=== PATIENT | male | born 1970 | race Caucasian/White ===

== ENCOUNTER 2017-04-11 12:04 | Observation (INO) | payer OTHER ==
[2017-04-11] MEDS ORDERED: IBUPROFEN 600 MG TAB PO STA (12:38)
[2017-04-11] MEDS ORDERED: ACETAMINOPHEN TAB 500 MG TAB PO STA (12:38)
--- NOTE | 2017-04-11 12:41 | ED ---
General Adult HPI - General Chief complaint: Neck Pain/Injury Stated complaint: Abscess on neck Time Seen by Provider: 04/11/17 12:33 Source: patient, RN notes reviewed Mode of arrival: ambulatory Limitations: no limitations - History of Present Illness Initial comments: 46-year-old male presents to the emergency department with a chief complaint of swollen lymph nodes dissected the neck. Patient stateshis last 2 days they become very tender to touch. Patient states it's felt warm to the outside the neck is well. Patient states it's localized swelling is not diffuse. Patient states that they are painful to touch. Patient denies any fever home but he does have a low-grade fever here. Patient states that he has have diabetes his sugar was 212 yesterday. Patient states that he has had no pain opening closing mouth. Patient denies any ear pain. Patient denies any pain with movement of the neck. Patient does state that he has had weird areas infection in the past. Patient states that he was concerned due to the lumps without that he should be evaluated. Patient denies any recent fever, chills, shortness of breath, chest pain, back pain, abdominal pain, nausea vomiting, numbness or tingling, dysuria or hematuria, constipation or diarrhea, headaches or visual changes, or any other current symptoms. - Related Data Home Medications Medication Instructions Recorded Confirmed Gabapentin [Neurontin] 800 mg PO BID 05/06/14 04/11/17 Lisinopril [Lisinopril] 20 mg PO DAILY 06/22/15 04/11/17 Simvastatin [Zocor] 20 mg PO HS 06/22/15 04/11/17 DULoxetine HCL [Cymbalta] 60 mg PO BID 07/10/16 04/11/17 Gemfibrozil [Lopid] 600 mg PO AC-BID 07/10/16 04/11/17 Glimepiride [Amaryl] 4 mg PO AC-BRKFST 07/10/16 04/11/17 Insulin Glargine,Hum.rec.anlog 58 unit SQ 07/10/16 04/11/17 [Lantus Solostar] Omeprazole 20 mg PO BID 07/10/16 04/11/17 traMADol HCL [Ultram] 50 mg PO Q6HR PRN 07/10/16 04/11/17 Pregabalin [Lyrica] 100 mg PO TID 04/11/17 04/11/17 metFORMIN HCL 2,000 mg PO BID 04/11/17 04/11/17 Previous Rx's Medication Instructions Recorded EPINEPHrine [Epipen 2-Jace] 0.3 mg IM ONCE PRN #1 ml 04/04/15 Allergies Allergy/AdvReac Type Severity Reaction Status Date / Time acetaminophen [From [place]] Allergy Rash/Hives Verified 04/11/17 12:32 hydrocodone [From [place]] Allergy Rash/Hives Verified 04/11/17 12:32 tomato Allergy Swelling Verified 04/11/17 12:32 venom-honey bee Allergy Anaphylaxis Verified 04/11/17 12:32 [bee venom (honey bee)] Review of Systems ROS Statement: Those systems with pertinent positive or pertinent negative responses have been documented in the HPI. ROS Other: All systems not noted in ROS Statement are negative. Past Medical History Past Medical History: Diabetes Mellitus, Fibromyalgia, GERD/Reflux, Hyperlipidemia, Hypertension, Skin Disorder Additional Past Medical History / Comment(s): Hx of Traumatic Amp of RT Distal 4TH Finger, at AGE 11, w/ log splitter. PSORIASIS. UMB HERNIA CURRENT. History of Any Multi-Drug Resistant Organisms: None Reported Past Surgical History: Orthopedic Surgery Additional Past Surgical History / Comment(s): RT Ring Finger Tip Amp. 2 COLONOSCOPIES. I&D ABSCESS LT GROIN 04/2014. Past Anesthesia/Blood Transfusion Reactions: Postoperative Nausea & Vomiting ( PONV) Additional Past Anesthesia/Blood Transfusion Reaction / Comment(s): PONV CHILD. Past Psychological History: Depression Smoking Status: Current every day smoker Past Alcohol Use History: None Reported Past Drug Use History: None Reported - Past Family History Father Family Medical History: Coronary Artery Disease (CAD) General Exam - General Exam Comments Initial Comments: General: The patient is awake and alert, in no distress, and does not appear acutely ill. Eye: Pupils are equal, round and reactive to light, extra-ocular movements are intact; there is normal conjunctiva bilaterally. No signs of icterus. Ears, nose, mouth and throat: There are moist mucous membranes. Neck: The neck is supple, there is tenderness to [place] on the neck. There does appear to be a tender lateral lymph node as well as the posterior area of tenderness on the right.. Patient had left-sided lymph node as well however this is not tender. Cardiovascular: There is a regular rate and rhythm. No murmur, rub or gallop is appreciated. Respiratory: Lungs are clear to auscultation, respirations are non-labored, breath sounds are equal. No wheezes, stridor, rales, or rhonchi. Back: There is no tenderness to palpation in the midline. There is no obvious deformity. No rashes noted. Musculoskeletal: Normal ROM, no tenderness, There is no pedal edema. There is no calf tenderness or swelling. Sensation intact. Pulses equal bilaterally 2+. Neurological: CN II-XII intact, There are no obvious motor or sensory deficits. Coordination appears grossly intact. Speech is normal. Skin: Skin is warm and dry and no rashes or lesions are noted. Psychiatric: Cooperative, appropriate mood & affect, normal judgment. Limitations: no limitations Course Vital Signs 04/11/17 04/11/17 12:29 13:04 Temperature 100.4 F H 100.2 F H Pulse Rate 104 H 100 Respiratory 18 21 Rate Blood Pressure 134/89 132/74 O2 Sat by Pulse 96 91 L Oximetry - Reevaluation(s) Reevaluation #1: 04/11/17 12:50 Patient did start to experience some lightheadedness in the emergency department at this time. I rechecked his temperature did increase to 101.6 which is temperature that I took. This is most likely causing patient's lightheadedness however we will do an EKG and add on cardiac labs for the patient at this time. Reevaluation #2: 04/11/17 14:11 At this time patient does meet sepsis criteria. Unasyn is ordered. EKG Findings - EKG Comments: EKG Findings:: normal sinus rhythm 97 bpm, normal axis, no atopy, no S-T depressions or elevations, Medical Decision Making - Medical Decision Making 46-year-old male presents for small swollen areas to the right side of the neck. This patient does appear to have a cellulitis versus lymphadenitis type infection. Patient does meet sepsis criteria. This time we'll admit the patient for IV antibiotics. At this time the patient does appear this plan all questions have been answered. Dr. Buck discussed the case with on-call physician from [facility]. - Lab Data Result diagrams: 04/11/17 13:16 04/11/17 13:16 Lab Results 04/11/17 04/11/17 04/11/17 Range/Units 12:41 13:16 13:16 WBC (3.8-10.6) k/uL RBC (4.30-5.90) m/uL Hgb (13.0-17.5) gm/dL Hct (39.0-53.0) % MCV (80.0-100.0) fL MCH (25.0-35.0) pg MCHC (31.0-37.0) g/dL RDW (11.5-15.5) % Plt Count (150-450) k/uL Neutrophils % % Lymphocytes % % Monocytes % % Eosinophils % % Basophils % % Neutrophils # (1.3-7.7) k/uL Lymphocytes # (1.0-4.8) k/uL Monocytes # (0-1.0) k/uL Eosinophils # (0-0.7) k/uL Basophils # (0-0.2) k/uL Sodium 136 L (137-145) mmol/L Potassium 4.1 (3.5-5.1) mmol/L Chloride 101 (98-107) mmol/L Carbon Dioxide 25 (22-30) mmol/L Anion Gap 10 mmol/L BUN 10 (9-20) mg/dL Creatinine 0.80 (0.66-1.25) mg/dL Est GFR (MDRD) Af Amer >60 (>60 ml/min/1.73 sqM) Est GFR (MDRD) Non-Af >60 (>60 ml/min/1.73 sqM) Glucose 426 H (74-99) mg/dL POC Glucose (mg/dL) 423 H (75-99) mg/dL POC Glu Laundry Worker ID Marzena Lauren Plasma Lactic Acid Travis (0.7-2.0) mmol/L Calcium 9.2 (8.4-10.2) mg/dL Phosphorus 2.7 (2.5-4.5) mg/dL Magnesium 1.7 (1.6-2.3) mg/dL Total Bilirubin 0.6 (0.2-1.3) mg/dL AST 47 (17-59) U/L ALT 55 (21-72) U/L Alkaline Phosphatase 110 (38-126) U/L Total Creatine Kinase 56 (55-170) U/L CK-MB (CK-2) <0.2 (0.0-2.4) ng/mL CK-MB (CK-2) Rel Index Troponin I <0.012 (0.000-0.034) ng/mL Total Protein 6.5 (6.3-8.2) g/dL Albumin 3.9 (3.5-5.0) g/dL Acetone, Qual Negative (Negative) 04/11/17 04/11/17 04/11/17 Range/Units 13:16 13:16 14:42 WBC 16.9 H (3.8-10.6) k/uL RBC 4.72 (4.30-5.90) m/uL Hgb 14.3 (13.0-17.5) gm/dL Hct 42.1 (39.0-53.0) % MCV 89.1 (80.0-100.0) fL MCH 30.3 (25.0-35.0) pg MCHC 34.0 (31.0-37.0) g/dL RDW 13.5 (11.5-15.5) % Plt Count 304 (150-450) k/uL Neutrophils % 84 % Lymphocytes % 9 % Monocytes % 5 % Eosinophils % 1 % Basophils % 0 % Neutrophils # 14.1 H (1.3-7.7) k/uL Lymphocytes # 1.5 (1.0-4.8) k/uL Monocytes # 0.9 (0-1.0) k/uL Eosinophils # 0.2 (0-0.7) k/uL Basophils # 0.0 (0-0.2) k/uL Sodium (137-145) mmol/L Potassium (3.5-5.1) mmol/L Chloride (98-107) mmol/L Carbon Dioxide (22-30) mmol/L Anion Gap mmol/L BUN (9-20) mg/dL Creatinine (0.66-1.25) mg/dL Est GFR (MDRD) Af Amer (>60 ml/min/1.73 sqM) Est GFR (MDRD) Non-Af (>60 ml/min/1.73 sqM) Glucose (74-99) mg/dL POC Glucose (mg/dL) 306 H (75-99) mg/dL POC Glu Laundry Worker ID Sergio Pearson Plasma Lactic Acid Travis 2.3 H* (0.7-2.0) mmol/L Calcium (8.4-10.2) mg/dL Phosphorus (2.5-4.5) mg/dL Magnesium (1.6-2.3) mg/dL Total Bilirubin (0.2-1.3) mg/dL AST (17-59) U/L ALT (21-72) U/L Alkaline Phosphatase (38-126) U/L Total Creatine Kinase (55-170) U/L CK-MB (CK-2) (0.0-2.4) ng/mL CK-MB (CK-2) Rel Index Troponin I (0.000-0.034) ng/mL Total Protein (6.3-8.2) g/dL Albumin (3.5-5.0) g/dL Acetone, Qual (Negative) - Radiology Data Radiology results: report reviewed, image reviewed Disposition Clinical Impression: Sepsis, Cellulitis, Diabetes, Lymphadenitis Disposition: ADMITTED IP TO THIS [facility] Condition: Stable Referrals: Lyubov Chang MD [Primary Care Provider] - 1-2 days Time of Disposition: 14:52 Decision Date: 04/11/17 Decision Time: 14:52
[2017-04-11] MEDS ORDERED: SODIUM CHLORIDE 0.9% 1,000 ML IV STA ×2 (12:42→14:07)
[2017-04-11] MEDS ORDERED: INSULIN LISPRO (humaLOG) 300 UNIT/3 ML VIAL SQ ONE (12:42)
[2017-04-11 12:44] LABS: Glucose,Whole Blood 423 mg/dL (75-99)
[2017-04-11 13:26] LABS: Basophils % (A) 0 %; CH 30.9; CHCM 34.8; Eosinophils # (A) 0.2 k/uL (0-0.7); Eosinophils % (A) 1 %; HCT 42.1 % (39.0-53.0); HDW 2.45; HGB 14.3 gm/dL (13.0-17.5); Luc # (Auto) 0.14; Luc % (Auto) 1; Lymphocytes # (A) 1.5 k/uL (1.0-4.8); Lymphocytes % (A) 9 %; MCH 30.3 pg (25.0-35.0); MCV 89.1 fL (80.0-100.0); Mean Platelet Volume 7.7; Monocytes # (A) 0.9 k/uL (0-1.0); Monocytes % (A) 5 %; Neutrophils # (A) 14.1 k/uL (1.3-7.7); Neutrophils % (A) 84 %; RBC 4.72 m/uL (4.30-5.90); RDW 13.5 % (11.5-15.5); WBC 16.9 k/uL (3.8-10.6)
--- NOTE | 2017-04-11 13:56 | XR ---
EXAMINATION TYPE: XR chest 2V DATE OF EXAM: 04/11/2017 COMPARISON: None HISTORY: 46-year-old male with cough TECHNIQUE: PA and lateral views FINDINGS: The cardiomediastinal silhouette, aorta, and pulmonary vasculature are within normal limits. Strandy areas of atelectasis in the mid to lower lungs. Mild interstitial prominence and mild peribronchial c uffing noted. No consolidation or pleural effusion. IMPRESSION: Some interstitial changes that could represent bronchitis or chronic asthma. Strandy areas of atelect asis are also present. No sherrie infiltrate.
[2017-04-11] MEDS ORDERED: AMPICILLIN-SULBACTAM 3 GM in SODIUM CHLORIDE 0.9% 100 ML IVPB STA (13:59)
[2017-04-11 14:03] LABS: Creatine Kinase 56 U/L (55-170)
[2017-04-11 14:06] LABS: ALT 55 U/L (21-72); AST 47 U/L (17-59); Alkaline Phosphatase 110 U/L (38-126); Anion Gap 10 mmol/L; Blood Urea Nitrogen 10 mg/dL (9-20); Calcium 9.2 mg/dL (8.4-10.2); Carbon Dioxide 25 mmol/L (22-30); Chloride 101 mmol/L (98-107); Glucose 426 mg/dL (74-99); Magnesium 1.7 mg/dL (1.6-2.3); Non-African American GFR(MDRD) >60 (>60 ml/min/1.73 sqM); Phosphorous 2.7 mg/dL (2.5-4.5); Potassium 4.1 mmol/L (3.5-5.1); Sodium 136 mmol/L (137-145); Total Bilirubin 0.6 mg/dL (0.2-1.3); Total Protein 6.5 g/dL (6.3-8.2)
[2017-04-11 14:15] LABS: Creatine Kinase MB <0.2 ng/mL (0.0-2.4); Troponin I <0.012 ng/mL (0.000-0.034)
--- NOTE | 2017-04-11 14:32 | US ---
EXAMINATION TYPE: US st tissue neck DATE OF EXAM: 04/11/2017 COMPARISON: NONE CLINICAL HISTORY: 46-year-old male Pain. Right neck lump. TECHNIQUE: Multiple sonographic images targeted to the patient's right posterior and lateral neck wit h particular attention to the site of palpable abnormality. FINDINGS: A mildly enlarged but thickened lymph node is present at the right posterior neck at the site of palp able abnormality. This measures 1.4 x 1.1 cm. No other solid or cystic lesion is seen. IMPRESSION: Mildly enlarged lymph node along the right posterior neck at the site of palpable abnormality demonst rates a diffusely thickened cortex. Findings could represent lymphadenitis or other postinflammatory process. Clinical follow-up to ensure resolution. If any enlargement is noted, the area can be reimag ed and tissue sampling can be considered.
[2017-04-11 14:44] LABS: Glucose,Whole Blood 306 mg/dL (75-99)
[2017-04-11 14:58] LABS: Appearance,Urine Clear (Clear); Bilirubin,Urine Negative (Negative); Glucose,Urine (UA) 4+ (Negative); Ketones,Urine 1+ (Negative); Leukocyte Esterase,Urine Negative (Negative); Nitrite,Urine Negative (Negative); PH, Urine 5.5 (5.0-8.0); Protein,Urine Negative (Negative); Specific Gravity,Urine 1.033 (1.001-1.035); UA Billing (MACRO vs. MICRO) CHEM; Urobilinogen,Urine <2.0 mg/dL (<2.0)
[2017-04-11] MEDS ORDERED: traMADol 50 MG TAB PO PRN (15:03)
[2017-04-11] MEDS ORDERED: IBUPROFEN 400 MG TAB PO PRN (15:04)
[2017-04-11] MEDS ORDERED: NICOTINE 21MG/24HR PATCH TRANSDERM STA (15:07)
[2017-04-11 16:50] LABS: Glucose,Whole Blood 277 mg/dL (75-99)
[2017-04-11] MEDS: PREGABALIN 100 MG CAP PO SCH ×2 (17:38→20:31)
[2017-04-11] MEDS: GEMFIBROZIL 600 MG TAB PO SCH (17:38)
[2017-04-11] MEDS: PANTOPRAZOLE 40 MG TABLET PO SCH (17:38)
[2017-04-11] MEDS: SODIUM CHLORIDE 0.45% 1,000 ML IV SCH (17:38)
[2017-04-11] MEDS: ACETAMINOPHEN TAB 500 MG TAB PO PRN (20:31)
[2017-04-11] MEDS: DULoxetine HCL 60 MG CAPSULE.DR PO SCH (20:31)
[2017-04-11] MEDS: metFORMIN 500 MG TAB PO SCH (20:32)
[2017-04-11] MEDS: GABAPENTIN 400 MG CAP PO SCH (20:32)
[2017-04-11] MEDS ORDERED: INSULIN DETEMIR 100 UNIT/ML 10 ML VIAL SQ SCH (21:00)
[2017-04-11] MEDS ORDERED: INSULIN GLARGINE 100 UNIT/ML 10 ML VIAL SQ SCH (21:00)
[2017-04-11] MEDS ORDERED: INSULIN GLARGINE HUM REC ANLOG 58 UNIT SQ SCH (21:00)
[2017-04-11] MEDS ORDERED: ATORVASTATIN 10 MG TAB PO SCH (21:00)
[2017-04-11] MEDS ORDERED: METFORMIN HCL 2000 MG PO SCH (21:00)
[2017-04-11 21:05] LABS: Glucose,Whole Blood 352 mg/dL (75-99)
[2017-04-11] MEDS: AMPICILLIN-SULBACTAM 3 GM in SODIUM CHLORIDE 0.9% 100 ML IVPB SCH (23:11)
[2017-04-12] MEDS: SODIUM CHLORIDE 0.45% 1,000 ML IV SCH ×2 (01:17→05:53)
[2017-04-12] MEDS: ACETAMINOPHEN TAB 500 MG TAB PO PRN (05:20)
[2017-04-12 05:57] LABS: Glucose,Whole Blood 229 mg/dL (75-99)
[2017-04-12] MEDS: GEMFIBROZIL 600 MG TAB PO SCH (06:33)
[2017-04-12 06:34] LABS: Basophils # (A) 0.1 k/uL (0-0.2); Basophils % (A) 0 %; CH 30.8; CHCM 34.3; Eosinophils # (A) 0.3 k/uL (0-0.7); Eosinophils % (A) 3 %; HCT 38.7 % (39.0-53.0); HDW 2.46; HGB 13.2 gm/dL (13.0-17.5); Luc # (Auto) 0.18; Luc % (Auto) 1; Lymphocytes # (A) 2.2 k/uL (1.0-4.8); Lymphocytes % (A) 17 %; MCH 30.9 pg (25.0-35.0); MCHC 34.2 g/dL (31.0-37.0); MCV 90.1 fL (80.0-100.0); Mean Platelet Volume 7.4; Monocytes # (A) 0.8 k/uL (0-1.0); Monocytes % (A) 7 %; Neutrophils # (A) 8.9 k/uL (1.3-7.7); Neutrophils % (A) 72 %; RBC 4.29 m/uL (4.30-5.90); RDW 13.3 % (11.5-15.5); WBC 12.5 k/uL (3.8-10.6); WBC (Perox) 13.05
[2017-04-12] MEDS: PANTOPRAZOLE 40 MG TABLET PO SCH (06:34)
[2017-04-12 06:44] LABS: ALT 66 U/L (21-72); AST 52 U/L (17-59); Alkaline Phosphatase 101 U/L (38-126); Anion Gap 8 mmol/L; Blood Urea Nitrogen 11 mg/dL (9-20); Calcium 9.1 mg/dL (8.4-10.2); Carbon Dioxide 24 mmol/L (22-30); Chloride 105 mmol/L (98-107); Glucose 229 mg/dL (74-99); Non-African American GFR(MDRD) >60 (>60 ml/min/1.73 sqM); Potassium 4.1 mmol/L (3.5-5.1); Sodium 137 mmol/L (137-145); Total Bilirubin 0.4 mg/dL (0.2-1.3); Total Protein 5.9 g/dL (6.3-8.2)
[2017-04-12] MEDS ORDERED: GLIMEPIRIDE 4 MG TAB PO SCH (07:30)
[2017-04-12] MEDS ORDERED: LISINOPRIL 20 MG TAB PO SCH (09:00)
[2017-04-12] MEDS: AMPICILLIN-SULBACTAM 3 GM in SODIUM CHLORIDE 0.9% 100 ML IVPB SCH (09:20)
[2017-04-12] MEDS: DULoxetine HCL 60 MG CAPSULE.DR PO SCH (09:28)
[2017-04-12] MEDS: GABAPENTIN 400 MG CAP PO SCH (09:28)
[2017-04-12] MEDS: metFORMIN 500 MG TAB PO SCH (09:28)
[2017-04-12] MEDS: PREGABALIN 100 MG CAP PO SCH (09:33)
[2017-04-12 10:23] LABS: Hemoglobin A1C 12.7 % (4.2-6.1)
[2017-04-12 11:39] LABS: Glucose,Whole Blood 266 mg/dL (75-99)
[2017-04-12 11:56] VITALS: BP 123/69; PULSE 71; RESP 20; TEMP 98.3
[2017-04-12] MEDS ORDERED: INSULIN LISPRO (humaLOG) 300 UNIT/3 ML VIAL SQ SCH (12:30)
--- NOTE | 2017-04-12 12:44 | P.HPIM ---
History of Present Illness H&P Date: 04/11/17 This is a 46-year-old gentleman that comes in to the hospital with complains of the tenderness in his neck 3 days. Patient states that he has noted increased erythema over the same area. It's usually on the right side. Denies having any problems with swallowing recent travel history. Patient states that he has also noted some chills and one episode of fever In the emergency room patient was noted to have mild lactic acidosis with the elevated white count. Patient was admitted to the hospital for treatment of cellulitis. A ultrasound of the neck was done which showed a lymphadenitis with some mild associated cellulitis Patient denies having any recent exposure to bugs Denies having any headaches blurry vision nausea vomiting diarrhea chest pain Review of Systems All systems: negative Past Medical History Past Medical History: Diabetes Mellitus, Fibromyalgia, GERD/Reflux, Hyperlipidemia, Hypertension, Skin Disorder Additional Past Medical History / Comment(s): Hx of Traumatic Amp of RT Distal 4TH Finger, at AGE 11, w/ log splitter. PSORIASIS. UMB HERNIA -HAD SX History of Any Multi-Drug Resistant Organisms: None Reported Past Surgical History: Orthopedic Surgery Additional Past Surgical History / Comment(s): RT Ring Finger Tip Amp. 2 COLONOSCOPIES. I&D ABSCESS LT GROIN 04/2014. Past Anesthesia/Blood Transfusion Reactions: Postoperative Nausea & Vomiting ( PONV) Additional Past Anesthesia/Blood Transfusion Reaction / Comment(s): PONV CHILD. Smoking Status: Current every day smoker - Past Family History Father Family Medical History: Coronary Artery Disease (CAD) Additional Family Medical History / Comment(s): from "hardening of the arteries" Mother Family Medical History: No Reported History Additional Family Medical History / Comment(s): "healthy" Medications and Allergies Home Medications Medication Instructions Recorded Confirmed Type Gabapentin [Neurontin] 800 mg PO BID 05/06/14 04/11/17 History Lisinopril 20 mg PO DAILY 06/22/15 04/11/17 History Simvastatin [Zocor] 20 mg PO HS 06/22/15 04/11/17 History DULoxetine HCL [Cymbalta] 60 mg PO BID 07/10/16 04/11/17 History Gemfibrozil [Lopid] 600 mg PO AC-BID 07/10/16 04/11/17 History Omeprazole 20 mg PO BID 07/10/16 04/11/17 History traMADol HCL [Ultram] 50 mg PO Q6HR PRN 07/10/16 04/11/17 History Pregabalin [Lyrica] 100 mg PO TID 04/11/17 04/11/17 History Allergies Allergy/AdvReac Type Severity Reaction Status Date / Time acetaminophen [From [place]] Allergy Rash/Hives Verified 04/11/17 12:32 hydrocodone [From [place]] Allergy Rash/Hives Verified 04/11/17 12:32 tomato Allergy Swelling Verified 04/11/17 12:32 venom-honey bee Allergy Anaphylaxis Verified 04/11/17 12:32 [bee venom (honey bee)] Physical Exam Vitals: Vital Signs Temp Pulse Resp BP Pulse Ox 04/11/17 16:22 84 16 139/79 94 L 04/11/17 13:04 100.2 F H 100 21 132/74 91 L 04/11/17 12:29 100.4 F H 104 H 18 134/89 96 Intake and Output 04/11/17 04/11/17 04/11/17 06:59 14:59 22:59 Other: Weight 133.81 kg Patient Weight 04/12/17 06:59 Weight 133.81 kg Physical exam Gen. appearance oriented 3 in no distress Neck is supple no JVD Lungs good air entry clear to auscultation no rhonchi or wheezing Heart S1-S2 heard regular rate and rhythm no murmurs appreciated Abdomen is soft nontender no organomegaly bowel sounds are intact Neurologically cranial nerves II-12 grossly intact no focal motor or sensory deficits noted Skin isolated lymphadenopathy tender to palpate associated erythema around the neck no tract reich noted Tender to palpation warm Results CBC & Chem 7: 04/12/17 05:57 04/12/17 05:57 Labs: Abnormal Lab Results - Last 24 Hours (Table) 04/11/17 04/11/17 04/11/17 Range/Units 12:41 13:16 13:16 WBC 16.9 H (3.8-10.6) k/uL Neutrophils # 14.1 H (1.3-7.7) k/uL Sodium 136 L (137-145) mmol/L Glucose 426 H (74-99) mg/dL POC Glucose (mg/dL) 423 H (75-99) mg/dL Plasma Lactic Acid Travis (0.7-2.0) mmol/L Urine Glucose (UA) (Negative) Urine Ketones (Negative) 04/11/17 04/11/17 04/11/17 Range/Units 13:16 14:42 14:47 WBC (3.8-10.6) k/uL Neutrophils # (1.3-7.7) k/uL Sodium (137-145) mmol/L Glucose (74-99) mg/dL POC Glucose (mg/dL) 306 H (75-99) mg/dL Plasma Lactic Acid Travis 2.3 H* (0.7-2.0) mmol/L Urine Glucose (UA) 4+ H (Negative) Urine Ketones 1+ H (Negative) 04/11/17 Range/Units 16:48 WBC (3.8-10.6) k/uL Neutrophils # (1.3-7.7) k/uL Sodium (137-145) mmol/L Glucose (74-99) mg/dL POC Glucose (mg/dL) 277 H (75-99) mg/dL Plasma Lactic Acid Travis (0.7-2.0) mmol/L Urine Glucose (UA) (Negative) Urine Ketones (Negative) Assessment and Plan Plan: sepsis sec to neck cellulitis DM2 Uncontrolled hyperglycemia obesity Dyslipidemia ongoing tobacco use plan ivf iv unasyn increase glargine 70units metformin dose is reduced hold sulfonyl urea ct neck dvt prophylaxis
--- NOTE | 2017-04-12 12:45 | P.DS ---
Providers Date of admission: 04/11/17 15:55 Attending physician: Jeovanny Boyle MD Primary care physician: [facility] Course: This is a 46-year-old gentleman that comes in to the hospital with complains of the tenderness in his neck 3 days. Patient states that he has noted increased erythema over the same area. It's usually on the right side. Denies having any problems with swallowing recent travel history. Patient states that he has also noted some chills and one episode of fever In the emergency room patient was noted to have mild lactic acidosis with the elevated white count. Patient was admitted to the hospital for treatment of cellulitis. A ultrasound of the neck was done which showed a lymphadenitis with some mild associated cellulitis Patient denies having any recent exposure to bugs Denies having any headaches blurry vision nausea vomiting diarrhea chest pain 04/12/2017 Patient states to be doing significantly better No fevers chills nausea vomiting or diarrhea Physical exam Gen. appearance oriented 3 in no distress Neck is supple no JVD Lungs good air entry clear to auscultation no rhonchi or wheezing Heart S1-S2 heard regular rate and rhythm no murmurs appreciated Abdomen is soft nontender no organomegaly bowel sounds are intact Neurologically cranial nerves II-12 grossly intact no focal motor or sensory deficits noted Skin isolated lymphadenopathy improved from admission Assessment and Plan Plan: sepsis sec to neck cellulitis DM2 Uncontrolled hyperglycemia obesity Dyslipidemia ongoing tobacco use, smoking cessation is recommended Patient improved with IV Unasyn Patient will be discharged home on Augmentin 10 days Patient had an ultrasound of the neck done Patient Condition at Discharge: Stable Plan - Discharge Summary New Discharge Prescriptions: New Amoxic-Pot Clav 875-125Mg [Augmentin 875-125] 1 tab PO Q12HR #20 tablet Insulin Glargine [Lantus] 70 unit SQ HS vial metFORMIN HCL [Glucophage] 1,000 mg PO BID tab Continue Gabapentin [Neurontin] 800 mg PO BID EPINEPHrine [Epipen 2-Jace] 0.3 mg IM ONCE PRN #1 ml PRN Reason: For ALLERGIC reaction Lisinopril 20 mg PO DAILY Simvastatin [Zocor] 20 mg PO HS traMADol HCL [Ultram] 50 mg PO Q6HR PRN PRN Reason: Pain DULoxetine HCL [Cymbalta] 60 mg PO BID Gemfibrozil [Lopid] 600 mg PO AC-BID Omeprazole 20 mg PO BID Pregabalin [Lyrica] 100 mg PO TID Discontinued Insulin Glargine,Hum.rec.anlog [Lantus Solostar] 58 unit SQ HS Glimepiride [Amaryl] 4 mg PO AC-BRKFST metFORMIN HCL 2,000 mg PO BID Discharge Medication List Gabapentin [Neurontin] 800 mg PO BID 05/06/14 [History] EPINEPHrine [Epipen 2-Jace] 0.3 mg IM ONCE PRN #1 ml 04/04/15 [Rx] Lisinopril 20 mg PO DAILY 06/22/15 [History] Simvastatin [Zocor] 20 mg PO HS 06/22/15 [History] DULoxetine HCL [Cymbalta] 60 mg PO BID 07/10/16 [History] Gemfibrozil [Lopid] 600 mg PO AC-BID 07/10/16 [History] Omeprazole 20 mg PO BID 07/10/16 [History] traMADol HCL [Ultram] 50 mg PO Q6HR PRN 07/10/16 [History] Pregabalin [Lyrica] 100 mg PO TID 04/11/17 [History] Amoxic-Pot Clav 875-125Mg [Augmentin 875-125] 1 tab PO Q12HR #20 tablet [Rx] Insulin Glargine [Lantus] 70 unit SQ HS vial 04/12/17 [Rx] metFORMIN HCL [Glucophage] 1,000 mg PO BID tab 04/12/17 [Rx] Follow up Appointment(s)/Referral(s): Alli Brooks DO [STAFF PHYSICIAN] - 1 Week Discharge Disposition: HOME SELF-CARE
[2017-04-12 14:10] VITALS: BMI 35.5
== END 2017-04-12 14:48 | disposition home or self-care (01) ==
LOC: EC 12:04 → INTOOBSV 15:55 → 6SEL 15:55
PROVIDERS: ADMIT Internal Medicine; ATTEND Internal Medicine
DX: A41.9 Sepsis, unspecified organism (principal); L03.221 Cellulitis of neck; E11.65 Type 2 diabetes mellitus with hyperglycemia; I88.9 Nonspecific lymphadenitis, unspecified; E87.2 Acidosis; I10 Essential (primary) hypertension; E66.9 Obesity, unspecified; E78.5 Hyperlipidemia, unspecified; L40.9 Psoriasis, unspecified; F32.9 Major depressive disorder, single episode, unspecified; M79.7 Fibromyalgia; K21.9 Gastro-esophageal reflux disease without esophagitis; Z79.899 Other long term (current) drug therapy; Z79.4 Long term (current) use of insulin; Z79.84 Long term (current) use of oral hypoglycemic drugs; F17.200 Nicotine dependence, unspecified, uncomplicated; Z88.6 Allergy status to analgesic agent; Z91.030 Bee allergy status; Z88.5 Allergy status to narcotic agent; Z91.018 Allergy to other foods
CPT/HCPCS: 96365; 96366 ×2; 99284; 36415; 93005; 80053 ×2; 83036; 82550; 82553; 82009; 83605; 83735; 84100; 84484; 85025 ×2; 81003; 87040; 87086; 71020; 76536; G0378 ×2; S4990; J0295 ×2

== ENCOUNTER 2018-10-15 23:42 | Inpatient (IN) | payer OTHER ==
--- NOTE | 2018-10-16 00:17 | ED ---
General Adult HPI - General Chief complaint: Skin/Abscess/Foreign Body Stated complaint: Lumps on Neck, Neck Pain Time Seen by Provider: 10/16/18 00:03 Source: patient Mode of arrival: ambulatory Limitations: no limitations - Related Data Home Medications Medication Instructions Recorded Confirmed Gabapentin [Neurontin] 800 mg PO BID 05/06/14 04/11/17 Lisinopril 20 mg PO DAILY 06/22/15 04/11/17 Simvastatin [Zocor] 20 mg PO HS 06/22/15 04/11/17 DULoxetine HCL [Cymbalta] 60 mg PO BID 07/10/16 04/11/17 Gemfibrozil [Lopid] 600 mg PO AC-BID 07/10/16 04/11/17 Omeprazole 20 mg PO BID 07/10/16 04/11/17 traMADol HCL [Ultram] 50 mg PO Q6HR PRN 07/10/16 04/11/17 Pregabalin [Lyrica] 100 mg PO TID 04/11/17 04/11/17 Previous Rx's Medication Instructions Recorded EPINEPHrine [Epipen 2-Jace] 0.3 mg IM ONCE PRN #1 ml 04/04/15 Amoxic-Pot Clav 875-125Mg 1 tab PO Q12HR #20 tablet 04/12/17 [Augmentin 875-125] Insulin Glargine [Lantus] 70 unit SQ HS vial 04/12/17 metFORMIN HCL [Glucophage] 1,000 mg PO BID tab 04/12/17 Allergies Allergy/AdvReac Type Severity Reaction Status Date / Time acetaminophen [From [place]] Allergy Rash/Hives Verified 10/16/18 00:00 hydrocodone [From [place]] Allergy Rash/Hives Verified 10/16/18 00:00 tomato Allergy Swelling Verified 10/16/18 00:00 venom-honey bee Allergy Anaphylaxis Verified 10/16/18 00:00 [bee venom (honey bee)] Review of Systems ROS Statement: Those systems with pertinent positive or pertinent negative responses have been documented in the HPI. ROS Other: All systems not noted in ROS Statement are negative. Past Medical History Past Medical History: Diabetes Mellitus, Fibromyalgia, GERD/Reflux, Hyperlipidemia, Hypertension, Skin Disorder Additional Past Medical History / Comment(s): Hx of Traumatic Amp of RT Distal 4TH Finger, at AGE 11, w/ log splitter. PSORIASIS. UMB HERNIA -HAD SX History of Any Multi-Drug Resistant Organisms: None Reported Past Surgical History: Orthopedic Surgery Additional Past Surgical History / Comment(s): RT Ring Finger Tip Amp. 2 COLONOSCOPIES. I&D ABSCESS LT GROIN 04/2014. Past Anesthesia/Blood Transfusion Reactions: Postoperative Nausea & Vomiting ( PONV) Additional Past Anesthesia/Blood Transfusion Reaction / Comment(s): PONV CHILD. Past Psychological History: Depression Smoking Status: Current every day smoker - Past Family History Father Family Medical History: Coronary Artery Disease (CAD) Additional Family Medical History / Comment(s): from "hardening of the arteries" Mother Family Medical History: No Reported History Additional Family Medical History / Comment(s): "healthy" General Exam Limitations: no limitations Course Vital Signs 10/15/18 10/16/18 23:58 00:20 Temperature 100.1 F H Pulse Rate 122 H 122 H Respiratory 20 18 Rate Blood Pressure 134/83 131/88 O2 Sat by Pulse 93 L 95 Oximetry Medical Decision Making - Medical Decision Making Dictation was produced using [employer] dictation software. please excuse any grammatical, word or spelling errors. Chief Complaint: 48-year-old male presents with neck pain. History of Present Illness: Patient reports neck pain that spent ongoing for approximately 2 days. Patient states that he is having painful lymph nodes to his posterior neck. Patient denies any constitutional symptoms. He states that he has a history of psoriasis. He cuts his own hair. Patient noted these lumps approximately yesterday. She also complains of tenderness to the entire scalp with sloughing of the skin. Patient reports history of psoriasis and fibromyalgia. Patient states he cuts his own hair. He reports that he uses clean equipment whenever he does so. The ROS documented in this emergency department record has been reviewed and confirmed by me. Those systems with pertinent positive or negative responses have been documented in the HPI. All other systems are other negative and/or noncontributory. PHYSICAL EXAM: General Impression: Alert and oriented x3, not in acute distress HEENT: Normocephalic atraumatic, extra-ocular movements intact, pupils equal and reactive to light bilaterally, mucous membranes moist, posterior cervical lymphadenopathy Cardiovascular: Heart regular rate and rhythm, S1&S2 audible, no murmurs, rubs or gallops Chest: Lungs clear to auscultation bilaterally, no rhonchi, no wheeze, no rales Abdomen: Bowel sounds present, abdomen soft, non-tender, non-distended, no organomegaly Musculoskeletal: Pulses present and equal in all extremities, no peripheral edema Motor: Power 5/5 bilaterally, no focal deficits noted Neurological: CN II-XII grossly intact, no focal motor or sensory deficits noted Skin: Redness and scaling over the entire scalp. Psych: Normal affect and mood ED course: 48-year-old male presents with chief complaint of neck pain and scalp rash. As upon arrival shows heart rate of 122, temperature 100.1, is O2 sat of 93.Laboratory evaluation obtained. Leukocytosis of 17. Rest of CBC unremarkable. Patient has mild gap acidosis. Glucose 388. Patient given intravenous fluids, Tylenol. Patient denying any other symptoms at this time. It's unlikely that his tinea capitis is causing systemic symptoms. There is clinical concern for serious bacterial infection versus influenza. Influenza test obtained. Pending results. Blood cultures and urine cultures are obtained. Patient given fluconazole, vancomycin and Unasyn. Patient be admitted for sepsis unclear source, suspicion of tinea capitis possible systemic fungal infection. - Lab Data Result diagrams: 10/16/18 00:10 10/16/18 00:10 Lab Results 10/16/18 10/16/18 Range/Units 00:10 00:10 WBC 16.9 H (3.8-10.6) k/uL RBC 5.49 (4.30-5.90) m/uL Hgb 16.8 (13.0-17.5) gm/dL Hct 48.4 (39.0-53.0) % MCV 88.1 (80.0-100.0) fL MCH 30.6 (25.0-35.0) pg MCHC 34.7 (31.0-37.0) g/dL RDW 12.4 (11.5-15.5) % Plt Count 202 (150-450) k/uL Neutrophils % 88 % Lymphocytes % 5 % Monocytes % 6 % Eosinophils % 1 % Basophils % 0 % Neutrophils # 14.8 H (1.3-7.7) k/uL Lymphocytes # 0.8 L (1.0-4.8) k/uL Monocytes # 1.0 (0-1.0) k/uL Eosinophils # 0.1 (0-0.7) k/uL Basophils # 0.0 (0-0.2) k/uL Sodium 135 L (137-145) mmol/L Potassium 4.1 (3.5-5.1) mmol/L Chloride 97 L (98-107) mmol/L Carbon Dioxide 25 (22-30) mmol/L Anion Gap 13 mmol/L BUN 11 (9-20) mg/dL Creatinine 0.63 L (0.66-1.25) mg/dL Est GFR (CKD-EPI)AfAm >90 (>60 ml/min/1.73 sqM) Est GFR (CKD-EPI)NonAf >90 (>60 ml/min/1.73 sqM) Glucose 388 H (74-99) mg/dL Calcium 9.8 (8.4-10.2) mg/dL Disposition Clinical Impression: Sepsis, Tinea capitis Disposition: ADMITTED IP TO THIS HOSP Condition: Fair Referrals: None,Stated [Primary Care Provider] - 1-2 days Decision Time: 01:01
[2018-10-16 00:40] LABS: Basophils % (A) 0 %; Eosinophils # (A) 0.1 k/uL (0-0.7); Eosinophils % (A) 1 %; HCT 48.4 % (39.0-53.0); HGB 16.8 gm/dL (13.0-17.5); Lymphocytes # (A) 0.8 k/uL (1.0-4.8); Lymphocytes % (A) 5 %; MCH 30.6 pg (25.0-35.0); MCHC 34.7 g/dL (31.0-37.0); MCV 88.1 fL (80.0-100.0); Mean Platelet Volume 7.2; Monocytes % (A) 6 %; Neutrophils # (A) 14.8 k/uL (1.3-7.7); Neutrophils % (A) 88 %; Platelet Count 202 k/uL (150-450); RBC 5.49 m/uL (4.30-5.90); RDW 12.4 % (11.5-15.5); WBC 16.9 k/uL (3.8-10.6)
[2018-10-16] MEDS ORDERED: SODIUM CHLORIDE 0.9% 1,000 ML IV STA (00:48)
[2018-10-16] MEDS ORDERED: KETOROLAC 30 MG/ML 1 ML VIAL IVP STA (00:49)
[2018-10-16 00:51] LABS: Anion Gap 13 mmol/L; Blood Urea Nitrogen 11 mg/dL (9-20); Calcium 9.8 mg/dL (8.4-10.2); Carbon Dioxide 25 mmol/L (22-30); Chloride 97 mmol/L (98-107); Glucose 388 mg/dL (74-99); Potassium 4.1 mmol/L (3.5-5.1); Sodium 135 mmol/L (137-145)
[2018-10-16] MEDS ORDERED: FLUCONAZOLE 150 MG TAB PO STA (00:52)
[2018-10-16] MEDS ORDERED: AMPICILLIN-SULBACTAM 3 GM in SODIUM CHLORIDE 0.9% 100 ML IVPB STA (00:56)
[2018-10-16] MEDS ORDERED: VANCOMYCIN 1,000 MG in SODIUM CHLORIDE 0.9% 250 ML IVPB STA (00:56)
[2018-10-16] MEDS ORDERED: NALOXONE 0.4 MG/ML 1 ML VIAL IV PRN (01:01)
[2018-10-16] MEDS ORDERED: ONDANSETRON 4 MG/2 ML VIAL IVP PRN (01:01)
[2018-10-16] MEDS ORDERED: VANCOMYCIN 2,000 MG in SODIUM CHLORIDE 0.9% 500 ML 500 ML IVPB STA (01:07)
[2018-10-16] MEDS ORDERED: VANCOMYCIN IV PER PHARMACY 1 EACH MISC MISCELLANE PRN (01:07)
--- NOTE | 2018-10-16 01:31 | XR ---
EXAMINATION TYPE: XR chest 2V DATE OF EXAM: 10/16/2018 COMPARISON: 04/11/2017 HISTORY: Swollen lymph nodes. Chest pain TECHNIQUE: Frontal and lateral views of the chest are obtained. FINDINGS: Heart and mediastinum are normal. Lungs are clear. Diaphragm is normal. Bony thorax appear s normal. IMPRESSION: Normal chest. No change.
[2018-10-16 01:56] LABS: Appearance,Urine Clear (Clear); Bilirubin,Urine Negative (Negative); Blood,Urine Negative (Negative); Color,Urine Yellow; Glucose,Urine (UA) 4+ (Negative); Leukocyte Esterase,Urine Negative (Negative); Nitrite,Urine Negative (Negative); PH, Urine 5.5 (5.0-8.0); Protein,Urine Trace (Negative); Specific Gravity,Urine 1.038 (1.001-1.035); Urobilinogen,Urine <2.0 mg/dL (<2.0)
[2018-10-16] MEDS ORDERED: VANCOMYCIN 2,000 MG in SODIUM CHLORIDE 0.9% 500 ML 500 ML IVPB ONE (02:00)
[2018-10-16 02:28] LABS: Ketones,Urine 2+ (Negative)
[2018-10-16] MEDS: SODIUM CHLORIDE 0.9% 1,000 ML IV SCH ×3 (02:48→21:06)
[2018-10-16] MEDS ORDERED: INSULIN ASPART 100 UNIT/ML 1 ML 10 ML VIAL SQ ONE (03:15)
--- NOTE | 2018-10-16 03:31 | P.HPIM ---
History of Present Illness H&P Date: 10/16/18 Chief Complaint: Palpable and painful small masses over the neck 48-year-old male with history of psoriasis hypertension and diabetes mellitus not currently on medications due to insurance problems. Patient presented to the ED due to painful palpable swollen glands over his neck which has been going on for 2 days patient grew concerned and suspicious and decided hospital. Patient has history of cellulitis in the past and was worried that this is an infection patient does admit to cutting his own hair but claims that he uses clean tools. Patient denies any fevers or chills at home denies any sore throat but does admit to generalized body aches mainly over the thighs this has never happened to him before where he found palpable lymph nodes over his neck. In the ED he was found to be having low-grade fevers and leukocytosis and was admitted for further management he was given antibiotic in the ER. Currently patient is seen on the medical floor he seems to be comfortable at bedtime had some food as he was hungry denies any sore throat or trouble swallowing or trouble breathing denies any chest pain or abdominal pain. Review of Systems Pertinent positives as noted in HPI. All other systems were reviewed and are negative Past Medical History Past Medical History: Diabetes Mellitus, Fibromyalgia, GERD/Reflux, Hyperlipidemia, Hypertension, Skin Disorder Additional Past Medical History / Comment(s): Hx of Traumatic Amp of RT Distal 4TH Finger, at AGE 11, w/ log splitter. PSORIASIS. UMB HERNIA -HAD SX History of Any Multi-Drug Resistant Organisms: None Reported Past Surgical History: Orthopedic Surgery Additional Past Surgical History / Comment(s): RT Ring Finger Tip Amp. 2 COLONOSCOPIES. I&D ABSCESS LT GROIN 04/2014. Past Anesthesia/Blood Transfusion Reactions: Postoperative Nausea & Vomiting ( PONV) Additional Past Anesthesia/Blood Transfusion Reaction / Comment(s): PONV CHILD. Past Psychological History: Depression Smoking Status: Current every day smoker - Past Family History Father Family Medical History: Coronary Artery Disease (CAD) Additional Family Medical History / Comment(s): from "hardening of the arteries" Mother Family Medical History: No Reported History Additional Family Medical History / Comment(s): "healthy" Medications and Allergies Home Medications Medication Instructions Recorded Confirmed Type Gabapentin [Neurontin] 800 mg PO BID 05/06/14 04/11/17 History EPINEPHrine [Epipen 2-Jace] 0.3 mg IM ONCE PRN #1 ml 04/04/15 04/11/17 Rx Lisinopril 20 mg PO DAILY 06/22/15 04/11/17 History Simvastatin [Zocor] 20 mg PO HS 06/22/15 04/11/17 History DULoxetine HCL [Cymbalta] 60 mg PO BID 07/10/16 04/11/17 History Gemfibrozil [Lopid] 600 mg PO AC-BID 07/10/16 04/11/17 History Omeprazole 20 mg PO BID 07/10/16 04/11/17 History traMADol HCL [Ultram] 50 mg PO Q6HR PRN 07/10/16 04/11/17 History Pregabalin [Lyrica] 100 mg PO TID 04/11/17 04/11/17 History Amoxic-Pot Clav 875-125Mg 1 tab PO Q12HR #20 tablet 04/12/17 Rx [Augmentin 875-125] Insulin Glargine [Lantus] 70 unit SQ HS vial 04/12/17 Rx metFORMIN HCL [Glucophage] 1,000 mg PO BID tab 04/12/17 Rx Allergies Allergy/AdvReac Type Severity Reaction Status Date / Time acetaminophen [From [place]] Allergy Rash/Hives Verified 10/16/18 00:00 hydrocodone [From [place]] Allergy Rash/Hives Verified 10/16/18 00:00 tomato Allergy Swelling Verified 10/16/18 00:00 venom-honey bee Allergy Anaphylaxis Verified 10/16/18 00:00 [bee venom (honey bee)] Physical Exam Vitals: Vital Signs Temp Pulse Resp BP Pulse Ox 10/16/18 01:46 98.9 F 105 H 18 128/84 96 10/16/18 00:20 122 H 18 131/88 95 10/15/18 23:58 100.1 F H 122 H 20 134/83 93 L Intake and Output 10/15/18 10/15/18 10/16/18 14:59 22:59 06:59 Other: Weight 106.594 kg Constitutional: No acute distress, conversant, pleasant, erythematous macule over his forehead, erythematous discoloration of the neck blanchable Eyes: Anicteric sclerae, moist conjunctiva, no lid-lag Pupils equal round reactive to light ENMT: NC/AT Oropharynx clear, no erythema, exudates Neck: Supple, FROM, no masses, or JVD No carotid bruits No thyromegaly Lungs: Clear to auscultation Clear to percussion Normal respiratory effort, no accessory muscle use Cardiovascular: Heart regular in rate and rhythm, No murmurs, gallops, or rubs No peripheral edema Abdominal: Soft Nontender, no guarding, rebound or rigidity Abdomen moving with respiration Normoactive bowel sounds No hepatomegaly, No splenomegaly No palpable mass No abdominal wall hernia noted Skin: Normal temperature, tone, texture, turgor No induration No subcutaneous nodules Multiple macular rashes over his forehead due to history of psoriasis No ulcers Extremities: No digital cyanosis No clubbing Pedal pulses intact and symmetrical Radial pulses intact and symmetrical No calf tenderness Psychiatric: Alert and oriented to person, place and time Appropriate affect fair judgement Neuro Muscles Strength 5/5 in all 4 extremities Sensation to light touch grossly present throughout Cranial nerves II-XII grossly intact No focal sensory deficits Lymphatics: palpable cervical lymph nodes Results CBC & Chem 7: 10/16/18 00:10 10/16/18 00:10 Labs: Abnormal Lab Results - Last 24 Hours (Table) 10/16/18 10/16/18 10/16/18 Range/Units 00:10 00:10 01:45 WBC 16.9 H (3.8-10.6) k/uL Neutrophils # 14.8 H (1.3-7.7) k/uL Lymphocytes # 0.8 L (1.0-4.8) k/uL Sodium 135 L (137-145) mmol/L Chloride 97 L (98-107) mmol/L Creatinine 0.63 L (0.66-1.25) mg/dL Glucose 388 H (74-99) mg/dL Ur Specific [place] 1.038 H (1.001-1.035) Urine Protein Trace H (Negative) Urine Glucose (UA) 4+ H (Negative) Assessment and Plan Assessment: 48-year-old male with history of diabetes mellitus and hypertension currently not on any medications secondary to noncompliance and loss of insurance. Patient admitted under observation with anticipated length of stay less than 48 hours due to cervical lymphadenopathy of unknown origin, patient was also found to have hyperglycemia secondary to noncompliance. Plan: Cervical lymphadenopathy unknown origin rule out underlying viral syndrome especially with patient complaining of generalized body aches Hyperglycemia with underlying diabetes mellitus secondary to noncompliance of medications Chronic conditions History of psoriasis History of hypertension History of diabetes mellitus Plan Aggressive IV fluid hydration Insulin boluses Patient bicarb is within normal limits Leukocytosis possibly reactive to hyperglycemia Enlarged Lymph nodes could be due to underlying viral syndrome especially with patient complains of generalized myalgia mainly in the lower extremities. Flu test negative Supportive care DVT prophylaxis with subcu 3 times a day Considerations could be made for CAT scan imaging of the soft tissue of the neck especially if patient starts spiking fevers Preformed a thorough record review from recent hospitalization patient was admitted for cellulitis of the neck treated with Unasyn Surrogate decision-maker: Patient's CODE STATUS: Full code Discussed with: Patient, ER, RN Anticipated discharge: <[address]: Home A total of 60 minutes was spent on the care of this complex patient more than 50 % of the time was spent in counseling and care coordination.
[2018-10-16] MEDS: IBUPROFEN 400 MG TAB PO PRN ×2 (03:49→09:18)
[2018-10-16] MEDS: INSULIN DETEMIR 100 UNIT/ML 10 ML VIAL SQ SCH ×2 (03:49→22:25)
[2018-10-16] MEDS: KETOROLAC 30 MG/ML 1 ML VIAL IVP SCH ×3 (05:59→17:41)
[2018-10-16 07:07] LABS: Glucose,Whole Blood 159 mg/dL (75-99)
[2018-10-16] MEDS: HEPARIN SODIUM,PORCINE 5,000 UNIT/ML 1 ML VIAL SQ SCH ×2 (08:56→15:39)
[2018-10-16] MEDS: INSULIN ASPART 100 UNIT/ML 1 ML 10 ML VIAL SQ SCH ×4 (08:56→22:25)
[2018-10-16] MEDS ORDERED: PANTOPRAZOLE 40 MG/10 ML VIAL IV SCH (09:00)
[2018-10-16 11:47] LABS: Glucose,Whole Blood 206 mg/dL (75-99)
--- NOTE | 2018-10-16 13:38 | P.PN ---
Progress Note - Text Progress Note Date: 10/16/18 48-year-old male with PMH of psoriasis, hypertension and diabetes mellitus presents the ED for next swelling and rash. Patient reports not being able to see a doctor, has been out of medications over the past months. He is recently obtained a job and his insurance has been reinstated. Patient reports neck swelling over the past 3 days. Also noticed red bumps that appeared on his head, different from his psoriasis, tenderness with palpation. He also complains of myalgias in his bilateral lower extremities. Otherwise, he denies any fever or chills. No nausea or vomiting. No abdominal pain. No diarrhea or constipation. No upper respiratory symptoms. He denies cough, shortness of breath, chest pain or palpitations. He is alert and oriented 3 Heart is regular rate and rhythm with normal S1-S2 and no murmurs rubs or gallops Lungs are clear to auscultation bilaterally He has 2+ dorsalis pedis pulses bilaterally He has no lower extremity edema He has profound cervical lymphadenopathy He is tender raised red lesions over his scalp and forehead Assessment and Plan 1. Cervical LAD with concerns for sepsis 2. Raised lesions over the scalp 3. Diabetes mellitus 4. Hypertension 1. Initial concerns for SIRS (HR > 100, WBC 16.9, Tmax 100.1). Started on ampicillin and sulbactam 3 g IV 3 times a day in the ED. Chest x-ray is negative. Will discontinue and continue vancomycin IV per levels. Continue normal saline at 150 mL/h. Ibuprofen as needed for pain or fever. Will follow blood cultures. Follow-up infectious disease consult. 2. Possibly related to infectious process or psoriatic rash. Pain management as above. Trial of triamcinolone cream. 3. POC glucose 206. Start Levemir 10 units at night, insulin sliding scale. Hypoglycemic precautions. Regular Accu-Cheks. Diabetic diet. 4. BP 137/71. Monitor vitals, adjust medications as necessary. Patient is admitted for cervical lymphadenopathy with concerns of sepsis. He has decent glycemic control at this time. Pending infectious disease consult.
[2018-10-16] MEDS: VANCOMYCIN 1,500 MG in SODIUM CHLORIDE 0.9% 250 ML IVPB SCH ×2 (15:39→22:26)
[2018-10-16] MEDS: TRIAMCINOLONE ACET 0.1% OINTMENT 15 GM TUBE TOPICAL SCH ×2 (16:21→22:25)
[2018-10-16 17:06] LABS: Glucose,Whole Blood 216 mg/dL (75-99)
[2018-10-16 21:00] LABS: Glucose,Whole Blood 358 mg/dL (75-99)
[2018-10-17] MEDS: KETOROLAC 30 MG/ML 1 ML VIAL IVP SCH ×5 (00:31→23:59)
[2018-10-17] MEDS: ceFAZolin IN SWFI 2 GM/20 ML SYRINGE IVP SCH ×4 (00:31→23:59)
[2018-10-17] MEDS: HEPARIN SODIUM,PORCINE 5,000 UNIT/ML 1 ML VIAL SQ SCH ×4 (00:32→23:59)
[2018-10-17] MEDS: IBUPROFEN 400 MG TAB PO PRN ×2 (00:59→16:55)
[2018-10-17] MEDS: SODIUM CHLORIDE 0.9% 1,000 ML IV SCH ×4 (04:14→23:11)
[2018-10-17 07:03] LABS: Anion Gap 3 mmol/L; Blood Urea Nitrogen 10 mg/dL (9-20); Calcium 8.8 mg/dL (8.4-10.2); Carbon Dioxide 29 mmol/L (22-30); Chloride 106 mmol/L (98-107); Glucose 182 mg/dL (74-99); Potassium 3.5 mmol/L (3.5-5.1); Sodium 138 mmol/L (137-145)
--- NOTE | 2018-10-17 07:10 | CONS ---
CONSULTATION DATE OF SERVICE: 10/16/2018 REASON FOR CONSULTATION: Sepsis. HISTORY OF PRESENT ILLNESS: The patient is a 48-year-old male with a past medical history significant for psoriasis and diabetes mellitus; however the patient is currently not on any medication for treatment of psoriasis. The patient presenting to the ER with chief complaints of painful lymph nodes in his right posterior neck area that has been going on for the past 2 days. The patient also developed a raised bump on his forehead that has been different from his psoriatic patches. The patient does have dull aching to the rash area in intensity about 4 to 5 out of 10 and no radiation with no skin breakdown or any drainage. The patient did have some , but denies having increasing fever. With these symptoms the patient presented to the [facility] ER. On arrival to the ER, the patient did have fever of 100.1 degrees Fahrenheit. The patient did have a white count of 16.9. The patient UA was negative. Influenza serology was negative. Chest x-ray was negative. The patient did receive multiple antibiotics with a dose of Unasyn in the ER. Subsequently had been started on vancomycin. Infectious Disease was consulted for further recommendation regarding antibiotic therapy. REVIEW OF SYSTEMS: Positive points have been mentioned in HPI. Rest of the 14 systems has been negative. PAST MEDICAL HISTORY: Diabetes mellitus, fibromyalgia, gastroesophageal reflux disease, hypertension, hyperlipidemia, psoriasis. PAST SURGICAL HISTORY: Traumatic amputation of the right distal 4th finger, umbilical hernia repair, colonoscopy, I and D of the left groin abscess. SOCIAL HISTORY: Current everyday smoker. No drinking or drug use. FAMILY HISTORY: Father history of coronary artery disease. Mother currently no illnesses. ALLERGIES: Allergies to ACETAMINOPHEN HYDROCODONE, TOMATO. MEDICATIONS: Medications include the patient is currently on vancomycin pharmacy to dose. He is on heparin, Motrin, NovoLog, Levemir, Toradol, Narcan, Zofran, Protonix, Kenalog cream. Did receive a dose of Unasyn and fluconazole in the ER. PHYSICAL EXAMINATION: On examination, blood pressure is 123/79 with a pulse of 91, temperature 90.6, T-max 100.1. He is 94% on room air. General description is a middle-aged male lying in bed in no distress. No tachypnea or accessory muscle of respiration use. HEENT examination shows no pallor or scleral icterus. The patient did have cellulitis of the forehead and scalp area currently with no evidence of any open area or fluctuation. NECK: Trachea central with posterior lymphadenopathy mostly on the right side. No evidence of axillary lymphadenopathy. LUNGS: Unlabored breathing clear to auscultation anteriorly. No wheeze or crackle. HEART: S1, S2. Regular rate and rhythm. ABDOMEN: Soft, no tenderness. No guarding or rigidity. EXTREMITIES: No edema of feet. SKIN EXAMINATION: No rashes except psoriatic patches in the region on the forehead. NEUROLOGICAL: Patient is awake, alert, oriented x3. Mood and affect normal. LABS: Hemoglobin 16.8, white of 16.9. BUN of 11, creatinine 0.63. UA negative. Influenza serology was negative. Chest x-ray negative. DIAGNOSTIC IMPRESSION AND PLAN: 1. Patient admitted to the hospital with sepsis in a patient who did have a fever, tachycardia, elevated white count. Source is likely forehead/scalp cellulitis with evidence of lymphadenopathy on the right posterior cervical lymph node area with diffuse swelling, redness more likely streptococcal cellulitis. Clinically the patient is for methicillin-resistant Staphylococcus aureus or gram-negative infection. 2. The patient with underlying diabetes mellitus and nephrotoxicity. PLAN: 1. We will discontinue the vancomycin. 2. Start the patient on cefazolin 2 grams q.8 hours. 3. We will monitor his clinical course closely and adjust antibiotic further if needed. Thank you for this consultation. Will follow this patient along with you. MMODL / IJN: [id number] /
[2018-10-17 07:26] LABS: Glucose,Whole Blood 180 mg/dL (75-99)
[2018-10-17] MEDS: PANTOPRAZOLE 40 MG TABLET PO SCH (08:15)
[2018-10-17] MEDS: INSULIN ASPART 100 UNIT/ML 1 ML 10 ML VIAL SQ SCH ×4 (08:15→21:23)
[2018-10-17] MEDS: TRIAMCINOLONE ACET 0.1% OINTMENT 15 GM TUBE TOPICAL SCH ×3 (08:15→21:24)
[2018-10-17] MEDS ORDERED: IBUPROFEN 400 MG TAB PO STA (08:28)
[2018-10-17] MEDS: NICOTINE 14MG/24HR PATCH TRANSDERM SCH (09:26)
--- NOTE | 2018-10-17 11:27 | P.PN ---
Subjective Progress Note Date: 10/17/18 Principal diagnosis: Cellulitis Patient seen and examined. No acute events overnight. Patient reports continuation of symptoms. Patient reports feeling warm. He complains of a continued rash over the scalp and forehead along with slightly improved swelling in the neck. He denies any cough, shortness of breath or chest pain. Patient is requesting a nicotine patch. Objective - Vital Signs Vital signs: Vital Signs Temp 98.6 F 10/17/18 07:00 Pulse 78 10/17/18 07:00 Resp 16 10/17/18 07:00 BP 117/69 10/17/18 07:00 Pulse Ox 92 L 10/17/18 07:00 Intake & Output 10/16/18 10/17/18 10/17/18 18:59 06:59 18:59 Intake Total 2588 2400 240 Balance 2588 2400 240 Intake: Intake, IV Titration 1200 2400 Amount Sodium Chloride 0.9% 1, 1200 2400 000 ml @ 150 mls/hr IV . Q6H40M [facility] Rx#:[id number] Oral 1188 240 Other 200 Other: # Voids 3 3 - Exam General: [non toxic], [no distress], [appears at stated age] Derm: [warm], [dry] Head: [atraumatic], [normocephalic], [symmetric], [cervical lymphadenopathy with tenderness], [raised red lesions over the scalp and forehead, unchanged from yesterday] Eyes: [EOMI], [no lid lag], [anicteric sclera] Mouth: [no lip lesion], [mucus membranes moist] Cardiovascular: [S1S2 reg], [no murmur] Lungs: [CTA bilateral], [no rhonchi, no rales] , [no accessory muscle use] Abdominal: [soft], [ nontender to palpation], [no guarding], [no appreciable organomegaly] Ext: [no gross muscle atrophy], [no edema], [no contractures] Neuro: [no focal neuro deficits] Psych: [Alert], [oriented], [appropriate affect] - Labs CBC & Chem 7: 10/16/18 00:10 10/17/18 06:02 Labs: Abnormal Lab Results - Last 24 Hours (Table) 10/16/18 10/16/18 10/16/18 Range/Units 11:36 16:55 20:49 Creatinine (0.66-1.25) mg/dL Glucose (74-99) mg/dL POC Glucose (mg/dL) 206 H 216 H 358 H (75-99) mg/dL 10/17/18 10/17/18 Range/Units 06:02 07:10 Creatinine 0.62 L (0.66-1.25) mg/dL Glucose 182 H (74-99) mg/dL POC Glucose (mg/dL) 180 H (75-99) mg/dL Microbiology - Last 24 Hours (Table) 10/16/18 01:02 Blood Culture - Preliminary Blood No Growth after 24 hours Assessment and Plan Assessment: Assessment and Plan 1. Cellulitis causing cervical LAD with concerns for sepsis 2. Raised lesions over the scalp 3. Diabetes mellitus 4. Hypertension 1. Initial concerns for SIRS (HR > 100, WBC 16.9, Tmax 100.1). Chest x-ray is negative. Initially started on Unasyn and vancomycin in the ED. Infectious disease consulted, all antibiotics discontinued for cefazolin 2 g IV 3 times a day. Continue normal saline at 150 mL/h. Ibuprofen as needed for pain or fever. Blood cultures preliminary negative at 24 hours. Will follow blood cultures. Follow infectious disease recommendations. 2. Likely cellulitis as per infectious disease. Pain management as above. Trial of triamcinolone cream. Continue IV antibiotics. 3. POC glucose 180. Start Levemir 10 units at night, insulin sliding scale. Hypoglycemic precautions. Regular Accu-Cheks. Diabetic diet. 4. BP 117/69. Monitor vitals, adjust medications as necessary. Patient is being treated for cellulitis with IV cefazolin. T-max 100.4 this morning. Infectious diseases on board. We will continue IV antibiotics while waiting for blood cultures to return. Patient will need to be afebrile for 24 hours prior to discharge.
[2018-10-17 12:17] LABS: Glucose,Whole Blood 226 mg/dL (75-99)
[2018-10-17] MEDS ORDERED: VANCOMYCIN TROUGH DUE 1 EACH MISC MISCELLANE ONE (13:00)
[2018-10-17 17:26] LABS: Glucose,Whole Blood 300 mg/dL (75-99)
[2018-10-17] MEDS ORDERED: POTASSIUM CHLORIDE ER 20 MEQ TAB.ER PO STA (19:49)
[2018-10-17 21:20] LABS: Glucose,Whole Blood 303 mg/dL (75-99)
[2018-10-17] MEDS: INSULIN DETEMIR 100 UNIT/ML 10 ML VIAL SQ SCH (21:23)
--- NOTE | 2018-10-17 23:34 | PN ---
PROGRESS NOTE DATE OF SERVICE: 10/17/2018. REASON FOR FOLLOWUP: Scalp cellulitis and cervical lymphadenitis. INTERVAL HISTORY: The patient did have a low-grade fever this morning of 100.4. The patient afebrile since then. The patient overall is feeling better. Overall, irritation to the scalp pain has decreased. The patient denies having any chest pain, shortness of breath or cough. No abdominal pain, no diarrhea. PHYSICAL EXAMINATION: Blood pressure 124/65 with a pulse of 83, temperature 98.9, temperature was 100.4. GENERAL DESCRIPTION: A middle-aged male lying in bed in no distress. HEENT: Scalp area erythematous rash slightly decreased in intensity. Lymphadenopathy on the bilateral cervical area, possibly decreased in intensity. LUNGS: Unlabored breathing clear to auscultation anteriorly. HEART: S1, S2. Regular rate and rhythm. ABDOMEN: Soft, no tenderness. LABS: Creatinine 0.6. No CBC was done today. DIAGNOSTIC IMPRESSION AND PLAN: Patient with fever with scalp cellulitis and cervical lymphadenitis. Patient at this time to continue on cefazolin. Repeat the CBC tomorrow. If the patient continues to improve, hopefully finish therapy with oral antibiotics. Continue supportive care. MMODL / IJN: [id number] /
[2018-10-18] MEDS: SODIUM CHLORIDE 0.9% 1,000 ML IV SCH ×3 (04:42→22:18)
[2018-10-18] MEDS: KETOROLAC 30 MG/ML 1 ML VIAL IVP SCH ×4 (05:31→23:42)
[2018-10-18 07:00] LABS: Glucose,Whole Blood 232 mg/dL (75-99)
[2018-10-18] MEDS: NICOTINE 14MG/24HR PATCH TRANSDERM SCH (08:09)
[2018-10-18] MEDS: ceFAZolin IN SWFI 2 GM/20 ML SYRINGE IVP SCH ×3 (08:09→23:43)
[2018-10-18] MEDS: PANTOPRAZOLE 40 MG TABLET PO SCH (08:09)
[2018-10-18] MEDS: HEPARIN SODIUM,PORCINE 5,000 UNIT/ML 1 ML VIAL SQ SCH ×3 (08:09→23:42)
[2018-10-18] MEDS: INSULIN ASPART 100 UNIT/ML 1 ML 10 ML VIAL SQ SCH ×4 (08:09→21:00)
[2018-10-18] MEDS: TRIAMCINOLONE ACET 0.1% OINTMENT 15 GM TUBE TOPICAL SCH ×3 (08:10→21:00)
[2018-10-18 08:40] LABS: Basophils # (A) 0.1 k/uL (0-0.2); Basophils % (A) 0 %; Eosinophils # (A) 0.2 k/uL (0-0.7); Eosinophils % (A) 2 %; HCT 40.6 % (39.0-53.0); Lymphocytes # (A) 2.2 k/uL (1.0-4.8); Lymphocytes % (A) 18 %; MCH 29.5 pg (25.0-35.0); MCHC 31.7 g/dL (31.0-37.0); MCV 92.9 fL (80.0-100.0); Mean Platelet Volume 6.7; Monocytes # (A) 0.9 k/uL (0-1.0); Monocytes % (A) 7 %; Neutrophils # (A) 8.7 k/uL (1.3-7.7); Neutrophils % (A) 71 %; Platelet Count 235 k/uL (150-450); RBC 4.37 m/uL (4.30-5.90); RDW 12.5 % (11.5-15.5); WBC 12.3 k/uL (3.8-10.6)
[2018-10-18 08:46] LABS: Anion Gap 3 mmol/L; Blood Urea Nitrogen 14 mg/dL (9-20); Calcium 8.7 mg/dL (8.4-10.2); Carbon Dioxide 27 mmol/L (22-30); Chloride 110 mmol/L (98-107); Glucose 248 mg/dL (74-99); HGB 12.9 gm/dL (13.0-17.5); Sodium 140 mmol/L (137-145)
[2018-10-18 08:53] LABS: Potassium 4.2 mmol/L (3.5-5.1)
--- NOTE | 2018-10-18 11:16 | P.DS ---
Providers Date of admission: 10/16/18 01:01 Expected date of discharge: 10/18/18 Attending physician: Prince Estes MD Consults: 10/16/18 01:02 Consult Physician Routine Consulting Provider: Jaison Almeida Consult Reason/Comments: sepsis Do you want consulting provider notified?: Yes Primary care physician: Stated None Hospital Course: 48-year-old male with PMH of psoriasis, hypertension and diabetes mellitus presents the ED for next swelling and rash. Patient reports not being able to see a doctor, has been out of medications over the past months. He is recently obtained a job and his insurance has been reinstated. Patient reports neck swelling over the past 3 days. Also noticed red bumps that appeared on his head, different from his psoriasis, tenderness with palpation. He also complains of myalgias in his bilateral lower extremities. Otherwise, he denies any fever or chills. No nausea or vomiting. No abdominal pain. No diarrhea or constipation. No upper respiratory symptoms. He denies cough, shortness of breath, chest pain or palpitations. 2 cervical lymphadenopathy there's initial concerns for sepsis. He did meet SIRS criteria with a heart rate greater than 100, WBC count of 16.9 and T-max of 101 Fahrenheit. His started on ampicillin and sulbactam IV in the ED which was discontinued for vancomycin IV. He was started on normal saline at 150 mL/ h and was given ibuprofen as needed for pain or fever. Blood cultures were performed and were negative at the time of discharge. Infectious disease was consulted and recommended discontinuing vancomycin for cefazolin IV in the treatment of cellulitis. Patient seen and examined prior to discharge. No acute events overnight. Patient reports improvement in his neck swelling, less tender. He also reports improvement in his scalp lesions. He does complain of slight swelling over the right eye lid. He denies any blurry vision or photophobia. No eye discharge. No fever or chills. General: [non toxic], [no distress], [appears at stated age] Derm: [warm], [dry] Head: [atraumatic], [normocephalic], [symmetric], [cervical lymphadenopathy with tenderness, improved], [raised red lesions over the scalp and forehead, improved from yesterday] Eyes: [EOMI], [no lid lag], [anicteric sclera] Mouth: [no lip lesion], [mucus membranes moist] Cardiovascular: [S1S2 reg], [no murmur] Lungs: [CTA bilateral], [no rhonchi, no rales] , [no accessory muscle use] Abdominal: [soft], [ nontender to palpation], [no guarding], [no appreciable organomegaly] Ext: [no gross muscle atrophy], [no edema], [no contractures] Neuro: [no focal neuro deficits] Psych: [Alert], [oriented], [appropriate affect] Assessment and Plan 1. Cellulitis causing cervical LAD with concerns for sepsis 2. Raised lesions over the scalp 3. Diabetes mellitus 4. Hypertension 1. Initial concerns for SIRS (HR > 100, WBC 16.9, Tmax 100.1). Chest x-ray is negative. Initially started on Unasyn and vancomycin in the ED. Infectious disease consulted, all antibiotics discontinued for cefazolin 2 g IV 3 times a day. Continue normal saline at 150 mL/h. Ibuprofen as needed for pain or fever. Blood cultures negative. Follow infectious disease recommendations. 2. Likely cellulitis as per infectious disease. Pain management as above. Trial of triamcinolone cream. Continue IV antibiotics. 3. POC glucose 248. Discharged on Levemir 15 units at night, insulin sliding scale. Hypoglycemic precautions. Regular Accu-Cheks. Diabetic diet. 4. BP 122/80. Monitor vitals, adjust medications as necessary. Patient is being treated for cellulitis with IV cefazolin. He was discharged on oral antibiotics to complete a ten-day course. We'll start Levemir 15 units at bedtime for glycemic control. He will need adequate primary care follow-up on discharge. Pertinent Studies: Chest x-ray Patient Condition at Discharge: Fair Plan - Discharge Summary Discharge Rx Participant: Yes New Discharge Prescriptions: New Insulin Detemir [Levemir] 15 unit SQ HS #5 vial Sulfamethox-Tmp 800-160Mg [Bactrim DS 800-160 mg] 1 tab PO Q12HR #14 tab Continue Ibuprofen [Motrin Ib] 600 - 800 mg PO Q6H Discontinued Acetaminophen [Tylenol Extra Strength] 500 - 1,000 mg PO Q8H PRN PRN Reason: Pain Discharge Medication List Ibuprofen [Motrin Ib] 600 - 800 mg PO Q6H 10/16/18 [History] Insulin Detemir [Levemir] 15 unit SQ HS #5 vial 10/18/18 [Rx] Sulfamethox-Tmp 800-160Mg [Bactrim DS 800-160 mg] 1 tab PO Q12HR #14 tab [Rx] Follow up Appointment(s)/Referral(s): None,Stated [Primary Care Provider] - 1-2 days DemondAncelmo jamison [NON-STAFF] - As Needed (Glucometer) Activity/Diet/Wound Care/Special Instructions: Glucometer prescription currently at [facility] who said, with your insurance you will have an out of pocket cost for glucometer and supplies of $ 130.07. If you are in agreement with paying this cost, please go to any [facility] location to purchase your glucometer and supplies. [facility] #. Another option is to go to [facility] for a free glucometer with lower costing supplies. [facility] #[phone]. Please hold your primary care provider within 1-2 days of discharge. Please take all medications as advised. Discharge Disposition: HOME SELF-CARE
[2018-10-18] MEDS ORDERED: VANCOMYCIN IV PER PHARMACY 1 EACH MISC MISCELLANE PRN (11:26)
[2018-10-18 11:50] LABS: Glucose,Whole Blood 213 mg/dL (75-99)
[2018-10-18] MEDS ORDERED: VANCOMYCIN 2,000 MG in SODIUM CHLORIDE 0.9% 500 ML 500 ML IVPB ONE (12:00)
[2018-10-18 16:44] LABS: Glucose,Whole Blood 306 mg/dL (75-99)
[2018-10-18] MEDS: INSULIN DETEMIR 100 UNIT/ML 10 ML VIAL SQ SCH (21:01)
[2018-10-18 21:07] LABS: Glucose,Whole Blood 322 mg/dL (75-99)
[2018-10-18] MEDS: VANCOMYCIN 1,750 MG in SODIUM CHLORIDE 0.9% 500 ML 500 ML IVPB SCH (22:17)
--- NOTE | 2018-10-18 23:11 | PN ---
PROGRESS NOTE DATE OF SERVICE: 10/18/2018. REASON FOR FOLLOWUP: 1. Scalp cellulitis. 2. Bacteremia. INTERVAL HISTORY: The patient's clinical course is complicated by development of positive blood culture with gram-positive cocci in chains. Unfortunately blood culture was repeated and vancomycin has been added. The patient's scalp swelling and redness has improved. He is also complaining of some right-sided facial swelling. The patient denies having any chest pain, shortness of breath or cough. No abdominal pain. No diarrhea. PHYSICAL EXAMINATION: Blood pressure 119/75, pulse of 78, temperature 97.8. He is 94% on room air. General description is a middle-aged male lying in bed in no distress. Scalp area swelling has decreased. LUNGS: Unlabored breathing. Clear to auscultation anteriorly. HEART: S1, S2. Regular rate and rhythm. ABDOMEN: Soft. No tenderness. LABS: Hemoglobin is 12.9, white count 12.3 today with a BUN of 14, creatinine 0.59. DIAGNOSTIC IMPRESSION AND PLAN: Patient admitted to hospital with cellulitis of the scalp area with Patient now with evidence of bacteremia. Blood culture has been repeated bacteremia. Vancomycin will be added and continue with cefazolin. Repeat CBC tomorrow. Depending upon the finding on his blood culture and clinical response, we will determine his discharge antibiotics. Continue with supportive care. MMBRANDONL / ALEXANDRN: [id number] /
[2018-10-19] MEDS: SODIUM CHLORIDE 0.9% 1,000 ML IV SCH ×2 (04:10→05:19)
[2018-10-19] MEDS: KETOROLAC 30 MG/ML 1 ML VIAL IVP SCH ×2 (05:18→12:27)
[2018-10-19] MEDS: VANCOMYCIN 1,750 MG in SODIUM CHLORIDE 0.9% 500 ML 500 ML IVPB SCH (05:19)
[2018-10-19 07:06] LABS: Glucose,Whole Blood 216 mg/dL (75-99)
[2018-10-19] MEDS: INSULIN ASPART 100 UNIT/ML 1 ML 10 ML VIAL SQ SCH ×2 (07:57→12:27)
[2018-10-19] MEDS: PANTOPRAZOLE 40 MG TABLET PO SCH (07:57)
[2018-10-19] MEDS: NICOTINE 14MG/24HR PATCH TRANSDERM SCH (07:57)
[2018-10-19] MEDS: HEPARIN SODIUM,PORCINE 5,000 UNIT/ML 1 ML VIAL SQ SCH (07:57)
[2018-10-19] MEDS: ceFAZolin IN SWFI 2 GM/20 ML SYRINGE IVP SCH (07:58)
[2018-10-19] MEDS: TRIAMCINOLONE ACET 0.1% OINTMENT 15 GM TUBE TOPICAL SCH (07:58)
[2018-10-19 09:12] LABS: Basophils # (A) 0.1 k/uL (0-0.2); Basophils % (A) 1 %; Eosinophils # (A) 0.3 k/uL (0-0.7); Eosinophils % (A) 3 %; HCT 39.6 % (39.0-53.0); HGB 12.7 gm/dL (13.0-17.5); Lymphocytes # (A) 2.5 k/uL (1.0-4.8); Lymphocytes % (A) 26 %; MCH 29.7 pg (25.0-35.0); MCHC 32.1 g/dL (31.0-37.0); MCV 92.4 fL (80.0-100.0); Mean Platelet Volume 7.2; Monocytes # (A) 0.8 k/uL (0-1.0); Monocytes % (A) 8 %; Neutrophils # (A) 5.9 k/uL (1.3-7.7); Neutrophils % (A) 61 %; Platelet Count 231 k/uL (150-450); RBC 4.28 m/uL (4.30-5.90); RDW 12.9 % (11.5-15.5); WBC 9.7 k/uL (3.8-10.6)
[2018-10-19 09:24] LABS: Anion Gap 4 mmol/L; Blood Urea Nitrogen 14 mg/dL (9-20); Calcium 8.6 mg/dL (8.4-10.2); Carbon Dioxide 25 mmol/L (22-30); Chloride 111 mmol/L (98-107); Glucose 241 mg/dL (74-99); Potassium 4.1 mmol/L (3.5-5.1); Sodium 140 mmol/L (137-145)
[2018-10-19 12:00] LABS: Glucose,Whole Blood 242 mg/dL (75-99)
[2018-10-19] MEDS ORDERED: diphenhydrAMINE 25 MG CAP PO STA (13:53)
--- NOTE | 2018-10-19 13:53 | P.PN ---
Subjective Progress Note Date: 10/19/18 Principal diagnosis: Bacteremia Patient seen and examined. No acute events overnight. Patient reports great improvement in his scalp rash, neck swelling. He denies any fever or chills. No nausea or vomiting. Patient reports swelling of his right eyelid. No eye discharge. No eye pain. Yesterday's discharge is held due to positive blood cultures. Patient placed back on vancomycin. Pending repeat blood culture results. Objective - Vital Signs Vital signs: Vital Signs Temp 98.0 F 10/19/18 07:13 Pulse 60 10/19/18 07:13 Resp 16 10/19/18 07:13 BP 113/70 10/19/18 07:13 Pulse Ox 93 L 10/19/18 07:13 Intake & Output 10/18/18 10/19/18 10/19/18 18:59 06:59 18:59 Intake Total 296 1450 Balance 296 1450 Intake: Intake, IV Titration 1450 Amount Sodium Chloride 0.9% 1, 450 000 ml @ 150 mls/hr IV . Q6H40M JONNA Rx#:[id number] Vancomycin 1,750 mg In 1000 Sodium Chloride 0.9% 500 ml 500 ml @ 166.667 mls/ hr IVPB Q8H JONAN Rx#: [id number] Oral 296 Other: # Voids 1 2 - Exam General: [non toxic], [no distress], [appears at stated age] Derm: [warm], [dry] Head: [atraumatic], [normocephalic], [symmetric], [cervical lymphadenopathy with tenderness, greatly improved], [raised red lesions over the scalp and forehead, greatly improved from yesterday] Eyes: [EOMI], [no lid lag], [anicteric sclera], [right eyelid superficial swollen] Mouth: [no lip lesion], [mucus membranes moist] Cardiovascular: [S1S2 reg], [no murmur] Lungs: [CTA bilateral], [no rhonchi, no rales] , [no accessory muscle use] Abdominal: [soft], [ nontender to palpation], [no guarding], [no appreciable organomegaly] Ext: [no gross muscle atrophy], [no edema], [no contractures] Neuro: [no focal neuro deficits] Psych: [Alert], [oriented], [appropriate affect] - Labs CBC & Chem 7: 10/19/18 08:21 10/19/18 08:21 Labs: Abnormal Lab Results - Last 24 Hours (Table) 10/18/18 10/18/18 10/19/18 Range/Units 16:43 20:54 06:53 RBC (4.30-5.90) m/uL Hgb (13.0-17.5) gm/dL Chloride (98-107) mmol/L Creatinine (0.66-1.25) mg/dL Glucose (74-99) mg/dL POC Glucose (mg/dL) 306 H 322 H 216 H (75-99) mg/dL 10/19/18 10/19/18 10/19/18 Range/Units 08:21 08:21 11:49 RBC 4.28 L (4.30-5.90) m/uL Hgb 12.7 L (13.0-17.5) gm/dL Chloride 111 H (98-107) mmol/L Creatinine 0.57 L (0.66-1.25) mg/dL Glucose 241 H (74-99) mg/dL POC Glucose (mg/dL) 242 H (75-99) mg/dL Microbiology - Last 24 Hours (Table) 10/16/18 01:02 Blood Culture Gram Stain - Preliminary Blood Blood Culture - Preliminary Coagulase Negative Staph Assessment and Plan Assessment: Assessment and Plan 1. Cellulitis causing cervical LAD with concerns for sepsis 2. Raised lesions over the scalp 3. Diabetes mellitus 4. Hypertension 1. Initial concerns for SIRS (HR > 100, WBC 16.9, Tmax 100.1). Chest x-ray is negative. Initially started on Unasyn and vancomycin in the ED. Blood cultures positive for coagulase-negative staph. Cefazolin discontinued and patient restarted on vancomycin IV. Continue normal saline at 150 mL/h. Ibuprofen as needed for pain or fever. Follow infectious disease recommendations. Follow repeat blood cultures 2. Likely cellulitis as per infectious disease. Pain management as above. Trial of triamcinolone cream. Continue IV antibiotics. 3. POC glucose 241. Discharged on Levemir 15 units at night, insulin sliding scale. Hypoglycemic precautions. Regular Accu-Cheks. Diabetic diet. 4. BP 113/70. Monitor vitals, adjust medications as necessary. Trial of Benadryl for right eyelid swelling. Blood culture positive, pending sensitivities. Repeat blood culture pending. We'll follow ID recommendations.
[2018-10-19 15:25] VITALS: BP 127/76; PULSE 70; RESP 17; TEMP 97.9
--- NOTE | 2018-10-19 16:21 | PN ---
PROGRESS NOTE DATE OF SERVICE: 10/19/2018 REASON FOR FOLLOWUP: 1. Scalp cellulitis. 2. Positive blood culture. INTERVAL HISTORY: The patient is currently afebrile. He is breathing comfortably. The patient's scalp area swelling and redness have improved. The lymphadenopathy in the neck area has resolved. The patient denies having any chest pain, shortness of breath or cough. No abdominal pain or diarrhea. PHYSICAL EXAMINATION: Blood pressure 127/76 with pulse of 70, temperature 97.9. He is 93% on room air. General description is a middle-aged male lying in bed in no distress. HEENT EXAMINATION: Scalp redness has almost resolved. NECK AREA: No lymphadenopathy. LUNGS: Unlabored breathing. Clear to auscultation. HEART: S1, S2. Regular rate and rhythm. ABDOMEN: Soft. No tenderness. LABS: Hemoglobin is 12.7, white count normalized to 9.7, creatinine 0.57. Blood culture coagulase-negative Staph. Repeat blood culture negative so far. DIAGNOSTIC IMPRESSION AND PLAN: 1. Patient with a fever and leukocytosis, likely secondary to scalp cellulitis. Patient has overall improvement on the cefazolin. That will be transitioned to oral Keflex to finish course of therapy. 2. Patient with a positive blood culture with coagulase-negative staph, likely skin contamination treatment for the same. Prescription was sent to the Pharmacy. He is cleared to be discharge from ID standpoint. MMBRANDONL / ALEXANDRN: [id number] /
[2018-10-20] MEDS ORDERED: VANCOMYCIN TROUGH DUE 1 EACH MISC MISCELLANE ONE (05:00)
== END 2018-10-19 16:53 | disposition home or self-care (01) | DRG 872 ==
LOC: EC 23:42 → 4SSUR 10-16 01:01
PROVIDERS: ADMIT Internal Medicine; ATTEND Internal Medicine
DX: A41.9 Sepsis, unspecified organism (principal); L03.811 Cellulitis of head [any part, except face]; B35.0 Tinea barbae and tinea capitis; E11.65 Type 2 diabetes mellitus with hyperglycemia; E78.5 Hyperlipidemia, unspecified; T50.906A Underdosing of unspecified drugs, medicaments and biological substances, initial encounter; F17.200 Nicotine dependence, unspecified, uncomplicated; F32.9 Major depressive disorder, single episode, unspecified; I10 Essential (primary) hypertension; I88.9 Nonspecific lymphadenitis, unspecified; K21.9 Gastro-esophageal reflux disease without esophagitis; L40.9 Psoriasis, unspecified; M79.7 Fibromyalgia; Z79.4 Long term (current) use of insulin; Z79.899 Other long term (current) drug therapy; Z91.030 Bee allergy status; Z88.5 Allergy status to narcotic agent; Z91.018 Allergy to other foods; Z91.120 Patient's intentional underdosing of medication regimen due to financial hardship; Z82.49 Family history of ischemic heart disease and other diseases of the circulatory system
CPT/HCPCS: 36415; 71046; 80048; 81003; 83605; 85025; 86308; 87040; 87077; 87186; 87502; 96365; 96375; 99284

== ENCOUNTER 2023-01-15 16:07 | Emergency (ER) | payer BC, OTHER ==
[2023-01-15 16:14] VITALS: BP 158/85; PULSE 111; RESP 18; TEMP 98.2
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
[2023-01-15] MEDS ORDERED: LIDOCAINE 1% INJ 10MG/ML (30 ML VIAL-PF) SQ ONE (16:31)
[2023-01-15] MEDS ORDERED: DOXYCYCLINE 100 MG CAP PO STA (17:03)
== END 2023-01-15 17:32 | disposition home or self-care (01) ==
LOC: EC 16:07
DX: L02.31 Cutaneous abscess of buttock (principal); E11.9 Type 2 diabetes mellitus without complications; I10 Essential (primary) hypertension; F17.200 Nicotine dependence, unspecified, uncomplicated; Z88.5 Allergy status to narcotic agent; Z88.6 Allergy status to analgesic agent; Z91.030 Bee allergy status; Z91.018 Allergy to other foods
CPT/HCPCS: 10061; 99283 ×2; 10060; J2001

== ENCOUNTER 2023-01-17 09:20 | Inpatient (IN) | payer BC ==
[2023-01-17] MEDS ORDERED: HYDROmorphone 0.5 MG/0.5 ML SYRINGE IVP STA (10:09)
[2023-01-17] MEDS ORDERED: PIPERACILLIN-TAZOBACTAM 3.375 GM in SODIUM CHLORIDE 0.9% 100 ML IVPB STA (10:09)
[2023-01-17] MEDS ORDERED: ONDANSETRON 4 MG/2 ML VIAL IVP STA (10:09)
[2023-01-17] MEDS ORDERED: VANCOMYCIN IV PER PHARMACY 1 EACH MISC MISCELLANE PRN (10:09)
[2023-01-17] MEDS ORDERED: VANCOMYCIN 1,750 MG in SODIUM CHLORIDE 0.9% 500 ML 500 ML IVPB STA (10:17)
[2023-01-17 10:35] LABS: Basophils % (A) 0 %; Eosinophils # (A) 0.2 k/uL (0-0.7); Eosinophils % (A) 1 %; HCT 42.2 % (39.0-53.0); Lymphocytes # (A) 1.5 k/uL (1.0-4.8); Lymphocytes % (A) 6 %; MCH 29.3 pg (25.0-35.0); MCHC 33.1 g/dL (31.0-37.0); MCV 88.6 fL (80.0-100.0); Mean Platelet Volume 6.9; Monocytes # (A) 1.3 k/uL (0-1.0); Monocytes % (A) 6 %; Neutrophils # (A) 20.5 k/uL (1.3-7.7); Neutrophils % (A) 86 %; Platelet Count 363 k/uL (150-450); RBC 4.76 m/uL (4.30-5.90); RDW 11.9 % (11.5-15.5); WBC 23.7 k/uL (3.8-10.6)
[2023-01-17 10:43] LABS: Partial Thromboplastin Time 22.2 sec (22.0-30.0); Prothrombin Time 10.9 sec (9.0-12.0)
[2023-01-17 10:47] LABS: ALT 44 U/L (4-49); AST 31 U/L (17-59); African American GFR (CKD) >90 (>60 ml/min/1.73 sqM); Albumin 3.7 g/dL (3.5-5.0); Alkaline Phosphatase 278 U/L (38-126); Anion Gap 12 mmol/L; Blood Urea Nitrogen 9 mg/dL (9-20); Carbon Dioxide 26 mmol/L (22-30); Chloride 97 mmol/L (98-107); Glucose 328 mg/dL (74-99); Non-African American GFR(CKD) >90 (>60 ml/min/1.73 sqM); Potassium 3.9 mmol/L (3.5-5.1); Sodium 135 mmol/L (137-145); Total Bilirubin 1.1 mg/dL (0.2-1.3); Total Protein 7.3 g/dL (6.3-8.2)
[2023-01-17] MEDS ORDERED: CLINDAMYCIN 900 MG in DEXTROSE 5% IN WATER 50 ML IVPB STA ×2 (10:50)
--- NOTE | 2023-01-17 11:10 | ED ---
Skin/Abscess/FB HPI - General Chief complaint: Skin/Abscess/Foreign Body Stated complaint: Recheck Time Seen by Provider: 01/17/23 09:43 Source: patient, RN notes reviewed Mode of arrival: ambulatory Limitations: no limitations - History of Present Illness Initial comments: 52-year-old male presents emergency Department with chief complaint of abscess. Patient states it's been there for 1 week. He is here a few days ago and had it opened up on his buttocks. She states the swelling, pain has spread down the buttocks and his perineum. Patient reports fever 101 at home. Patient states pain is unbearable he does not that he is a known diabetic blood sugar has been mildly elevated. Patient states he's had multiple abscesses in his buttocks in the past. - Related Data Home Medications Medication Instructions Recorded Confirmed Ibuprofen [Motrin Ib] 600 - 800 mg PO Q6H 10/16/18 10/16/18 Previous Rx's Medication Instructions Recorded Insulin Detemir (Levemir) [Levemir] 15 unit SQ HS #5 vial 10/18/18 cephALEXin [Keflex] 500 mg PO Q6HR #40 cap 10/19/18 Doxycycline [Vibramycin] 100 mg PO BID 10 Days #20 capsule 01/15/23 Allergies Allergy/AdvReac Type Severity Reaction Status Date / Time acetaminophen [From [place]] Allergy Rash/Hives Verified 01/17/23 09:36 hydrocodone [From [place]] Allergy Rash/Hives Verified 01/17/23 09:36 tomato Allergy Swelling Verified 01/17/23 09:36 venom-honey bee Allergy Anaphylaxis Verified 01/17/23 09:36 [bee venom (honey bee)] Review of Systems ROS Statement: Those systems with pertinent positive or pertinent negative responses have been documented in the HPI. ROS Other: All systems not noted in ROS Statement are negative. Past Medical History Past Medical History: Diabetes Mellitus, Fibromyalgia, GERD/Reflux, Hyperlipidemia, Hypertension, Skin Disorder Additional Past Medical History / Comment(s): Hx of Traumatic Amp of RT Distal 4TH Finger, at AGE 11, w/ log splitter. PSORIASIS. UMB HERNIA -HAD SX History of Any Multi-Drug Resistant Organisms: None Reported Past Surgical History: Orthopedic Surgery Additional Past Surgical History / Comment(s): RT Ring Finger Tip Amp. 2 COLONOSCOPIES. I&D ABSCESS LT GROIN 04/2014. Past Anesthesia/Blood Transfusion Reactions: Postoperative Nausea & Vomiting (PONV) Additional Past Anesthesia/Blood Transfusion Reaction / Comment(s): PONV CHILD. Past Psychological History: Depression Smoking Status: Current every day smoker, Heavy tobacco smoker Past Alcohol Use History: Occasional Past Drug Use History: None Reported - Past Family History Father Family Medical History: Coronary Artery Disease (CAD) Additional Family Medical History / Comment(s): from "hardening of the arteries" Mother Family Medical History: No Reported History Additional Family Medical History / Comment(s): "healthy" General Exam Limitations: no limitations General appearance: alert, in no apparent distress Head exam: Present: atraumatic, normocephalic, normal inspection Neck exam: Present: normal inspection, full ROM. Absent: tenderness, meningismus, lymphadenopathy Respiratory exam: Present: normal lung sounds bilaterally. Absent: respiratory distress, wheezes, rales, rhonchi, stridor Cardiovascular Exam: Present: normal rhythm, tachycardia, normal heart sounds. Absent: systolic murmur, diastolic murmur, rubs, gallop, clicks GI/Abdominal exam: Present: soft, normal bowel sounds. Absent: distended, tenderness, guarding, rebound, rigid Skin exam: Present: other (Left cheek there is erythema, times palpation and induration swelling down into his perineum with tenderness) Course Vital Signs 01/17/23 09:34 Temperature 98.5 F Pulse Rate 110 H Respiratory 20 Rate Blood Pressure 145/81 O2 Sat by Pulse 99 Oximetry Medical Decision Making - Medical Decision Making Was pt. sent in by a medical professional or institution (, PA, SQL PROGRAMMER ANALYST, urgent care, hospital, or [facility]...) When possible be specific @ -No Did you speak to anyone other than the patient for history (EMS, parent, family, police, friend...)? What history was obtained from this source @ -No Did you review nursing and triage notes (agree or disagree)? Why? @ -I reviewed and agree with nursing and triage notes Were old charts reviewed (outside hosp., previous admission, EMS record, old EKG, old radiological studies, urgent care reports/EKG's, [facility] records)? Report findings @ -Reviewed recent I&D procedure, medications Differential Diagnosis (chest pain, altered mental status, abdominal pain women, abdominal pain men, vaginal bleeding, weakness, fever, dyspnea, syncope, headache, dizziness, GI bleed, back pain, seizure, CVA, palpatations, mental health, musculoskeletal)? @ -Buttocks abscess, phlegmon, cellulitis, Sneha's gangrene, necrotizing fasciitis EKG interpreted by me (3pts min.). @ -None X-rays interpreted by me (1pt min.). @ -None done CT interpreted by me (1pt min.). @ -CT shows extensive cellulitic and phlegmon formation buttocks to anterior surface to the perineum U/S interpreted by me (1pt. min.). @ -None done What testing was considered but not performed or refused? (CT, X-rays, U/S, labs)? Why? @ -None What meds were considered but not given or refused? Why? @ -None Did you discuss the management of the patient with other professionals (professionals i.e. , PA, SQL PROGRAMMER ANALYST, lab, RT, psych nurse, social work assistant, crm developer, teacher, desk officer, rn field case manager)? Give summary @ -Discussed the case with on-call surgeon Dr. Chris who came to evaluate the patient Reglan IV antibiotics, medicine admission I did discuss case with Dr. hansen on-call for ENT patient lab consult to infectious disease. Patient was started on broad-spectrum antibiotics may require IV antibiotics upon discharge Was smoking cessation discussed for >3mins.? @ -No Was critical care preformed (if so, how long)? @ -35 Were there social determinants of health that impacted care today? How? (Homelessness, low income, unemployed, alcoholism, drug addiction, transportation, low edu. Level, literacy, decrease access to med. care, group home, rehab)? @ -No Was there de-escalation of care discussed even if they declined (Discuss DNR or withdrawal of care, Hospice)? DNR status @ -No What co-morbidities impacted this encounter? (DM, HTN, Smoking, COPD, CAD, Cancer, CVA, ARF, Chemo, Hep., AIDS, mental health diagnosis, sleep apnea, morbid obesity)? @ -Diabetes Was patient admitted / discharged? Hospital course, mention meds given and route, prescriptions, significant lab abnormalities, going to OR and other pertinent info. @ -Admitted patient has extensive cellulitis, phlegmon formation on CT patient failed outpatient treatment on oral antibiotics patient does not have drainable abscess currently there is extensive changes and which she'll be admitted for for IV antibiotics possible discharge on PICC line IV antibiotics. Patient case discussed with surgery, hospitalist and consult to infectious disease. Undiagnosed new problem with uncertain prognosis? @ -Yes Drug Therapy requiring intensive monitoring for toxicity (Heparin, Nitro, Insulin, Cardizem)? @ -No Were any procedures done? @ -No Diagnosis/symptom? @ -Phlegmon formation, cellulitis Acute, or Chronic, or Acute on Chronic? @ -Acute Uncomplicated (without systemic symptoms) or Complicated (systemic symptoms)? @ -complicated Side effects of treatment? @ -None Exacerbation, Progression, or Severe Exacerbation? @ -No Poses a threat to life or bodily function? How? (Chest pain, [place], [place], pneumonia, PE, COPD, DKA, ARF, appy, cholecystitis, CVA, Diverticulitis, Homicidal, Suicidal, threat to staff... and all critical care pts) @ -Yes patient has extensive infection. - Lab Data Result diagrams: 01/17/23 10:20 01/17/23 10:20 Lab Results 01/17/23 01/17/23 01/17/23 Range/Units 10:20 10:20 10:20 WBC 23.7 H (3.8-10.6) k/uL RBC 4.76 (4.30-5.90) m/uL Hgb 14.0 (13.0-17.5) gm/dL Hct 42.2 (39.0-53.0) % MCV 88.6 (80.0-100.0) fL MCH 29.3 (25.0-35.0) pg MCHC 33.1 (31.0-37.0) g/dL RDW 11.9 (11.5-15.5) % Plt Count 363 (150-450) k/uL MPV 6.9 Neutrophils % 86 % Lymphocytes % 6 % Monocytes % 6 % Eosinophils % 1 % Basophils % 0 % Neutrophils # 20.5 H (1.3-7.7) k/uL Lymphocytes # 1.5 (1.0-4.8) k/uL Monocytes # 1.3 H (0-1.0) k/uL Eosinophils # 0.2 (0-0.7) k/uL Basophils # 0.0 (0-0.2) k/uL PT 10.9 (9.0-12.0) sec INR 1.0 (<1.2) APTT 22.2 (22.0-30.0) sec Sodium 135 L (137-145) mmol/L Potassium 3.9 (3.5-5.1) mmol/L Chloride 97 L (98-107) mmol/L Carbon Dioxide 26 (22-30) mmol/L Anion Gap 12 mmol/L BUN 9 (9-20) mg/dL Creatinine 0.53 L (0.66-1.25) mg/dL Est GFR (CKD-EPI)AfAm >90 (>60 ml/min/1.73 sqM) Est GFR (CKD-EPI)NonAf >90 (>60 ml/min/1.73 sqM) Glucose 328 H (74-99) mg/dL Calcium 9.0 (8.4-10.2) mg/dL Total Bilirubin 1.1 (0.2-1.3) mg/dL AST 31 (17-59) U/L ALT 44 (4-49) U/L Alkaline Phosphatase 278 H (38-126) U/L Total Protein 7.3 (6.3-8.2) g/dL Albumin 3.7 (3.5-5.0) g/dL Critical Care Time Critical Care Time: Yes Total Critical Care Time: 35 Disposition Clinical Impression: Cellulitis, Phlegmonous cellulitis Disposition: ADMITTED IP TO THIS [facility] Condition: Serious Referrals: Lyubov Chang MD [Primary Care Provider] - 1-2 days Time of Disposition: 12:26
--- NOTE | 2023-01-17 12:10 | CT ---
EXAMINATION TYPE: CT pelvis w con DATE OF EXAM: 01/17/2023 COMPARISON: NONE HISTORY: 52-year-old male Abscess left buttocks TECHNIQUE: Contiguous axial scanning of the pelvis following administration of 100 ml Isovue 300 IV c ontrast. Delayed images through the bladder and coronal/sagittal reconstructions performed. CT DLP: 1437.5 mGycm Automated exposure control for dose reduction was used. FINDINGS: Some prominent fluid-filled small bowel loops in the right mid to lower abdomen probably transient. A ppendix is normal. Moderate stool burden. There is a 2.5 similar gallstone. No abnormal gallbladder d istention. 2.0 cm upper pole left renal cortical cyst. Small area of 1.1 cm cortical hypodensity lower pole right kidney. Preliminary ectatic right common iliac artery up to 1.6 cm. Bladder urine distended. Prostate gland is enlarged measuring 6.3 cm wide. There is some asymmetric r eactive left inguinal lymphadenopathy measuring up to 1.6 cm. There is extensive cellulitis with confluent edema along the left gluteal subcutaneous adipose layer, left perirectal region, and extending along the anterior left peroneal subcutaneous adipose spending up to nearly 20 cm front to back. Inflammatory changes extend anterior to the pubic bone. While confluent edema and phlegmonous changes suggested, no focal well-defined abscess is identified at this time. Small to moderate left and small right-sided hydroceles. No soft tissue air is identified. Mild degenerative disc disease L5-S1. Mild degenerative change of the hips. IMPRESSION: 1. EXTENSIVE CELLULITIS AND AREAS OF PHLEGMONOUS CHANGE ALONG THE LEFT GLUTEAL REGION EXTENDING ANTER IORLY IN THE SUBCUTANEOUS FAT OF THE LEFT PERINEUM SPANNING UP TO NEARLY 20 CM AP. THESE INFLAMMATORY CHANGES EXTEND ANTERIOR TO THE PUBIC BONE. NO NICK ABSCESS FORMATION AT THIS TIME. 2. A VAGUE AREA OF HYPODENSITY LOWER POLE RIGHT KIDNEY MEASURING 1.1 CM. POSSIBLE TINY CYST. CORRELAT E WITH URINALYSIS TO EXCLUDE THE POSSIBILITY OF A SMALL FOCUS OF PYELONEPHRITIS. 3. PROSTATOMEGALY AT 6.3 CM WIDE. 4. 2.5 MM GALLSTONE.
[2023-01-17] MEDS ORDERED: NALOXONE 0.4 MG/ML 1 ML VIAL IV PRN (12:26)
[2023-01-17] MEDS ORDERED: DEXTROSE 50% SYRINGE 50 ML IVP PRN ×2 (12:28)
[2023-01-17 12:55] LABS: Glucose,Whole Blood 258 mg/dL (70-110)
[2023-01-17] MEDS: INSULIN ASPART (NovoLOG) 100 UNIT/ML VIAL SQ SCH ×3 (13:30→20:42)
[2023-01-17] MEDS: HYDROmorphone 0.5 MG/0.5 ML SYRINGE IVP PRN ×3 (13:45→20:44)
--- NOTE | 2023-01-17 14:28 | P.GSCN ---
History of Present Illness Consult date: 01/17/23 History of present illness: CHIEF COMPLAINT: Left Buttock abscess HISTORY OF PRESENT ILLNESS: This is a 52-year-old male who presented with complaints of left buttock abscess. He was in the ER 2 days ago and sent home with antibiotics. Patient reports that the acidosis is been there for about a week. And it has started to worsen. Patient reports it's located on the left buttocks and radiating down into the perineum. Computed tomography scan of the pelvis shows extensive cellulitis and areas of phlegmonous change along the left gluteal region extending anteriorly in the subcutaneous fat of the left perineum spanning up to nearly 20 cm. These inflammatory changes extending anterior to the pubic bone. No sherrie abscess formation at this time. Surgical service was consulted for left buttock abscess/phlegmon. Patient has been placed on IV antibiotics infectious disease also on consult. Patient has been afebrile. White count elevated at 23.7. He has been mildly tachycardic. He is a diabetic. Patient seen and examined in the ER with Dr. zapata PAST MEDICAL HISTORY: See below PAST SURGICAL HISTORY: See below MEDICATIONS: See below ALLERGIES: See below SOCIAL HISTORY: No illicit drug use. REVIEW OF SYSTEMS: CONSTITUTIONAL: Denies fever or chills. HEENT: Denies blurred vision, vision changes, or eye pain. Denies hemoptysis CARDIOVASCULAR: Denies chest pain or pressure. RESPIRATORY: No shortness of breath. GASTROINTESTINAL: See HPI for pertinent findings HEMATOLOGIC: Denies bleeding disorders. GENITOURINARY: Denies any blood in urine or increased urinary frequency. SKIN: Denies pruitis. Denies rash. PHYSICAL EXAM: VITAL SIGNS: Reviewed GENERAL: Well-developed in no acute distress. ABDOMEN: Soft. Nondistended. Nontender NEUROLOGIC: Alert and oriented. Cranial nerves II through XII grossly intact. Skin: Left buttock cellulitis with swelling in the buttocks area down into the peritoneum. No evidence of drainage LABORATORY DATA: WBC is 23.7 Hgb 14 platelets 363 sodium is 135 potassium 3.9 creatinine 0.53 Lactic acid 2.0 IMAGING: computed tomography scan of pelvis extensive cellulitis and areas of ph legmonous change along the left gluteal region extending anteriorly in the subcutaneous fat of the left perineum spanning up to nearly 20 cm. These inflammatory changes extending anterior to the bone. No sherrie abscess formation at this time. A vague area of hypodensity lower pole right kidney measuring 1.1 cm. Possible tiny cysts. Correlate with urinalysis to exclude the possibility of a small focus of pyelonephritis. Prostamegaly 6.3 cm. 2.5 mm gallstone ASSESSMENT: 1. Cellulitis with inflammation and phlegmonous change along the left gluteal region into the subcutaneous fat of the left perineum 2. Diabetes mellitus PLAN: -Continue IV antibiotics -Continue supportive care -Continue to observe -Patient may require surgical intervention depending on how he progresses with a ntibiotics Thank you for this consultation Physician Cream Gatherer note has been reviewed by physician. Signing provider agrees with the documented findings, assessment, and plan of care. Past Medical History Past Medical History: Diabetes Mellitus, Fibromyalgia, GERD/Reflux, Hyperlipidemia, Hypertension, Skin Disorder Additional Past Medical History / Comment(s): Hx of Traumatic Amp of RT Distal 4TH Finger, at AGE 11, w/ log splitter. PSORIASIS. UMB HERNIA -HAD SX History of Any Multi-Drug Resistant Organisms: None Reported Past Surgical History: Orthopedic Surgery Additional Past Surgical History / Comment(s): RT Ring Finger Tip Amp. 2 COLONOSCOPIES. I&D ABSCESS LT GROIN 04/2014. Past Anesthesia/Blood Transfusion Reactions: Postoperative Nausea & Vomiting (PONV) Additional Past Anesthesia/Blood Transfusion Reaction / Comm: PONV CHILD. Past Psychological History: Depression Smoking Status: Current every day smoker, Heavy tobacco smoker Past Alcohol Use History: Occasional Past Drug Use History: None Reported - Past Family History Father Family Medical History: Coronary Artery Disease (CAD) Additional Family Medical History / Comment(s): from "hardening of the arteries" Mother Family Medical History: No Reported History Additional Family Medical History / Comment(s): "healthy" Medications and Allergies Home Medications Medication Instructions Recorded Confirmed Type Doxycycline [Vibramycin] 100 mg PO BID 10 Days #20 capsule 01/15/23 01/17/23 Rx Allergies Allergy/AdvReac Type Severity Reaction Status Date / Time acetaminophen [From [place]] Allergy Rash/Hives Verified 01/17/23 13:22 hydrocodone [From [place]] Allergy Rash/Hives Verified 01/17/23 13:22 tomato Allergy Swelling Verified 01/17/23 13:22 venom-honey bee Allergy Anaphylaxis Verified 01/17/23 13:22 [bee venom (honey bee)] Surgical - Exam Vital Signs Temp Pulse Resp BP Pulse Ox 98.5 F 110 H 20 145/81 99 01/17/23 09:34 01/17/23 09:34 01/17/23 09:34 01/17/23 09:34 01/17/23 09:34 Results - Labs 01/17/23 10:20 01/17/23 10:20 Abnormal Lab Results - Last 24 Hours (Table) 01/17/23 01/17/23 01/17/23 Range/Units 10:20 10:20 12:53 WBC 23.7 H (3.8-10.6) k/uL Neutrophils # 20.5 H (1.3-7.7) k/uL Monocytes # 1.3 H (0-1.0) k/uL Sodium 135 L (137-145) mmol/L Chloride 97 L (98-107) mmol/L Creatinine 0.53 L (0.66-1.25) mg/dL Glucose 328 H (74-99) mg/dL POC Glucose (mg/dL) 258 H (70-110) mg/dL Alkaline Phosphatase 278 H (38-126) U/L Diabetes panel 01/17/23 Range/Units 10:20 Sodium 135 L (137-145) mmol/L Potassium 3.9 (3.5-5.1) mmol/L Chloride 97 L (98-107) mmol/L Carbon Dioxide 26 (22-30) mmol/L BUN 9 (9-20) mg/dL Creatinine 0.53 L (0.66-1.25) mg/dL Glucose 328 H (74-99) mg/dL Calcium 9.0 (8.4-10.2) mg/dL AST 31 (17-59) U/L ALT 44 (4-49) U/L Alkaline Phosphatase 278 H (38-126) U/L Total Protein 7.3 (6.3-8.2) g/dL Albumin 3.7 (3.5-5.0) g/dL Calcium panel 01/17/23 Range/Units 10:20 Calcium 9.0 (8.4-10.2) mg/dL Albumin 3.7 (3.5-5.0) g/dL Pituitary panel 01/17/23 Range/Units 10:20 Sodium 135 L (137-145) mmol/L Potassium 3.9 (3.5-5.1) mmol/L Chloride 97 L (98-107) mmol/L Carbon Dioxide 26 (22-30) mmol/L BUN 9 (9-20) mg/dL Creatinine 0.53 L (0.66-1.25) mg/dL Glucose 328 H (74-99) mg/dL Calcium 9.0 (8.4-10.2) mg/dL Adrenal panel 01/17/23 Range/Units 10:20 Sodium 135 L (137-145) mmol/L Potassium 3.9 (3.5-5.1) mmol/L Chloride 97 L (98-107) mmol/L Carbon Dioxide 26 (22-30) mmol/L BUN 9 (9-20) mg/dL Creatinine 0.53 L (0.66-1.25) mg/dL Glucose 328 H (74-99) mg/dL Calcium 9.0 (8.4-10.2) mg/dL Total Bilirubin 1.1 (0.2-1.3) mg/dL AST 31 (17-59) U/L ALT 44 (4-49) U/L Alkaline Phosphatase 278 H (38-126) U/L Total Protein 7.3 (6.3-8.2) g/dL Albumin 3.7 (3.5-5.0) g/dL
[2023-01-17] MEDS: SODIUM CHLORIDE 0.9% 1,000 ML IV SCH (16:17)
[2023-01-17 17:05] LABS: Glucose,Whole Blood 199 mg/dL (70-110)
--- NOTE | 2023-01-17 18:34 | P.HPIM ---
History of Present Illness This is a pleasant 52 years old male with multiple medical problems including Diabetes Mellitus, Fibromyalgia, GERD/Reflux, Hyperlipidemia, Hypertension, ,Depression, nicotine dependence Presents because of skin infection in the gluteal folds, the middle with small papule in the larger polyp part. that Is been going on for about a week. The area to person us why he is lying in the right lateral side Patient denies chest pain dyspnea. No headache weakness a or numbness However patient complaining of from difficulty urination and constipation. Last time he P twice to 3:00 clear the morning. He denies dysuria urgency. He smokes about 1.5 pack per day and he was counseled to quit and he agrees and he agrees to the nicotine patch patient is tachycardic around 105 Patient tachycardic around 105 and he is a febrile Labs showed leukocytosis 23.7. BNP and liver enzymes are unremarkable. Glucose is elevated 328 CT of the pelvis with contrast showing extensive cellulitis and areas of phlegmonous changes along the left gluteal region extending anteriorly in the subcutaneous fat of the left perineum spanning up to nearly 20 cm. This inflammatory changes extend anterior to the pubic bone. No sherrie abscess. Small area 1.1 cm in the right kidney could be tiny cyst versus pyelonephritis, gallstone 2.5 mm, prostatomegaly Review of Systems Review of systems CONSTITUTIONAL: No fever, no malaise, no fatigue. HEENT: No recent visual problems or hearing problems. Denied any sore throat. CARDIOVASCULAR: No orthopnea, PND, no palpitations, no syncope. PULMONARY: No shortness of breath, no cough, no hemoptysis. GASTROINTESTINAL: No diarrhea, no nausea, no vomiting, no abdominal pain. Normoactive bowel sounds. NEUROLOGICAL: No headaches, no weakness, no numbness. HEMATOLOGICAL: Denies any bleeding or petechiae. GENITOURINARY: Denies any burning micturition, frequency, or urgency. MUSCULOSKELETAL/RHEUMATOLOGICAL: Denies any joint pain, swelling, or any muscle pain. ENDOCRINE: Denies any polyuria or polydipsia. Past Medical History Past Medical History: Diabetes Mellitus, Fibromyalgia, GERD/Reflux, Hyperlip idemia, Hypertension, Skin Disorder Additional Past Medical History / Comment(s): Hx of Traumatic Amp of RT Distal 4TH Finger, at AGE 11, w/ log splitter. PSORIASIS. UMB HERNIA -HAD SX History of Any Multi-Drug Resistant Organisms: None Reported Past Surgical History: Orthopedic Surgery Additional Past Surgical History / Comment(s): RT Ring Finger Tip Amp. 2 COLONOSCOPIES. I&D ABSCESS LT GROIN 04/2014. Past Anesthesia/Blood Transfusion Reactions: Postoperative Nausea & Vomiting (PONV) Additional Past Anesthesia/Blood Transfusion Reaction / Comment(s): PONV CHILD. Past Psychological History: Depression Smoking Status: Current every day smoker, Heavy tobacco smoker Past Alcohol Use History: Occasional Past Drug Use History: None Reported - Past Family History Father Family Medical History: Coronary Artery Disease (CAD) Additional Family Medical History / Comment(s): from "hardening of the arteries" Mother Family Medical History: No Reported History Additional Family Medical History / Comment(s): "healthy" Medications and Allergies Home Medications Medication Instructions Recorded Confirmed Type Doxycycline [Vibramycin] 100 mg PO BID 10 Days #20 capsule 01/15/23 01/17/23 Rx Allergies Allergy/AdvReac Type Severity Reaction Status Date / Time hydrocodone [From [place]] Allergy Rash/Hives Verified 01/17/23 13:22 tomato Allergy Swelling Verified 01/17/23 13:22 venom-honey bee Allergy Anaphylaxis Verified 01/17/23 13:22 [bee venom (honey bee)] Physical Exam Vitals: Vital Signs Temp Pulse Resp BP Pulse Ox 01/17/23 09:34 98.5 F 110 H 20 145/81 99 Intake and Output 01/16/23 01/17/23 01/17/23 22:59 06:59 14:59 Other: Weight 106.594 kg GENERAL: The patient is alert and oriented x3, not in any acute distress. Well developed, well nourished. HEENT: Pupils are round and equally reacting to light. EOMI. No scleral icterus. No conjunctival pallor. Normocephalic, atraumatic. No pharyngeal erythema. No thyromegaly. CARDIOVASCULAR: S1 and S2 present. No murmurs, rubs, or gallops. PULMONARY: Chest is clear to auscultation, no wheezing or crackles. -ABDOMEN: Soft, nontender, nondistended, normoactive bowel sounds. No palpable organomegaly. Patient with tender and inflammatory area, light pink in color involving the gluteal cleft old area down to the perineum with tenderness and swelling MUSCULOSKELETAL: No joint swelling or deformity. EXTREMITIES: No cyanosis, clubbing, or pedal edema. NEUROLOGICAL: Gross neurological examination did not reveal any focal deficits. SKIN: No rashes. no petechiae. Results CBC & Chem 7: 01/17/23 10:20 01/17/23 10:20 Labs: Abnormal Lab Results - Last 24 Hours (Table) 01/17/23 01/17/23 01/17/23 Range/Units 10:20 10:20 12:53 WBC 23.7 H (3.8-10.6) k/uL Neutrophils # 20.5 H (1.3-7.7) k/uL Monocytes # 1.3 H (0-1.0) k/uL Sodium 135 L (137-145) mmol/L Chloride 97 L (98-107) mmol/L Creatinine 0.53 L (0.66-1.25) mg/dL Glucose 328 H (74-99) mg/dL POC Glucose (mg/dL) 258 H (70-110) mg/dL Alkaline Phosphatase 278 H (38-126) U/L Assessment and Plan Assessment: Extensive cellulitis involving the buttock area, gluteal cleft and perineal. Sepsis with leukocytosis and tachycardia Large prostate Asymptomatic gallstone 2.5 mm Constipation Urine difficulty Plan: Continue with antibiotic per ID team, currently on IV vancomycin Surgery team consult Check renal ultrasound. Check urine analysis. Check a bladder scan Continue with IV fluid add At [facility] Labs and medication were reviewed.. Continue same treatment. Continue with symptomatic treatment. Resume home medication. Monitor labs and vitals. DVT and GI prophylaxis. Further recommendations as per clinical course of the patient DVT prophylaxis: Subcutaneous heparin GI Prophylaxis: Pepcid PT/OT: Pending Prognosis is guarded
--- NOTE | 2023-01-17 19:44 | US ---
EXAMINATION TYPE: US renals and bladder DATE OF EXAM: 01/17/2023 COMPARISON: CT: Today CLINICAL INDICATION: Male, 52 years old with history of Right kidney cyst; Hypodensity seen on rt kid francisco on CT EXAM MEASUREMENTS: Right Kidney: 15.7 x 6.3 x 6.1 cm Left Kidney: 15.1 x 5.8 x 6.5 cm Right Kidney: Subcentimeter Hypodensity in inf pole not visualized on ultrasound supine or LLD. There was bowel gas near inferior pole. Left Kidney: Cyst seen in sup pole measuring 2.5 x 2.3 x 2.1cm Bladder: wnl Bilateral Jets seen: Yes There is no evidence for hydronephrosis at this point in time. No nephrolithiasis is seen. A 2.3 cm simple appearing thin-walled cyst upper pole level left kidney is redemonstrated. Subcentimeter low- density lesion lower pole right kidney on recent CT is less well seen on ultrasound. The urinary blad dominick is adequately distended. Bilateral ureteral jets are seen. IMPRESSION: No suspicious solid or cystic renal masses noted.
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
[2023-01-17 20:02] LABS: Glucose,Whole Blood 278 mg/dL (70-110)
[2023-01-17 20:18] LABS: Amorphous Sediment,Urine Occasional /hpf; Appearance,Urine Clear (Clear); Bilirubin,Urine Negative (Negative); Blood,Urine Small (Negative); Color,Urine Yellow; Glucose,Urine (UA) 4+ (Negative); Leukocyte Esterase,Urine Negative (Negative); Mucus,Urine Few /hpf; Nitrite,Urine Negative (Negative); Protein,Urine 1+ (Negative); RBC,Urine 7 /hpf (0-5); WBC,Urine 2 /hpf (0-5)
[2023-01-17 20:21] LABS: Specific Gravity,Urine >1.050 (1.001-1.035)
[2023-01-17 20:23] LABS: Ketones,Urine 2+ (Negative)
[2023-01-17] MEDS: FAMOTIDINE 20 MG/2 ML VIAL IV SCH (20:38)
[2023-01-17] MEDS: DOCUSATE 100 MG CAP PO SCH (20:38)
[2023-01-17] MEDS: HEPARIN SODIUM,PORCINE/PF 5,000 UNIT/0.5 ML SYRINGE SQ SCH (20:41)
[2023-01-17] MEDS: NICOTINE 21MG/24HR PATCH TRANSDERM SCH (20:41)
[2023-01-17] MEDS: VANCOMYCIN 1,750 MG in SODIUM CHLORIDE 0.9% 500 ML 500 ML IVPB SCH (20:41)
[2023-01-17] MEDS: INSULIN DETEMIR (LEVEMIR) 100 UNIT/ML SYR SQ SCH (21:27)
[2023-01-17] MEDS: ACETAMINOPHEN TAB 325 MG TAB PO PRN (22:51)
[2023-01-18] MEDS: HYDROmorphone 0.5 MG/0.5 ML SYRINGE IVP PRN ×3 (00:34→09:03)
[2023-01-18] MEDS: SODIUM CHLORIDE 0.9% 1,000 ML IV SCH ×2 (03:54→16:16)
[2023-01-18] MEDS: VANCOMYCIN 1,750 MG in SODIUM CHLORIDE 0.9% 500 ML 500 ML IVPB SCH ×3 (03:54→20:31)
[2023-01-18 07:14] LABS: Glucose,Whole Blood 150 mg/dL (70-110)
[2023-01-18 07:43] LABS: African American GFR (CKD) >90 (>60 ml/min/1.73 sqM); Anion Gap 7 mmol/L; Blood Urea Nitrogen 9 mg/dL (9-20); Calcium 8.2 mg/dL (8.4-10.2); Carbon Dioxide 27 mmol/L (22-30); Chloride 100 mmol/L (98-107); Glucose 133 mg/dL (74-99); Non-African American GFR(CKD) >90 (>60 ml/min/1.73 sqM); Potassium 3.4 mmol/L (3.5-5.1); Sodium 134 mmol/L (137-145)
[2023-01-18] MEDS: INSULIN ASPART (NovoLOG) 100 UNIT/ML VIAL SQ SCH ×4 (08:25→20:50)
[2023-01-18] MEDS: FAMOTIDINE 20 MG/2 ML VIAL IV SCH (08:40)
[2023-01-18] MEDS: HEPARIN SODIUM,PORCINE/PF 5,000 UNIT/0.5 ML SYRINGE SQ SCH ×2 (08:41→20:30)
[2023-01-18] MEDS: NICOTINE 21MG/24HR PATCH TRANSDERM SCH (08:41)
[2023-01-18] MEDS: DOCUSATE 100 MG CAP PO SCH ×2 (08:43→20:30)
[2023-01-18 10:57] LABS: HCT 35.7 % (39.6-50.0); HGB 11.8 g/dL (13.0-17.0); MCH 29.6 pg (27.0-32.0); MCHC 33.1 g/dL (32.0-37.0); MCV 89.7 fL (80.0-97.0); Mean Platelet Volume 9.5 fL (9.5-12.2); NRBC Per 100 WBC 0 /100 WBCS (0.0-0.0); Platelet Count 333 X 10*3/uL (140-440); RBC 3.98 X 10*6/uL (4.40-5.60); RDW 11.9 % (11.5-14.5); WBC 25.13 X 10*3/uL (4.50-10.00)
[2023-01-18 11:45] LABS: Glucose,Whole Blood 199 mg/dL (70-110)
[2023-01-18] MEDS: HYDROmorphone 1 MG/ML 1 ML SYRINGE IVP PRN ×2 (13:15→20:31)
[2023-01-18] MEDS: TAMSULOSIN 0.4 MG CAP.ER.24H PO SCH (13:16)
[2023-01-18 13:37] LABS: Basophils # (A) 0.06 X 10*3/uL (0.00-0.10); Basophils % (A) 0.2 %; Eosinophils # (A) 0.21 X 10*3/uL (0.04-0.35); Eosinophils % (A) 0.8 %; Lymphocytes # (A) 1.73 X 10*3/uL (0.90-5.00); Lymphocytes % (A) 6.9 %; Monocytes # (A) 3.13 X 10*3/uL (0.20-1.00); Monocytes % (A) 12.5 %; Neutrophils # (A) 19.74 X 10*3/uL (1.80-7.70); Neutrophils % (A) 78.6 %; RBC Morphology NORMAL
--- NOTE | 2023-01-18 13:50 | P.PN ---
Subjective Progress Note Date: 01/18/23 Principal diagnosis: Left gluteal abscess and cellulitis Patient is a 52-year-old male presenting to the hospital with left gluteal pain and swelling he did have an attempted drainage in the ER 2 days before this admission unfortunately no cultures was done and the patient did have worsening on oral doxycycline, patient did have a pelvic CT with his extensive cellulitis phlegmon changes and no sherrie abscess. On today's evaluation her that is 01/18/2023, the patient did have a low-grade fever 100.4 after midnight the patient is complaining of more pain in the left gluteal area and swelling to the scrotum no drainage denies any chest pain shortness of breath or cough no abdominal pain or diarrhea Objective - Vital Signs Vital signs: Vital Signs Temp 99.2 F 01/18/23 11:40 Pulse 96 01/18/23 11:40 Resp 18 01/18/23 11:40 BP 129/61 01/18/23 11:40 Pulse Ox 93 L 01/18/23 11:40 FiO2 Intake & Output 01/17/23 01/18/23 01/18/23 18:59 06:59 18:59 Intake Total 2000 Output Total 400 Balance 1600 Weight 106.594 kg Intake: Intake, IV Titration 1400 Amount Sodium Chloride 0.9% 1, 900 000 ml @ 75 mls/hr IV . [id number] JONNA Rx#:[id number] Vancomycin 1,750 mg In 500 Sodium Chloride 0.9% 500 ml 500 ml @ 167 mls/hr IVPB Q8H JONNA Rx#: [id number] Oral 600 Output: Urine 400 Other: Voiding Method Toilet Toilet Toilet Urinal Urinal Urinal # Voids 1 - Exam GENERAL DESCRIPTION: Middle-age male lying in bed in no distress RESPIRATORY SYSTEM: Unlabored breathing , decreased breath sounds at bases HEART: S1 S2 regular rate and rhythm , ABDOMEN: Soft , left gluteal area did have area of induration and tenderness some scrotal swelling and redness no drainage EXTREMITIES: No edema feet - Labs CBC & Chem 7: 01/18/23 05:53 01/18/23 05:53 Labs: Abnormal Lab Results - Last 24 Hours (Table) 01/17/23 01/17/23 01/17/23 Range/Units 17:04 19:40 20:01 WBC (4.50-10.00) X 10*3/uL RBC (4.40-5.60) X 10*6/uL Hgb (13.0-17.0) g/dL Hct (39.6-50.0) % Sodium (137-145) mmol/L Potassium (3.5-5.1) mmol/L Creatinine (0.66-1.25) mg/dL Glucose (74-99) mg/dL POC Glucose (mg/dL) 199 H 278 H (70-110) mg/dL Hemoglobin A1c (0.0-6.0) % Calcium (8.4-10.2) mg/dL Ur Specific [place] >1.050 H (1.001-1.035) Urine Protein 1+ H (Negative) Urine Glucose (UA) 4+ H (Negative) Urine Ketones 2+ H (Negative) Urine Blood Small H (Negative) Urine RBC 7 H (0-5) /hpf Amorphous Sediment Occasional H (None) /hpf Urine Mucus Few H (None) /hpf 01/18/23 01/18/23 01/18/23 Range/Units 05:53 05:53 05:53 WBC 25.13 H (4.50-10.00) X 10*3/uL RBC 3.98 L (4.40-5.60) X 10*6/uL Hgb 11.8 L (13.0-17.0) g/dL Hct 35.7 L (39.6-50.0) % Sodium 134 L (137-145) mmol/L Potassium 3.4 L (3.5-5.1) mmol/L Creatinine 0.58 L (0.66-1.25) mg/dL Glucose 133 H (74-99) mg/dL POC Glucose (mg/dL) (70-110) mg/dL Hemoglobin A1c 11.5 H (0.0-6.0) % Calcium 8.2 L (8.4-10.2) mg/dL Ur Specific [place] (1.001-1.035) Urine Protein (Negative) Urine Glucose (UA) (Negative) Urine Ketones (Negative) Urine Blood (Negative) Urine RBC (0-5) /hpf Amorphous Sediment (None) /hpf Urine Mucus (None) /hpf 01/18/23 01/18/23 Range/Units 07:12 11:41 WBC (4.50-10.00) X 10*3/uL RBC (4.40-5.60) X 10*6/uL Hgb (13.0-17.0) g/dL Hct (39.6-50.0) % Sodium (137-145) mmol/L Potassium (3.5-5.1) mmol/L Creatinine (0.66-1.25) mg/dL Glucose (74-99) mg/dL POC Glucose (mg/dL) 150 H 199 H (70-110) mg/dL Hemoglobin A1c (0.0-6.0) % Calcium (8.4-10.2) mg/dL Ur Specific [place] (1.001-1.035) Urine Protein (Negative) Urine Glucose (UA) (Negative) Urine Ketones (Negative) Urine Blood (Negative) Urine RBC (0-5) /hpf Amorphous Sediment (None) /hpf Urine Mucus (None) /hpf Assessment and Plan (1) Abscess of buttock, left Current Visit: No Status: Acute Code(s): L02.31 - CUTANEOUS ABSCESS OF BUTTOCK SNOMED Code(s): 72361287 Plan: 1patient present to hospital with sepsis in this patient with fever tachycardia elevated white count source is left gluteal abscess failing outpatient oral doxycycline therapy unfortunately no cultures were done and the patient did have I&D in the ER few days ago 2-patient benefit from surgical drainage and deep culture 3-patient to continue with vancomycin pharmacy to dose with a target trough of 15, with slight worsening of the white count will add Unasyn and see clinical response Time with Patient: Less than 30
--- NOTE | 2023-01-18 14:32 | P.PN ---
Subjective Progress Note Date: 01/18/23 CHIEF COMPLAINT: Cellulitis of the left glute HISTORY OF PRESENT ILLNESS: Patient complaining of scrotal swelling. The left buttocks pain and perineal pain has decreased. No significant cellulitis. Mely ent did have a temp of 100.4 last night. WBC remains elevated and slightly increased from 23-25 hgb is 11.8 platelets 333 sodium 134 potassium 3.4 creatinine 0.58 hemoglobin A1c 11.5 Patient seen and examined with Dr. Chris PHYSICAL EXAM: VITAL SIGNS: Reviewed. GENERAL: Well-developed in no acute distress. HEENT: No sclera icterus. Extraocular movements grossly intact. Moist buccal mucosa. Head is atraumatic, normocephalic. ABDOMEN: Soft. Nondistended. Nontender. NEUROLOGIC: Alert and oriented. Cranial nerves II through XII grossly intact. SKIN: Left buttock and perineal area with no evidence of cellulitis. Area is soft. Decreased tenderness. No drainage. No evidence of abscess on exam : Significant scrotal swelling ASSESSMENT: 1. Left buttock cellulitis and phlegmonous changes. No evidence of abscess on exam. PLAN: -Recommend urology consult regarding scrotal swelling -No surgical intervention planned -Continue IV antibiotics Physician Model [employer] D[employer] Person note has been reviewed by physician. Signing provider agrees with the documented findings, assessment, and plan of care. Objective - Vital Signs Vital signs: Vital Signs Temp 99.6 F 01/18/23 07:11 Pulse 90 01/18/23 07:11 Resp 18 01/18/23 07:11 BP 129/72 01/18/23 07:11 Pulse Ox 93 L 01/18/23 07:11 FiO2 Intake & Output 01/17/23 01/18/23 01/18/23 18:59 06:59 18:59 Intake Total 2000 Output Total 400 Balance 1600 Weight 106.594 kg Intake: Intake, IV Titration 1400 Amount Sodium Chloride 0.9% 1, 900 000 ml @ 75 mls/hr IV . [id number] JONNA Rx#:[id number] Vancomycin 1,750 mg In 500 Sodium Chloride 0.9% 500 ml 500 ml @ 167 mls/hr IVPB Q8H JONNA Rx#: [id number] Oral 600 Output: Urine 400 Other: Voiding Method Toilet Toilet Urinal Urinal # Voids 1 - Labs CBC & Chem 7: 01/18/23 05:53 01/18/23 05:53 Labs: Abnormal Lab Results - Last 24 Hours (Table) 01/17/23 01/17/23 01/17/23 Range/Units 10:20 10:20 12:53 WBC 23.7 H (3.8-10.6) k/uL Neutrophils # 20.5 H (1.3-7.7) k/uL Monocytes # 1.3 H (0-1.0) k/uL Sodium 135 L (137-145) mmol/L Potassium (3.5-5.1) mmol/L Chloride 97 L (98-107) mmol/L Creatinine 0.53 L (0.66-1.25) mg/dL Glucose 328 H (74-99) mg/dL POC Glucose (mg/dL) 258 H (70-110) mg/dL Calcium (8.4-10.2) mg/dL Alkaline Phosphatase 278 H (38-126) U/L Ur Specific [place] (1.001-1.035) Urine Protein (Negative) Urine Glucose (UA) (Negative) Urine Ketones (Negative) Urine Blood (Negative) Urine RBC (0-5) /hpf Amorphous Sediment (None) /hpf Urine Mucus (None) /hpf 01/17/23 01/17/23 01/17/23 Range/Units 17:04 19:40 20:01 WBC (3.8-10.6) k/uL Neutrophils # (1.3-7.7) k/uL Monocytes # (0-1.0) k/uL Sodium (137-145) mmol/L Potassium (3.5-5.1) mmol/L Chloride (98-107) mmol/L Creatinine (0.66-1.25) mg/dL Glucose (74-99) mg/dL POC Glucose (mg/dL) 199 H 278 H (70-110) mg/dL Calcium (8.4-10.2) mg/dL Alkaline Phosphatase (38-126) U/L Ur Specific [place] >1.050 H (1.001-1.035) Urine Protein 1+ H (Negative) Urine Glucose (UA) 4+ H (Negative) Urine Ketones 2+ H (Negative) Urine Blood Small H (Negative) Urine RBC 7 H (0-5) /hpf Amorphous Sediment Occasional H (None) /hpf Urine Mucus Few H (None) /hpf 01/18/23 01/18/23 Range/Units 05:53 07:12 WBC (3.8-10.6) k/uL Neutrophils # (1.3-7.7) k/uL Monocytes # (0-1.0) k/uL Sodium 134 L (137-145) mmol/L Potassium 3.4 L (3.5-5.1) mmol/L Chloride (98-107) mmol/L Creatinine 0.58 L (0.66-1.25) mg/dL Glucose 133 H (74-99) mg/dL POC Glucose (mg/dL) 150 H (70-110) mg/dL Calcium 8.2 L (8.4-10.2) mg/dL Alkaline Phosphatase (38-126) U/L Ur Specific [place] (1.001-1.035) Urine Protein (Negative) Urine Glucose (UA) (Negative) Urine Ketones (Negative) Urine Blood (Negative) Urine RBC (0-5) /hpf Amorphous Sediment (None) /hpf Urine Mucus (None) /hpf
[2023-01-18 14:45] VITALS: BMI 28.5
--- NOTE | 2023-01-18 14:51 | CT ---
EXAMINATION TYPE: CT pelvis w con DATE OF EXAM: 01/18/2023 COMPARISON: CT pelvis one day earlier HISTORY: scrotal cellulitis CT DLP: 1585.9 mGycm Automated exposure control for dose reduction was used. CONTRAST: Performed with IV Contrast, patient injected with 100 mL of Isovue 300. FINDINGS: There is perinephric fluid and fat stranding which is nonspecific finding increased in prominence fro m prior study. No areas of nonenhancement. There is rim calcified 1.9 cm gallstone axial image 1 redemonstrated. No new inflammatory change surr ounding gallbladder is noted. No suspicious small or large bowel dilatation. Extensive fluid and fat stranding in the left scrotum with additional involvement in the left perirec diann and perianal tissues. There are symmetric small to moderate size bilateral scrotal fluid collecti on or hydroceles redemonstrated. No new suspicious foci of air. No well-formed focal fluid collection or abscess identified. Gutierrez catheter decompressing the bladder with nondependent air. Mild to moderate wall thickening is n ow present. Mildly enlarged prostate redemonstrated. Mild disc space narrowing L5-S1 level again seen. IMPRESSION: 1. Persistent marked fluid and fat stranding consistent with soft tissue infection or cellulitis from the left groin and scrotal region anteriorly to the left perirectal/perianal tissue similar in appea rosemarie to study one day earlier. No focal thick walled fluid collection or abscess seen. 2. Increasing perinephric fluid and fat stranding along with new wall thickening in the urinary bladd er. Consider acute cystitis and/or bilateral pyelonephritis as possible etiologies. Correlate clinica lly.
[2023-01-18] MEDS ORDERED: Magnesium Replacement Protocol 1 EACH MISC MISCELLANE PRN (14:52)
[2023-01-18] MEDS ORDERED: Potassium Replacement Protocol 1 EACH MISC MISCELLANE PRN ×2 (14:52→15:42)
--- NOTE | 2023-01-18 14:59 | P.PN ---
Subjective This is a pleasant 52 years old male with multiple medical problems including Diabetes Mellitus, Fibromyalgia, GERD/Reflux, Hyperlipidemia, Hypertension, ,Depression, nicotine dependence Presents because of skin infection in the gluteal folds, the middle with small papule in the larger polyp part. that Is been going on for about a week. The area to person us why he is lying in the right lateral side Patient denies chest pain dyspnea. No headache weakness a or numbness However patient complaining of from difficulty urination and constipation. Last time he P twice to 3:00 clear the morning. He denies dysuria urgency. He smokes about 1.5 pack per day and he was counseled to quit and he agrees and he agrees to the nicotine patch patient is tachycardic around 105 Patient tachycardic around 105 and he is a febrile Labs showed leukocytosis 23.7. BNP and liver enzymes are unremarkable. Glucose is elevated 328 CT of the pelvis with contrast showing extensive cellulitis and areas of phlegmonous changes along the left gluteal region extending anteriorly in the subcutaneous fat of the left perineum spanning up to nearly 20 cm. This i nflammatory changes extend anterior to the pubic bone. No sherrie abscess. Small area 1.1 cm in the right kidney could be tiny cyst versus pyelonephritis, gallstone 2.5 mm, prostatomegaly 01/18/2023 Patient looks more comfortable today, he still have pain in the area but 3/10, his pain control with pain pills. His scrotum is swollen and tender today. Yesterday he had found to have urinary retention more than 300 mL and Gutierrez catheter currently in place and draining clear urine. Is still complains from some constipation Urologist consulted who requested repeat Pelvic CT showing 1.persistent marked fluid and fat stranding consistent with soft tissue infection or cellulitis from the left groin and scrotal region anteriorly to the left perirectal/perianal tissue similar in appearance to study one day earlier. No focal abscess.2Increasing perinephric fluid and fat stranding along with a new wall thickening in the urinary bladder. Consider acute cystitis and/or bilateral pyelonephritis as possible etiologies patient also antibiotics were updated into IV vancomycin and Unasyn, infectious disease team on the case with help of antibiotic management Hemoglobin A1c is 11.5. Currently sugar is controlled Objective - Vital Signs Vital signs: Vital Signs Temp 99.2 F 01/18/23 11:40 Pulse 96 01/18/23 11:40 Resp 18 01/18/23 11:40 BP 129/61 01/18/23 11:40 Pulse Ox 93 L 01/18/23 11:40 FiO2 Intake & Output 01/17/23 01/18/23 01/18/23 18:59 06:59 18:59 Intake Total 2000 Output Total 400 Balance 1600 Weight 106.594 kg 106.594 kg Intake: Intake, IV Titration 1400 Amount Sodium Chloride 0.9% 1, 900 000 ml @ 75 mls/hr IV . [id number] JONNA Rx#:[id number] Vancomycin 1,750 mg In 500 Sodium Chloride 0.9% 500 ml 500 ml @ 167 mls/hr IVPB Q8H JONNA Rx#: [id number] Oral 600 Output: Urine 400 Other: Voiding Method Toilet Toilet Toilet Urinal Urinal Urinal # Voids 1 - Exam GENERAL: The patient is alert and oriented x3, not in any acute distress. Well developed, well nourished. HEENT: Pupils are round and equally reacting to light. EOMI. No scleral icterus. No conjunctival pallor. Normocephalic, atraumatic. No pharyngeal erythema. No thyromegaly. CARDIOVASCULAR: S1 and S2 present. No murmurs, rubs, or gallops. PULMONARY: Chest is clear to auscultation, no wheezing or crackles. -ABDOMEN: Soft, nontender, nondistended, normoactive bowel sounds. No palpable organomegaly. Patient with tender and inflammatory area, light pink in color involving the gluteal cleft old area down to the perineum with tenderness and s welling. Gutierrez catheter in place MUSCULOSKELETAL: No joint swelling or deformity. EXTREMITIES: No cyanosis, clubbing, or pedal edema. NEUROLOGICAL: Gross neurological examination did not reveal any focal deficits. SKIN: No rashes. no petechiae. - Labs CBC & Chem 7: 01/18/23 05:53 01/18/23 05:53 Labs: Abnormal Lab Results - Last 24 Hours (Table) 01/17/23 01/17/23 01/17/23 Range/Units 17:04 19:40 20:01 WBC (4.50-10.00) X 10*3/uL RBC (4.40-5.60) X 10*6/uL Hgb (13.0-17.0) g/dL Hct (39.6-50.0) % Immature Gran # (0.00-0.04) X 10*3/uL Neutrophils # (1.80-7.70) X 10*3/uL Monocytes # (0.20-1.00) X 10*3/uL Sodium (137-145) mmol/L Potassium (3.5-5.1) mmol/L Creatinine (0.66-1.25) mg/dL Glucose (74-99) mg/dL POC Glucose (mg/dL) 199 H 278 H (70-110) mg/dL Hemoglobin A1c (0.0-6.0) % Calcium (8.4-10.2) mg/dL Ur Specific [place] >1.050 H (1.001-1.035) Urine Protein 1+ H (Negative) Urine Glucose (UA) 4+ H (Negative) Urine Ketones 2+ H (Negative) Urine Blood Small H (Negative) Urine RBC 7 H (0-5) /hpf Amorphous Sediment Occasional H (None) /hpf Urine Mucus Few H (None) /hpf 01/18/23 01/18/23 01/18/23 Range/Units 05:53 05:53 05:53 WBC 25.13 H (4.50-10.00) X 10*3/uL RBC 3.98 L (4.40-5.60) X 10*6/uL Hgb 11.8 L (13.0-17.0) g/dL Hct 35.7 L (39.6-50.0) % Immature Gran # 0.26 H (0.00-0.04) X 10*3/uL Neutrophils # 19.74 H (1.80-7.70) X 10*3/uL Monocytes # 3.13 H (0.20-1.00) X 10*3/uL Sodium 134 L (137-145) mmol/L Potassium 3.4 L (3.5-5.1) mmol/L Creatinine 0.58 L (0.66-1.25) mg/dL Glucose 133 H (74-99) mg/dL POC Glucose (mg/dL) (70-110) mg/dL Hemoglobin A1c 11.5 H (0.0-6.0) % Calcium 8.2 L (8.4-10.2) mg/dL Ur Specific [place] (1.001-1.035) Urine Protein (Negative) Urine Glucose (UA) (Negative) Urine Ketones (Negative) Urine Blood (Negative) Urine RBC (0-5) /hpf Amorphous Sediment (None) /hpf Urine Mucus (None) /hpf 01/18/23 01/18/23 Range/Units 07:12 11:41 WBC (4.50-10.00) X 10*3/uL RBC (4.40-5.60) X 10*6/uL Hgb (13.0-17.0) g/dL Hct (39.6-50.0) % Immature Gran # (0.00-0.04) X 10*3/uL Neutrophils # (1.80-7.70) X 10*3/uL Monocytes # (0.20-1.00) X 10*3/uL Sodium (137-145) mmol/L Potassium (3.5-5.1) mmol/L Creatinine (0.66-1.25) mg/dL Glucose (74-99) mg/dL POC Glucose (mg/dL) 150 H 199 H (70-110) mg/dL Hemoglobin A1c (0.0-6.0) % Calcium (8.4-10.2) mg/dL Ur Specific [place] (1.001-1.035) Urine Protein (Negative) Urine Glucose (UA) (Negative) Urine Ketones (Negative) Urine Blood (Negative) Urine RBC (0-5) /hpf Amorphous Sediment (None) /hpf Urine Mucus (None) /hpf Assessment and Plan Assessment: Extensive cellulitis involving the buttock area, gluteal cleft and perineal. Sepsis with leukocytosis and tachycardia Urinary retention. Status post Gutierrez catheter Large prostate Asymptomatic gallstone 2.5 mm Constipation Urine difficulty Plan: Continue with antibiotic per ID team, currently on IV vancomycin and Unasyn Surgery team consult urology team consult Continue with Gutierrez catheter Continue with IV fluid Continue with Colace Labs and medication were reviewed.. Continue same treatment. Continue with symptomatic treatment. Resume home medication. Monitor labs and vitals. DVT and GI prophylaxis. Further recommendations as per clinical course of the patient DVT prophylaxis: Subcutaneous heparin GI Prophylaxis: Pepcid PT/OT: Pending Prognosis is guarded Plan discussed with patient and he is agreeable
[2023-01-18] MEDS: ACETAMINOPHEN TAB 325 MG TAB PO PRN (16:28)
[2023-01-18] MEDS: POTASSIUM CHLORIDE ER 20 MEQ TAB.ER PO SCH ×2 (16:29→17:31)
[2023-01-18 17:11] LABS: Glucose,Whole Blood 223 mg/dL (70-110)
[2023-01-18] MEDS: AMPICILLIN-SULBACTAM 3 GM in SODIUM CHLORIDE 0.9% 100 ML IVPB SCH (17:43)
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
[2023-01-18] MEDS: FAMOTIDINE 20 MG TAB PO SCH (20:30)
[2023-01-18 20:42] LABS: Glucose,Whole Blood 253 mg/dL (70-110)
[2023-01-18] MEDS: INSULIN DETEMIR (LEVEMIR) 100 UNIT/ML SYR SQ SCH (20:50)
[2023-01-19] MEDS: AMPICILLIN-SULBACTAM 3 GM in SODIUM CHLORIDE 0.9% 100 ML IVPB SCH ×4 (00:33→17:58)
[2023-01-19] MEDS: HYDROmorphone 1 MG/ML 1 ML SYRINGE IVP PRN ×5 (00:34→22:08)
[2023-01-19] MEDS: VANCOMYCIN 1,750 MG in SODIUM CHLORIDE 0.9% 500 ML 500 ML IVPB SCH ×3 (04:09→22:05)
[2023-01-19] MEDS: SODIUM CHLORIDE 0.9% 1,000 ML IV SCH ×2 (04:29→17:58)
[2023-01-19 06:59] LABS: Glucose,Whole Blood 142 mg/dL (70-110)
[2023-01-19] MEDS: INSULIN ASPART (NovoLOG) 100 UNIT/ML VIAL SQ SCH ×4 (08:41→22:08)
[2023-01-19] MEDS: FAMOTIDINE 20 MG TAB PO SCH ×2 (08:48→22:06)
[2023-01-19] MEDS: NICOTINE 21MG/24HR PATCH TRANSDERM SCH (08:48)
[2023-01-19] MEDS: TAMSULOSIN 0.4 MG CAP.ER.24H PO SCH (08:48)
[2023-01-19] MEDS: HEPARIN SODIUM,PORCINE/PF 5,000 UNIT/0.5 ML SYRINGE SQ SCH ×2 (08:48→22:05)
[2023-01-19] MEDS: DOCUSATE 100 MG CAP PO SCH ×2 (08:48→22:06)
--- NOTE | 2023-01-19 10:20 | P.PN ---
Subjective This is a pleasant 52 years old male with multiple medical problems including Diabetes Mellitus, Fibromyalgia, GERD/Reflux, Hyperlipidemia, Hypertension, ,Depression, nicotine dependence Presents because of skin infection in the gluteal folds, the middle with small papule in the larger polyp part. that Is been going on for about a week. The area to person us why he is lying in the right lateral side Patient denies chest pain dyspnea. No headache weakness a or numbness However patient complaining of from difficulty urination and constipation. Last time he P twice to 3:00 clear the morning. He denies dysuria urgency. He smokes about 1.5 pack per day and he was counseled to quit and he agrees and he agrees to the nicotine patch patient is tachycardic around 105 Patient tachycardic around 105 and he is a febrile Labs showed leukocytosis 23.7. BNP and liver enzymes are unremarkable. Glucose is elevated 328 CT of the pelvis with contrast showing extensive cellulitis and areas of phlegmonous changes along the left gluteal region extending anteriorly in the subcutaneous fat of the left perineum spanning up to nearly 20 cm. This i nflammatory changes extend anterior to the pubic bone. No sherrie abscess. Small area 1.1 cm in the right kidney could be tiny cyst versus pyelonephritis, gallstone 2.5 mm, prostatomegaly 01/18/2023 Patient looks more comfortable today, he still have pain in the area but 3/10, his pain control with pain pills. His scrotum is swollen and tender today. Yesterday he had found to have urinary retention more than 300 mL and Gutierrez catheter currently in place and draining clear urine. Is still complains from some constipation Urologist consulted who requested repeat Pelvic CT showing 1.persistent marked fluid and fat stranding consistent with soft tissue infection or cellulitis from the left groin and scrotal region anteriorly to the left perirectal/perianal tissue similar in appearance to study one day earlier. No focal abscess.2Increasing perinephric fluid and fat stranding along with a new wall thickening in the urinary bladder. Consider acute cystitis and/or bilateral pyelonephritis as possible etiologies patient also antibiotics were updated into IV vancomycin and Unasyn, infectious disease team on the case with help of antibiotic management Hemoglobin A1c is 11.5. Currently sugar is controlled 01/19/2023 Patient is improving slowly and gradually he has this swelling erythema and tenderness in his perineal area and scrotum area compared to yesterday however he still in some distress due to pain and still concerning and required close monitoring. No evidence of crepitus or air on exam. Gutierrez catheter in place. Patient other than that is awake and alert and he denies any other new symptoms. He is hemodynamically stable. Has low-grade temperature today 99.9. Hemoglobin A1c is 11.5%, renal ultrasound is negative for hydronephrosis or other abnormality. Labs from today are pending. Extremities Unasyn and IV vancomycin. Objective - Vital Signs Vital signs: Vital Signs Temp 98.4 F 01/19/23 06:55 Pulse 86 01/19/23 06:55 Resp 18 01/19/23 06:55 BP 125/66 01/19/23 06:55 Pulse Ox 93 L 01/19/23 06:55 FiO2 Intake & Output 01/18/23 01/19/23 01/19/23 18:59 06:59 18:59 Intake Total 480 Output Total 700 1200 Balance -220 -1200 Weight 106.594 kg Intake: Oral 480 Output: Urine 700 1200 Other: Voiding Method Toilet Toilet Urinal Urinal - Exam GENERAL: The patient is alert and oriented x3, not in any acute distress. Well developed, well nourished. HEENT: Pupils are round and equally reacting to light. EOMI. No scleral icterus. No conjunctival pallor. Normocephalic, atraumatic. No pharyngeal erythema. No thyromegaly. CARDIOVASCULAR: S1 and S2 present. No murmurs, rubs, or gallops. PULMONARY: Chest is clear to auscultation, no wheezing or crackles. -ABDOMEN: Soft, nontender, nondistended, normoactive bowel sounds. No palpable organomegaly. Patient with tender and inflammatory area, light pink in color involving the gluteal cleft old area down to the perineum with tenderness and swelling. Gutierrez catheter in place MUSCULOSKELETAL: No joint swelling or deformity. EXTREMITIES: No cyanosis, clubbing, or pedal edema. NEUROLOGICAL: Gross neurological examination did not reveal any focal deficits. SKIN: No rashes. no petechiae. - Labs CBC & Chem 7: 01/18/23 05:53 01/18/23 05:53 Labs: Abnormal Lab Results - Last 24 Hours (Table) 01/18/23 01/18/23 01/18/23 Range/Units 05:53 05:53 11:41 WBC 25.13 H (4.50-10.00) X 10*3/uL RBC 3.98 L (4.40-5.60) X 10*6/uL Hgb 11.8 L (13.0-17.0) g/dL Hct 35.7 L (39.6-50.0) % Immature Gran # 0.26 H (0.00-0.04) X 10*3/uL Neutrophils # 19.74 H (1.80-7.70) X 10*3/uL Monocytes # 3.13 H (0.20-1.00) X 10*3/uL POC Glucose (mg/dL) 199 H (70-110) mg/dL Hemoglobin A1c 11.5 H (0.0-6.0) % 01/18/23 01/18/23 01/19/23 Range/Units 17:04 20:40 06:58 WBC (4.50-10.00) X 10*3/uL RBC (4.40-5.60) X 10*6/uL Hgb (13.0-17.0) g/dL Hct (39.6-50.0) % Immature Gran # (0.00-0.04) X 10*3/uL Neutrophils # (1.80-7.70) X 10*3/uL Monocytes # (0.20-1.00) X 10*3/uL POC Glucose (mg/dL) 223 H 253 H 142 H (70-110) mg/dL Hemoglobin A1c (0.0-6.0) % Microbiology - Last 24 Hours (Table) 01/17/23 10:05 Blood Culture - Preliminary Blood 01/17/23 10:20 Blood Culture - Preliminary Blood Assessment and Plan Assessment: Extensive cellulitis involving the buttock area, gluteal cleft and perineal. Sepsis with leukocytosis and tachycardia Urinary retention. Status post Gutierrez catheter Large prostate Asymptomatic gallstone 2.5 mm Constipation Urine difficulty Plan: Continue with antibiotic per ID team, currently on IV vancomycin and Unasyn Surgery team consult urology team consult Continue with Gutierrez catheter Continue with IV fluid Continue with Colace Pain management Labs and medication were reviewed.. Continue same treatment. Continue with symptomatic treatment. Resume home medication. Monitor labs and vitals. DVT and GI prophylaxis. Further recommendations as per clinical course of the patient DVT prophylaxis: Subcutaneous heparin GI Prophylaxis: Pepcid PT/OT: Pending Prognosis is guarded Plan discussed with patient and he is agreeable
[2023-01-19 10:56] LABS: Basophils # (A) 0.08 X 10*3/uL (0.00-0.10); Basophils % (A) 0.3 %; Eosinophils # (A) 0.25 X 10*3/uL (0.04-0.35); HCT 35.7 % (39.6-50.0); HGB 11.6 g/dL (13.0-17.0); Immature Grans, Automated 0.8 %; Lymphocytes # (A) 1.91 X 10*3/uL (0.90-5.00); Lymphocytes % (A) 7.7 %; MCH 29.4 pg (27.0-32.0); MCHC 32.5 g/dL (32.0-37.0); MCV 90.4 fL (80.0-97.0); Mean Platelet Volume 9.5 fL (9.5-12.2); Monocytes # (A) 2.46 X 10*3/uL (0.20-1.00); Monocytes % (A) 9.9 %; NRBC Per 100 WBC 0 /100 WBCS (0.0-0.0); Neutrophils # (A) 19.97 X 10*3/uL (1.80-7.70); Neutrophils % (A) 80.3 %; Platelet Count 339 X 10*3/uL (140-440); RBC 3.95 X 10*6/uL (4.40-5.60); WBC 24.88 X 10*3/uL (4.50-10.00)
[2023-01-19] MEDS ORDERED: VANCOMYCIN TROUGH DUE 1 EACH MISC MISCELLANE ONE (11:00)
[2023-01-19 11:16] LABS: Anion Gap 8.8 mmol/L (10.00-18.00); BUN/Creat Ratio 13.12 Ratio (12.00-20.00); Blood Urea Nitrogen 7.7 mg/dL (9.0-27.0); Calcium 8.4 mg/dL (8.7-10.3); Carbon Dioxide 25.9 mmol/L (20.0-27.5); Magnesium 1.9 mg/dL (1.5-2.4); Non-African American GFR(CKD) 115.6 (60.0-200.0); Potassium 3.7 mmol/L (3.5-5.5)
[2023-01-19] MEDS ORDERED: SODIUM CHLORIDE 0.9% 1,000 ML IV ONE (11:26)
[2023-01-19 11:28] LABS: Glucose,Whole Blood 186 mg/dL (70-110)
[2023-01-19 11:39] LABS: African American GFR (CKD) >90 (>60 ml/min/1.73 sqM); Non-African American GFR(CKD) >90 (>60 ml/min/1.73 sqM)
--- NOTE | 2023-01-19 13:57 | P.PN ---
Subjective Progress Note Date: 01/19/23 CHIEF COMPLAINT: Cellulitis of the left glute HISTORY OF PRESENT ILLNESS: Patient reports that the left buttock swelling and perineal swelling is decreasing. The pain in the area has improved. He complai ns now mostly of scrotal swelling and tenderness. But feels that that is slightly improved from yesterday. Patient followed by urology. Pelvic ultrasound from yesterday showed persistent marked fluid and fat stranding consistent with soft tissue infection or cellulitis from the left groin and scr otal region anteriorly to the left perirectal perianal tissue similar in appearance to study 1 date earlier. No focal thick walled fluid collection or abscess. Increasing perinephric fluid and fat straining along with new wall thickening in the urinary bladder. Consider acute cystitis and/or bilateral pyelonephritis. Afebrile. WBC went from 25-24 Patient seen and examined with Dr. Chris PHYSICAL EXAM: VITAL SIGNS: Reviewed. GENERAL: Well-developed in no acute distress. HEENT: No sclera icterus. Extraocular movements grossly intact. Moist buccal mucosa. Head is atraumatic, normocephalic. ABDOMEN: Soft. Nondistended. Nontender. NEUROLOGIC: Alert and oriented. Cranial nerves II through XII grossly intact. SKIN: Left buttock and perineal area with no evidence of cellulitis. Area is soft. Decreased tenderness. No drainage. No evidence of abscess on exam : Significant scrotal swelling and erythema ASSESSMENT: 1. Left buttock cellulitis and phlegmonous changes have shown improvement. 2. Scrotal cellulitis followed by urology PLAN: -No surgical intervention planned -Continue IV antibiotics -Continue glucose control -Urine output is very dark. We'll give 1 L fluid bolus for dehydration Physician [employer] note has been reviewed by physician. Signing provider agrees with the documented findings, assessment, and plan of care. Objective - Vital Signs Vital signs: Vital Signs Temp 98.5 F 01/19/23 11:24 Pulse 89 01/19/23 11:24 Resp 18 01/19/23 11:24 BP 123/67 01/19/23 11:24 Pulse Ox 92 L 01/19/23 11:24 FiO2 Intake & Output 01/18/23 01/19/23 01/19/23 18:59 06:59 18:59 Intake Total 480 Output Total 700 1200 Balance -220 -1200 Weight 106.594 kg Intake: Oral 480 Output: Urine 700 1200 Other: Voiding Method Toilet Toilet Toilet Urinal Urinal Urinal - Labs CBC & Chem 7: 01/19/23 06:43 01/19/23 11:05 Labs: Abnormal Lab Results - Last 24 Hours (Table) 01/18/23 01/18/23 01/19/23 Range/Units 17:04 20:40 06:43 WBC (4.50-10.00) X 10*3/uL RBC (4.40-5.60) X 10*6/uL Hgb (13.0-17.0) g/dL Hct (39.6-50.0) % Immature Gran # (0.00-0.04) X 10*3/uL Neutrophils # (1.80-7.70) X 10*3/uL Monocytes # (0.20-1.00) X 10*3/uL Anion Gap 8.80 L (10.00-18.00) mmol/L BUN 7.7 L (9.0-27.0) mg/dL Creatinine (0.66-1.25) mg/dL Glucose 143 H (70-110) mg/dL POC Glucose (mg/dL) 223 H 253 H (70-110) mg/dL Calcium 8.4 L (8.7-10.3) mg/dL 01/19/23 01/19/23 01/19/23 Range/Units 06:43 06:58 11:05 WBC 24.88 H (4.50-10.00) X 10*3/uL RBC 3.95 L (4.40-5.60) X 10*6/uL Hgb 11.6 L (13.0-17.0) g/dL Hct 35.7 L (39.6-50.0) % Immature Gran # 0.21 H (0.00-0.04) X 10*3/uL Neutrophils # 19.97 H (1.80-7.70) X 10*3/uL Monocytes # 2.46 H (0.20-1.00) X 10*3/uL Anion Gap (10.00-18.00) mmol/L BUN (9.0-27.0) mg/dL Creatinine 0.48 L (0.66-1.25) mg/dL Glucose (70-110) mg/dL POC Glucose (mg/dL) 142 H (70-110) mg/dL Calcium (8.7-10.3) mg/dL 01/19/23 Range/Units 11:26 WBC (4.50-10.00) X 10*3/uL RBC (4.40-5.60) X 10*6/uL Hgb (13.0-17.0) g/dL Hct (39.6-50.0) % Immature Gran # (0.00-0.04) X 10*3/uL Neutrophils # (1.80-7.70) X 10*3/uL Monocytes # (0.20-1.00) X 10*3/uL Anion Gap (10.00-18.00) mmol/L BUN (9.0-27.0) mg/dL Creatinine (0.66-1.25) mg/dL Glucose (70-110) mg/dL POC Glucose (mg/dL) 186 H (70-110) mg/dL Calcium (8.7-10.3) mg/dL Microbiology - Last 24 Hours (Table) 01/17/23 10:05 Blood Culture - Preliminary Blood 01/17/23 10:20 Blood Culture - Preliminary Blood
--- NOTE | 2023-01-19 16:21 | P.PN ---
Subjective Progress Note Date: 01/19/23 No acute overnight events, pain and erythema improved along the scrotum today compared to yesterday. WBC is still elevated at 24.8. Patient remains afebrile Objective - Vital Signs Vital signs: Vital Signs Temp 98.5 F 01/19/23 11:24 Pulse 89 01/19/23 11:24 Resp 18 01/19/23 11:24 BP 123/67 01/19/23 11:24 Pulse Ox 92 L 01/19/23 11:24 FiO2 Intake & Output 01/18/23 01/19/23 01/19/23 18:59 06:59 18:59 Intake Total 480 Output Total 700 1200 Balance -220 -1200 Weight 106.594 kg Intake: Oral 480 Output: Urine 700 1200 Other: Voiding Method Toilet Toilet Toilet Urinal Urinal Urinal - Constitutional General appearance: Present: no acute distress - Gastrointestinal General gastrointestinal: Present: soft. Absent: distended, tenderness - Genitourinary Genitourinary Comment(s): Erythema, edema along the left hemiscrotum, improved today compared to yesterday. No fluctuance appreciated. - Labs CBC & Chem 7: 01/19/23 06:43 01/19/23 11:05 Labs: Abnormal Lab Results - Last 24 Hours (Table) 01/18/23 01/18/23 01/19/23 Range/Units 17:04 20:40 06:43 WBC (4.50-10.00) X 10*3/uL RBC (4.40-5.60) X 10*6/uL Hgb (13.0-17.0) g/dL Hct (39.6-50.0) % Immature Gran # (0.00-0.04) X 10*3/uL Neutrophils # (1.80-7.70) X 10*3/uL Monocytes # (0.20-1.00) X 10*3/uL Anion Gap 8.80 L (10.00-18.00) mmol/L BUN 7.7 L (9.0-27.0) mg/dL Creatinine (0.66-1.25) mg/dL Glucose 143 H (70-110) mg/dL POC Glucose (mg/dL) 223 H 253 H (70-110) mg/dL Calcium 8.4 L (8.7-10.3) mg/dL 01/19/23 01/19/23 01/19/23 Range/Units 06:43 06:58 11:05 WBC 24.88 H (4.50-10.00) X 10*3/uL RBC 3.95 L (4.40-5.60) X 10*6/uL Hgb 11.6 L (13.0-17.0) g/dL Hct 35.7 L (39.6-50.0) % Immature Gran # 0.21 H (0.00-0.04) X 10*3/uL Neutrophils # 19.97 H (1.80-7.70) X 10*3/uL Monocytes # 2.46 H (0.20-1.00) X 10*3/uL Anion Gap (10.00-18.00) mmol/L BUN (9.0-27.0) mg/dL Creatinine 0.48 L (0.66-1.25) mg/dL Glucose (70-110) mg/dL POC Glucose (mg/dL) 142 H (70-110) mg/dL Calcium (8.7-10.3) mg/dL 01/19/23 Range/Units 11:26 WBC (4.50-10.00) X 10*3/uL RBC (4.40-5.60) X 10*6/uL Hgb (13.0-17.0) g/dL Hct (39.6-50.0) % Immature Gran # (0.00-0.04) X 10*3/uL Neutrophils # (1.80-7.70) X 10*3/uL Monocytes # (0.20-1.00) X 10*3/uL Anion Gap (10.00-18.00) mmol/L BUN (9.0-27.0) mg/dL Creatinine (0.66-1.25) mg/dL Glucose (70-110) mg/dL POC Glucose (mg/dL) 186 H (70-110) mg/dL Calcium (8.7-10.3) mg/dL Microbiology - Last 24 Hours (Table) 01/17/23 10:05 Blood Culture - Preliminary Blood 01/17/23 10:20 Blood Culture - Preliminary Blood Assessment and Plan Assessment: 52-year-old male with evidence of cellulitis involving the perineum scrotum and left thigh. Reviewed both of these CT scans, and exam it is not consistent with Sneha's gangrene. His exam improved today compared to yesterday. Still don't appreciate any evidence of drainable abscess. -Continue Zosyn and vancomycin, antibiotics per infectious disease -We will reassess tomorrow if there is any evidence of fluctuance or crepitus on exam that he will require surgical debridement otherwise if it's consistent with cellulitis then we'll continue with IV antibiotics
[2023-01-19 17:23] LABS: Glucose,Whole Blood 236 mg/dL (70-110)
[2023-01-19 20:00] LABS: Glucose,Whole Blood 234 mg/dL (70-110)
[2023-01-19] MEDS: INSULIN DETEMIR (LEVEMIR) 100 UNIT/ML SYR SQ SCH (22:08)
[2023-01-20] MEDS: AMPICILLIN-SULBACTAM 3 GM in SODIUM CHLORIDE 0.9% 100 ML IVPB SCH ×5 (02:15→23:41)
[2023-01-20] MEDS: HYDROmorphone 1 MG/ML 1 ML SYRINGE IVP PRN ×4 (02:33→22:25)
[2023-01-20] MEDS: VANCOMYCIN 1,750 MG in SODIUM CHLORIDE 0.9% 500 ML 500 ML IVPB SCH ×3 (05:00→23:41)
[2023-01-20] MEDS: ONDANSETRON 4 MG/2 ML VIAL IVP PRN (05:59)
[2023-01-20 07:37] LABS: African American GFR (CKD) >90 (>60 ml/min/1.73 sqM); Anion Gap 6 mmol/L; Blood Urea Nitrogen 8 mg/dL (9-20); Carbon Dioxide 26 mmol/L (22-30); Chloride 105 mmol/L (98-107); Glucose 131 mg/dL (74-99); Non-African American GFR(CKD) >90 (>60 ml/min/1.73 sqM); Potassium 3.6 mmol/L (3.5-5.1); Sodium 137 mmol/L (137-145)
[2023-01-20 07:40] LABS: Glucose,Whole Blood 137 mg/dL (70-110)
[2023-01-20] MEDS: INSULIN ASPART (NovoLOG) 100 UNIT/ML VIAL SQ SCH ×4 (07:41→20:41)
[2023-01-20] MEDS: NICOTINE 21MG/24HR PATCH TRANSDERM SCH (08:17)
[2023-01-20] MEDS: SODIUM CHLORIDE 0.9% 1,000 ML IV SCH ×2 (08:17→20:42)
[2023-01-20] MEDS: TAMSULOSIN 0.4 MG CAP.ER.24H PO SCH (08:18)
[2023-01-20] MEDS: HEPARIN SODIUM,PORCINE/PF 5,000 UNIT/0.5 ML SYRINGE SQ SCH ×2 (08:18→20:40)
[2023-01-20] MEDS: DOCUSATE 100 MG CAP PO SCH ×2 (08:18→20:40)
[2023-01-20] MEDS: FAMOTIDINE 20 MG TAB PO SCH ×2 (08:18→20:40)
--- NOTE | 2023-01-20 08:49 | P.PN ---
Subjective this morning on evaluation there is area of fluctuance along the lateral portion of the scrotum. Cellulitis is unchanged from yesterday. Continues to have leukocytosis Objective - Vital Signs Vital signs: Vital Signs Temp 98.7 F 01/20/23 07:29 Pulse 83 01/20/23 07:29 Resp 18 01/20/23 07:29 BP 134/71 01/20/23 07:29 Pulse Ox 93 L 01/20/23 07:29 FiO2 Intake & Output 01/19/23 01/20/23 01/20/23 18:59 06:59 18:59 Intake Total 2225 590 Output Total 900 800 Balance 1325 -210 Intake: Intake, IV Titration 2225 Amount Ampicillin-Sulbactam 3 gm 200 In Sodium Chloride 0.9% 100 ml @ 200 mls/hr IVPB Q6HR [facility] Rx#:[id number] Sodium Chloride 0.9% 1, 525 000 ml @ 75 mls/hr IV . [id number] [facility] Rx#:[id number] Sodium Chloride 0.9% 1, 1000 000 ml @ 999 mls/hr IV . Q1H1M [facility] Rx#:[id number] Vancomycin 1,750 mg In 500 Sodium Chloride 0.9% 500 ml 500 ml @ 167 mls/hr IVPB Q8H [facility] Rx#: [id number] Oral 590 Output: Urine 900 800 Other: Voiding Method Toilet Toilet Indwelling Catheter Urinal Urinal - Constitutional General appearance: Present: no acute distress - Gastrointestinal General gastrointestinal: Present: soft. Absent: tenderness - Genitourinary Genitourinary Comment(s): erythema involving the left scrotal wall, area of fluctuance along the left lat eral portion of the scrotum - Labs CBC & Chem 7: 01/19/23 06:43 01/20/23 06:46 Labs: Abnormal Lab Results - Last 24 Hours (Table) 01/19/23 01/19/23 01/19/23 Range/Units 06:43 06:43 11:05 WBC 24.88 H (4.50-10.00) X 10*3/uL RBC 3.95 L (4.40-5.60) X 10*6/uL Hgb 11.6 L (13.0-17.0) g/dL Hct 35.7 L (39.6-50.0) % Immature Gran # 0.21 H (0.00-0.04) X 10*3/uL Neutrophils # 19.97 H (1.80-7.70) X 10*3/uL Monocytes # 2.46 H (0.20-1.00) X 10*3/uL Anion Gap 8.80 L (10.00-18.00) mmol/L BUN 7.7 L (9.0-27.0) mg/dL Creatinine 0.48 L (0.66-1.25) mg/dL Glucose 143 H (70-110) mg/dL POC Glucose (mg/dL) (70-110) mg/dL Calcium 8.4 L (8.7-10.3) mg/dL 01/19/23 01/19/23 01/19/23 Range/Units 11:26 17:19 19:59 WBC (4.50-10.00) X 10*3/uL RBC (4.40-5.60) X 10*6/uL Hgb (13.0-17.0) g/dL Hct (39.6-50.0) % Immature Gran # (0.00-0.04) X 10*3/uL Neutrophils # (1.80-7.70) X 10*3/uL Monocytes # (0.20-1.00) X 10*3/uL Anion Gap (10.00-18.00) mmol/L BUN (9.0-27.0) mg/dL Creatinine (0.66-1.25) mg/dL Glucose (70-110) mg/dL POC Glucose (mg/dL) 186 H 236 H 234 H (70-110) mg/dL Calcium (8.7-10.3) mg/dL 01/20/23 01/20/23 Range/Units 06:46 07:38 WBC (4.50-10.00) X 10*3/uL RBC (4.40-5.60) X 10*6/uL Hgb (13.0-17.0) g/dL Hct (39.6-50.0) % Immature Gran # (0.00-0.04) X 10*3/uL Neutrophils # (1.80-7.70) X 10*3/uL Monocytes # (0.20-1.00) X 10*3/uL Anion Gap (10.00-18.00) mmol/L BUN 8 L (9.0-27.0) mg/dL Creatinine 0.58 L (0.66-1.25) mg/dL Glucose 131 H (70-110) mg/dL POC Glucose (mg/dL) 137 H (70-110) mg/dL Calcium 8.0 L (8.7-10.3) mg/dL Microbiology - Last 24 Hours (Table) 01/17/23 10:05 Blood Culture - Preliminary Blood 01/17/23 10:20 Blood Culture - Preliminary Blood Assessment and Plan Assessment: 52-year-old male with evidence of cellulitis involving the perineum scrotum and left thigh. Reviewed both of these CT scans, and exam it is not consistent with Sneha's gangrene. on exam there is an area of fluctuance, difficult to completely examine the scrotum given the degree of cellulitis and pain on evaluation. Discussed given the persistent leukocytosis and the finding of potential of fluctuance along the scrotum and recommend proceeding with an I&D of the scrotum. risk and benefit of surgery was discussed in detail -Continue Zosyn and vancomycin, antibiotics per infectious disease -keep nothing by mouth -Or today for incision and drainage of left scrotal abscess
[2023-01-20 11:05] LABS: Basophils # (A) 0.07 X 10*3/uL (0.00-0.10); Basophils % (A) 0.3 %; Eosinophils # (A) 0.19 X 10*3/uL (0.04-0.35); Eosinophils % (A) 0.8 %; HCT 35.6 % (39.6-50.0); HGB 11.5 g/dL (13.0-17.0); Lymphocytes # (A) 1.65 X 10*3/uL (0.90-5.00); Lymphocytes % (A) 7.2 %; MCH 29.3 pg (27.0-32.0); MCHC 32.3 g/dL (32.0-37.0); MCV 90.8 fL (80.0-97.0); Mean Platelet Volume 9.6 fL (9.5-12.2); Monocytes # (A) 2.08 X 10*3/uL (0.20-1.00); Monocytes % (A) 9.1 %; NRBC Per 100 WBC 0 /100 WBCS (0.0-0.0); Neutrophils # (A) 18.66 X 10*3/uL (1.80-7.70); Neutrophils % (A) 81.6 %; Platelet Count 372 X 10*3/uL (140-440); RBC 3.92 X 10*6/uL (4.40-5.60); RDW 12.2 % (11.5-14.5); WBC 22.88 X 10*3/uL (4.50-10.00)
[2023-01-20 11:31] LABS: Glucose,Whole Blood 130 mg/dL (70-110)
[2023-01-20] MEDS ORDERED: IV FLUID CONTINUATION 1,000 ML IV ONE (12:00)
[2023-01-20] MEDS ORDERED: PROMETHAZINE 25 MG TAB PO PRN (12:33)
--- NOTE | 2023-01-20 12:37 | P.PN ---
Subjective This is a pleasant 52 years old male with multiple medical problems including Diabetes Mellitus, Fibromyalgia, GERD/Reflux, Hyperlipidemia, Hypertension, ,Depression, nicotine dependence Presents because of skin infection in the gluteal folds, the middle with small papule in the larger polyp part. that Is been going on for about a week. The area to person us why he is lying in the right lateral side Patient denies chest pain dyspnea. No headache weakness a or numbness However patient complaining of from difficulty urination and constipation. Last time he P twice to 3:00 clear the morning. He denies dysuria urgency. He smokes about 1.5 pack per day and he was counseled to quit and he agrees and he agrees to the nicotine patch patient is tachycardic around 105 Patient tachycardic around 105 and he is a febrile Labs showed leukocytosis 23.7. BNP and liver enzymes are unremarkable. Glucose is elevated 328 CT of the pelvis with contrast showing extensive cellulitis and areas of phlegmonous changes along the left gluteal region extending anteriorly in the subcutaneous fat of the left perineum spanning up to nearly 20 cm. This i nflammatory changes extend anterior to the pubic bone. No sherrie abscess. Small area 1.1 cm in the right kidney could be tiny cyst versus pyelonephritis, gallstone 2.5 mm, prostatomegaly 01/18/2023 Patient looks more comfortable today, he still have pain in the area but 3/10, his pain control with pain pills. His scrotum is swollen and tender today. Yesterday he had found to have urinary retention more than 300 mL and Gutierrez catheter currently in place and draining clear urine. Is still complains from some constipation Urologist consulted who requested repeat Pelvic CT showing 1.persistent marked fluid and fat stranding consistent with soft tissue infection or cellulitis from the left groin and scrotal region anteriorly to the left perirectal/perianal tissue similar in appearance to study one day earlier. No focal abscess.2Increasing perinephric fluid and fat stranding along with a new wall thickening in the urinary bladder. Consider acute cystitis and/or bilateral pyelonephritis as possible etiologies patient also antibiotics were updated into IV vancomycin and Unasyn, infectious disease team on the case with help of antibiotic management Hemoglobin A1c is 11.5. Currently sugar is controlled 01/19/2023 Patient is improving slowly and gradually he has this swelling erythema and tenderness in his perineal area and scrotum area compared to yesterday however he still in some distress due to pain and still concerning and required close monitoring. No evidence of crepitus or air on exam. Gutierrez catheter in place. Patient other than that is awake and alert and he denies any other new symptoms. He is hemodynamically stable. Has low-grade temperature today 99.9. Hemoglobin A1c is 11.5%, renal ultrasound is negative for hydronephrosis or other abnormality. Labs from today are pending. Extremities Unasyn and IV vancomycin. 01/20/2023 Patient still complaining from pain in the scrotal and perineal area, his been having some nausea but no vomiting. Current regimen medications are not effective, added Phenergan. No more fever and still has significant leukocytosis. 22,000 Neurology team are planning for I&D of scrotal fluctuance, possible abscess. Habits and normal saline, IV vancomycin and Unasyn Glucose is controlled today at around 130 Objective - Vital Signs Vital signs: Vital Signs Temp 98.3 F 01/20/23 11:56 Pulse 79 01/20/23 11:56 Resp 16 01/20/23 11:56 BP 139/88 01/20/23 11:56 Pulse Ox 93 L 01/20/23 11:25 FiO2 Intake & Output 01/19/23 01/20/23 01/20/23 18:59 06:59 18:59 Intake Total 2225 590 Output Total 900 800 Balance 1325 -210 Intake: Intake, IV Titration 2225 Amount Ampicillin-Sulbactam 3 gm 200 In Sodium Chloride 0.9% 100 ml @ 200 mls/hr IVPB Q6HR [facility] Rx#:[id number] Sodium Chloride 0.9% 1, 525 000 ml @ 75 mls/hr IV . [id number] [facility] Rx#:[id number] Sodium Chloride 0.9% 1, 1000 000 ml @ 999 mls/hr IV . Q1H1M [facility] Rx#:[id number] Vancomycin 1,750 mg In 500 Sodium Chloride 0.9% 500 ml 500 ml @ 167 mls/hr IVPB Q8H [facility] Rx#: [id number] Oral 590 Output: Urine 900 800 Other: Voiding Method Toilet Toilet Indwelling Catheter Urinal Urinal - Exam GENERAL: The patient is alert and oriented x3, not in any acute distress. Well developed, well nourished. HEENT: Pupils are round and equally reacting to light. EOMI. No scleral icterus. No conjunctival pallor. Normocephalic, atraumatic. No pharyngeal erythema. No thyromegaly. CARDIOVASCULAR: S1 and S2 present. No murmurs, rubs, or gallops. PULMONARY: Chest is clear to auscultation, no wheezing or crackles. -ABDOMEN: Soft, nontender, nondistended, normoactive bowel sounds. No palpable organomegaly. Patient with tender and inflammatory area, light pink in color involving the gluteal cleft old area down to the perineum with tenderness and swelling. Gutierrez catheter in place MUSCULOSKELETAL: No joint swelling or deformity. EXTREMITIES: No cyanosis, clubbing, or pedal edema. NEUROLOGICAL: Gross neurological examination did not reveal any focal deficits. SKIN: No rashes. no petechiae. - Labs CBC & Chem 7: 01/20/23 06:46 01/20/23 06:46 Labs: Abnormal Lab Results - Last 24 Hours (Table) 01/19/23 01/19/23 01/20/23 Range/Units 17:19 19:59 06:46 WBC (4.50-10.00) X 10*3/uL RBC (4.40-5.60) X 10*6/uL Hgb (13.0-17.0) g/dL Hct (39.6-50.0) % Immature Gran # (0.00-0.04) X 10*3/uL Neutrophils # (1.80-7.70) X 10*3/uL Monocytes # (0.20-1.00) X 10*3/uL BUN 8 L (9-20) mg/dL Creatinine 0.58 L (0.66-1.25) mg/dL Glucose 131 H (74-99) mg/dL POC Glucose (mg/dL) 236 H 234 H (70-110) mg/dL Calcium 8.0 L (8.4-10.2) mg/dL 01/20/23 01/20/23 01/20/23 Range/Units 06:46 07:38 11:29 WBC 22.88 H (4.50-10.00) X 10*3/uL RBC 3.92 L (4.40-5.60) X 10*6/uL Hgb 11.5 L (13.0-17.0) g/dL Hct 35.6 L (39.6-50.0) % Immature Gran # 0.23 H (0.00-0.04) X 10*3/uL Neutrophils # 18.66 H (1.80-7.70) X 10*3/uL Monocytes # 2.08 H (0.20-1.00) X 10*3/uL BUN (9-20) mg/dL Creatinine (0.66-1.25) mg/dL Glucose (74-99) mg/dL POC Glucose (mg/dL) 137 H 130 H (70-110) mg/dL Calcium (8.4-10.2) mg/dL Microbiology - Last 24 Hours (Table) 01/17/23 10:05 Blood Culture - Preliminary Blood 01/17/23 10:20 Blood Culture - Preliminary Blood Assessment and Plan Assessment: Extensive cellulitis involving the buttock area, gluteal cleft and perineal. Sepsis with leukocytosis and tachycardia Urinary retention. Status post Gutierrez catheter Large prostate Asymptomatic gallstone 2.5 mm Constipation Urine difficulty Plan: Continue with antibiotic per ID team, currently on IV vancomycin and Unasyn Surgery team consult urology team consult, possible I&D of scrotal abscess Continue with Gutierrez catheter Continue with IV fluid Continue with Colace Pain management Labs and medication were reviewed.. Continue same treatment. Continue with symptomatic treatment. Resume home medication. Monitor labs and vitals. DVT and GI prophylaxis. Further recommendations as per clinical course of the patient DVT prophylaxis: Subcutaneous heparin GI Prophylaxis: Pepcid PT/OT: Pending Prognosis is guarded Plan discussed with patient and he is agreeable
[2023-01-20] MEDS ORDERED: MIDAZOLAM 2 MG/2 ML VIAL ONE (13:11)
[2023-01-20] MEDS ORDERED: SUCCINYLCHOLINE CHLORIDE 200 MG/10 ML VIAL IV ONE (13:11)
[2023-01-20] MEDS ORDERED: KETOROLAC 15 MG/ML 1 ML VIAL ONE (13:11)
[2023-01-20] MEDS ORDERED: PROPOFOL 10 MG/ML 20 ML VIAL IV ONE (13:11)
[2023-01-20] MEDS ORDERED: ONDANSETRON 4 MG/2 ML VIAL ONE (13:11)
[2023-01-20] MEDS ORDERED: fentaNYL (PF) 50 MCG/ML 2 ML AMP ONE (13:11)
[2023-01-20] MEDS ORDERED: LIDOCAINE 2% INJ 20 MG/ML (2 ML VIAL) ONE (13:11)
--- NOTE | 2023-01-20 13:21 | P.PN ---
Subjective Progress Note Date: 01/20/23 CHIEF COMPLAINT: Cellulitis of the left glute HISTORY OF PRESENT ILLNESS: Patient reports that the left buttock swelling and perineal swelling and pain has improved. A shunt has had increased swelling and erythema of the scrotal area. He is followed closely by urology and is scheduled for incision and drainage of left scrotal wall abscess. Afebrile. WBC does remain elevated at 22.88 Patient seen and examined with Dr. Chris PHYSICAL EXAM: VITAL SIGNS: Reviewed. GENERAL: Well-developed in no acute distress. HEENT: No sclera icterus. Extraocular movements grossly intact. Moist buccal mucosa. Head is atraumatic, normocephalic. ABDOMEN: Soft. Nondistended. Nontender. NEUROLOGIC: Alert and oriented. Cranial nerves II through XII grossly intact. SKIN: Left buttock and perineal area with no evidence of cellulitis. Area is soft. Decreased tenderness. No drainage. No evidence of abscess on exam : Significant scrotal swelling and erythema ASSESSMENT: 1. Left buttock cellulitis and phlegmonous changes have shown improvement. 2. Scrotal cellulitis and abscess followed by urology PLAN: -No surgical intervention planned from general surgery standpoint -Patient scheduled for I&D was urology service today -Continue IV antibiotics -Continue glucose control Physician Tobacco Buyer note has been reviewed by physician. Signing provider agrees with the documented findings, assessment, and plan of care. Objective - Vital Signs Vital signs: Vital Signs Temp 98.3 F 01/20/23 11:56 Pulse 79 01/20/23 11:56 Resp 16 01/20/23 11:56 BP 139/88 01/20/23 11:56 Pulse Ox 93 L 01/20/23 11:25 FiO2 Intake & Output 01/19/23 01/20/23 01/20/23 18:59 06:59 18:59 Intake Total 2225 590 350 Output Total 900 800 Balance 1325 -210 350 Intake: IV 350 Intake, IV Titration 2225 Amount Ampicillin-Sulbactam 3 gm 200 In Sodium Chloride 0.9% 100 ml @ 200 mls/hr IVPB Q6HR [facility] Rx#:[id number] Sodium Chloride 0.9% 1, 525 000 ml @ 75 mls/hr IV . [id number] [facility] Rx#:[id number] Sodium Chloride 0.9% 1, 1000 000 ml @ 999 mls/hr IV . Q1H1M [facility] Rx#:[id number] Vancomycin 1,750 mg In 500 Sodium Chloride 0.9% 500 ml 500 ml @ 167 mls/hr IVPB Q8H [facility] 234 BEDS AT [facility] Rx#: [id number] Oral 590 Output: Urine 900 800 Other: Voiding Method Toilet Toilet Indwelling Catheter Urinal Urinal - Labs CBC & Chem 7: 01/20/23 06:46 01/20/23 06:46 Labs: Abnormal Lab Results - Last 24 Hours (Table) 01/19/23 01/19/23 01/20/23 Range/Units 17:19 19:59 06:46 WBC (4.50-10.00) X 10*3/uL RBC (4.40-5.60) X 10*6/uL Hgb (13.0-17.0) g/dL Hct (39.6-50.0) % Immature Gran # (0.00-0.04) X 10*3/uL Neutrophils # (1.80-7.70) X 10*3/uL Monocytes # (0.20-1.00) X 10*3/uL BUN 8 L (9-20) mg/dL Creatinine 0.58 L (0.66-1.25) mg/dL Glucose 131 H (74-99) mg/dL POC Glucose (mg/dL) 236 H 234 H (70-110) mg/dL Calcium 8.0 L (8.4-10.2) mg/dL 01/20/23 01/20/23 01/20/23 Range/Units 06:46 07:38 11:29 WBC 22.88 H (4.50-10.00) X 10*3/uL RBC 3.92 L (4.40-5.60) X 10*6/uL Hgb 11.5 L (13.0-17.0) g/dL Hct 35.6 L (39.6-50.0) % Immature Gran # 0.23 H (0.00-0.04) X 10*3/uL Neutrophils # 18.66 H (1.80-7.70) X 10*3/uL Monocytes # 2.08 H (0.20-1.00) X 10*3/uL BUN (9-20) mg/dL Creatinine (0.66-1.25) mg/dL Glucose (74-99) mg/dL POC Glucose (mg/dL) 137 H 130 H (70-110) mg/dL Calcium (8.4-10.2) mg/dL Microbiology - Last 24 Hours (Table) 01/17/23 10:05 Blood Culture - Preliminary Blood 01/17/23 10:20 Blood Culture - Preliminary Blood
[2023-01-20] MEDS ORDERED: LACTATED RINGERS 1,000 ML IV ONE (13:47)
[2023-01-20] MEDS ORDERED: BACITRACIN ZINC 500 UNIT/GM OINT 28.4 GM TUBE TOPICAL ONE (13:48)
--- NOTE | 2023-01-20 14:10 | P.OP ---
Date of Procedure: 01/20/23 Preoperative Diagnosis: Left scrotal abscess Postoperative Diagnosis: Same Procedure(s) Performed: Incision and drainage of left scrotal Wall abscess Implants: none Anesthesia: EMERSONA Surgeon: Ruy Griffin Estimated Blood Loss (ml): 10 Pathology: none sent Condition: stable Disposition: PACU Indications for Procedure: This is a 52-year-old male scrotal cellulitis, initially presented with cellulitis involving the perineum and posterior thigh that has progressed into the scrotum Patient has been on IV antibiotics for 3 days without significant improvement, and continues to have leukocytosis. His exam is difficult to perform secondary to his pain, there was potentially area of fluctuance along the lateral wall. Discussed with him given his lack of significant improvement with IV antibiotics the option of an incision and drainage of that area. Risks and benefits and rational of doing the surgery was discussed Operative Findings: Serous bloody fluid obtained from the fluctuant area, no purulent drainage appreciated Description of Procedure: Patient brought to the operating room, general anesthesia was induced, he was placed in a lithotomy position. Next a incision was made using a scalpel along the most fluctuant area along the posterior lateral scrotum. At this times sanguinous drainage was obtained, no clear purulent drainage was obtained but there was a cavity that was appreciated within that area. Next a deep cultures were obtained. Next a counter incision was made more superiorly . A Ravi was placed through both incisions and secured with a silk suture The wound was packed with iodoform packing. Patient tolerated procedure well and was taken to recovery in stable condition
--- NOTE | 2023-01-20 15:54 | P.PN ---
Subjective Progress Note Date: 01/19/23 Principal diagnosis: Left gluteal abscess and cellulitis Patient is a 52-year-old male presenting to the hospital with left gluteal pain and swelling he did have an attempted drainage in the ER 2 days before this admission unfortunately no cultures was done and the patient did have worsening on oral doxycycline, patient did have a pelvic CT with his extensive cellulitis phlegmon changes and no sherrie abscess. On today's evaluation her that is 01/19/2023, the patient is afebrile today, the patient pain in the left gluteal area has decreased in intensity however the patient be complaining of swelling to the scrotum no drainage denies any chest pain shortness of breath or cough no abdominal pain or diarrhea Objective - Vital Signs Vital signs: Vital Signs Temp 98.4 F 01/19/23 06:55 Pulse 86 01/19/23 06:55 Resp 18 01/19/23 06:55 BP 125/66 01/19/23 06:55 Pulse Ox 93 L 01/19/23 06:55 FiO2 Intake & Output 01/18/23 01/19/23 01/19/23 18:59 06:59 18:59 Intake Total 480 Output Total 700 1200 Balance -220 -1200 Weight 106.594 kg Intake: Oral 480 Output: Urine 700 1200 Other: Voiding Method Toilet Toilet Urinal Urinal - Exam GENERAL DESCRIPTION: Middle-age male lying in bed in no distress RESPIRATORY SYSTEM: Unlabored breathing , decreased breath sounds at bases HEART: S1 S2 regular rate and rhythm , ABDOMEN: Soft , left gluteal area did have area of induration and tenderness some scrotal swelling and redness no drainage EXTREMITIES: No edema feet - Labs CBC & Chem 7: 01/20/23 06:46 01/20/23 06:46 Labs: Abnormal Lab Results - Last 24 Hours (Table) 01/18/23 01/18/23 01/18/23 Range/Units 05:53 05:53 11:41 WBC 25.13 H (4.50-10.00) X 10*3/uL RBC 3.98 L (4.40-5.60) X 10*6/uL Hgb 11.8 L (13.0-17.0) g/dL Hct 35.7 L (39.6-50.0) % Immature Gran # 0.26 H (0.00-0.04) X 10*3/uL Neutrophils # 19.74 H (1.80-7.70) X 10*3/uL Monocytes # 3.13 H (0.20-1.00) X 10*3/uL POC Glucose (mg/dL) 199 H (70-110) mg/dL Hemoglobin A1c 11.5 H (0.0-6.0) % 01/18/23 01/18/23 01/19/23 Range/Units 17:04 20:40 06:58 WBC (4.50-10.00) X 10*3/uL RBC (4.40-5.60) X 10*6/uL Hgb (13.0-17.0) g/dL Hct (39.6-50.0) % Immature Gran # (0.00-0.04) X 10*3/uL Neutrophils # (1.80-7.70) X 10*3/uL Monocytes # (0.20-1.00) X 10*3/uL POC Glucose (mg/dL) 223 H 253 H 142 H (70-110) mg/dL Hemoglobin A1c (0.0-6.0) % Microbiology - Last 24 Hours (Table) 01/17/23 10:05 Blood Culture - Preliminary Blood 01/17/23 10:20 Blood Culture - Preliminary Blood Assessment and Plan (1) Abscess of buttock, left Current Visit: No Status: Acute Code(s): L02.31 - CUTANEOUS ABSCESS OF BUTTOCK SNOMED Code(s): 23163551 Plan: 1patient present to hospital with sepsis in this patient with fever tachycardia elevated white count source is left gluteal abscess failing outpatient oral doxycycline therapy unfortunately no cultures were done and the patient did have I&D in the ER few days ago 2-patient benefit from surgical drainage and deep culture, especially of the left scrotal area for which urology Case 3-patient to continue with vancomycin pharmacy to dose with a target trough of 15 and Unasyn, monitor clinical course closely Time with Patient: Less than 30
--- NOTE | 2023-01-20 15:56 | P.PN ---
Subjective Progress Note Date: 01/20/23 Principal diagnosis: Left gluteal abscess and cellulitis Patient is a 52-year-old male presenting to the hospital with left gluteal pain and swelling he did have an attempted drainage in the ER 2 days before this admission unfortunately no cultures was done and the patient did have worsening on oral doxycycline, patient did have a pelvic CT with his extensive cellulitis phlegmon changes and no sherrie abscess. On today's evaluation her that is 01/20/2023, the patient remains to be afebrile today, the patient pain in the left gluteal area has resolved however the pat ient complaining of more swelling to the scrotal area and apparently the patient is scheduled for I&D of the scrotal abscess this afternoon denies any chest pain shortness of breath or cough Objective - Vital Signs Vital signs: Vital Signs Temp 98.7 F 01/20/23 07:29 Pulse 83 01/20/23 07:29 Resp 18 01/20/23 07:29 BP 134/71 01/20/23 07:29 Pulse Ox 93 L 01/20/23 07:29 FiO2 Intake & Output 01/19/23 01/20/23 01/20/23 18:59 06:59 18:59 Intake Total 2225 590 Output Total 900 800 Balance 1325 -210 Intake: Intake, IV Titration 2225 Amount Ampicillin-Sulbactam 3 gm 200 In Sodium Chloride 0.9% 100 ml @ 200 mls/hr IVPB Q6HR [facility] Rx#:[id number] Sodium Chloride 0.9% 1, 525 000 ml @ 75 mls/hr IV . [id number] [facility] Rx#:[id number] Sodium Chloride 0.9% 1, 1000 000 ml @ 999 mls/hr IV . Q1H1M [facility] Rx#:[id number] Vancomycin 1,750 mg In 500 Sodium Chloride 0.9% 500 ml 500 ml @ 167 mls/hr IVPB Q8H [facility] Rx#: [id number] Oral 590 Output: Urine 900 800 Other: Voiding Method Toilet Toilet Indwelling Catheter Urinal Urinal - Exam GENERAL DESCRIPTION: Middle-age male lying in bed in no distress RESPIRATORY SYSTEM: Unlabored breathing , decreased breath sounds at bases HEART: S1 S2 regular rate and rhythm , ABDOMEN: Soft , left gluteal area induration seemed to have resolved : Significant swelling to the scrotal area EXTREMITIES: No edema feet - Labs CBC & Chem 7: 01/20/23 06:46 01/20/23 06:46 Labs: Abnormal Lab Results - Last 24 Hours (Table) 01/19/23 01/19/23 01/19/23 Range/Units 06:43 06:43 11:05 WBC 24.88 H (4.50-10.00) X 10*3/uL RBC 3.95 L (4.40-5.60) X 10*6/uL Hgb 11.6 L (13.0-17.0) g/dL Hct 35.7 L (39.6-50.0) % Immature Gran # 0.21 H (0.00-0.04) X 10*3/uL Neutrophils # 19.97 H (1.80-7.70) X 10*3/uL Monocytes # 2.46 H (0.20-1.00) X 10*3/uL Anion Gap 8.80 L (10.00-18.00) mmol/L BUN 7.7 L (9.0-27.0) mg/dL Creatinine 0.48 L (0.66-1.25) mg/dL Glucose 143 H (70-110) mg/dL POC Glucose (mg/dL) (70-110) mg/dL Calcium 8.4 L (8.7-10.3) mg/dL 01/19/23 01/19/23 01/19/23 Range/Units 11:26 17:19 19:59 WBC (4.50-10.00) X 10*3/uL RBC (4.40-5.60) X 10*6/uL Hgb (13.0-17.0) g/dL Hct (39.6-50.0) % Immature Gran # (0.00-0.04) X 10*3/uL Neutrophils # (1.80-7.70) X 10*3/uL Monocytes # (0.20-1.00) X 10*3/uL Anion Gap (10.00-18.00) mmol/L BUN (9.0-27.0) mg/dL Creatinine (0.66-1.25) mg/dL Glucose (70-110) mg/dL POC Glucose (mg/dL) 186 H 236 H 234 H (70-110) mg/dL Calcium (8.7-10.3) mg/dL 01/20/23 01/20/23 Range/Units 06:46 07:38 WBC (4.50-10.00) X 10*3/uL RBC (4.40-5.60) X 10*6/uL Hgb (13.0-17.0) g/dL Hct (39.6-50.0) % Immature Gran # (0.00-0.04) X 10*3/uL Neutrophils # (1.80-7.70) X 10*3/uL Monocytes # (0.20-1.00) X 10*3/uL Anion Gap (10.00-18.00) mmol/L BUN 8 L (9.0-27.0) mg/dL Creatinine 0.58 L (0.66-1.25) mg/dL Glucose 131 H (70-110) mg/dL POC Glucose (mg/dL) 137 H (70-110) mg/dL Calcium 8.0 L (8.7-10.3) mg/dL Microbiology - Last 24 Hours (Table) 01/17/23 10:05 Blood Culture - Preliminary Blood 01/17/23 10:20 Blood Culture - Preliminary Blood Assessment and Plan (1) Abscess of buttock, left Current Visit: No Status: Acute Code(s): L02.31 - CUTANEOUS ABSCESS OF BUTTOCK SNOMED Code(s): 57849495 (2) Scrotal abscess Current Visit: Yes Status: Acute Code(s): N49.2 - INFLAMMATORY DISORDERS OF SCROTUM SNOMED Code(s): 41707822 Plan: 1patient present to hospital with sepsis in this patient with fever tachycardia elevated white count source is left gluteal abscess failing outpatient oral doxy cycline therapy unfortunately no cultures were done and the patient did have I&D in the ER few days ago 2-patient is scheduled for surgical drainage of the scrotal abscess deep culture should be obtained 3-patient to continue with vancomycin and Unasyn, while waiting for the OR cultures to be finalize Time with Patient: Less than 30
[2023-01-20 17:20] LABS: Glucose,Whole Blood 169 mg/dL (70-110)
[2023-01-20 20:30] LABS: Glucose,Whole Blood 186 mg/dL (70-110)
[2023-01-20] MEDS: INSULIN DETEMIR (LEVEMIR) 100 UNIT/ML SYR SQ SCH (20:41)
[2023-01-21] MEDS: HYDROmorphone 1 MG/ML 1 ML SYRINGE IVP PRN ×5 (02:27→20:14)
[2023-01-21] MEDS: AMPICILLIN-SULBACTAM 3 GM in SODIUM CHLORIDE 0.9% 100 ML IVPB SCH ×3 (06:18→17:41)
[2023-01-21 07:02] LABS: Glucose,Whole Blood 151 mg/dL (70-110)
[2023-01-21] MEDS: DOCUSATE 100 MG CAP PO SCH ×2 (07:53→20:13)
[2023-01-21] MEDS: INSULIN ASPART (NovoLOG) 100 UNIT/ML VIAL SQ SCH ×4 (07:53→20:13)
[2023-01-21] MEDS: NICOTINE 21MG/24HR PATCH TRANSDERM SCH (07:53)
[2023-01-21] MEDS: FAMOTIDINE 20 MG TAB PO SCH ×2 (07:53→20:13)
[2023-01-21] MEDS: TAMSULOSIN 0.4 MG CAP.ER.24H PO SCH (07:53)
[2023-01-21] MEDS: HEPARIN SODIUM,PORCINE/PF 5,000 UNIT/0.5 ML SYRINGE SQ SCH ×2 (07:53→20:13)
[2023-01-21] MEDS: VANCOMYCIN 1,750 MG in SODIUM CHLORIDE 0.9% 500 ML 500 ML IVPB SCH ×2 (07:54→15:40)
[2023-01-21] MEDS: ACETAMINOPHEN TAB 325 MG TAB PO PRN (09:17)
--- NOTE | 2023-01-21 09:38 | P.PN ---
Subjective Underwent I&D yesterday. Pain is unchanged, slight improvement in cellulitis Objective - Vital Signs Vital signs: Vital Signs Temp 98.5 F 01/21/23 07:02 Pulse 79 01/21/23 07:02 Resp 18 01/21/23 07:02 BP 132/80 01/21/23 07:02 Pulse Ox 91 L 01/21/23 07:02 FiO2 Intake & Output 01/20/23 01/21/23 01/21/23 18:59 06:59 18:59 Intake Total 850 3050 Output Total 5 600 Balance 845 2450 Intake: IV 850 Intake, IV Titration 1500 Amount Ampicillin-Sulbactam 3 gm 200 In Sodium Chloride 0.9% 100 ml @ 200 mls/hr IVPB Q6HR [facility] Rx#:[id number] Sodium Chloride 0.9% 1, 800 000 ml @ 75 mls/hr IV . [id number] [facility] Rx#:[id number] Vancomycin 1,750 mg In 500 Sodium Chloride 0.9% 500 ml 500 ml @ 167 mls/hr IVPB Q8H [facility] Rx#: [id number] Oral 1550 Output: Urine 600 Estimated Blood Loss 5 Other: Voiding Method Indwelling Catheter Indwelling Catheter # Voids 2 - Constitutional General appearance: Present: no acute distress - Genitourinary Genitourinary Comment(s): Tenderness along the left hemiscrotum, cellulitis slightly improved, serous drainage from the incision. Ravi in place - Psychiatric Psychiatric: Present: A&O x's 3 - Labs CBC & Chem 7: 01/20/23 06:46 01/20/23 06:46 Labs: Abnormal Lab Results - Last 24 Hours (Table) 01/20/23 01/20/23 01/20/23 Range/Units 06:46 11:29 17:18 WBC 22.88 H (4.50-10.00) X 10*3/uL RBC 3.92 L (4.40-5.60) X 10*6/uL Hgb 11.5 L (13.0-17.0) g/dL Hct 35.6 L (39.6-50.0) % Immature Gran # 0.23 H (0.00-0.04) X 10*3/uL Neutrophils # 18.66 H (1.80-7.70) X 10*3/uL Monocytes # 2.08 H (0.20-1.00) X 10*3/uL POC Glucose (mg/dL) 130 H 169 H (70-110) mg/dL 01/20/23 01/21/23 Range/Units 20:28 07:01 WBC (4.50-10.00) X 10*3/uL RBC (4.40-5.60) X 10*6/uL Hgb (13.0-17.0) g/dL Hct (39.6-50.0) % Immature Gran # (0.00-0.04) X 10*3/uL Neutrophils # (1.80-7.70) X 10*3/uL Monocytes # (0.20-1.00) X 10*3/uL POC Glucose (mg/dL) 186 H 151 H (70-110) mg/dL Microbiology - Last 24 Hours (Table) 01/17/23 10:05 Blood Culture - Preliminary Blood 01/17/23 10:20 Blood Culture - Preliminary Blood 01/20/23 13:55 Gram Stain - Preliminary Groin Wound Culture - Preliminary 01/20/23 13:55 Anaerobic Culture - Preliminary Groin 01/20/23 13:55 Fungal Culture - Preliminary Groin Assessment and Plan Assessment: 52-year-old male with evidence of cellulitis involving the perineum scrotum and left thigh. Reviewed both of these CT scans, and exam it is not consistent with Sneha's gangrene. Underwent an I&D yesterday, no purulent drainage obtained serosanguineous output seen. Exam not significantly changed this morning -Continue Zosyn and vancomycin, antibiotics per infectious disease -We'll remove packing later today, keep Decker in place
[2023-01-21] MEDS: SODIUM CHLORIDE 0.9% 1,000 ML IV SCH (09:55)
[2023-01-21 11:06] LABS: Glucose,Whole Blood 141 mg/dL (70-110)
--- NOTE | 2023-01-21 11:08 | P.PN ---
Subjective Progress Note Date: 01/21/23 Principal diagnosis: Left gluteal abscess and cellulitis Patient is a 52-year-old male presenting to the hospital with left gluteal pain and swelling he did have an attempted drainage in the ER 2 days before this admission unfortunately no cultures was done and the patient did have worsening on oral doxycycline, patient did have a pelvic CT with his extensive cellulitis phlegmon changes and no sherrie abscess. Patient is status post left scrotal abscess drainage by urology on 01/20/2023 On today's evaluation her that is 01/21/2023, the patient is afebrile today, the patient pain to the scrotal area is currently controlled, the patient denies having any chest pain shortness of cough no abdominal pain or diarrhea Objective - Vital Signs Vital signs: Vital Signs Temp 98.5 F 01/21/23 07:02 Pulse 79 01/21/23 07:02 Resp 18 01/21/23 07:02 BP 132/80 01/21/23 07:02 Pulse Ox 91 L 01/21/23 07:02 FiO2 Intake & Output 01/20/23 01/21/23 01/21/23 18:59 06:59 18:59 Intake Total 850 3050 Output Total 5 600 Balance 845 2450 Intake: IV 850 Intake, IV Titration 1500 Amount Ampicillin-Sulbactam 3 gm 200 In Sodium Chloride 0.9% 100 ml @ 200 mls/hr IVPB Q6HR [facility] Rx#:[id number] Sodium Chloride 0.9% 1, 800 000 ml @ 75 mls/hr IV . [id number] [facility] Rx#:[id number] Vancomycin 1,750 mg In 500 Sodium Chloride 0.9% 500 ml 500 ml @ 167 mls/hr IVPB Q8H [facility] Rx#: [id number] Oral 1550 Output: Urine 600 Estimated Blood Loss 5 Other: Voiding Method Indwelling Catheter Indwelling Catheter # Voids 2 - Exam GENERAL DESCRIPTION: Middle-age male lying in bed in no distress RESPIRATORY SYSTEM: Unlabored breathing , decreased breath sounds at bases HEART: S1 S2 regular rate and rhythm , ABDOMEN: Soft , no tenderness : Left scrotal wound is packed EXTREMITIES: No edema feet - Labs CBC & Chem 7: 01/20/23 06:46 01/20/23 06:46 Labs: Abnormal Lab Results - Last 24 Hours (Table) 01/20/23 01/20/23 01/20/23 Range/Units 11:29 17:18 20:28 POC Glucose (mg/dL) 130 H 169 H 186 H (70-110) mg/dL 01/21/23 01/21/23 Range/Units 07:01 11:04 POC Glucose (mg/dL) 151 H 141 H (70-110) mg/dL Microbiology - Last 24 Hours (Table) 01/17/23 10:05 Blood Culture - Preliminary Blood 01/17/23 10:20 Blood Culture - Preliminary Blood 01/20/23 13:55 Gram Stain - Preliminary Groin Wound Culture - Preliminary 01/20/23 13:55 Anaerobic Culture - Preliminary Groin 01/20/23 13:55 Fungal Culture - Preliminary Groin Assessment and Plan (1) Abscess of buttock, left Current Visit: No Status: Acute Code(s): L02.31 - CUTANEOUS ABSCESS OF BUTT OCK SNOMED Code(s): 13056927 (2) Scrotal abscess Current Visit: Yes Status: Acute Code(s): N49.2 - INFLAMMATORY DISORDERS OF SCROTUM SNOMED Code(s): 89664267 Plan: 1patient present to hospital with sepsis in this patient with fever tachycardia elevated white count source is left gluteal abscess failing outpatient oral doxycycline therapy unfortunately no cultures were done and the patient did have I&D in the ER few days ago 2-patient is status post surgical drainage of the scrotal abscess deep culture which are currently pending 3-patient to continue with vancomycin and Unasyn, while waiting for the OR cultures to be finalize, we will repeat his CBC with a.m. lab Time with Patient: Less than 30
[2023-01-21 11:24] LABS: Basophils % (A) 0 %; Eosinophils # (A) 0.3 k/uL (0-0.7); Eosinophils % (A) 2 %; HGB 11.7 gm/dL (13.0-17.5); Lymphocytes # (A) 1.4 k/uL (1.0-4.8); Lymphocytes % (A) 8 %; MCH 29.3 pg (25.0-35.0); MCHC 31.6 g/dL (31.0-37.0); MCV 92.7 fL (80.0-100.0); Mean Platelet Volume 6.9; Monocytes % (A) 6 %; Neutrophils # (A) 13.8 k/uL (1.3-7.7); Neutrophils % (A) 82 %; Platelet Count 379 k/uL (150-450); RBC 3.99 m/uL (4.30-5.90); RDW 12.3 % (11.5-15.5); WBC 16.8 k/uL (3.8-10.6)
[2023-01-21 17:33] LABS: Glucose,Whole Blood 148 mg/dL (70-110)
--- NOTE | 2023-01-21 18:08 | P.PN ---
Subjective This is a pleasant 52 years old male with multiple medical problems including Diabetes Mellitus, Fibromyalgia, GERD/Reflux, Hyperlipidemia, Hypertension, ,Depression, nicotine dependence Presents because of skin infection in the gluteal folds, the middle with small papule in the larger polyp part. that Is been going on for about a week. The area to person us why he is lying in the right lateral side Patient denies chest pain dyspnea. No headache weakness a or numbness However patient complaining of from difficulty urination and constipation. Last time he P twice to 3:00 clear the morning. He denies dysuria urgency. He smokes about 1.5 pack per day and he was counseled to quit and he agrees and he agrees to the nicotine patch patient is tachycardic around 105 Patient tachycardic around 105 and he is a febrile Labs showed leukocytosis 23.7. BNP and liver enzymes are unremarkable. Glucose is elevated 328 CT of the pelvis with contrast showing extensive cellulitis and areas of phlegmonous changes along the left gluteal region extending anteriorly in the subcutaneous fat of the left perineum spanning up to nearly 20 cm. This i nflammatory changes extend anterior to the pubic bone. No sherrie abscess. Small area 1.1 cm in the right kidney could be tiny cyst versus pyelonephritis, gallstone 2.5 mm, prostatomegaly 01/18/2023 Patient looks more comfortable today, he still have pain in the area but 3/10, his pain control with pain pills. His scrotum is swollen and tender today. Yesterday he had found to have urinary retention more than 300 mL and Gutierrez catheter currently in place and draining clear urine. Is still complains from some constipation Urologist consulted who requested repeat Pelvic CT showing 1.persistent marked fluid and fat stranding consistent with soft tissue infection or cellulitis from the left groin and scrotal region anteriorly to the left perirectal/perianal tissue similar in appearance to study one day earlier. No focal abscess.2Increasing perinephric fluid and fat stranding along with a new wall thickening in the urinary bladder. Consider acute cystitis and/or bilateral pyelonephritis as possible etiologies patient also antibiotics were updated into IV vancomycin and Unasyn, infectious disease team on the case with help of antibiotic management Hemoglobin A1c is 11.5. Currently sugar is controlled 01/19/2023 Patient is improving slowly and gradually he has this swelling erythema and tenderness in his perineal area and scrotum area compared to yesterday however he still in some distress due to pain and still concerning and required close monitoring. No evidence of crepitus or air on exam. Gutierrez catheter in place. Patient other than that is awake and alert and he denies any other new symptoms. He is hemodynamically stable. Has low-grade temperature today 99.9. Hemoglobin A1c is 11.5%, renal ultrasound is negative for hydronephrosis or other abnormality. Labs from today are pending. Extremities Unasyn and IV vancomycin. 01/20/2023 Patient still complaining from pain in the scrotal and perineal area, his been having some nausea but no vomiting. Current regimen medications are not effective, added Phenergan. No more fever and still has significant leukocytosis. 22,000 Neurology team are planning for I&D of scrotal fluctuance, possible abscess. Habits and normal saline, IV vancomycin and Unasyn Glucose is controlled today at around 130 01/21/2030 patient remains in [id number] distress due to his infection Is a status post I&D of the scrotal wall with no purulent discharge but only several some bloody fluid drained. Dressing is soaked with serosanguineous discharge However continue to improve while his broad-spectrum antibiotics with IV vancom ycin and Unasyn Patient remains on normal saline 75. The per hour. Objective - Vital Signs Vital signs: Vital Signs Temp 98.5 F 01/21/23 07:02 Pulse 79 01/21/23 07:02 Resp 18 01/21/23 07:02 BP 132/80 01/21/23 07:02 Pulse Ox 91 L 01/21/23 07:02 FiO2 Intake & Output 01/20/23 01/21/23 01/21/23 18:59 06:59 18:59 Intake Total 850 3050 Output Total 5 600 Balance 845 2450 Intake: IV 850 Intake, IV Titration 1500 Amount Ampicillin-Sulbactam 3 gm 200 In Sodium Chloride 0.9% 100 ml @ 200 mls/hr IVPB Q6HR [facility] Rx#:[id number] Sodium Chloride 0.9% 1, 800 000 ml @ 75 mls/hr IV . [id number] [facility] Rx#:[id number] Vancomycin 1,750 mg In 500 Sodium Chloride 0.9% 500 ml 500 ml @ 167 mls/hr IVPB Q8H [facility] Rx#: [id number] Oral 1550 Output: Urine 600 Estimated Blood Loss 5 Other: Voiding Method Indwelling Catheter Indwelling Catheter Indwelling Catheter # Voids 2 - Exam GENERAL: The patient is alert and oriented x3, not in any acute distress. Well developed, well nourished. HEENT: Pupils are round and equally reacting to light. EOMI. No scleral icterus. No conjunctival pallor. Normocephalic, atraumatic. No pharyngeal erythema. No thyromegaly. CARDIOVASCULAR: S1 and S2 present. No murmurs, rubs, or gallops. PULMONARY: Chest is clear to auscultation, no wheezing or crackles. -ABDOMEN: Soft, nontender, nondistended, normoactive bowel sounds. No palpable organomegaly. Patient with tender and inflammatory area, light pink in color involving the gluteal cleft old area down to the perineum with tenderness and swelling. Gutierrez catheter in place MUSCULOSKELETAL: No joint swelling or deformity. EXTREMITIES: No cyanosis, clubbing, or pedal edema. NEUROLOGICAL: Gross neurological examination did not reveal any focal deficits. SKIN: No rashes. no petechiae. - Labs CBC & Chem 7: 01/21/23 10:48 01/20/23 06:46 Labs: Abnormal Lab Results - Last 24 Hours (Table) 01/20/23 01/20/23 01/21/23 Range/Units 17:18 20:28 07:01 WBC (3.8-10.6) k/uL RBC (4.30-5.90) m/uL Hgb (13.0-17.5) gm/dL Hct (39.0-53.0) % Neutrophils # (1.3-7.7) k/uL POC Glucose (mg/dL) 169 H 186 H 151 H (70-110) mg/dL 01/21/23 01/21/23 Range/Units 10:48 11:04 WBC 16.8 H (3.8-10.6) k/uL RBC 3.99 L (4.30-5.90) m/uL Hgb 11.7 L (13.0-17.5) gm/dL Hct 37.0 L (39.0-53.0) % Neutrophils # 13.8 H (1.3-7.7) k/uL POC Glucose (mg/dL) 141 H (70-110) mg/dL Microbiology - Last 24 Hours (Table) 01/17/23 10:05 Blood Culture - Preliminary Blood 01/17/23 10:20 Blood Culture - Preliminary Blood 01/20/23 13:55 Gram Stain - Preliminary Groin Wound Culture - Preliminary 01/20/23 13:55 Anaerobic Culture - Preliminary Groin 01/20/23 13:55 Fungal Culture - Preliminary Groin Assessment and Plan Assessment: Extensive cellulitis involving the buttock area, gluteal cleft and perineal. Sepsis with leukocytosis and tachycardia Urinary retention. Status post Gutierrez catheter Large prostate Asymptomatic gallstone 2.5 mm Constipation Urine difficulty Plan: Continue with antibiotic per ID team, currently on IV vancomycin and Unasyn Surgery team consult urology team consult, status post I&D of scrotal abscess. Follow-up: Cultures Continue with Gutierrez catheter Continue with IV fluid Continue with Colace Pain management Labs and medication were reviewed.. Continue same treatment. Continue with symptomatic treatment. Resume home medication. Monitor labs and vitals. DVT and GI prophylaxis. Further recommendations as per clinical course of the patient DVT prophylaxis: Subcutaneous heparin GI Prophylaxis: Pepcid PT/OT: Pending Prognosis is guarded Plan discussed with patient and he is agreeable
[2023-01-21 20:04] LABS: Glucose,Whole Blood 168 mg/dL (70-110)
[2023-01-21] MEDS: INSULIN DETEMIR (LEVEMIR) 100 UNIT/ML SYR SQ SCH (20:14)
--- NOTE | 2023-01-22 00:08 | P.PN ---
Subjective Progress Note Date: 01/21/23 CHIEF COMPLAINT: Scrotal abscess HISTORY OF PRESENT ILLNESS: The patient is a 52-year-old male status post drainage of scrotal abscess. He reports feeling better. He has a Gutierrez catheter. ROS: No reports of nausea and vomiting. No bowel movements. No fevers or chills. No new chest pain. No productive sputum PHYSICAL EXAM: VITAL SIGNS: Reviewed CONSTITUTIONAL: Well developed and in no acute distress. EYES: Conjuctivae without sclera icterus. Extraocular movements grossly intact. HEAD, EARS, NOSE, THROAT: Moist buccal mucosa. Head is atraumatic, normocephalic. Hears conversational speech. No nasal drainage. RESPIRATORY: Non-labored respirations and equal bilateral excursions. CARDIOVASCULAR: Palpable 2+ radial pulses. ABDOMEN: No peritonitis MUSCULOSKELETAL: No gross deformity of the lower extremities noted. No clubbing. No cyanosis. SKIN: Good skin turgor. Well perfused. NEUROLOGIC: Cranial nerves II through XII grossly intact. No focal or lateralizing signs. PSYCH: Appropriate affect. Alert and oriented to person, place and time. : Gutierrez catheter present. CLINICAL LABS: Reviewed. WBC down from over 22,000 to over 16,000 ASSESSMENT: 1. Scrotal abscess 2. Sepsis PLAN: 1. Continue antibiotic 2. Management per urology Objective - Vital Signs Vital signs: Vital Signs Temp 98.4 F 01/21/23 11:47 Pulse 73 01/21/23 11:47 Resp 18 01/21/23 11:47 BP 125/75 01/21/23 11:47 Pulse Ox 93 L 01/21/23 11:47 FiO2 Intake & Output 01/20/23 01/21/23 01/21/23 18:59 06:59 18:59 Intake Total 850 3050 Output Total 5 600 Balance 845 2450 Intake: IV 850 Intake, IV Titration 1500 Amount Ampicillin-Sulbactam 3 gm 200 In Sodium Chloride 0.9% 100 ml @ 200 mls/hr IVPB Q6HR [facility] Rx#:[id number] Sodium Chloride 0.9% 1, 800 000 ml @ 75 mls/hr IV . [id number] [facility] Rx#:[id number] Vancomycin 1,750 mg In 500 Sodium Chloride 0.9% 500 ml 500 ml @ 167 mls/hr IVPB Q8H [facility] Rx#: [id number] Oral 1550 Output: Urine 600 Estimated Blood Loss 5 Other: Voiding Method Indwelling Catheter Indwelling Catheter Indwelling Catheter # Voids 2 - Labs CBC & Chem 7: 01/21/23 10:48 01/20/23 06:46 Labs: Abnormal Lab Results - Last 24 Hours (Table) 01/20/23 01/20/23 01/21/23 Range/Units 17:18 20:28 07:01 WBC (3.8-10.6) k/uL RBC (4.30-5.90) m/uL Hgb (13.0-17.5) gm/dL Hct (39.0-53.0) % Neutrophils # (1.3-7.7) k/uL POC Glucose (mg/dL) 169 H 186 H 151 H (70-110) mg/dL 01/21/23 01/21/23 Range/Units 10:48 11:04 WBC 16.8 H (3.8-10.6) k/uL RBC 3.99 L (4.30-5.90) m/uL Hgb 11.7 L (13.0-17.5) gm/dL Hct 37.0 L (39.0-53.0) % Neutrophils # 13.8 H (1.3-7.7) k/uL POC Glucose (mg/dL) 141 H (70-110) mg/dL Microbiology - Last 24 Hours (Table) 01/17/23 10:05 Blood Culture - Preliminary Blood 01/17/23 10:20 Blood Culture - Preliminary Blood 01/20/23 13:55 Gram Stain - Preliminary Groin Wound Culture - Preliminary 01/20/23 13:55 Anaerobic Culture - Preliminary Groin 01/20/23 13:55 Fungal Culture - Preliminary Groin
[2023-01-22] MEDS: AMPICILLIN-SULBACTAM 3 GM in SODIUM CHLORIDE 0.9% 100 ML IVPB SCH ×5 (00:10→23:29)
[2023-01-22] MEDS: SODIUM CHLORIDE 0.9% 1,000 ML IV SCH ×2 (00:23→12:46)
[2023-01-22] MEDS: VANCOMYCIN 1,750 MG in SODIUM CHLORIDE 0.9% 500 ML 500 ML IVPB SCH ×4 (00:35→23:30)
[2023-01-22] MEDS: HYDROmorphone 1 MG/ML 1 ML SYRINGE IVP PRN ×3 (00:35→08:54)
[2023-01-22] MEDS ORDERED: VANCOMYCIN TROUGH DUE 1 EACH MISC MISCELLANE ONE (07:00)
[2023-01-22 07:21] LABS: Glucose,Whole Blood 89 mg/dL (70-110)
[2023-01-22] MEDS: INSULIN ASPART (NovoLOG) 100 UNIT/ML VIAL SQ SCH ×4 (07:51→20:18)
[2023-01-22 08:01] LABS: African American GFR (CKD) >90 (>60 ml/min/1.73 sqM); Anion Gap 5 mmol/L; Blood Urea Nitrogen 6 mg/dL (9-20); Calcium 7.9 mg/dL (8.4-10.2); Carbon Dioxide 27 mmol/L (22-30); Chloride 106 mmol/L (98-107); Glucose 90 mg/dL (74-99); Non-African American GFR(CKD) >90 (>60 ml/min/1.73 sqM); Potassium 3.6 mmol/L (3.5-5.1); Sodium 138 mmol/L (137-145)
[2023-01-22] MEDS: DOCUSATE 100 MG CAP PO SCH ×2 (08:37→20:23)
[2023-01-22] MEDS: FAMOTIDINE 20 MG TAB PO SCH ×2 (08:37→20:23)
[2023-01-22] MEDS: HEPARIN SODIUM,PORCINE/PF 5,000 UNIT/0.5 ML SYRINGE SQ SCH ×2 (08:37→20:23)
[2023-01-22] MEDS: TAMSULOSIN 0.4 MG CAP.ER.24H PO SCH (08:37)
[2023-01-22] MEDS: NICOTINE 21MG/24HR PATCH TRANSDERM SCH (08:45)
--- NOTE | 2023-01-22 09:16 | P.PN ---
Subjective Underwent I&D 01/20. Pain and cellulitis improved this morning. Serous drainage from the wound. White count down to 16 from 22. Objective - Vital Signs Vital signs: Vital Signs Temp 98.9 F 01/22/23 07:55 Pulse 74 01/22/23 07:55 Resp 16 01/22/23 02:00 BP 148/81 01/22/23 07:55 Pulse Ox 92 L 01/22/23 07:55 FiO2 Intake & Output 01/21/23 01/22/23 01/22/23 18:59 06:59 18:59 Intake Total 240 590 360 Output Total 500 1100 Balance -260 -510 360 Intake: Oral 240 590 360 Output: Urine 500 1100 Other: Voiding Method Indwelling Catheter Indwelling Catheter # Bowel Movements 1 - Constitutional General appearance: Present: no acute distress - Gastrointestinal General gastrointestinal: Present: soft. Absent: tenderness - Genitourinary Genitourinary Comment(s): Improved left cellulitis along the scrotum, Logan in place wound is clean - Labs CBC & Chem 7: 01/21/23 10:48 01/22/23 06:56 Labs: Abnormal Lab Results - Last 24 Hours (Table) 01/21/23 01/21/23 01/21/23 Range/Units 10:48 11:04 17:29 WBC 16.8 H (3.8-10.6) k/uL RBC 3.99 L (4.30-5.90) m/uL Hgb 11.7 L (13.0-17.5) gm/dL Hct 37.0 L (39.0-53.0) % Neutrophils # 13.8 H (1.3-7.7) k/uL BUN (9-20) mg/dL Creatinine (0.66-1.25) mg/dL POC Glucose (mg/dL) 141 H 148 H (70-110) mg/dL Calcium (8.4-10.2) mg/dL 01/21/23 01/22/23 Range/Units 20:03 06:56 WBC (3.8-10.6) k/uL RBC (4.30-5.90) m/uL Hgb (13.0-17.5) gm/dL Hct (39.0-53.0) % Neutrophils # (1.3-7.7) k/uL BUN 6 L (9-20) mg/dL Creatinine 0.62 L (0.66-1.25) mg/dL POC Glucose (mg/dL) 168 H (70-110) mg/dL Calcium 7.9 L (8.4-10.2) mg/dL Microbiology - Last 24 Hours (Table) 01/17/23 10:05 Blood Culture - Preliminary Blood 01/17/23 10:20 Blood Culture - Preliminary Blood 01/20/23 13:55 Gram Stain - Preliminary Groin Wound Culture - Preliminary Assessment and Plan Assessment: 52-year-old male with evidence of cellulitis involving the perineum scrotum and left thigh. Reviewed both of these CT scans, and exam it is not consistent with Sneha's gangrene. Underwent an I&D 01/20, no purulent drainage obtained serosanguineous output seen. Clinically he is improved since the I&D his white count was down to 16,000 yesterday -Continue IV antibiotics, antibiotics per infectious disease -keep Logan in place -Recommend keeping for at least another 24 hours -Gutierrez catheter can be removed prior to discharge for a trial of void
[2023-01-22 11:05] LABS: Glucose,Whole Blood 161 mg/dL (70-110)
[2023-01-22] MEDS: HYDROmorphone 0.5 MG/0.5 ML SYRINGE IVP PRN ×4 (13:33→23:28)
--- NOTE | 2023-01-22 16:41 | P.PN ---
Subjective Progress Note Date: 01/22/23 Principal diagnosis: Left gluteal abscess and cellulitis Patient is a 52-year-old male presenting to the hospital with left gluteal pain and swelling he did have an attempted drainage in the ER 2 days before this admission unfortunately no cultures was done and the patient did have worsening on oral doxycycline, patient did have a pelvic CT with his extensive cellulitis phlegmon changes and no sherrie abscess. Patient is status post left scrotal abscess drainage by urology on 01/20/2023 On today's evaluation her that is 01/22/2023, the patient remains to be afebril e, the patient pain to the scrotal area has decreased in intensity, the patient denies having any chest pain shortness of cough no abdominal pain or diarrhea Objective - Vital Signs Vital signs: Vital Signs Temp 98.9 F 01/22/23 07:55 Pulse 74 01/22/23 07:55 Resp 16 01/22/23 02:00 BP 148/81 01/22/23 07:55 Pulse Ox 92 L 01/22/23 07:55 FiO2 Intake & Output 01/21/23 01/22/23 01/22/23 18:59 06:59 18:59 Intake Total 240 590 360 Output Total 500 1100 Balance -260 -510 360 Intake: Oral 240 590 360 Output: Urine 500 1100 Other: Voiding Method Indwelling Catheter Indwelling Catheter Indwelling Catheter # Bowel Movements 1 - Exam GENERAL DESCRIPTION: Middle-age male lying in bed in no distress RESPIRATORY SYSTEM: Unlabored breathing , decreased breath sounds at bases HEART: S1 S2 regular rate and rhythm , ABDOMEN: Soft , no tenderness : Left scrotal wound is packed EXTREMITIES: No edema feet - Labs CBC & Chem 7: 01/21/23 10:48 01/22/23 06:56 Labs: Abnormal Lab Results - Last 24 Hours (Table) 01/21/23 01/21/23 01/22/23 Range/Units 17:29 20:03 06:56 BUN 6 L (9-20) mg/dL Creatinine 0.62 L (0.66-1.25) mg/dL POC Glucose (mg/dL) 148 H 168 H (70-110) mg/dL Calcium 7.9 L (8.4-10.2) mg/dL 01/22/23 Range/Units 11:04 BUN (9-20) mg/dL Creatinine (0.66-1.25) mg/dL POC Glucose (mg/dL) 161 H (70-110) mg/dL Calcium (8.4-10.2) mg/dL Microbiology - Last 24 Hours (Table) 01/17/23 10:05 Blood Culture - Preliminary Blood 01/17/23 10:20 Blood Culture - Preliminary Blood 01/20/23 13:55 Gram Stain - Preliminary Groin Wound Culture - Preliminary Assessment and Plan (1) Abscess of buttock, left Current Visit: No Status: Acute Code(s): L02.31 - CUTANEOUS ABSCESS OF BUTTOCK SNOMED Code(s): 85032558 (2) Scrotal abscess Current Visit: Yes Status: Acute Code(s): N49.2 - INFLAMMATORY DISORDERS OF SCROTUM SNOMED Code(s): 57850097 Plan: 1patient present to hospital with sepsis in this patient with fever tachycardia elevated white count source is left gluteal abscess failing outpatient oral doxycycline therapy unfortunately no cultures were done and the patient did have I&D in the ER few days ago 2-patient is status post surgical drainage of the scrotal abscess deep culture which are currently pending 3-patient has had clinical improvement, patient to continue with vancomycin and Unasyn, while waiting for the OR cultures to be finalize Time with Patient: Less than 30
[2023-01-22 16:57] LABS: Glucose,Whole Blood 152 mg/dL (70-110)
--- NOTE | 2023-01-22 18:14 | P.PN ---
Subjective This is a pleasant 52 years old male with multiple medical problems including Diabetes Mellitus, Fibromyalgia, GERD/Reflux, Hyperlipidemia, Hypertension, ,Depression, nicotine dependence Presents because of skin infection in the gluteal folds, the middle with small papule in the larger polyp part. that Is been going on for about a week. The area to person us why he is lying in the right lateral side Patient denies chest pain dyspnea. No headache weakness a or numbness However patient complaining of from difficulty urination and constipation. Last time he P twice to 3:00 clear the morning. He denies dysuria urgency. He smokes about 1.5 pack per day and he was counseled to quit and he agrees and he agrees to the nicotine patch patient is tachycardic around 105 Patient tachycardic around 105 and he is a febrile Labs showed leukocytosis 23.7. BNP and liver enzymes are unremarkable. Glucose is elevated 328 CT of the pelvis with contrast showing extensive cellulitis and areas of phlegmonous changes along the left gluteal region extending anteriorly in the subcutaneous fat of the left perineum spanning up to nearly 20 cm. This i nflammatory changes extend anterior to the pubic bone. No sherrie abscess. Small area 1.1 cm in the right kidney could be tiny cyst versus pyelonephritis, gallstone 2.5 mm, prostatomegaly 01/18/2023 Patient looks more comfortable today, he still have pain in the area but 3/10, his pain control with pain pills. His scrotum is swollen and tender today. Yesterday he had found to have urinary retention more than 300 mL and Gutierrez catheter currently in place and draining clear urine. Is still complains from some constipation Urologist consulted who requested repeat Pelvic CT showing 1.persistent marked fluid and fat stranding consistent with soft tissue infection or cellulitis from the left groin and scrotal region anteriorly to the left perirectal/perianal tissue similar in appearance to study one day earlier. No focal abscess.2Increasing perinephric fluid and fat stranding along with a new wall thickening in the urinary bladder. Consider acute cystitis and/or bilateral pyelonephritis as possible etiologies patient also antibiotics were updated into IV vancomycin and Unasyn, infectious disease team on the case with help of antibiotic management Hemoglobin A1c is 11.5. Currently sugar is controlled 01/19/2023 Patient is improving slowly and gradually he has this swelling erythema and tenderness in his perineal area and scrotum area compared to yesterday however he still in some distress due to pain and still concerning and required close monitoring. No evidence of crepitus or air on exam. Gutierrez catheter in place. Patient other than that is awake and alert and he denies any other new symptoms. He is hemodynamically stable. Has low-grade temperature today 99.9. Hemoglobin A1c is 11.5%, renal ultrasound is negative for hydronephrosis or other abnormality. Labs from today are pending. Extremities Unasyn and IV vancomycin. 01/20/2023 Patient still complaining from pain in the scrotal and perineal area, his been having some nausea but no vomiting. Current regimen medications are not effective, added Phenergan. No more fever and still has significant leukocytosis. 22,000 Neurology team are planning for I&D of scrotal fluctuance, possible abscess. Habits and normal saline, IV vancomycin and Unasyn Glucose is controlled today at around 130 01/21/2030 patient remains in [id number] distress due to his infection Is a status post I&D of the scrotal wall with no purulent discharge but only several some bloody fluid drained. Dressing is soaked with serosanguineous discharge However continue to improve while his broad-spectrum antibiotics with IV vancom ycin and Unasyn Patient remains on normal saline 75. The per hour. 01/22/2023 Patient is improving Slowly and gradually No evidence of fluctuant area, today significantly secure, is less tender, less red and less swollen creatinine stable He is currently on antibiotic on IV vancomycin and Unasyn and #75 mL/h Patient had bowel movement and he feels satisfied Objective - Vital Signs Vital signs: Vital Signs Temp 98.9 F 01/22/23 07:55 Pulse 74 01/22/23 07:55 Resp 16 01/22/23 02:00 BP 148/81 01/22/23 07:55 Pulse Ox 92 L 01/22/23 07:55 FiO2 Intake & Output 01/21/23 01/22/23 01/22/23 18:59 06:59 18:59 Intake Total 240 590 Output Total 500 1100 Balance -260 -510 Intake: Oral 240 590 Output: Urine 500 1100 Other: Voiding Method Indwelling Catheter Indwelling Catheter # Bowel Movements 1 - Exam GENERAL: The patient is alert and oriented x3, not in any acute distress. Well developed, well nourished. HEENT: Pupils are round and equally reacting to light. EOMI. No scleral icterus. No conjunctival pallor. Normocephalic, atraumatic. No pharyngeal erythema. No thyromegaly. CARDIOVASCULAR: S1 and S2 present. No murmurs, rubs, or gallops. PULMONARY: Chest is clear to auscultation, no wheezing or crackles. -ABDOMEN: Soft, nontender, nondistended, normoactive bowel sounds. No palpable organomegaly. Patient with tender and inflammatory area, light pink in color involving the gluteal cleft old area down to the perineum with tenderness and swelling. Gutierrez catheter in place MUSCULOSKELETAL: No joint swelling or deformity. EXTREMITIES: No cyanosis, clubbing, or pedal edema. NEUROLOGICAL: Gross neurological examination did not reveal any focal deficits. SKIN: No rashes. no petechiae. - Labs CBC & Chem 7: 01/21/23 10:48 01/22/23 06:56 Labs: Abnormal Lab Results - Last 24 Hours (Table) 01/21/23 01/21/23 01/21/23 Range/Units 10:48 11:04 17:29 WBC 16.8 H (3.8-10.6) k/uL RBC 3.99 L (4.30-5.90) m/uL Hgb 11.7 L (13.0-17.5) gm/dL Hct 37.0 L (39.0-53.0) % Neutrophils # 13.8 H (1.3-7.7) k/uL BUN (9-20) mg/dL Creatinine (0.66-1.25) mg/dL POC Glucose (mg/dL) 141 H 148 H (70-110) mg/dL Calcium (8.4-10.2) mg/dL 01/21/23 01/22/23 Range/Units 20:03 06:56 WBC (3.8-10.6) k/uL RBC (4.30-5.90) m/uL Hgb (13.0-17.5) gm/dL Hct (39.0-53.0) % Neutrophils # (1.3-7.7) k/uL BUN 6 L (9-20) mg/dL Creatinine 0.62 L (0.66-1.25) mg/dL POC Glucose (mg/dL) 168 H (70-110) mg/dL Calcium 7.9 L (8.4-10.2) mg/dL Microbiology - Last 24 Hours (Table) 01/17/23 10:05 Blood Culture - Preliminary Blood 01/17/23 10:20 Blood Culture - Preliminary Blood 01/20/23 13:55 Gram Stain - Preliminary Groin Wound Culture - Preliminary Assessment and Plan Assessment: Extensive cellulitis involving the buttock area, gluteal cleft and perineal. Sepsis with leukocytosis and tachycardia Urinary retention. Status post Gutierrez catheter Large prostate Asymptomatic gallstone 2.5 mm Constipation Urine difficulty Plan: Continue with antibiotic per ID team, currently on IV vancomycin and Unasyn Surgery team consult urology team consult, status post I&D of scrotal abscess. Follow-up: Cultures Continue with Gutierrez catheter Continue with IV fluid Continue with Colace Pain management Labs and medication were reviewed.. Continue same treatment. Continue with symptomatic treatment. Resume home medication. Monitor labs and vitals. DVT and GI prophylaxis. Further recommendations as per clinical course of the patient DVT prophylaxis: Subcutaneous heparin GI Prophylaxis: Pepcid PT/OT: Pending Prognosis is guarded Plan discussed with patient and he is agreeable
[2023-01-22 20:15] LABS: Glucose,Whole Blood 146 mg/dL (70-110)
[2023-01-22] MEDS: INSULIN DETEMIR (LEVEMIR) 100 UNIT/ML SYR SQ SCH (20:24)
--- NOTE | 2023-01-23 01:28 | P.PN ---
Subjective Progress Note Date: 01/22/23 CHIEF COMPLAINT: Scrotal abscess HISTORY OF PRESENT ILLNESS: The patient is a 52-year-old male status post drainage of scrotal abscess. He is under well to antibiotics. Reports pain has moderately improved. He has a Gutierrez catheter. ROS: No reports of nausea and vomiting. No fevers or chills. No new chest pain. No productive sputum PHYSICAL EXAM: VITAL SIGNS: Reviewed CONSTITUTIONAL: Well developed and in no acute distress. EYES: Conjuctivae without sclera icterus. Extraocular movements grossly intact. HEAD, EARS, NOSE, THROAT: Moist buccal mucosa. Head is atraumatic, normocephalic. Hears conversational speech. No nasal drainage. RESPIRATORY: Non-labored respirations and equal bilateral excursions. CARDIOVASCULAR: Palpable 2+ radial pulses. ABDOMEN: No peritonitis MUSCULOSKELETAL: No gross deformity of the lower extremities noted. No clubbing. No cyanosis. SKIN: Good skin turgor. Well perfused. NEUROLOGIC: Cranial nerves II through XII grossly intact. No focal or lat eralizing signs. PSYCH: Appropriate affect. Alert and oriented to person, place and time. : Gutierrez catheter present. CLINICAL LABS: Reviewed. ASSESSMENT: 1. Scrotal abscess 2. Sepsis PLAN: 1. Wound care management per urology. 2. Continue antibiotics 3. No further acute general surgical intervention Objective - Vital Signs Vital signs: Vital Signs Temp 98.2 F 01/22/23 20:00 Pulse 77 01/22/23 20:00 Resp 16 01/22/23 20:00 BP 145/78 01/22/23 20:00 Pulse Ox 93 L 01/22/23 20:00 FiO2 Intake & Output 01/22/23 01/22/23 01/23/23 06:59 18:59 06:59 Intake Total 590 900 Output Total 1100 Balance -510 900 Intake: Oral 590 900 Output: Urine 1100 Other: Voiding Method Indwelling Catheter Indwelling Catheter Indwelling Catheter # Bowel Movements 1 - Labs CBC & Chem 7: 01/21/23 10:48 01/22/23 06:56 Labs: Abnormal Lab Results - Last 24 Hours (Table) 01/22/23 01/22/23 01/22/23 Range/Units 06:56 11:04 16:56 BUN 6 L (9-20) mg/dL Creatinine 0.62 L (0.66-1.25) mg/dL POC Glucose (mg/dL) 161 H 152 H (70-110) mg/dL Calcium 7.9 L (8.4-10.2) mg/dL 01/22/23 Range/Units 20:14 BUN (9-20) mg/dL Creatinine (0.66-1.25) mg/dL POC Glucose (mg/dL) 146 H (70-110) mg/dL Calcium (8.4-10.2) mg/dL Microbiology - Last 24 Hours (Table) 01/20/23 13:55 Anaerobic Culture - Final Groin 01/20/23 13:55 Gram Stain - Preliminary Groin Wound Culture - Preliminary 01/17/23 10:05 Blood Culture - Preliminary Blood 01/17/23 10:20 Blood Culture - Preliminary Blood
[2023-01-23] MEDS: HYDROmorphone 1 MG/ML 1 ML SYRINGE IVP PRN ×3 (02:46→22:06)
[2023-01-23] MEDS: SODIUM CHLORIDE 0.9% 1,000 ML IV SCH ×2 (02:50→17:24)
[2023-01-23] MEDS: AMPICILLIN-SULBACTAM 3 GM in SODIUM CHLORIDE 0.9% 100 ML IVPB SCH (06:56)
[2023-01-23 07:18] LABS: Glucose,Whole Blood 102 mg/dL (70-110)
[2023-01-23] MEDS: INSULIN ASPART (NovoLOG) 100 UNIT/ML VIAL SQ SCH ×4 (07:21→20:47)
--- NOTE | 2023-01-23 07:41 | P.PN ---
Subjective Progress Note Date: 01/23/23 Patient is in the hospital with a posterior thigh, perineal and scrotal cellulitis. He had drainage by last week that did not really show an abscess. The patient still states he is uncomfortable. He is afebrile Objective - Vital Signs Vital signs: Vital Signs Temp 98.3 F 01/23/23 02:00 Pulse 72 01/23/23 02:00 Resp 16 01/23/23 02:00 BP 151/83 01/23/23 02:00 Pulse Ox 93 L 01/23/23 02:00 FiO2 Intake & Output 01/22/23 01/23/23 01/23/23 18:59 06:59 18:59 Intake Total 900 590 Output Total 400 Balance 900 190 Intake: Oral 900 590 Output: Urine 400 Other: Voiding Method Indwelling Catheter Indwelling Catheter - Genitourinary Genitourinary Comment(s): Indwelling catheter. Drains with minimal drainage. Scrotal edema. Perineal edema. No fluctuance or crepitus. - Labs CBC & Chem 7: 01/21/23 10:48 01/22/23 06:56 Labs: Abnormal Lab Results - Last 24 Hours (Table) 01/22/23 01/22/23 01/22/23 Range/Units 06:56 11:04 16:56 BUN 6 L (9-20) mg/dL Creatinine 0.62 L (0.66-1.25) mg/dL POC Glucose (mg/dL) 161 H 152 H (70-110) mg/dL Calcium 7.9 L (8.4-10.2) mg/dL 01/22/23 Range/Units 20:14 BUN (9-20) mg/dL Creatinine (0.66-1.25) mg/dL POC Glucose (mg/dL) 146 H (70-110) mg/dL Calcium (8.4-10.2) mg/dL Microbiology - Last 24 Hours (Table) 01/20/23 13:55 Anaerobic Culture - Final Groin 01/20/23 13:55 Gram Stain - Preliminary Groin Wound Culture - Preliminary 01/17/23 10:05 Blood Culture - Preliminary Blood 01/17/23 10:20 Blood Culture - Preliminary Blood Assessment and Plan Assessment: Impression: Scrotal perineal cellulitis. Status post incision and drainage. Recommendations: The patient is still uncomfortable. We'll continue with antibiotics as the incision and drainage did not show anything. We will see what his white blood cell count shows a.
[2023-01-23 08:55] LABS: Basophils # (A) 0.06 X 10*3/uL (0.00-0.10); Basophils % (A) 0.4 %; Eosinophils # (A) 0.57 X 10*3/uL (0.04-0.35); Eosinophils % (A) 3.8 %; HCT 34.5 % (39.6-50.0); Immature Grans, Automated 1.8 %; Lymphocytes # (A) 1.86 X 10*3/uL (0.90-5.00); Lymphocytes % (A) 12.2 %; MCH 29.5 pg (27.0-32.0); MCHC 31.9 g/dL (32.0-37.0); MCV 92.5 fL (80.0-97.0); Mean Platelet Volume 9.1 fL (9.5-12.2); Monocytes % (A) 10.5 %; NRBC Per 100 WBC 0 /100 WBCS (0.0-0.0); Neutrophils # (A) 10.82 X 10*3/uL (1.80-7.70); Neutrophils % (A) 71.3 %; Platelet Count 396 X 10*3/uL (140-440); RBC 3.73 X 10*6/uL (4.40-5.60); RDW 12.4 % (11.5-14.5); WBC 15.19 X 10*3/uL (4.50-10.00)
[2023-01-23] MEDS: FAMOTIDINE 20 MG TAB PO SCH ×2 (08:57→21:21)
[2023-01-23] MEDS: TAMSULOSIN 0.4 MG CAP.ER.24H PO SCH (08:57)
[2023-01-23] MEDS: DOCUSATE 100 MG CAP PO SCH ×2 (08:58→21:21)
[2023-01-23] MEDS: HEPARIN SODIUM,PORCINE/PF 5,000 UNIT/0.5 ML SYRINGE SQ SCH ×2 (08:58→21:21)
[2023-01-23] MEDS: VANCOMYCIN 1,750 MG in SODIUM CHLORIDE 0.9% 500 ML 500 ML IVPB SCH (08:58)
[2023-01-23] MEDS: NICOTINE 21MG/24HR PATCH TRANSDERM SCH (09:08)
[2023-01-23] MEDS: ONDANSETRON 4 MG/2 ML VIAL IVP PRN (11:13)
[2023-01-23 11:17] LABS: Anion Gap 6.9 mmol/L (10.00-18.00); Blood Urea Nitrogen 5.4 mg/dL (9.0-27.0); C Reactive Protein 6.4 mg/dL (0.00-0.80); Calcium 8.2 mg/dL (8.7-10.3); Carbon Dioxide 27.1 mmol/L (20.0-27.5); Non-African American GFR(CKD) 114.8 (60.0-200.0); Potassium 3.9 mmol/L (3.5-5.5)
--- NOTE | 2023-01-23 11:29 | P.PN ---
Subjective Progress Note Date: 01/23/23 CHIEF COMPLAINT: Cellulitis of the left glute HISTORY OF PRESENT ILLNESS: Patient reports that the left buttock swelling and perineal swelling and pain has resolved. Patient is status post incision and dr pedraza of left scrotal abscess by urology. Patient complaining of testicular pain and continues to have testicular swelling. Tolerating regular diet. Afebrile. WBC 16 down to 15.1 9H 11.0 platelets are 96 signs 142 potassium is 3.9 creatinine 0.6 glucose 104 Patient seen and examined with Dr. Chris PHYSICAL EXAM: VITAL SIGNS: Reviewed. GENERAL: Well-developed in no acute distress. HEENT: No sclera icterus. Extraocular movements grossly intact. Moist buccal mucosa. Head is atraumatic, normocephalic. ABDOMEN: Soft. Nondistended. Nontender. NEUROLOGIC: Alert and oriented. Cranial nerves II through XII grossly intact. SKIN: Left buttock and perineal area with no evidence of cellulitis. Area is soft. Decreased tenderness. No drainage. No evidence of abscess on exam : Significant scrotal swelling and erythema ASSESSMENT: 1. Left buttock cellulitis and phlegmonous changes have shown improvement. 2. Scrotal cellulitis and abscess followed by urology PLAN: -No surgical intervention planned from general surgery standpoint -Continue IV antibiotics -Continue glucose control Physician Attending Radiologist note has been reviewed by physician. Signing provider agrees with the documented findings, assessment, and plan of care. Objective - Vital Signs Vital signs: Vital Signs Temp 98.5 F 01/23/23 07:15 Pulse 76 01/23/23 07:15 Resp 18 01/23/23 07:15 BP 145/74 01/23/23 07:15 Pulse Ox 90 L 01/23/23 07:15 FiO2 Intake & Output 01/22/23 01/23/23 01/23/23 18:59 06:59 18:59 Intake Total 900 590 Output Total 400 Balance 900 190 Intake: Oral 900 590 Output: Urine 400 Other: Voiding Method Indwelling Catheter Indwelling Catheter Indwelling Catheter - Labs CBC & Chem 7: 01/23/23 05:36 01/23/23 05:36 Labs: Abnormal Lab Results - Last 24 Hours (Table) 01/22/23 01/22/23 01/23/23 Range/Units 16:56 20:14 05:36 WBC 15.19 H (4.50-10.00) X 10*3/uL RBC 3.73 L (4.40-5.60) X 10*6/uL Hgb 11.0 L (13.0-17.0) g/dL Hct 34.5 L (39.6-50.0) % MCHC 31.9 L (32.0-37.0) g/dL MPV 9.1 L (9.5-12.2) fL Immature Gran # 0.28 H (0.00-0.04) X 10*3/uL Neutrophils # 10.82 H (1.80-7.70) X 10*3/uL Monocytes # 1.60 H (0.20-1.00) X 10*3/uL Eosinophils # 0.57 H (0.04-0.35) X 10*3/uL Anion Gap (10.00-18.00) mmol/L BUN (9.0-27.0) mg/dL BUN/Creatinine Ratio (12.00-20.00) Ratio POC Glucose (mg/dL) 152 H 146 H (70-110) mg/dL Calcium (8.7-10.3) mg/dL C-Reactive Protein (0.00-0.80) mg/dL 01/23/23 Range/Units 05:36 WBC (4.50-10.00) X 10*3/uL RBC (4.40-5.60) X 10*6/uL Hgb (13.0-17.0) g/dL Hct (39.6-50.0) % MCHC (32.0-37.0) g/dL MPV (9.5-12.2) fL Immature Gran # (0.00-0.04) X 10*3/uL Neutrophils # (1.80-7.70) X 10*3/uL Monocytes # (0.20-1.00) X 10*3/uL Eosinophils # (0.04-0.35) X 10*3/uL Anion Gap 6.90 L (10.00-18.00) mmol/L BUN 5.4 L (9.0-27.0) mg/dL BUN/Creatinine Ratio 9.00 L (12.00-20.00) Ratio POC Glucose (mg/dL) (70-110) mg/dL Calcium 8.2 L (8.7-10.3) mg/dL C-Reactive Protein 6.40 H (0.00-0.80) mg/dL Microbiology - Last 24 Hours (Table) 01/17/23 10:05 Blood Culture - Final Blood 01/17/23 10:20 Blood Culture - Final Blood 01/20/23 13:55 Anaerobic Culture - Final Groin 01/20/23 13:55 Gram Stain - Preliminary Groin Wound Culture - Preliminary
--- NOTE | 2023-01-23 11:53 | P.PN ---
Subjective Progress Note Date: 01/23/23 Principal diagnosis: Left gluteal abscess and cellulitis Patient is a 52-year-old male presenting to the hospital with left gluteal pain and swelling he did have an attempted drainage in the ER 2 days before this admission unfortunately no cultures was done and the patient did have worsening on oral doxycycline, patient did have a pelvic CT with his extensive cellulitis phlegmon changes and no sherrie abscess. Patient is status post left scrotal abscess drainage by urology on 01/20/2023 On today's evaluation her that is 01/23/2023, the patient continues to be afebr ile, the patient still complaining of swelling and discomfort to the scrotal area , the left gluteal area pain and swelling has resolved, the patient denies having any chest pain shortness of cough no abdominal pain or diarrhea Objective - Vital Signs Vital signs: Vital Signs Temp 98.5 F 01/23/23 07:15 Pulse 76 01/23/23 07:15 Resp 18 01/23/23 07:15 BP 145/74 01/23/23 07:15 Pulse Ox 90 L 01/23/23 07:15 FiO2 Intake & Output 01/22/23 01/23/23 01/23/23 18:59 06:59 18:59 Intake Total 900 590 Output Total 400 Balance 900 190 Intake: Oral 900 590 Output: Urine 400 Other: Voiding Method Indwelling Catheter Indwelling Catheter Indwelling Catheter - Exam GENERAL DESCRIPTION: Middle-age male lying in bed in no distress RESPIRATORY SYSTEM: Unlabored breathing , decreased breath sounds at bases HEART: S1 S2 regular rate and rhythm , ABDOMEN: Soft , no tenderness : Left scrotal wound is packed EXTREMITIES: No edema feet - Labs CBC & Chem 7: 01/23/23 05:36 01/23/23 05:36 Labs: Abnormal Lab Results - Last 24 Hours (Table) 01/22/23 01/22/23 01/22/23 Range/Units 11:04 16:56 20:14 WBC (4.50-10.00) X 10*3/uL RBC (4.40-5.60) X 10*6/uL Hgb (13.0-17.0) g/dL Hct (39.6-50.0) % MCHC (32.0-37.0) g/dL MPV (9.5-12.2) fL Immature Gran # (0.00-0.04) X 10*3/uL Neutrophils # (1.80-7.70) X 10*3/uL Monocytes # (0.20-1.00) X 10*3/uL Eosinophils # (0.04-0.35) X 10*3/uL POC Glucose (mg/dL) 161 H 152 H 146 H (70-110) mg/dL 01/23/23 Range/Units 05:36 WBC 15.19 H (4.50-10.00) X 10*3/uL RBC 3.73 L (4.40-5.60) X 10*6/uL Hgb 11.0 L (13.0-17.0) g/dL Hct 34.5 L (39.6-50.0) % MCHC 31.9 L (32.0-37.0) g/dL MPV 9.1 L (9.5-12.2) fL Immature Gran # 0.28 H (0.00-0.04) X 10*3/uL Neutrophils # 10.82 H (1.80-7.70) X 10*3/uL Monocytes # 1.60 H (0.20-1.00) X 10*3/uL Eosinophils # 0.57 H (0.04-0.35) X 10*3/uL POC Glucose (mg/dL) (70-110) mg/dL Microbiology - Last 24 Hours (Table) 01/20/23 13:55 Anaerobic Culture - Final Groin 01/20/23 13:55 Gram Stain - Preliminary Groin Wound Culture - Preliminary 01/17/23 10:05 Blood Culture - Preliminary Blood 01/17/23 10:20 Blood Culture - Preliminary Blood Assessment and Plan (1) Abscess of buttock, left Current Visit: No Status: Acute Code(s): L02.31 - CUTANEOUS ABSCESS OF BUTTOCK SNOMED Code(s): 33807695 (2) Scrotal abscess Current Visit: Yes Status: Acute Code(s): N49.2 - INFLAMMATORY DISORDERS OF SCROTUM SNOMED Code(s): 01379667 Plan: 1patient present to hospital with sepsis in this patient with fever tachycardia elevated white count source is left gluteal abscess failing outpatient oral doxycycline therapy unfortunately no cultures were done and the patient did have I&D in the ER few days ago 2-patient is status post surgical drainage of the scrotal abscess deep culture which are so for negative 3-patient with persistent elevated white count despite good gram-positive coverage with culture negative for any resistant pathogen we will discontinue vancomycin and Unasyn started patient on cefepime and see clinical response Time with Patient: Less than 30
[2023-01-23] MEDS: HYDROmorphone 0.5 MG/0.5 ML SYRINGE IVP PRN ×3 (12:24→18:59)
[2023-01-23 12:26] LABS: Glucose,Whole Blood 109 mg/dL (70-110)
[2023-01-23] MEDS: CEFEPIME 2 GM in SODIUM CHLORIDE 0.9% 100 ML IVPB SCH (16:27)
[2023-01-23 17:18] LABS: Glucose,Whole Blood 137 mg/dL (70-110)
--- NOTE | 2023-01-23 19:22 | P.PN ---
Subjective Progress Note Date: 01/23/23 This is a pleasant 52 years old male with multiple medical problems including Diabetes Mellitus, Fibromyalgia, GERD/Reflux, Hyperlipidemia, Hypertension, ,Depression, nicotine dependence Presents because of skin infection in the gluteal folds, the middle with small papule in the larger polyp part. that Is been going on for about a week. The area to person us why he is lying in the right lateral side Patient denies chest pain dyspnea. No headache weakness a or numbness However patient complaining of from difficulty urination and constipation. Last time he P twice to 3:00 clear the morning. He denies dysuria urgency. He smokes about 1.5 pack per day and he was counseled to quit and he agrees and he agrees to the nicotine patch patient is tachycardic around 105 Patient tachycardic around 105 and he is a febrile Labs showed leukocytosis 23.7. BNP and liver enzymes are unremarkable. Glucose is elevated 328 CT of the pelvis with contrast showing extensive cellulitis and areas of phlegmonous changes along the left gluteal region extending anteriorly in the subcutaneous fat of the left perineum spanning up to nearly 20 cm. This inflammatory changes extend anterior to the pubic bone. No sherrie abscess. Small area 1.1 cm in the right kidney could be tiny cyst versus pyelonephritis, gallstone 2.5 mm, prostatomegaly 01/18/2023 Patient looks more comfortable today, he still have pain in the area but 3/10, his pain control with pain pills. His scrotum is swollen and tender today. Yesterday he had found to have urinary retention more than 300 mL and Gutierrez catheter currently in place and draining clear urine. Is still complains from some constipation Urologist consulted who requested repeat Pelvic CT showing 1.persistent marked fluid and fat stranding consistent with soft tissue infection or cellulitis from the left groin and scrotal region anteriorly to the left perirectal/perianal tissue similar in appearance to study one day earlier. No focal abscess.2Increasing perinephric fluid and fat stranding along with a new wall thickening in the urinary bladder. Consider acute cystitis and/or bilateral pyelonephritis as possible etiologies patient also antibiotics were updated into IV vancomycin and Unasyn, infectious disease team on the case with help of antibiotic management Hemoglobin A1c is 11.5. Currently sugar is controlled 01/19/2023 Patient is improving slowly and gradually he has this swelling erythema and tenderness in his perineal area and scrotum area compared to yesterday however he still in some distress due to pain and still concerning and required close monitoring. No evidence of crepitus or air on exam. Gutierrez catheter in place. Patient other than that is awake and alert and he denies any other new symptoms. He is hemodynamically stable. Has low-grade temperature today 99.9. Hemoglobin A1c is 11.5%, renal ultrasound is negative for hydronephrosis or other abnormality. Labs from today are pending. Extremities Unasyn and IV vancomycin. 01/20/2023 Patient still complaining from pain in the scrotal and perineal area, his been having some nausea but no vomiting. Current regimen medications are not effective, added Phenergan. No more fever and still has significant leukocytosis. 22,000 Neurology team are planning for I&D of scrotal fluctuance, possible abscess. Habits and normal saline, IV vancomycin and Unasyn Glucose is controlled today at around 130 01/21/2030 patient remains in [id number] distress due to his infection Is a status post I&D of the scrotal wall with no purulent discharge but only several some bloody fluid drained. Dressing is soaked with serosanguineous discharge However continue to improve while his broad-spectrum antibiotics with IV vancomycin and Unasyn Patient remains on normal saline 75. The per hour. 01/22/2023 Patient is improving Slowly and gradually No evidence of fluctuant area, today significantly secure, is less tender, less red and less swollen creatinine stable He is currently on antibiotic on IV vancomycin and Unasyn and #75 mL/h Patient had bowel movement and he feels satisfied 01/23/2023 Patient is seen and evaluated and follow-up being followed by multiple medical consultations. Patient is maintained on IV antibiotics and being switched to cefepime per infectious disease recommendations. Cultures thus far have been negative. Patient also being followed by general surgery with no plans for intervention. Patient was evaluated by urology with no plans for surgical intervention recommending continued antibiotics and local wound care. We'll follow up on repeat labs as WBC remains elevated although trending down. Encouraged oral intake and increased activity as tolerated. Patient does have indwelling Gutierrez catheter for now and will continue. Patient is afebrile denies chest pain or shortness of breath. No reports of nausea or vomiting noted and patient is tolerating diet. Review of systems: Constitutional: No reports of fatigue, fever, or chills Cardiovascular: No reports of chest pain or palpitations Respiratory: No reports of shortness of breath or cough GI: No reports of nausea, vomiting, or diarrhea : No reports of dysuria or retention Neurovascular: No reports of weakness or numbness, reports of continued scrotal swelling and discomfort in the perineal area All medications have been reviewed Physical exam: GENERAL: The patient is alert and oriented x3. Well developed, well nourished. HEENT: Pupils are round and equally reacting to light. EOMI. No scleral icterus. No conjunctival pallor. Normocephalic, atraumatic. No pharyngeal erythema. No thyromegaly. CARDIOVASCULAR: S1 and S2 muffled PULMONARY: Diminished breath sounds bilaterally with no wheezing or crackles. ABDOMEN: Soft, nontender, nondistended, normoactive bowel sounds. No palpable organomegaly. Patient with tender and inflammatory area, light pink in color i nvolving the gluteal cleft fold area down to the perineum with tenderness and swelling. Gutierrez catheter in place MUSCULOSKELETAL: No joint swelling or deformity. EXTREMITIES: No cyanosis, clubbing, or pedal edema. NEUROLOGICAL: Gross neurological examination did not reveal any focal deficits. SKIN: No rashes. no petechiae. Assessment: Extensive cellulitis involving the buttock area, gluteal cleft and perineum. Sepsis with leukocytosis and tachycardia secondary to above Urinary retention. Status post Gutierrez catheter Enlarged prostate Asymptomatic gallstone 2.5 mm Constipation GI prophylaxis DVT prophylaxis Plan: Patient is continued on IV antibiotics with infectious disease following and was maintained on vancomycin along with Unasyn although being switched to cefepime as patient cultures remain negative although slow to improve. Will discuss further with infectious disease about discharge planning and patient will require IV antibiotics Recommend continue with local wound care to the area and offloading as much as possible. General surgery following with no plans for surgical intervention Urology following with no plans for intervention at this time recommending continued antibiotics Patient's WBC remains elevated although trending down and will follow-up with repeat labs in the a.m. Encouraged oral intake and gentle IV hydration Encouraged increase activity as tolerated Will discuss with infectious disease with possible discharge in the next 24-48 hours The impression and plan of care has been dictated by Tiffanie Archer, Nurse Practitioner as directed. Dr. Babar MD I have performed a history and examination and MDM of this patient, discussed the same with the dictator, and agree with the dictator's assessment and plan as written ,documented as a scribe. Based on total visit time, I have performed more than 50% of the visit. Objective - Vital Signs Vital signs: Vital Signs Temp 98.0 F 01/23/23 10:56 Pulse 61 01/23/23 10:56 Resp 18 01/23/23 10:56 BP 157/81 01/23/23 10:56 Pulse Ox 92 L 01/23/23 10:56 FiO2 Intake & Output 01/22/23 01/23/23 01/23/23 18:59 06:59 18:59 Intake Total 900 590 Output Total 400 Balance 900 190 Intake: Oral 900 590 Output: Urine 400 Other: Voiding Method Indwelling Catheter Indwelling Catheter Indwelling Catheter - Labs CBC & Chem 7: 01/23/23 05:36 01/23/23 05:36 Labs: Abnormal Lab Results - Last 24 Hours (Table) 01/22/23 01/22/23 01/23/23 Range/Units 16:56 20:14 05:36 WBC 15.19 H (4.50-10.00) X 10*3/uL RBC 3.73 L (4.40-5.60) X 10*6/uL Hgb 11.0 L (13.0-17.0) g/dL Hct 34.5 L (39.6-50.0) % MCHC 31.9 L (32.0-37.0) g/dL MPV 9.1 L (9.5-12.2) fL Immature Gran # 0.28 H (0.00-0.04) X 10*3/uL Neutrophils # 10.82 H (1.80-7.70) X 10*3/uL Monocytes # 1.60 H (0.20-1.00) X 10*3/uL Eosinophils # 0.57 H (0.04-0.35) X 10*3/uL Anion Gap (10.00-18.00) mmol/L BUN (9.0-27.0) mg/dL BUN/Creatinine Ratio (12.00-20.00) Ratio POC Glucose (mg/dL) 152 H 146 H (70-110) mg/dL Calcium (8.7-10.3) mg/dL C-Reactive Protein (0.00-0.80) mg/dL 01/23/23 Range/Units 05:36 WBC (4.50-10.00) X 10*3/uL RBC (4.40-5.60) X 10*6/uL Hgb (13.0-17.0) g/dL Hct (39.6-50.0) % MCHC (32.0-37.0) g/dL MPV (9.5-12.2) fL Immature Gran # (0.00-0.04) X 10*3/uL Neutrophils # (1.80-7.70) X 10*3/uL Monocytes # (0.20-1.00) X 10*3/uL Eosinophils # (0.04-0.35) X 10*3/uL Anion Gap 6.90 L (10.00-18.00) mmol/L BUN 5.4 L (9.0-27.0) mg/dL BUN/Creatinine Ratio 9.00 L (12.00-20.00) Ratio POC Glucose (mg/dL) (70-110) mg/dL Calcium 8.2 L (8.7-10.3) mg/dL C-Reactive Protein 6.40 H (0.00-0.80) mg/dL Microbiology - Last 24 Hours (Table) 01/17/23 10:05 Blood Culture - Final Blood 01/17/23 10:20 Blood Culture - Final Blood 01/20/23 13:55 Anaerobic Culture - Final Groin 01/20/23 13:55 Gram Stain - Preliminary Groin Wound Culture - Preliminary
[2023-01-23 20:45] LABS: Glucose,Whole Blood 139 mg/dL (70-110)
[2023-01-23] MEDS: INSULIN DETEMIR (LEVEMIR) 100 UNIT/ML SYR SQ SCH (21:21)
[2023-01-24] MEDS: CEFEPIME 2 GM in SODIUM CHLORIDE 0.9% 100 ML IVPB SCH ×2 (00:08→08:25)
[2023-01-24] MEDS: ONDANSETRON 4 MG/2 ML VIAL IVP PRN ×2 (00:16→11:59)
[2023-01-24] MEDS: HYDROmorphone 0.5 MG/0.5 ML SYRINGE IVP PRN ×5 (01:04→18:24)
[2023-01-24 07:03] LABS: Glucose,Whole Blood 100 mg/dL (70-110)
[2023-01-24] MEDS: INSULIN ASPART (NovoLOG) 100 UNIT/ML VIAL SQ SCH ×4 (07:22→21:05)
[2023-01-24] MEDS: HEPARIN SODIUM,PORCINE/PF 5,000 UNIT/0.5 ML SYRINGE SQ SCH ×2 (08:19→21:05)
[2023-01-24] MEDS: DOCUSATE 100 MG CAP PO SCH ×2 (08:19→21:04)
[2023-01-24] MEDS: FAMOTIDINE 20 MG TAB PO SCH ×2 (08:19→21:04)
[2023-01-24] MEDS: NICOTINE 21MG/24HR PATCH TRANSDERM SCH (08:19)
[2023-01-24] MEDS: TAMSULOSIN 0.4 MG CAP.ER.24H PO SCH (08:19)
[2023-01-24] MEDS: SODIUM CHLORIDE 0.9% 1,000 ML IV SCH (08:28)
[2023-01-24 08:39] LABS: ALT 67 U/L (4-49); AST 36 U/L (17-59); African American GFR (CKD) >90 (>60 ml/min/1.73 sqM); Albumin 2.7 g/dL (3.5-5.0); Albumin/Globulin Ratio 0.7; Alkaline Phosphatase 327 U/L (38-126); Anion Gap 7 mmol/L; Blood Urea Nitrogen 6 mg/dL (9-20); Calcium 8.2 mg/dL (8.4-10.2); Carbon Dioxide 26 mmol/L (22-30); Chloride 106 mmol/L (98-107); Globulin 3.9 g/dL; Glucose 100 mg/dL (74-99); Non-African American GFR(CKD) >90 (>60 ml/min/1.73 sqM); Sodium 139 mmol/L (137-145); Total Bilirubin 0.5 mg/dL (0.2-1.3); Total Protein 6.6 g/dL (6.3-8.2)
[2023-01-24 08:45] LABS: C Reactive Protein 4.4 mg/dL (<1.0)
[2023-01-24 11:02] LABS: Basophils # (A) 0.09 X 10*3/uL (0.00-0.10); Basophils % (A) 0.5 %; Eosinophils # (A) 0.42 X 10*3/uL (0.04-0.35); Eosinophils % (A) 2.5 %; HCT 38.3 % (39.6-50.0); HGB 12.4 g/dL (13.0-17.0); Immature Grans, Automated 2.1 %; Lymphocytes # (A) 1.72 X 10*3/uL (0.90-5.00); Lymphocytes % (A) 10.1 %; MCH 29.9 pg (27.0-32.0); MCHC 32.4 g/dL (32.0-37.0); MCV 92.3 fL (80.0-97.0); Monocytes # (A) 1.52 X 10*3/uL (0.20-1.00); NRBC Per 100 WBC 0 /100 WBCS (0.0-0.0); Neutrophils # (A) 12.87 X 10*3/uL (1.80-7.70); Neutrophils % (A) 75.8 %; Platelet Count 446 X 10*3/uL (140-440); RBC 4.15 X 10*6/uL (4.40-5.60); RDW 12.6 % (11.5-14.5); WBC 16.98 X 10*3/uL (4.50-10.00)
[2023-01-24 11:09] LABS: Glucose,Whole Blood 98 mg/dL (70-110)
[2023-01-24] MEDS: IOPAMIDOL CONTRAST (ORAL USE) VIAL PO PRN ×2 (11:31→12:38)
--- NOTE | 2023-01-24 11:59 | P.PN ---
Subjective Progress Note Date: 01/24/23 Principal diagnosis: Left gluteal abscess and cellulitis Patient is a 52-year-old male presenting to the hospital with left gluteal pain and swelling he did have an attempted drainage in the ER 2 days before this admission unfortunately no cultures was done and the patient did have worsening on oral doxycycline, patient did have a pelvic CT with his extensive cellulitis phlegmon changes and no sherrie abscess. Patient is status post left scrotal abscess drainage by urology on 01/20/2023 On today's evaluation her that is 01/24/2023, the patient remains to be afebril e, the patient swelling and discomfort to the scrotal area has been about the same , the left gluteal area pain and swelling has resolved, the patient denies having any chest pain shortness of cough no abdominal pain or diarrhea Objective - Vital Signs Vital signs: Vital Signs Temp 98.1 F 01/24/23 07:00 Pulse 93 01/24/23 07:00 Resp 18 01/24/23 07:00 BP 164/89 01/24/23 07:00 Pulse Ox 93 L 01/24/23 07:00 FiO2 Intake & Output 01/23/23 01/24/23 01/24/23 18:59 06:59 18:59 Output Total 600 475 Balance -600 -475 Output: Urine 600 475 Other: Voiding Method Indwelling Catheter Indwelling Catheter Indwelling Catheter - Exam GENERAL DESCRIPTION: Middle-age male lying in bed in no distress RESPIRATORY SYSTEM: Unlabored breathing , decreased breath sounds at bases HEART: S1 S2 regular rate and rhythm , ABDOMEN: Soft , no tenderness : Left scrotal mostly the left side have some induration and tenderness EXTREMITIES: No edema feet - Labs CBC & Chem 7: 01/24/23 07:16 01/24/23 07:16 Labs: Abnormal Lab Results - Last 24 Hours (Table) 01/23/23 01/23/23 01/23/23 Range/Units 05:36 05:36 17:15 Anion Gap 6.90 L (10.00-18.00) mmol/L BUN 5.4 L (9.0-27.0) mg/dL Creatinine (0.66-1.25) mg/dL BUN/Creatinine Ratio 9.00 L (12.00-20.00) Ratio Glucose (74-99) mg/dL POC Glucose (mg/dL) 137 H (70-110) mg/dL Hemoglobin A1c 10.5 H (0.0-6.0) % Calcium 8.2 L (8.7-10.3) mg/dL ALT (4-49) U/L Alkaline Phosphatase (38-126) U/L C-Reactive Protein 6.40 H (0.00-0.80) mg/dL Albumin (3.5-5.0) g/dL 01/23/23 01/24/23 Range/Units 20:43 07:16 Anion Gap (10.00-18.00) mmol/L BUN 6 L (9.0-27.0) mg/dL Creatinine 0.58 L (0.66-1.25) mg/dL BUN/Creatinine Ratio (12.00-20.00) Ratio Glucose 100 H (74-99) mg/dL POC Glucose (mg/dL) 139 H (70-110) mg/dL Hemoglobin A1c (0.0-6.0) % Calcium 8.2 L (8.7-10.3) mg/dL ALT 67 H (4-49) U/L Alkaline Phosphatase 327 H (38-126) U/L C-Reactive Protein 4.4 H (0.00-0.80) mg/dL Albumin 2.7 L (3.5-5.0) g/dL Microbiology - Last 24 Hours (Table) 01/20/23 13:55 Gram Stain - Final Groin Wound Culture - Final 01/17/23 10:05 Blood Culture - Final Blood 01/17/23 10:20 Blood Culture - Final Blood Assessment and Plan (1) Phlegmonous cellulitis Current Visit: Yes Status: Acute Code(s): L02.91 - CUTANEOUS ABSCESS, UNSPECIFIED SNOMED Code(s): 304944832 (2) Abscess of buttock, left Current Visit: No Status: Acute Code(s): L02.31 - CUTANEOUS ABSCESS OF BUTTOCK SNOMED Code(s): 59493341 Plan: 1patient present to hospital with sepsis in this patient with fever tachycardia elevated white count source is left gluteal abscess failing outpatient oral doxycycline therapy unfortunately no cultures were done and the patient did have I&D in the ER few days ago 2-patient is status post surgical drainage of the scrotal abscess deep culture which are so for negative 3-patient did have a worsening of his white count is up to 16,000 concern for possible abscess that may need to be drained, we will obtain a CT of the pelvis with contrast surgeon and by therapy to Zosyn and monitor clinical course closely discussed with the medical team, Time with Patient: Less than 30
--- NOTE | 2023-01-24 12:57 | P.PN ---
Subjective White count did go up to 16.9, his exam is unchanged. Remains afebrile Objective - Vital Signs Vital signs: Vital Signs Temp 97.7 F 01/24/23 12:07 Pulse 57 L 01/24/23 12:07 Resp 18 01/24/23 12:07 BP 162/85 01/24/23 12:07 Pulse Ox 93 L 01/24/23 12:07 FiO2 Intake & Output 01/23/23 01/24/23 01/24/23 18:59 06:59 18:59 Output Total 600 475 Balance -600 -475 Output: Urine 600 475 Other: Voiding Method Indwelling Catheter Indwelling Catheter Indwelling Catheter - Constitutional General appearance: Present: no acute distress - Gastrointestinal General gastrointestinal: Present: tenderness. Absent: distended - Genitourinary Genitourinary Comment(s): Erythema and induration along the left hemiscrotum and perineum, - Labs CBC & Chem 7: 01/24/23 07:16 01/24/23 07:16 Labs: Abnormal Lab Results - Last 24 Hours (Table) 01/23/23 01/23/23 01/23/23 Range/Units 05:36 17:15 20:43 WBC (4.50-10.00) X 10*3/uL RBC (4.40-5.60) X 10*6/uL Hgb (13.0-17.0) g/dL Hct (39.6-50.0) % Plt Count (140-440) X 10*3/uL MPV (9.5-12.2) fL Immature Gran # (0.00-0.04) X 10*3/uL Neutrophils # (1.80-7.70) X 10*3/uL Monocytes # (0.20-1.00) X 10*3/uL Eosinophils # (0.04-0.35) X 10*3/uL BUN (9-20) mg/dL Creatinine (0.66-1.25) mg/dL Glucose (74-99) mg/dL POC Glucose (mg/dL) 137 H 139 H (70-110) mg/dL Hemoglobin A1c 10.5 H (0.0-6.0) % Calcium (8.4-10.2) mg/dL ALT (4-49) U/L Alkaline Phosphatase (38-126) U/L C-Reactive Protein (<1.0) mg/dL Albumin (3.5-5.0) g/dL 01/24/23 01/24/23 Range/Units 07:16 07:16 WBC 16.98 H (4.50-10.00) X 10*3/uL RBC 4.15 L (4.40-5.60) X 10*6/uL Hgb 12.4 L (13.0-17.0) g/dL Hct 38.3 L (39.6-50.0) % Plt Count 446 H (140-440) X 10*3/uL MPV 9.0 L (9.5-12.2) fL Immature Gran # 0.36 H (0.00-0.04) X 10*3/uL Neutrophils # 12.87 H (1.80-7.70) X 10*3/uL Monocytes # 1.52 H (0.20-1.00) X 10*3/uL Eosinophils # 0.42 H (0.04-0.35) X 10*3/uL BUN 6 L (9-20) mg/dL Creatinine 0.58 L (0.66-1.25) mg/dL Glucose 100 H (74-99) mg/dL POC Glucose (mg/dL) (70-110) mg/dL Hemoglobin A1c (0.0-6.0) % Calcium 8.2 L (8.4-10.2) mg/dL ALT 67 H (4-49) U/L Alkaline Phosphatase 327 H (38-126) U/L C-Reactive Protein 4.4 H (<1.0) mg/dL Albumin 2.7 L (3.5-5.0) g/dL Microbiology - Last 24 Hours (Table) 01/20/23 13:55 Gram Stain - Final Groin Wound Culture - Final 01/17/23 10:05 Blood Culture - Final Blood 01/17/23 10:20 Blood Culture - Final Blood Assessment and Plan Assessment: 52-year-old male with evidence of cellulitis involving the perineum scrotum and left thigh. Reviewed both of these CT scans, and exam it is not consistent with Sneha's gangrene. Underwent an I&D 01/20, no purulent drainage obtained serosanguineous output seen. White count is trending up -Continue IV antibiotics, antibiotics per infectious disease -Agree with a CT pelvis given rising white count, will follow up on CT. on Exam today no evidence of fluctuance
--- NOTE | 2023-01-24 14:04 | CT ---
EXAMINATION TYPE: CT pelvis w con CT DLP: 2097.1 mGycm, Automated exposure control for dose reduction was used. DATE OF EXAM: 01/24/2023 1:17 PM COMPARISON: CT pelvis 01/18/2023, 01/17/2023. CLINICAL INDICATION:Male, 52 years old with history of scrotal and left gluteal abscess; f/u scrotal abscess TECHNIQUE: Standard CT of the pelvis following the administration of 100 cc of Isovue [address] material. Oral contrast was administered. Coronal and sagittal reformats were performed. FINDINGS: KIDNEYS AND URETERS: Small cortical subcentimeter cyst within the right kidney. The visualized porti ons of the kidneys enhance symmetrically. Similar perinephric fluid and fat stranding which is nonspe cific finding. BLADDER: Circumferential wall thickening of the decompressed urinary bladder with Gutierrez catheter in p lace REPRODUCTIVE: Mildly enlarged prostate gland redemonstrated. Central prostatic calcifications noted. Bilateral moderate to large hydroceles with scrotal wall edema identified. Posttreatment changes of t he left scrotum. Extensive fluid and fat stranding in the left scrotum is again demonstrated. There i s additional involvement of the left perirectal and perianal soft tissues again. No foci of gas ident ified. No well-formed focal enhancing fluid collection to suggest abscess. BOWEL: Enteric contrast reaches the mid small bowel. The appendix is within normal limits. No evidenc e of bowel obstruction. PERITONEUM: No evidence of pneumoperitoneum. Small amount of free fluid throughout the visualized por tion of the pelvis. Presacral edema. VASCULATURE: Mild atherosclerotic calcification the visualized portion of the aorta and its branches. MUSCULOSKELETAL: No acute osseous abnormalities. Mild disc space narrowing L5-S1 again seen. LYMPH NODES: Few stable nonenlarged bilateral inguinal lymph nodes. SOFT TISSUE/ABDOMINAL WALL: Increased diffuse anasarca. Few foci gas within the anterior abdominal wa ll subcutaneous tissues likely from medication injection. IMPRESSION: 1. Persistent marked fluid and fat stranding consistent with soft tissue infection or cellulitis fro m the left groin and scrotal region extending into the perirectal/perianal tissue. No focal thick-wal led fluid collection or gas identified. Post treatment change identified. 2. Similar perinephric fluid and fat stranding along the visualized portion of the kidneys with simil ar circumferential wall thickening of the urinary bladder with Gutierrez catheter in place. Correlate for acute cystitis and/or bilateral pyelonephritis. 3. Increased diffuse anasarca.
--- NOTE | 2023-01-24 15:15 | P.PN ---
Subjective Progress Note Date: 01/24/23 This is a pleasant 52 years old male with multiple medical problems including Diabetes Mellitus, Fibromyalgia, GERD/Reflux, Hyperlipidemia, Hypertension, ,Depression, nicotine dependence Presents because of skin infection in the gluteal folds, the middle with small papule in the larger polyp part. that Is been going on for about a week. The area to person us why he is lying in the right lateral side Patient denies chest pain dyspnea. No headache weakness a or numbness However patient complaining of from difficulty urination and constipation. Last time he P twice to 3:00 clear the morning. He denies dysuria urgency. He smokes about 1.5 pack per day and he was counseled to quit and he agrees and he agrees to the nicotine patch patient is tachycardic around 105 Patient tachycardic around 105 and he is a febrile Labs showed leukocytosis 23.7. BNP and liver enzymes are unremarkable. Glucose is elevated 328 CT of the pelvis with contrast showing extensive cellulitis and areas of phlegmonous changes along the left gluteal region extending anteriorly in the subcutaneous fat of the left perineum spanning up to nearly 20 cm. This inflammatory changes extend anterior to the pubic bone. No sherrie abscess. Small area 1.1 cm in the right kidney could be tiny cyst versus pyelonephritis, gallstone 2.5 mm, prostatomegaly 01/18/2023 Patient looks more comfortable today, he still have pain in the area but 3/10, his pain control with pain pills. His scrotum is swollen and tender today. Yesterday he had found to have urinary retention more than 300 mL and Gutierrez catheter currently in place and draining clear urine. Is still complains from some constipation Urologist consulted who requested repeat Pelvic CT showing 1.persistent marked fluid and fat stranding consistent with soft tissue infection or cellulitis from the left groin and scrotal region anteriorly to the left perirectal/perianal tissue similar in appearance to study one day earlier. No focal abscess.2Increasing perinephric fluid and fat stranding along with a new wall thickening in the urinary bladder. Consider acute cystitis and/or bilateral pyelonephritis as possible etiologies patient also antibiotics were updated into IV vancomycin and Unasyn, infectious disease team on the case with help of antibiotic management Hemoglobin A1c is 11.5. Currently sugar is controlled 01/19/2023 Patient is improving slowly and gradually he has this swelling erythema and tenderness in his perineal area and scrotum area compared to yesterday however he still in some distress due to pain and still concerning and required close monitoring. No evidence of crepitus or air on exam. Gutierrez catheter in place. Patient other than that is awake and alert and he denies any other new symptoms. He is hemodynamically stable. Has low-grade temperature today 99.9. Hemoglobin A1c is 11.5%, renal ultrasound is negative for hydronephrosis or other abnormality. Labs from today are pending. Extremities Unasyn and IV vancomycin. 01/20/2023 Patient still complaining from pain in the scrotal and perineal area, his been having some nausea but no vomiting. Current regimen medications are not effective, added Phenergan. No more fever and still has significant leukocytosis. 22,000 Neurology team are planning for I&D of scrotal fluctuance, possible abscess. Habits and normal saline, IV vancomycin and Unasyn Glucose is controlled today at around 130 01/21/2030 patient remains in [id number] distress due to his infection Is a status post I&D of the scrotal wall with no purulent discharge but only several some bloody fluid drained. Dressing is soaked with serosanguineous discharge However continue to improve while his broad-spectrum antibiotics with IV vancomycin and Unasyn Patient remains on normal saline 75. The per hour. 01/22/2023 Patient is improving Slowly and gradually No evidence of fluctuant area, today significantly secure, is less tender, less red and less swollen creatinine stable He is currently on antibiotic on IV vancomycin and Unasyn and #75 mL/h Patient had bowel movement and he feels satisfied 01/23/2023 Patient is seen and evaluated and follow-up being followed by multiple medical consultations. Patient is maintained on IV antibiotics and being switched to cefepime per infectious disease recommendations. Cultures thus far have been negative. Patient also being followed by general surgery with no plans for intervention. Patient was evaluated by urology with no plans for surgical intervention recommending continued antibiotics and local wound care. We'll follow up on repeat labs as WBC remains elevated although trending down. Encouraged oral intake and increased activity as tolerated. Patient does have indwelling Gutierrez catheter for now and will continue. Patient is afebrile denies chest pain or shortness of breath. No reports of nausea or vomiting noted and patient is tolerating diet. 01/24/2023 Patient is seen and evaluated in follow-up this morning continues to be afebrile with infectious disease along with urology following. General surgery evaluated the patient with no plans for surgical intervention. Repeat labs show a WBC that is trending up and currently 16.98 and hemoglobin is stable at 12.4, BNP within normal limits other than alk phos is 327 and CRP is 4.4. Blood sugars have been well controlled on current regimen and will continue. Hemoglobin A1c was found to be 10.5 and will need to follow-up with primary care provider closely in the outpatient setting and will likely initiate insulin on discharge. Patient continues on IV antibiotics and was continued on cefepime although being transitioned to Zosyn per infectious disease. Repeat CT pelvis is ordered and pending for today. Patient continue with indwelling Gutierrez catheter for now with urology following closely. Patient denies chest pain or shortness of breath although given patient's WBC will obtain chest x-ray is 1 is not been done previously. Recommend continue on gentle hydration and will follow-up on repeat labs. Review of systems: Constitutional: No reports of fatigue, fever, or chills Cardiovascular: No reports of chest pain or palpitations Respiratory: No reports of shortness of breath or cough GI: No reports of nausea, vomiting, or diarrhea : No reports of dysuria or retention Neurovascular: No reports of weakness or numbness, reports of continued scrotal swelling and discomfort in the perineal area All medications have been reviewed Physical exam: GENERAL: The patient is alert and oriented x3. Well developed, well nourished. HEENT: Pupils are round and equally reacting to light. EOMI. No scleral icterus. No conjunctival pallor. Normocephalic, atraumatic. No pharyngeal erythema. No thyromegaly. CARDIOVASCULAR: S1 and S2 muffled PULMONARY: Diminished breath sounds bilaterally with no wheezing or crackles. ABDOMEN: Soft, nontender, nondistended, normoactive bowel sounds. No palpable organomegaly. Patient with tenderness and inflammation in the perineal area, light pink in color involving the gluteal cleft fold area down to the perineum with tenderness and swelling. Gutierrez catheter in place MUSCULOSKELETAL: No joint swelling or deformity. EXTREMITIES: No cyanosis, clubbing, or pedal edema. NEUROLOGICAL: Gross neurological examination did not reveal any focal deficits. SKIN: No rashes. no petechiae. Assessment: Extensive cellulitis involving the buttock area, gluteal cleft and perineum. Sepsis with leukocytosis and tachycardia secondary to above Urinary retention. Status post Gutierrez catheter Enlarged prostate Asymptomatic gallstone 2.5 mm Constipation GI prophylaxis DVT prophylaxis Full code Plan: Patient is continued on IV antibiotics with infectious disease following and was on cefepime although white count has trended up and being transitioned to IV Zosyn. Repeat CT pelvis ordered showing persistent marked fluid and fat stranding consistent with soft tissue infection or cellulitis from the left groin and scrotal region extending into the perirectal perianal tissue with no focal thick-walled fluid collection or gas identified there are some posttreatment changes identified along with similar perinephritic fluid and fat stranding along the visualized portion of the kidneys with similar circumferential wall thickening of the urinary bladder with Gutierrez catheter in place. Recommend correlate for acute cystitis and or bilateral pyelonephritis with increased diffuse anasarca. Patient is eating and drinking and blood sugars are well-controlled on current regimen. Will discontinue fluids Patient's hemoglobin A1c was found to be above 10 and will need close outpatient follow-up and likely discharge on insulin and will discuss further with case management about discharge planning Recommend continue with local wound care to the area and offloading as much as possible. General surgery following with no plans for surgical intervention Urology following recommending continued antibiotics and will follow up on CT pelvis Patient's WBC remains elevated and recommend repeat labs in a.m. Encouraged oral intake Encouraged increase activity as tolerated Will discuss further with infectious diseases patient will require IV antibiotics on discharge Prognosis is guarded The impression and plan of care has been dictated by Tiffanie Archer, Nurse Practitioner as directed. Dr. Babar MD I have performed a history and examination and MDM of this patient, discussed the same with the dictator, and agree with the dictator's assessment and plan as written ,documented as a scribe. Based on total visit time, I have performed more than 50% of the visit. Objective - Vital Signs Vital signs: Vital Signs Temp 97.7 F 01/24/23 12:07 Pulse 57 L 01/24/23 12:07 Resp 18 01/24/23 12:07 BP 162/85 01/24/23 12:07 Pulse Ox 93 L 01/24/23 12:07 FiO2 Intake & Output 01/23/23 01/24/23 01/24/23 18:59 06:59 18:59 Output Total 600 475 650 Balance -600 -475 -650 Output: Urine 600 475 650 Other: Voiding Method Indwelling Catheter Indwelling Catheter Indwelling Catheter - Labs CBC & Chem 7: 01/24/23 07:16 01/24/23 07:16 Labs: Abnormal Lab Results - Last 24 Hours (Table) 01/23/23 01/23/23 01/23/23 Range/Units 05:36 17:15 20:43 WBC (4.50-10.00) X 10*3/uL RBC (4.40-5.60) X 10*6/uL Hgb (13.0-17.0) g/dL Hct (39.6-50.0) % Plt Count (140-440) X 10*3/uL MPV (9.5-12.2) fL Immature Gran # (0.00-0.04) X 10*3/uL Neutrophils # (1.80-7.70) X 10*3/uL Monocytes # (0.20-1.00) X 10*3/uL Eosinophils # (0.04-0.35) X 10*3/uL BUN (9-20) mg/dL Creatinine (0.66-1.25) mg/dL Glucose (74-99) mg/dL POC Glucose (mg/dL) 137 H 139 H (70-110) mg/dL Hemoglobin A1c 10.5 H (0.0-6.0) % Calcium (8.4-10.2) mg/dL ALT (4-49) U/L Alkaline Phosphatase (38-126) U/L C-Reactive Protein (<1.0) mg/dL Albumin (3.5-5.0) g/dL 01/24/23 01/24/23 Range/Units 07:16 07:16 WBC 16.98 H (4.50-10.00) X 10*3/uL RBC 4.15 L (4.40-5.60) X 10*6/uL Hgb 12.4 L (13.0-17.0) g/dL Hct 38.3 L (39.6-50.0) % Plt Count 446 H (140-440) X 10*3/uL MPV 9.0 L (9.5-12.2) fL Immature Gran # 0.36 H (0.00-0.04) X 10*3/uL Neutrophils # 12.87 H (1.80-7.70) X 10*3/uL Monocytes # 1.52 H (0.20-1.00) X 10*3/uL Eosinophils # 0.42 H (0.04-0.35) X 10*3/uL BUN 6 L (9-20) mg/dL Creatinine 0.58 L (0.66-1.25) mg/dL Glucose 100 H (74-99) mg/dL POC Glucose (mg/dL) (70-110) mg/dL Hemoglobin A1c (0.0-6.0) % Calcium 8.2 L (8.4-10.2) mg/dL ALT 67 H (4-49) U/L Alkaline Phosphatase 327 H (38-126) U/L C-Reactive Protein 4.4 H (<1.0) mg/dL Albumin 2.7 L (3.5-5.0) g/dL Microbiology - Last 24 Hours (Table) 01/20/23 13:55 Gram Stain - Final Groin Wound Culture - Final
--- NOTE | 2023-01-24 15:39 | XR ---
EXAMINATION TYPE: XR chest 1V portable DATE OF EXAM: 01/24/2023 COMPARISON: 10/16/2018 INDICATION: Elevated white count TECHNIQUE: Single frontal view of the chest is obtained. FINDINGS: The heart size is normal. The pulmonary vasculature is normal. There is a right lower lobe infiltrate. Correlate for pneumonia. IMPRESSION: 1. Right lower lobe infiltrate. Correlate for pneumonia. Atelectasis could be considered. Follow-up i s recommended.
--- NOTE | 2023-01-24 16:14 | P.PN ---
Subjective Progress Note Date: 01/24/23 CHIEF COMPLAINT: Cellulitis of the left glute HISTORY OF PRESENT ILLNESS: Patient reports that the left buttock swelling and perineal swelling and pain has resolved. Patient is status post incision and dr pedraza of left scrotal abscess by urology. Patient complaining of testicular pain and continues to have testicular swelling. Tolerating regular diet. Afebrile. Antibiotics adjusted per infectious disease. White count 16.98 Hgb 12.4 platelets 446 Patient seen and examined with Dr. Chris PHYSICAL EXAM: VITAL SIGNS: Reviewed. GENERAL: Well-developed in no acute distress. HEENT: No sclera icterus. Extraocular movements grossly intact. Moist buccal mucosa. Head is atraumatic, normocephalic. ABDOMEN: Soft. Nondistended. Nontender. NEUROLOGIC: Alert and oriented. Cranial nerves II through XII grossly intact. : Significant scrotal swelling and erythema ASSESSMENT: 1. Left buttock cellulitis and phlegmonous changes have shown improvement. 2. Scrotal cellulitis and abscess followed by urology PLAN: -No surgical intervention planned from general surgery standpoint -Continue IV antibiotics -Continue glucose control Physician Dining Room Attendant note has been reviewed by physician. Signing provider agrees with the documented findings, assessment, and plan of care. Objective - Vital Signs Vital signs: Vital Signs Temp 97.7 F 01/24/23 12:07 Pulse 57 L 01/24/23 12:07 Resp 18 01/24/23 12:07 BP 162/85 01/24/23 12:07 Pulse Ox 93 L 01/24/23 12:07 FiO2 Intake & Output 01/23/23 01/24/23 01/24/23 18:59 06:59 18:59 Output Total 600 475 650 Balance -600 -475 -650 Output: Urine 600 475 650 Other: Voiding Method Indwelling Catheter Indwelling Catheter Indwelling Catheter - Labs CBC & Chem 7: 01/24/23 07:16 01/24/23 07:16 Labs: Abnormal Lab Results - Last 24 Hours (Table) 01/23/23 01/23/23 01/24/23 Range/Units 17:15 20:43 07:16 WBC (4.50-10.00) X 10*3/uL RBC (4.40-5.60) X 10*6/uL Hgb (13.0-17.0) g/dL Hct (39.6-50.0) % Plt Count (140-440) X 10*3/uL MPV (9.5-12.2) fL Immature Gran # (0.00-0.04) X 10*3/uL Neutrophils # (1.80-7.70) X 10*3/uL Monocytes # (0.20-1.00) X 10*3/uL Eosinophils # (0.04-0.35) X 10*3/uL BUN 6 L (9-20) mg/dL Creatinine 0.58 L (0.66-1.25) mg/dL Glucose 100 H (74-99) mg/dL POC Glucose (mg/dL) 137 H 139 H (70-110) mg/dL Calcium 8.2 L (8.4-10.2) mg/dL ALT 67 H (4-49) U/L Alkaline Phosphatase 327 H (38-126) U/L C-Reactive Protein 4.4 H (<1.0) mg/dL Albumin 2.7 L (3.5-5.0) g/dL 01/24/23 Range/Units 07:16 WBC 16.98 H (4.50-10.00) X 10*3/uL RBC 4.15 L (4.40-5.60) X 10*6/uL Hgb 12.4 L (13.0-17.0) g/dL Hct 38.3 L (39.6-50.0) % Plt Count 446 H (140-440) X 10*3/uL MPV 9.0 L (9.5-12.2) fL Immature Gran # 0.36 H (0.00-0.04) X 10*3/uL Neutrophils # 12.87 H (1.80-7.70) X 10*3/uL Monocytes # 1.52 H (0.20-1.00) X 10*3/uL Eosinophils # 0.42 H (0.04-0.35) X 10*3/uL BUN (9-20) mg/dL Creatinine (0.66-1.25) mg/dL Glucose (74-99) mg/dL POC Glucose (mg/dL) (70-110) mg/dL Calcium (8.4-10.2) mg/dL ALT (4-49) U/L Alkaline Phosphatase (38-126) U/L C-Reactive Protein (<1.0) mg/dL Albumin (3.5-5.0) g/dL Microbiology - Last 24 Hours (Table) 01/20/23 13:55 Gram Stain - Final Groin Wound Culture - Final
[2023-01-24] MEDS: PIPERACILLIN-TAZOBACTAM 3.375 GM in SODIUM CHLORIDE 0.9% 100 ML IVPB SCH ×2 (16:17→23:22)
[2023-01-24] MEDS: traMADol 50 MG TAB PO SCH ×2 (16:17→21:04)
[2023-01-24 17:12] LABS: Glucose,Whole Blood 123 mg/dL (70-110)
[2023-01-24 20:12] LABS: Glucose,Whole Blood 143 mg/dL (70-110)
[2023-01-24] MEDS: INSULIN DETEMIR (LEVEMIR) 100 UNIT/ML SYR SQ SCH (21:06)
[2023-01-24] MEDS: HYDROmorphone 1 MG/ML 1 ML SYRINGE IVP PRN (23:25)
[2023-01-25] MEDS: HYDROmorphone 1 MG/ML 1 ML SYRINGE IVP PRN ×2 (04:30→13:45)
[2023-01-25 07:02] LABS: Glucose,Whole Blood 104 mg/dL (70-110)
[2023-01-25] MEDS: INSULIN ASPART (NovoLOG) 100 UNIT/ML VIAL SQ SCH ×4 (07:08→21:08)
[2023-01-25] MEDS: PIPERACILLIN-TAZOBACTAM 3.375 GM in SODIUM CHLORIDE 0.9% 100 ML IVPB SCH ×3 (08:22→23:44)
[2023-01-25] MEDS: FAMOTIDINE 20 MG TAB PO SCH ×2 (08:23→20:36)
[2023-01-25] MEDS: TAMSULOSIN 0.4 MG CAP.ER.24H PO SCH (08:23)
[2023-01-25] MEDS: HEPARIN SODIUM,PORCINE/PF 5,000 UNIT/0.5 ML SYRINGE SQ SCH ×2 (08:23→20:37)
[2023-01-25] MEDS: DOCUSATE 100 MG CAP PO SCH ×2 (08:23→20:37)
[2023-01-25] MEDS: traMADol 50 MG TAB PO SCH (08:23)
[2023-01-25] MEDS: NICOTINE 21MG/24HR PATCH TRANSDERM SCH (08:24)
--- NOTE | 2023-01-25 08:57 | P.PN ---
Subjective Progress Note Date: 01/25/23 The patient is in the hospital with a perineal and scrotal abscess. He had a drainage by last Monday. He is slowly recuperating. He had a computed tomography scan yesterday showing no new air or abscess. He is feeling better. He feels the swelling is going down. Objective - Vital Signs Vital signs: Vital Signs Temp 98.6 F 01/25/23 07:02 Pulse 62 01/25/23 07:02 Resp 18 01/25/23 07:02 BP 146/81 01/25/23 07:02 Pulse Ox 92 L 01/25/23 07:02 FiO2 Intake & Output 01/24/23 01/25/23 01/25/23 18:59 06:59 18:59 Output Total 1050 550 Balance -1050 -550 Output: Urine 1050 550 Other: Voiding Method Indwelling Catheter Indwelling Catheter - Genitourinary Genitourinary Comment(s): The patient has an indwelling catheter which were removed. His scrotal swelling is less inflamed and tender. There is no crepitus or obvious abscess. - Labs CBC & Chem 7: 01/24/23 07:16 01/24/23 07:16 Labs: Abnormal Lab Results - Last 24 Hours (Table) 01/24/23 01/24/23 01/24/23 Range/Units 07:16 17:11 20:09 WBC 16.98 H (4.50-10.00) X 10*3/uL RBC 4.15 L (4.40-5.60) X 10*6/uL Hgb 12.4 L (13.0-17.0) g/dL Hct 38.3 L (39.6-50.0) % Plt Count 446 H (140-440) X 10*3/uL MPV 9.0 L (9.5-12.2) fL Immature Gran # 0.36 H (0.00-0.04) X 10*3/uL Neutrophils # 12.87 H (1.80-7.70) X 10*3/uL Monocytes # 1.52 H (0.20-1.00) X 10*3/uL Eosinophils # 0.42 H (0.04-0.35) X 10*3/uL POC Glucose (mg/dL) 123 H 143 H (70-110) mg/dL Assessment and Plan Assessment: Impression: Scrotal cellulitis perineal cellulitis and abscess. Recommendations: Computed tomography scan has been reviewed. The clinical situation seems to be slowly improving. We'll continue to treat him with antibiotics and observe him as long as he clinically improved.
[2023-01-25 09:31] LABS: African American GFR (CKD) 121.1 (60.0-200.0); Albumin 2.5 g/dL (3.8-4.9); Albumin/Globulin Ratio 0.72 (1.60-3.17); Anion Gap 7.3 mmol/L (10.00-18.00); BUN/Creat Ratio 6.55 Ratio (12.00-20.00); Blood Urea Nitrogen 4.9 mg/dL (9.0-27.0); Calcium 8.4 mg/dL (8.7-10.3); Carbon Dioxide 26.3 mmol/L (20.0-27.5); Globulin 3.5 g/dL (1.6-3.3); Non-African American GFR(CKD) 104.5 (60.0-200.0); Potassium 4.1 mmol/L (3.5-5.5); Total Bilirubin 0.3 mg/dL (0.30-1.20)
[2023-01-25 10:08] LABS: Glucose,Whole Blood 105 mg/dL (70-110)
[2023-01-25] MEDS: ONDANSETRON 4 MG/2 ML VIAL IVP PRN (10:32)
[2023-01-25 11:20] LABS: Glucose,Whole Blood 116 mg/dL (70-110)
[2023-01-25 11:42] LABS: Basophils # (A) 0.11 X 10*3/uL (0.00-0.10); Basophils % (A) 0.7 %; Eosinophils # (A) 0.54 X 10*3/uL (0.04-0.35); Eosinophils % (A) 3.2 %; HGB 11.6 g/dL (13.0-17.0); Immature Grans, Automated 2.2 %; Lymphocytes # (A) 1.93 X 10*3/uL (0.90-5.00); Lymphocytes % (A) 11.6 %; MCH 29.4 pg (27.0-32.0); MCHC 31.4 g/dL (32.0-37.0); MCV 93.9 fL (80.0-97.0); Mean Platelet Volume 9.3 fL (9.5-12.2); Monocytes # (A) 1.51 X 10*3/uL (0.20-1.00); Monocytes % (A) 9.1 %; NRBC Per 100 WBC 0 /100 WBCS (0.0-0.0); Neutrophils % (A) 73.2 %; Platelet Count 475 X 10*3/uL (140-440); RBC 3.94 X 10*6/uL (4.40-5.60); RDW 12.7 % (11.5-14.5); WBC 16.66 X 10*3/uL (4.50-10.00)
--- NOTE | 2023-01-25 14:11 | P.PN ---
Subjective Progress Note Date: 01/25/23 CHIEF COMPLAINT: Cellulitis of the left glute HISTORY OF PRESENT ILLNESS: Patient reports that the left buttock swelling and perineal swelling and pain has resolved. Patient is status post incision and dr pedraza of left scrotal abscess by urology. Patient reports that his testicular swelling remains about the same. He is followed closely by urology. Computed tomography scan of pelvis from yesterday shows persistent marked fluid and fat stranding consistent with soft tissue infection or cellulitis from the left groin and scrotal region extending into the perirectal perianal tissue. No focal thick wall fluid collection or gas identified. Afebrile. WBC remains the same at 16.66 Patient seen and examined with Dr. Chris PHYSICAL EXAM: VITAL SIGNS: Reviewed. GENERAL: Well-developed in no acute distress. HEENT: No sclera icterus. Extraocular movements grossly intact. Moist buccal mucosa. Head is atraumatic, normocephalic. ABDOMEN: Soft. Nondistended. Nontender. NEUROLOGIC: Alert and oriented. Cranial nerves II through XII grossly intact. : Significant scrotal swelling and erythema ASSESSMENT: 1. Left buttock cellulitis and phlegmonous changes have shown improvement. 2. Scrotal cellulitis and abscess followed by urology status post I&D PLAN: -No surgical intervention planned from general surgery standpoint -Continue IV antibiotics -Continue supportive care Physician Auto Painter note has been reviewed by physician. Signing provider agrees with the documented findings, assessment, and plan of care. Objective - Vital Signs Vital signs: Vital Signs Temp 98.4 F 01/25/23 12:20 Pulse 69 01/25/23 12:20 Resp 18 01/25/23 12:20 BP 158/87 01/25/23 12:20 Pulse Ox 93 L 01/25/23 12:20 FiO2 Intake & Output 01/24/23 01/25/23 01/25/23 18:59 06:59 18:59 Output Total 1050 550 725 Balance -1050 -550 -725 Output: Urine 1050 550 725 Other: Voiding Method Indwelling Catheter Indwelling Catheter Indwelling Catheter - Labs CBC & Chem 7: 01/25/23 05:27 01/25/23 05:27 Labs: Abnormal Lab Results - Last 24 Hours (Table) 01/24/23 01/24/23 01/25/23 Range/Units 17:11 20:09 05:27 WBC 16.66 H (4.50-10.00) X 10*3/uL RBC 3.94 L (4.40-5.60) X 10*6/uL Hgb 11.6 L (13.0-17.0) g/dL Hct 37.0 L (39.6-50.0) % MCHC 31.4 L (32.0-37.0) g/dL Plt Count 475 H (140-440) X 10*3/uL MPV 9.3 L (9.5-12.2) fL Immature Gran # 0.37 H (0.00-0.04) X 10*3/uL Neutrophils # 12.20 H (1.80-7.70) X 10*3/uL Monocytes # 1.51 H (0.20-1.00) X 10*3/uL Eosinophils # 0.54 H (0.04-0.35) X 10*3/uL Basophils # 0.11 H (0.00-0.10) X 10*3/uL Anion Gap (10.00-18.00) mmol/L BUN (9.0-27.0) mg/dL BUN/Creatinine Ratio (12.00-20.00) Ratio POC Glucose (mg/dL) 123 H 143 H (70-110) mg/dL Calcium (8.7-10.3) mg/dL Alkaline Phosphatase (41-126) U/L Total Protein (6.2-8.2) g/dL Albumin (3.8-4.9) g/dL Globulin (1.6-3.3) g/dL Albumin/Globulin Ratio (1.60-3.17) g/dL 01/25/23 01/25/23 Range/Units 05:27 11:19 WBC (4.50-10.00) X 10*3/uL RBC (4.40-5.60) X 10*6/uL Hgb (13.0-17.0) g/dL Hct (39.6-50.0) % MCHC (32.0-37.0) g/dL Plt Count (140-440) X 10*3/uL MPV (9.5-12.2) fL Immature Gran # (0.00-0.04) X 10*3/uL Neutrophils # (1.80-7.70) X 10*3/uL Monocytes # (0.20-1.00) X 10*3/uL Eosinophils # (0.04-0.35) X 10*3/uL Basophils # (0.00-0.10) X 10*3/uL Anion Gap 7.30 L (10.00-18.00) mmol/L BUN 4.9 L (9.0-27.0) mg/dL BUN/Creatinine Ratio 6.55 L (12.00-20.00) Ratio POC Glucose (mg/dL) 116 H (70-110) mg/dL Calcium 8.4 L (8.7-10.3) mg/dL Alkaline Phosphatase 306 H (41-126) U/L Total Protein 6.0 L (6.2-8.2) g/dL Albumin 2.5 L (3.8-4.9) g/dL Globulin 3.5 H (1.6-3.3) g/dL Albumin/Globulin Ratio 0.72 L (1.60-3.17) g/dL
--- NOTE | 2023-01-25 14:13 | P.PN ---
Subjective Progress Note Date: 01/25/23 This is a pleasant 52 years old male with multiple medical problems including Diabetes Mellitus, Fibromyalgia, GERD/Reflux, Hyperlipidemia, Hypertension, ,Depression, nicotine dependence Presents because of skin infection in the gluteal folds, the middle with small papule in the larger polyp part. that Is been going on for about a week. The area to person us why he is lying in the right lateral side Patient denies chest pain dyspnea. No headache weakness a or numbness However patient complaining of from difficulty urination and constipation. Last time he P twice to 3:00 clear the morning. He denies dysuria urgency. He smokes about 1.5 pack per day and he was counseled to quit and he agrees and he agrees to the nicotine patch patient is tachycardic around 105 Patient tachycardic around 105 and he is a febrile Labs showed leukocytosis 23.7. BNP and liver enzymes are unremarkable. Glucose is elevated 328 CT of the pelvis with contrast showing extensive cellulitis and areas of phlegmonous changes along the left gluteal region extending anteriorly in the subcutaneous fat of the left perineum spanning up to nearly 20 cm. This inflammatory changes extend anterior to the pubic bone. No sherrie abscess. Small area 1.1 cm in the right kidney could be tiny cyst versus pyelonephritis, gallstone 2.5 mm, prostatomegaly 01/18/2023 Patient looks more comfortable today, he still have pain in the area but 3/10, his pain control with pain pills. His scrotum is swollen and tender today. Yesterday he had found to have urinary retention more than 300 mL and Gutierrez catheter currently in place and draining clear urine. Is still complains from some constipation Urologist consulted who requested repeat Pelvic CT showing 1.persistent marked fluid and fat stranding consistent with soft tissue infection or cellulitis from the left groin and scrotal region anteriorly to the left perirectal/perianal tissue similar in appearance to study one day earlier. No focal abscess.2Increasing perinephric fluid and fat stranding along with a new wall thickening in the urinary bladder. Consider acute cystitis and/or bilateral pyelonephritis as possible etiologies patient also antibiotics were updated into IV vancomycin and Unasyn, infectious disease team on the case with help of antibiotic management Hemoglobin A1c is 11.5. Currently sugar is controlled 01/19/2023 Patient is improving slowly and gradually he has this swelling erythema and tenderness in his perineal area and scrotum area compared to yesterday however he still in some distress due to pain and still concerning and required close monitoring. No evidence of crepitus or air on exam. Gutierrez catheter in place. Patient other than that is awake and alert and he denies any other new symptoms. He is hemodynamically stable. Has low-grade temperature today 99.9. Hemoglobin A1c is 11.5%, renal ultrasound is negative for hydronephrosis or other abnormality. Labs from today are pending. Extremities Unasyn and IV vancomycin. 01/20/2023 Patient still complaining from pain in the scrotal and perineal area, his been having some nausea but no vomiting. Current regimen medications are not effective, added Phenergan. No more fever and still has significant leukocytosis. 22,000 Neurology team are planning for I&D of scrotal fluctuance, possible abscess. Habits and normal saline, IV vancomycin and Unasyn Glucose is controlled today at around 130 01/21/2030 patient remains in [id number] distress due to his infection Is a status post I&D of the scrotal wall with no purulent discharge but only several some bloody fluid drained. Dressing is soaked with serosanguineous discharge However continue to improve while his broad-spectrum antibiotics with IV vancomycin and Unasyn Patient remains on normal saline 75. The per hour. 01/22/2023 Patient is improving Slowly and gradually No evidence of fluctuant area, today significantly secure, is less tender, less red and less swollen creatinine stable He is currently on antibiotic on IV vancomycin and Unasyn and #75 mL/h Patient had bowel movement and he feels satisfied 01/23/2023 Patient is seen and evaluated and follow-up being followed by multiple medical consultations. Patient is maintained on IV antibiotics and being switched to cefepime per infectious disease recommendations. Cultures thus far have been negative. Patient also being followed by general surgery with no plans for intervention. Patient was evaluated by urology with no plans for surgical intervention recommending continued antibiotics and local wound care. We'll follow up on repeat labs as WBC remains elevated although trending down. Encouraged oral intake and increased activity as tolerated. Patient does have indwelling Gutierrez catheter for now and will continue. Patient is afebrile denies chest pain or shortness of breath. No reports of nausea or vomiting noted and patient is tolerating diet. 01/24/2023 Patient is seen and evaluated in follow-up this morning continues to be afebrile with infectious disease along with urology following. General surgery evaluated the patient with no plans for surgical intervention. Repeat labs show a WBC that is trending up and currently 16.98 and hemoglobin is stable at 12.4, BNP within normal limits other than alk phos is 327 and CRP is 4.4. Blood sugars have been well controlled on current regimen and will continue. Hemoglobin A1c was found to be 10.5 and will need to follow-up with primary care provider closely in the outpatient setting and will likely initiate insulin on discharge. Patient continues on IV antibiotics and was continued on cefepime although being transitioned to Zosyn per infectious disease. Repeat CT pelvis is ordered and pending for today. Patient continue with indwelling Gutierrez catheter for now with urology following closely. Patient denies chest pain or shortness of breath although given patient's WBC will obtain chest x-ray is 1 is not been done previously. Recommend continue on gentle hydration and will follow-up on repeat labs. 01/25/2023 Patient is seen and evaluated in follow-up this morning currently feeling nauseated and feels like he has a fever although was just checked and has no fever currently 98.4F. Patient has been afebrile. Patient with lower pulse ox readings in the 90-93% on room air did undergo chest x-ray yesterday which showed a right lower lobe infiltrate to correlate for pneumonia and also atelectasis. Have ordered incentive spirometer and recommend continue using at least 10 times every hour while awake. Patient also with diabetes uncontrolled will continue current regimen and encouraged oral intake. Patient is maintained on IV antibiotics in the form of Zosyn with infectious disease following closely along with urology. There is an order for Gutierrez catheter removal although patient continues with Gutierrez. Patient reports some improvement in swelling although reports not feeling well. White count remains elevated at 16.66, hemoglobin is 11.6, platelets are 475, sodium is 140 with a potassium of 4.1 and current creatinine is 0.8. Review of systems: Constitutional: No reports of fatigue, fever, reports of chills Cardiovascular: No reports of chest pain or palpitations Respiratory: No reports of shortness of breath or cough GI: No reports of nausea, vomiting, or diarrhea : No reports of dysuria or retention Neurovascular: No reports of weakness or numbness, reports of continued scrotal swelling and discomfort in the perineal area although reports swelling is improving All medications have been reviewed Physical exam: GENERAL: The patient is alert and oriented x3. Well developed, well nourished. HEENT: Pupils are round and equally reacting to light. EOMI. No scleral icterus. No conjunctival pallor. Normocephalic, atraumatic. No pharyngeal erythema. No thyromegaly. CARDIOVASCULAR: S1 and S2 muffled PULMONARY: Diminished breath sounds bilaterally with no wheezing or crackles. ABDOMEN: Soft, nontender, nondistended, normoactive bowel sounds. No palpable organomegaly. Patient with tenderness and inflammation in the perineal area, light pink in color involving the gluteal cleft fold area down to the perineum w ith tenderness and swelling. Gutierrez catheter in place MUSCULOSKELETAL: No joint swelling or deformity. EXTREMITIES: No cyanosis, clubbing, or pedal edema. NEUROLOGICAL: Gross neurological examination did not reveal any focal deficits. SKIN: No rashes. no petechiae. Assessment: Extensive cellulitis involving the buttock area, gluteal cleft and perineum. Sepsis with leukocytosis and tachycardia secondary to above Urinary retention. Status post Gutierrez catheter Enlarged prostate Asymptomatic gallstone 2.5 mm Constipation GI prophylaxis DVT prophylaxis Full code Plan: Patient is continued on IV antibiotics with infectious disease following and currently IV Zosyn. Patient remains afebrile and WBC remains elevated at 16.66, other labs reviewed and within normal limits. Chest x-ray was done yesterday showing concerns for a right lower lobe infiltrate to correlate for pneumonia and also atelectasis. Incentive spirometer ordered and encouraged to use at least 10 times every hour while awake. Repeat CT pelvis was done yesterday showing some improvement Urology placed in order to discontinue Gutierrez catheter and will monitor for any retention recommend post void bladder scanning with residuals Patient's hemoglobin A1c was found to be above 10 and will need close outpatient follow-up and likely discharge on insulin and will discuss further with case man feng about discharge planning Recommend to continue with local wound care to the area and offloading as much as possible. General surgery following with no plans for surgical intervention Patient's WBC remains elevated and recommend repeat labs in a.m. Encouraged oral intake Encouraged increase activity as tolerated Will discuss further with infectious diseases patient will require IV antibiot ics on discharge, case management is following in the event patient will require home care and IV antibiotics outpatient Prognosis is guarded The impression and plan of care has been dictated by Tiffanie Archer, Nurse Practitioner as directed. Dr. Babar MD I have performed a history and examination and MDM of this patient, discussed the same with the dictator, and agree with the dictator's assessment and plan as written ,documented as a scribe. Based on total visit time, I have performed more than 50% of the visit. Objective - Vital Signs Vital signs: Vital Signs Temp 98.6 F 01/25/23 07:02 Pulse 62 01/25/23 07:02 Resp 18 01/25/23 07:02 BP 146/81 01/25/23 07:02 Pulse Ox 92 L 01/25/23 07:02 FiO2 Intake & Output 01/24/23 01/25/23 01/25/23 18:59 06:59 18:59 Output Total 1050 550 Balance -1050 -550 Output: Urine 1050 550 Other: Voiding Method Indwelling Catheter Indwelling Catheter - Labs CBC & Chem 7: 01/25/23 05:27 01/25/23 05:27 Labs: Abnormal Lab Results - Last 24 Hours (Table) 01/24/23 01/24/23 01/24/23 Range/Units 07:16 17:11 20:09 WBC 16.98 H (4.50-10.00) X 10*3/uL RBC 4.15 L (4.40-5.60) X 10*6/uL Hgb 12.4 L (13.0-17.0) g/dL Hct 38.3 L (39.6-50.0) % Plt Count 446 H (140-440) X 10*3/uL MPV 9.0 L (9.5-12.2) fL Immature Gran # 0.36 H (0.00-0.04) X 10*3/uL Neutrophils # 12.87 H (1.80-7.70) X 10*3/uL Monocytes # 1.52 H (0.20-1.00) X 10*3/uL Eosinophils # 0.42 H (0.04-0.35) X 10*3/uL POC Glucose (mg/dL) 123 H 143 H (70-110) mg/dL
--- NOTE | 2023-01-25 15:28 | P.PN ---
Subjective Progress Note Date: 01/25/23 Principal diagnosis: Left gluteal abscess and cellulitis Patient is a 52-year-old male presenting to the hospital with left gluteal pain and swelling he did have an attempted drainage in the ER 2 days before this admission unfortunately no cultures was done and the patient did have worsening on oral doxycycline, patient did have a pelvic CT with his extensive cellulitis phlegmon changes and no sherrie abscess. Patient is status post left scrotal abscess drainage by urology on 01/20/2023 On today's evaluation her that is 01/25/2023, the patient continues to be afebr ile, the patient swelling and discomfort to the scrotal area minimally decreased per patient, the left gluteal area pain and swelling has resolved, the patient denies having any chest pain shortness of cough no abdominal pain or diarrhea Objective - Vital Signs Vital signs: Vital Signs Temp 98.6 F 01/25/23 07:02 Pulse 62 01/25/23 07:02 Resp 18 01/25/23 07:02 BP 146/81 01/25/23 07:02 Pulse Ox 92 L 01/25/23 07:02 FiO2 Intake & Output 01/24/23 01/25/23 01/25/23 18:59 06:59 18:59 Output Total 1050 550 725 Balance -1050 -550 -725 Output: Urine 1050 550 725 Other: Voiding Method Indwelling Catheter Indwelling Catheter Indwelling Catheter - Exam GENERAL DESCRIPTION: Middle-age male lying in bed in no distress RESPIRATORY SYSTEM: Unlabored breathing , decreased breath sounds at bases HEART: S1 S2 regular rate and rhythm , ABDOMEN: Soft , no tenderness : Left scrotal mostly the left side have some induration and tenderness EXTREMITIES: No edema feet - Labs CBC & Chem 7: 01/25/23 05:27 01/25/23 05:27 Labs: Abnormal Lab Results - Last 24 Hours (Table) 01/24/23 01/24/23 01/25/23 Range/Units 17:11 20:09 05:27 WBC 16.66 H (4.50-10.00) X 10*3/uL RBC 3.94 L (4.40-5.60) X 10*6/uL Hgb 11.6 L (13.0-17.0) g/dL Hct 37.0 L (39.6-50.0) % MCHC 31.4 L (32.0-37.0) g/dL Plt Count 475 H (140-440) X 10*3/uL MPV 9.3 L (9.5-12.2) fL Immature Gran # 0.37 H (0.00-0.04) X 10*3/uL Neutrophils # 12.20 H (1.80-7.70) X 10*3/uL Monocytes # 1.51 H (0.20-1.00) X 10*3/uL Eosinophils # 0.54 H (0.04-0.35) X 10*3/uL Basophils # 0.11 H (0.00-0.10) X 10*3/uL Anion Gap (10.00-18.00) mmol/L BUN (9.0-27.0) mg/dL BUN/Creatinine Ratio (12.00-20.00) Ratio POC Glucose (mg/dL) 123 H 143 H (70-110) mg/dL Calcium (8.7-10.3) mg/dL Alkaline Phosphatase (41-126) U/L Total Protein (6.2-8.2) g/dL Albumin (3.8-4.9) g/dL Globulin (1.6-3.3) g/dL Albumin/Globulin Ratio (1.60-3.17) g/dL 01/25/23 01/25/23 Range/Units 05:27 11:19 WBC (4.50-10.00) X 10*3/uL RBC (4.40-5.60) X 10*6/uL Hgb (13.0-17.0) g/dL Hct (39.6-50.0) % MCHC (32.0-37.0) g/dL Plt Count (140-440) X 10*3/uL MPV (9.5-12.2) fL Immature Gran # (0.00-0.04) X 10*3/uL Neutrophils # (1.80-7.70) X 10*3/uL Monocytes # (0.20-1.00) X 10*3/uL Eosinophils # (0.04-0.35) X 10*3/uL Basophils # (0.00-0.10) X 10*3/uL Anion Gap 7.30 L (10.00-18.00) mmol/L BUN 4.9 L (9.0-27.0) mg/dL BUN/Creatinine Ratio 6.55 L (12.00-20.00) Ratio POC Glucose (mg/dL) 116 H (70-110) mg/dL Calcium 8.4 L (8.7-10.3) mg/dL Alkaline Phosphatase 306 H (41-126) U/L Total Protein 6.0 L (6.2-8.2) g/dL Albumin 2.5 L (3.8-4.9) g/dL Globulin 3.5 H (1.6-3.3) g/dL Albumin/Globulin Ratio 0.72 L (1.60-3.17) g/dL Assessment and Plan (1) Phlegmonous cellulitis Current Visit: Yes Status: Acute Code(s): L02.91 - CUTANEOUS ABSCESS, UNSPECIFIED SNOMED Code(s): 020682813 (2) Abscess of buttock, left Current Visit: No Status: Acute Code(s): L02.31 - CUTANEOUS ABSCESS OF BUTTOCK SNOMED Code(s): 41210350 Plan: 1patient present to hospital with sepsis in this patient with fever tachycardia elevated white count source is left gluteal abscess failing outpatient oral doxycycline therapy unfortunately no cultures were done and the patient did have I&D in the ER few days ago 2-patient is status post surgical drainage of the scrotal abscess deep culture which are so for negative 3-patient did have repeat CT of the pelvis with contrast, still have extensive phlegmon changes and possible abscess, no need for surgical drainage per urology, he will continue Zosyn and monitor his clinical course and white count closely Time with Patient: Less than 30
[2023-01-25 17:11] LABS: Glucose,Whole Blood 133 mg/dL (70-110)
[2023-01-25] MEDS: HYDROcodone/APAP 5-325MG 1 EACH TAB PO PRN (20:35)
[2023-01-25 20:38] LABS: Glucose,Whole Blood 159 mg/dL (70-110)
[2023-01-25] MEDS: INSULIN DETEMIR (LEVEMIR) 100 UNIT/ML SYR SQ SCH (20:38)
[2023-01-26] MEDS: HYDROmorphone 1 MG/ML 1 ML SYRINGE IVP PRN ×3 (00:58→23:54)
[2023-01-26 06:58] LABS: Glucose,Whole Blood 89 mg/dL (70-110)
[2023-01-26] MEDS: HYDROcodone/APAP 5-325MG 1 EACH TAB PO PRN ×3 (07:03→20:52)
[2023-01-26] MEDS: INSULIN ASPART (NovoLOG) 100 UNIT/ML VIAL SQ SCH ×4 (08:22→20:53)
--- NOTE | 2023-01-26 08:37 | P.PN ---
Subjective Progress Note Date: 01/26/23 The patient is in the hospital a scrotal and perineal cellulitis. He had an I&D by without significant drainage of fluid last week. He is slowly recuperating. The catheters removed yesterday. He feels better. Objective - Vital Signs Vital signs: Vital Signs Temp 98.8 F 01/26/23 06:52 Pulse 80 01/26/23 06:52 Resp 18 01/26/23 06:52 BP 161/82 01/26/23 06:52 Pulse Ox 94 L 01/26/23 06:52 FiO2 Intake & Output 01/25/23 01/26/23 01/26/23 18:59 06:59 18:59 Intake Total 100 Output Total 1575 425 Balance -1575 100 -425 Intake: Intake, IV Titration 100 Amount Piperacillin-Tazobactam 3 100 .375 gm In Sodium Chloride 0.9% 100 ml @ 25 mls/hr IVPB Q8HR [facility] Rx# :[id number] Output: Urine 1575 425 Other: Voiding Method Indwelling Catheter Indwelling Catheter # Voids 1 - Genitourinary Genitourinary Comment(s): scrotal edema and erythema decreasing - Labs CBC & Chem 7: 01/25/23 05:27 01/25/23 05:27 Labs: Abnormal Lab Results - Last 24 Hours (Table) 01/25/23 01/25/23 01/25/23 Range/Units 05:27 05:27 11:19 WBC 16.66 H (4.50-10.00) X 10*3/uL RBC 3.94 L (4.40-5.60) X 10*6/uL Hgb 11.6 L (13.0-17.0) g/dL Hct 37.0 L (39.6-50.0) % MCHC 31.4 L (32.0-37.0) g/dL Plt Count 475 H (140-440) X 10*3/uL MPV 9.3 L (9.5-12.2) fL Immature Gran # 0.37 H (0.00-0.04) X 10*3/uL Neutrophils # 12.20 H (1.80-7.70) X 10*3/uL Monocytes # 1.51 H (0.20-1.00) X 10*3/uL Eosinophils # 0.54 H (0.04-0.35) X 10*3/uL Basophils # 0.11 H (0.00-0.10) X 10*3/uL Anion Gap 7.30 L (10.00-18.00) mmol/L BUN 4.9 L (9.0-27.0) mg/dL BUN/Creatinine Ratio 6.55 L (12.00-20.00) Ratio POC Glucose (mg/dL) 116 H (70-110) mg/dL Calcium 8.4 L (8.7-10.3) mg/dL Alkaline Phosphatase 306 H (41-126) U/L Total Protein 6.0 L (6.2-8.2) g/dL Albumin 2.5 L (3.8-4.9) g/dL Globulin 3.5 H (1.6-3.3) g/dL Albumin/Globulin Ratio 0.72 L (1.60-3.17) g/dL 01/25/23 01/25/23 Range/Units 17:09 20:34 WBC (4.50-10.00) X 10*3/uL RBC (4.40-5.60) X 10*6/uL Hgb (13.0-17.0) g/dL Hct (39.6-50.0) % MCHC (32.0-37.0) g/dL Plt Count (140-440) X 10*3/uL MPV (9.5-12.2) fL Immature Gran # (0.00-0.04) X 10*3/uL Neutrophils # (1.80-7.70) X 10*3/uL Monocytes # (0.20-1.00) X 10*3/uL Eosinophils # (0.04-0.35) X 10*3/uL Basophils # (0.00-0.10) X 10*3/uL Anion Gap (10.00-18.00) mmol/L BUN (9.0-27.0) mg/dL BUN/Creatinine Ratio (12.00-20.00) Ratio POC Glucose (mg/dL) 133 H 159 H (70-110) mg/dL Calcium (8.7-10.3) mg/dL Alkaline Phosphatase (41-126) U/L Total Protein (6.2-8.2) g/dL Albumin (3.8-4.9) g/dL Globulin (1.6-3.3) g/dL Albumin/Globulin Ratio (1.60-3.17) g/dL Assessment and Plan Assessment: Impression: The patient is slowly improving. He is on antibiotics. The catheters removed and he is voiding without difficulty. We'll see how he does in the next 24 hours and hopefully he can be discharged home on oral antibiotics and follow in the office.
[2023-01-26] MEDS: PIPERACILLIN-TAZOBACTAM 3.375 GM in SODIUM CHLORIDE 0.9% 100 ML IVPB SCH ×3 (09:06→23:50)
[2023-01-26] MEDS: FAMOTIDINE 20 MG TAB PO SCH ×2 (09:08→20:53)
[2023-01-26] MEDS: DOCUSATE 100 MG CAP PO SCH ×2 (09:08→20:59)
[2023-01-26] MEDS: HEPARIN SODIUM,PORCINE/PF 5,000 UNIT/0.5 ML SYRINGE SQ SCH ×2 (09:08→20:53)
[2023-01-26] MEDS: TAMSULOSIN 0.4 MG CAP.ER.24H PO SCH (09:08)
[2023-01-26] MEDS: NICOTINE 21MG/24HR PATCH TRANSDERM SCH (09:11)
[2023-01-26 10:39] LABS: Glucose,Whole Blood 115 mg/dL (70-110)
[2023-01-26] MEDS: ALPRAZolam 0.25 MG TAB PO PRN (10:56)
[2023-01-26 11:41] LABS: African American GFR (CKD) 118.2 (60.0-200.0); Anion Gap 10.4 mmol/L (10.00-18.00); BUN/Creat Ratio 4.88 Ratio (12.00-20.00); Blood Urea Nitrogen 3.9 mg/dL (9.0-27.0); C Reactive Protein 3.8 mg/dL (0.00-0.80); Calcium 8.9 mg/dL (8.7-10.3); Carbon Dioxide 27.6 mmol/L (20.0-27.5); Potassium 4.1 mmol/L (3.5-5.5)
[2023-01-26 12:20] LABS: Basophils # (A) 0.08 X 10*3/uL (0.00-0.10); Basophils % (A) 0.5 %; Eosinophils # (A) 0.42 X 10*3/uL (0.04-0.35); Eosinophils % (A) 2.4 %; HCT 39.4 % (39.6-50.0); HGB 12.6 g/dL (13.0-17.0); Immature Grans, Automated 2.8 %; Lymphocytes # (A) 2.34 X 10*3/uL (0.90-5.00); Lymphocytes % (A) 13.3 %; MCH 29.8 pg (27.0-32.0); MCV 93.1 fL (80.0-97.0); Mean Platelet Volume 8.7 fL (9.5-12.2); Monocytes % (A) 10.3 %; NRBC Per 100 WBC 0 /100 WBCS (0.0-0.0); Neutrophils % (A) 70.7 %; Platelet Count 589 X 10*3/uL (140-440); RBC 4.23 X 10*6/uL (4.40-5.60); RDW 12.7 % (11.5-14.5); WBC 17.53 X 10*3/uL (4.50-10.00)
--- NOTE | 2023-01-26 13:07 | P.PN ---
Subjective Progress Note Date: 01/26/23 CHIEF COMPLAINT: Cellulitis of the left glute HISTORY OF PRESENT ILLNESS: Patient reports that the left buttock swelling and perineal swelling remains improved. Patient is status post incision and drainag e of left scrotal abscess by urology. Patient having some improvement in the testicular swelling. He is followed closely by urology. Gutierrez catheter removed. He is urinating. Patient discontinue some nausea this morning. Afebrile. WBC slightly up from 16-17.53 Hgb is 12.6 plt 589 sodium is 140 potassium 4.1 creatinine 0.8 Patient seen and examined with Dr. Chris PHYSICAL EXAM: VITAL SIGNS: Reviewed. GENERAL: Well-developed in no acute distress. HEENT: No sclera icterus. Extraocular movements grossly intact. Moist buccal mucosa. Head is atraumatic, normocephalic. ABDOMEN: Soft. Nondistended. Nontender. NEUROLOGIC: Alert and oriented. Cranial nerves II through XII grossly intact. ASSESSMENT: 1. Left buttock cellulitis and phlegmonous changes have shown improvement. 2. Scrotal cellulitis and abscess followed by urology status post I&D PLAN: -No surgical intervention planned from general surgery standpoint -Continue IV antibiotics -Continue supportive care -Continue urological management Physician Provider Relations Rep note has been reviewed by physician. Signing provider agrees with the documented findings, assessment, and plan of care. Objective - Vital Signs Vital signs: Vital Signs Temp 98.7 F 01/26/23 12:02 Pulse 74 01/26/23 12:02 Resp 17 01/26/23 12:02 BP 148/79 01/26/23 12:02 Pulse Ox 93 L 01/26/23 12:02 FiO2 Intake & Output 01/25/23 01/26/23 01/26/23 18:59 06:59 18:59 Intake Total 100 Output Total 1575 425 Balance -1575 100 -425 Intake: Intake, IV Titration 100 Amount Piperacillin-Tazobactam 3 100 .375 gm In Sodium Chloride 0.9% 100 ml @ 25 mls/hr IVPB Q8HR [facility] Rx# :[id number] Output: Urine 1575 425 Other: Voiding Method Indwelling Catheter Indwelling Catheter Urinal # Voids 1 - Labs CBC & Chem 7: 01/26/23 06:54 01/26/23 06:54 Labs: Abnormal Lab Results - Last 24 Hours (Table) 01/25/23 01/25/23 01/26/23 Range/Units 17:09 20:34 06:54 WBC 17.53 H (4.50-10.00) X 10*3/uL RBC 4.23 L (4.40-5.60) X 10*6/uL Hgb 12.6 L (13.0-17.0) g/dL Hct 39.4 L (39.6-50.0) % Plt Count 589 H (140-440) X 10*3/uL MPV 8.7 L (9.5-12.2) fL Immature Gran # 0.49 H (0.00-0.04) X 10*3/uL Neutrophils # 12.40 H (1.80-7.70) X 10*3/uL Monocytes # 1.80 H (0.20-1.00) X 10*3/uL Eosinophils # 0.42 H (0.04-0.35) X 10*3/uL Carbon Dioxide (20.0-27.5) mmol/L BUN (9.0-27.0) mg/dL BUN/Creatinine Ratio (12.00-20.00) Ratio POC Glucose (mg/dL) 133 H 159 H (70-110) mg/dL C-Reactive Protein (0.00-0.80) mg/dL 01/26/23 01/26/23 Range/Units 06:54 10:38 WBC (4.50-10.00) X 10*3/uL RBC (4.40-5.60) X 10*6/uL Hgb (13.0-17.0) g/dL Hct (39.6-50.0) % Plt Count (140-440) X 10*3/uL MPV (9.5-12.2) fL Immature Gran # (0.00-0.04) X 10*3/uL Neutrophils # (1.80-7.70) X 10*3/uL Monocytes # (0.20-1.00) X 10*3/uL Eosinophils # (0.04-0.35) X 10*3/uL Carbon Dioxide 27.6 H (20.0-27.5) mmol/L BUN 3.9 L (9.0-27.0) mg/dL BUN/Creatinine Ratio 4.88 L (12.00-20.00) Ratio POC Glucose (mg/dL) 115 H (70-110) mg/dL C-Reactive Protein 3.80 H (0.00-0.80) mg/dL
--- NOTE | 2023-01-26 14:46 | P.PN ---
Subjective Progress Note Date: 01/26/23 Principal diagnosis: Left gluteal abscess and cellulitis Patient is a 52-year-old male presenting to the hospital with left gluteal pain and swelling he did have an attempted drainage in the ER 2 days before this admission unfortunately no cultures was done and the patient did have worsening on oral doxycycline, patient did have a pelvic CT with his extensive cellulitis phlegmon changes and no sherrie abscess. Patient is status post left scrotal abscess drainage by urology on 01/20/2023 On today's evaluation her that is 01/26/2023, the patient remains to be afebril e, the patient discomfort to the scrotal area has slightly decreased per patient, the patient denies having any chest pain shortness of cough no abdominal pain or diarrhea Objective - Vital Signs Vital signs: Vital Signs Temp 98.8 F 01/26/23 06:52 Pulse 71 01/26/23 10:54 Resp 16 01/26/23 10:54 BP 152/78 01/26/23 10:54 Pulse Ox 94 L 01/26/23 06:52 FiO2 Intake & Output 01/25/23 01/26/23 01/26/23 18:59 06:59 18:59 Intake Total 100 Output Total 1575 425 Balance -1575 100 -425 Intake: Intake, IV Titration 100 Amount Piperacillin-Tazobactam 3 100 .375 gm In Sodium Chloride 0.9% 100 ml @ 25 mls/hr IVPB Q8HR [facility] Rx# :[id number] Output: Urine 1575 425 Other: Voiding Method Indwelling Catheter Indwelling Catheter # Voids 1 - Exam GENERAL DESCRIPTION: Middle-age male lying in bed in no distress RESPIRATORY SYSTEM: Unlabored breathing , decreased breath sounds at bases HEART: S1 S2 regular rate and rhythm , ABDOMEN: Soft , no tenderness : Left scrotal mostly the left side have some induration and tenderness EXTREMITIES: No edema feet - Labs CBC & Chem 7: 01/26/23 06:54 01/26/23 06:54 Labs: Abnormal Lab Results - Last 24 Hours (Table) 01/25/23 01/25/23 01/25/23 Range/Units 05:27 17:09 20:34 WBC 16.66 H (4.50-10.00) X 10*3/uL RBC 3.94 L (4.40-5.60) X 10*6/uL Hgb 11.6 L (13.0-17.0) g/dL Hct 37.0 L (39.6-50.0) % MCHC 31.4 L (32.0-37.0) g/dL Plt Count 475 H (140-440) X 10*3/uL MPV 9.3 L (9.5-12.2) fL Immature Gran # 0.37 H (0.00-0.04) X 10*3/uL Neutrophils # 12.20 H (1.80-7.70) X 10*3/uL Monocytes # 1.51 H (0.20-1.00) X 10*3/uL Eosinophils # 0.54 H (0.04-0.35) X 10*3/uL Basophils # 0.11 H (0.00-0.10) X 10*3/uL POC Glucose (mg/dL) 133 H 159 H (70-110) mg/dL 01/26/23 Range/Units 10:38 WBC (4.50-10.00) X 10*3/uL RBC (4.40-5.60) X 10*6/uL Hgb (13.0-17.0) g/dL Hct (39.6-50.0) % MCHC (32.0-37.0) g/dL Plt Count (140-440) X 10*3/uL MPV (9.5-12.2) fL Immature Gran # (0.00-0.04) X 10*3/uL Neutrophils # (1.80-7.70) X 10*3/uL Monocytes # (0.20-1.00) X 10*3/uL Eosinophils # (0.04-0.35) X 10*3/uL Basophils # (0.00-0.10) X 10*3/uL POC Glucose (mg/dL) 115 H (70-110) mg/dL Assessment and Plan (1) Phlegmonous cellulitis Current Visit: Yes Status: Acute Code(s): L02.91 - CUTANEOUS ABSCESS, UNSPECIFIED SNOMED Code(s): 499777777 (2) Abscess of buttock, left Current Visit: No Status: Acute Code(s): L02.31 - CUTANEOUS ABSCESS OF BUTTOCK SNOMED Code(s): 97803729 Plan: 1patient present to hospital with sepsis in this patient with fever tachycardia elevated white count source is left gluteal abscess failing outpatient oral doxycycline therapy unfortunately no cultures were done and the patient did have I&D in the ER few days ago 2-patient is status post surgical drainage of the scrotal abscess deep culture which are so for negative 3-patient did have repeat CT of the pelvis with contrast, still have extensive phlegmon changes and possible abscess, no need for surgical drainage per urology however the patient did have a worsening of the white count is up to 17,000, he will continue Zosyn will add daptomycin and discussed with urology for possible attempt for redrainage Time with Patient: Less than 30
[2023-01-26 17:03] LABS: Glucose,Whole Blood 163 mg/dL (70-110)
--- NOTE | 2023-01-26 18:15 | P.PN ---
Progress Note - Text Progress Note Date: 01/26/[address] Francisco of Infectious disease this afternoon.. The wbc continues to creep up The ct scan has been rereviewed. I will reexamine the patient but will probably reexplore the patient tomorrow in search for more abscess.
[2023-01-26] MEDS: INSULIN DETEMIR (LEVEMIR) 100 UNIT/ML SYR SQ SCH (20:56)
[2023-01-26 20:58] LABS: Glucose,Whole Blood 124 mg/dL (70-110)
--- NOTE | 2023-01-26 23:00 | P.PN ---
Subjective Progress Note Date: 01/26/23 This is a pleasant 52 years old male with multiple medical problems including Diabetes Mellitus, Fibromyalgia, GERD/Reflux, Hyperlipidemia, Hypertension, ,Depression, nicotine dependence Presents because of skin infection in the gluteal folds, the middle with small papule in the larger polyp part. that Is been going on for about a week. The area to person us why he is lying in the right lateral side Patient denies chest pain dyspnea. No headache weakness a or numbness However patient complaining of from difficulty urination and constipation. Last time he P twice to 3:00 clear the morning. He denies dysuria urgency. He smokes about 1.5 pack per day and he was counseled to quit and he agrees and he agrees to the nicotine patch patient is tachycardic around 105 Patient tachycardic around 105 and he is a febrile Labs showed leukocytosis 23.7. BNP and liver enzymes are unremarkable. Glucose is elevated 328 CT of the pelvis with contrast showing extensive cellulitis and areas of phlegmonous changes along the left gluteal region extending anteriorly in the subcutaneous fat of the left perineum spanning up to nearly 20 cm. This inflammatory changes extend anterior to the pubic bone. No sherrie abscess. Small area 1.1 cm in the right kidney could be tiny cyst versus pyelonephritis, gallstone 2.5 mm, prostatomegaly 01/18/2023 Patient looks more comfortable today, he still have pain in the area but 3/10, his pain control with pain pills. His scrotum is swollen and tender today. Yesterday he had found to have urinary retention more than 300 mL and Gutierrez catheter currently in place and draining clear urine. Is still complains from some constipation Urologist consulted who requested repeat Pelvic CT showing 1.persistent marked fluid and fat stranding consistent with soft tissue infection or cellulitis from the left groin and scrotal region anteriorly to the left perirectal/perianal tissue similar in appearance to study one day earlier. No focal abscess.2Increasing perinephric fluid and fat stranding along with a new wall thickening in the urinary bladder. Consider acute cystitis and/or bilateral pyelonephritis as possible etiologies patient also antibiotics were updated into IV vancomycin and Unasyn, infectious disease team on the case with help of antibiotic management Hemoglobin A1c is 11.5. Currently sugar is controlled 01/19/2023 Patient is improving slowly and gradually he has this swelling erythema and tenderness in his perineal area and scrotum area compared to yesterday however he still in some distress due to pain and still concerning and required close monitoring. No evidence of crepitus or air on exam. Gutierrez catheter in place. Patient other than that is awake and alert and he denies any other new symptoms. He is hemodynamically stable. Has low-grade temperature today 99.9. Hemoglobin A1c is 11.5%, renal ultrasound is negative for hydronephrosis or other abnormality. Labs from today are pending. Extremities Unasyn and IV vancomycin. 01/20/2023 Patient still complaining from pain in the scrotal and perineal area, his been having some nausea but no vomiting. Current regimen medications are not effective, added Phenergan. No more fever and still has significant leukocytosis. 22,000 Neurology team are planning for I&D of scrotal fluctuance, possible abscess. Habits and normal saline, IV vancomycin and Unasyn Glucose is controlled today at around 130 01/21/2030 patient remains in [id number] distress due to his infection Is a status post I&D of the scrotal wall with no purulent discharge but only several some bloody fluid drained. Dressing is soaked with serosanguineous discharge However continue to improve while his broad-spectrum antibiotics with IV vancomycin and Unasyn Patient remains on normal saline 75. The per hour. 01/22/2023 Patient is improving Slowly and gradually No evidence of fluctuant area, today significantly secure, is less tender, less red and less swollen creatinine stable He is currently on antibiotic on IV vancomycin and Unasyn and #75 mL/h Patient had bowel movement and he feels satisfied 01/23/2023 Patient is seen and evaluated and follow-up being followed by multiple medical consultations. Patient is maintained on IV antibiotics and being switched to cefepime per infectious disease recommendations. Cultures thus far have been negative. Patient also being followed by general surgery with no plans for intervention. Patient was evaluated by urology with no plans for surgical intervention recommending continued antibiotics and local wound care. We'll follow up on repeat labs as WBC remains elevated although trending down. Encouraged oral intake and increased activity as tolerated. Patient does have indwelling Gutierrez catheter for now and will continue. Patient is afebrile denies chest pain or shortness of breath. No reports of nausea or vomiting noted and patient is tolerating diet. 01/24/2023 Patient is seen and evaluated in follow-up this morning continues to be afebrile with infectious disease along with urology following. General surgery evaluated the patient with no plans for surgical intervention. Repeat labs show a WBC that is trending up and currently 16.98 and hemoglobin is stable at 12.4, BNP within normal limits other than alk phos is 327 and CRP is 4.4. Blood sugars have been well controlled on current regimen and will continue. Hemoglobin A1c was found to be 10.5 and will need to follow-up with primary care provider closely in the outpatient setting and will likely initiate insulin on discharge. Patient continues on IV antibiotics and was continued on cefepime although being transitioned to Zosyn per infectious disease. Repeat CT pelvis is ordered and pending for today. Patient continue with indwelling Gutierrez catheter for now with urology following closely. Patient denies chest pain or shortness of breath although given patient's WBC will obtain chest x-ray is 1 is not been done previously. Recommend continue on gentle hydration and will follow-up on repeat labs. 01/25/2023 Patient is seen and evaluated in follow-up this morning currently feeling nauseated and feels like he has a fever although was just checked and has no fever currently 98.4F. Patient has been afebrile. Patient with lower pulse ox readings in the 90-93% on room air did undergo chest x-ray yesterday which showed a right lower lobe infiltrate to correlate for pneumonia and also atelectasis. Have ordered incentive spirometer and recommend continue using at least 10 times every hour while awake. Patient also with diabetes uncontrolled will continue current regimen and encouraged oral intake. Patient is maintained on IV antibiotics in the form of Zosyn with infectious disease following closely along with urology. There is an order for Gutierrez catheter removal although patient continues with Gutierrez. Patient reports some improvement in swelling although reports not feeling well. White count remains elevated at 16.66, hemoglobin is 11.6, platelets are 475, sodium is 140 with a potassium of 4.1 and current creatinine is 0.8. 01/26/2023 Patient is seen and evaluated in follow-up today reports he is not feeling well with intermittent nausea and generalized weakness. Patient does report some mild improvement in the swelling and did have Gutierrez catheter removed and is voiding with no difficulties. Patient maintained on IV antibiotics with infectious disease following an repeat labs showing a WBC of above 17 with concerns of continued infection. Patient is afebrile denies chest pain or shortness of breath. Patient has not been up and moving much and encouraged to increase activity as tolerated. Urology following as well and discussing possible further exploration of the area to evaluate for any abscess. Review of systems: Constitutional:reports of fatigue, no fever, reports of chills Cardiovascular: No reports of chest pain or palpitations Respiratory: No reports of shortness of breath or cough GI: reports of intermittent nausea, no vomiting, or diarrhea : No reports of dysuria or retention, patient reports is voiding post Gutierrez catheter removal Neurovascular: reports of generalized weakness , reports of continued scrotal swelling although improving continues with discomfort in the perineal area All medications have been reviewed Physical exam: GENERAL: The patient is alert and oriented x3. Well developed, well nourished. HEENT: Pupils are round and equally reacting to light. EOMI. No scleral icterus. No conjunctival pallor. Normocephalic, atraumatic. No pharyngeal erythema. No thyromegaly. CARDIOVASCULAR: S1 and S2 muffled PULMONARY: Diminished breath sounds bilaterally with no wheezing or crackles. ABDOMEN: Soft, nontender, nondistended, normoactive bowel sounds. No palpable organomegaly. Patient with tenderness and inflammation in the perineal area, light pink in color involving the gluteal cleft fold area down to the perineum with tenderness and swelling. Gutierrez catheter in place MUSCULOSKELETAL: No joint swelling or deformity. EXTREMITIES: No cyanosis, clubbing, or pedal edema. NEUROLOGICAL: Gross neurological examination did not reveal any focal deficits. SKIN: No rashes. no petechiae. Assessment: Extensive cellulitis involving the buttock area, gluteal cleft and perineum. Sepsis with leukocytosis and tachycardia secondary to above Urinary retention. Status post Gutierrez catheter, removal of Gutierrez on 01/25/2023 and voiding with no difficulties Enlarged prostate Asymptomatic gallstone 2.5 mm Constipation GI prophylaxis DVT prophylaxis Full code Plan: Patient is continued on IV antibiotics with infectious disease following and c urrently IV Zosyn. Patient remains afebrile and WBC remains elevated and trending up with concerns of continued infection and infectious disease discussing further with urology about possible further exploration of possible abscess Incentive spirometer ordered and encouraged to use at least 10 times every hour while awake. Encouraged increase activity as tolerated as patient is not getting up much Repeat CT pelvis was done and being reviewed further with urology and infectious disease Patient's hemoglobin A1c was found to be above 10 and will need close outpatient follow-up and likely discharge on insulin and will discuss further with case management about discharge planning Recommend to continue with local wound care to the area and offloading as much as possible. General surgery following with no plans for surgical intervention Patient's WBC remains elevated and recommend repeat labs in a.m. Encouraged oral intake Encouraged increase activity as tolerated The impression and plan of care has been dictated by Tiffanie Archer, Nurse Practitioner as directed. Dr. Babar MD I have performed a history and examination and MDM of this patient, discussed the same with the dictator, and agree with the dictator's assessment and plan as written ,documented as a scribe. Based on total visit time, I have performed more than 50% of the visit. Objective - Vital Signs Vital signs: Vital Signs Temp 98.7 F 01/26/23 12:02 Pulse 74 01/26/23 12:02 Resp 17 01/26/23 12:02 BP 148/79 01/26/23 12:02 Pulse Ox 93 L 01/26/23 12:02 FiO2 Intake & Output 01/25/23 01/26/23 01/26/23 18:59 06:59 18:59 Intake Total 100 Output Total 1575 425 Balance -1575 100 -425 Intake: Intake, IV Titration 100 Amount Piperacillin-Tazobactam 3 100 .375 gm In Sodium Chloride 0.9% 100 ml @ 25 mls/hr IVPB Q8HR [facility] Rx# :[id number] Output: Urine 1575 425 Other: Voiding Method Indwelling Catheter Indwelling Catheter Urinal # Voids 1 - Labs CBC & Chem 7: 01/26/23 06:54 01/26/23 06:54 Labs: Abnormal Lab Results - Last 24 Hours (Table) 01/25/23 01/25/23 01/26/23 Range/Units 17:09 20:34 06:54 WBC 17.53 H (4.50-10.00) X 10*3/uL RBC 4.23 L (4.40-5.60) X 10*6/uL Hgb 12.6 L (13.0-17.0) g/dL Hct 39.4 L (39.6-50.0) % Plt Count 589 H (140-440) X 10*3/uL MPV 8.7 L (9.5-12.2) fL Immature Gran # 0.49 H (0.00-0.04) X 10*3/uL Neutrophils # 12.40 H (1.80-7.70) X 10*3/uL Monocytes # 1.80 H (0.20-1.00) X 10*3/uL Eosinophils # 0.42 H (0.04-0.35) X 10*3/uL Carbon Dioxide (20.0-27.5) mmol/L BUN (9.0-27.0) mg/dL BUN/Creatinine Ratio (12.00-20.00) Ratio POC Glucose (mg/dL) 133 H 159 H (70-110) mg/dL C-Reactive Protein (0.00-0.80) mg/dL 01/26/23 01/26/23 Range/Units 06:54 10:38 WBC (4.50-10.00) X 10*3/uL RBC (4.40-5.60) X 10*6/uL Hgb (13.0-17.0) g/dL Hct (39.6-50.0) % Plt Count (140-440) X 10*3/uL MPV (9.5-12.2) fL Immature Gran # (0.00-0.04) X 10*3/uL Neutrophils # (1.80-7.70) X 10*3/uL Monocytes # (0.20-1.00) X 10*3/uL Eosinophils # (0.04-0.35) X 10*3/uL Carbon Dioxide 27.6 H (20.0-27.5) mmol/L BUN 3.9 L (9.0-27.0) mg/dL BUN/Creatinine Ratio 4.88 L (12.00-20.00) Ratio POC Glucose (mg/dL) 115 H (70-110) mg/dL C-Reactive Protein 3.80 H (0.00-0.80) mg/dL
[2023-01-27 07:02] LABS: Glucose,Whole Blood 137 mg/dL (70-110)
[2023-01-27] MEDS: HYDROcodone/APAP 5-325MG 1 EACH TAB PO PRN ×2 (07:07→15:56)
--- NOTE | 2023-01-27 07:48 | P.PN ---
Subjective Progress Note Date: 01/27/23 Patient is in the hospital with scrotal and perineal infection. He had a drainage a week ago. His white count is rising. This orbital swelling is persisting. Objective - Vital Signs Vital signs: Vital Signs Temp 98.1 F 01/27/23 06:58 Pulse 75 01/27/23 06:58 Resp 18 01/27/23 06:58 BP 165/87 01/27/23 06:58 Pulse Ox 95 01/27/23 06:58 FiO2 Intake & Output 01/26/23 01/27/23 01/27/23 18:59 06:59 18:59 Output Total 425 200 Balance -425 -200 Output: Urine 425 200 Other: Voiding Method Urinal Urinal # Bowel Movements 1 - Genitourinary Genitourinary Comment(s): Scrotal edema with some fluctuance in the anterior left scrotum - Labs CBC & Chem 7: 01/26/23 06:54 01/26/23 06:54 Labs: Abnormal Lab Results - Last 24 Hours (Table) 01/26/23 01/26/23 01/26/23 Range/Units 06:54 06:54 10:38 WBC 17.53 H (4.50-10.00) X 10*3/uL RBC 4.23 L (4.40-5.60) X 10*6/uL Hgb 12.6 L (13.0-17.0) g/dL Hct 39.4 L (39.6-50.0) % Plt Count 589 H (140-440) X 10*3/uL MPV 8.7 L (9.5-12.2) fL Immature Gran # 0.49 H (0.00-0.04) X 10*3/uL Neutrophils # 12.40 H (1.80-7.70) X 10*3/uL Monocytes # 1.80 H (0.20-1.00) X 10*3/uL Eosinophils # 0.42 H (0.04-0.35) X 10*3/uL Carbon Dioxide 27.6 H (20.0-27.5) mmol/L BUN 3.9 L (9.0-27.0) mg/dL BUN/Creatinine Ratio 4.88 L (12.00-20.00) Ratio POC Glucose (mg/dL) 115 H (70-110) mg/dL C-Reactive Protein 3.80 H (0.00-0.80) mg/dL 01/26/23 01/26/23 01/27/23 Range/Units 17:02 20:53 07:01 WBC (4.50-10.00) X 10*3/uL RBC (4.40-5.60) X 10*6/uL Hgb (13.0-17.0) g/dL Hct (39.6-50.0) % Plt Count (140-440) X 10*3/uL MPV (9.5-12.2) fL Immature Gran # (0.00-0.04) X 10*3/uL Neutrophils # (1.80-7.70) X 10*3/uL Monocytes # (0.20-1.00) X 10*3/uL Eosinophils # (0.04-0.35) X 10*3/uL Carbon Dioxide (20.0-27.5) mmol/L BUN (9.0-27.0) mg/dL BUN/Creatinine Ratio (12.00-20.00) Ratio POC Glucose (mg/dL) 163 H 124 H 137 H (70-110) mg/dL C-Reactive Protein (0.00-0.80) mg/dL Assessment and Plan Assessment: Impression: Scrotal abscess, perineal abscess Recommendations: The patient had drainage a week ago. Since I have seen him this week the scrotal swelling has not resolved as I would expect. His white blood cell count is rising. There appears to be some fluctuance in the anterior left scrotum. I will explore him this afternoon and drain any further abscess. Says been discussed with the patient
[2023-01-27] MEDS: INSULIN ASPART (NovoLOG) 100 UNIT/ML VIAL SQ SCH ×4 (08:23→20:32)
[2023-01-27 09:45] LABS: Basophils # (A) 0.12 X 10*3/uL (0.00-0.10); Basophils % (A) 0.8 %; Eosinophils # (A) 0.42 X 10*3/uL (0.04-0.35); Eosinophils % (A) 2.9 %; HCT 35.2 % (39.6-50.0); HGB 11.2 g/dL (13.0-17.0); Immature Grans, Automated 2.4 %; Lymphocytes # (A) 2.15 X 10*3/uL (0.90-5.00); Lymphocytes % (A) 14.7 %; MCH 29.9 pg (27.0-32.0); MCHC 31.8 g/dL (32.0-37.0); MCV 94.1 fL (80.0-97.0); Mean Platelet Volume 9.1 fL (9.5-12.2); Monocytes # (A) 1.59 X 10*3/uL (0.20-1.00); Monocytes % (A) 10.8 %; NRBC Per 100 WBC 0 /100 WBCS (0.0-0.0); Neutrophils # (A) 10.04 X 10*3/uL (1.80-7.70); Neutrophils % (A) 68.4 %; Platelet Count 509 X 10*3/uL (140-440); RBC 3.74 X 10*6/uL (4.40-5.60); WBC 14.67 X 10*3/uL (4.50-10.00)
[2023-01-27] MEDS: PIPERACILLIN-TAZOBACTAM 3.375 GM in SODIUM CHLORIDE 0.9% 100 ML IVPB SCH ×3 (09:46→23:49)
[2023-01-27] MEDS: HEPARIN SODIUM,PORCINE/PF 5,000 UNIT/0.5 ML SYRINGE SQ SCH ×2 (09:47→20:32)
[2023-01-27] MEDS: TAMSULOSIN 0.4 MG CAP.ER.24H PO SCH (09:47)
[2023-01-27] MEDS: DOCUSATE 100 MG CAP PO SCH ×2 (09:47→20:32)
[2023-01-27] MEDS: FAMOTIDINE 20 MG TAB PO SCH ×2 (09:47→20:32)
[2023-01-27] MEDS: HYDROmorphone 0.5 MG/0.5 ML SYRINGE IVP PRN (09:52)
[2023-01-27] MEDS: NICOTINE 21MG/24HR PATCH TRANSDERM SCH (10:07)
[2023-01-27 11:14] LABS: Glucose,Whole Blood 104 mg/dL (70-110)
[2023-01-27 11:15] LABS: Magnesium 1.9 mg/dL (1.5-2.4)
[2023-01-27 11:37] LABS: African American GFR (CKD) 122.7 (60.0-200.0); Albumin 2.6 g/dL (3.8-4.9); Albumin/Globulin Ratio 0.8 (1.60-3.17); Anion Gap 6.3 mmol/L (10.00-18.00); BUN/Creat Ratio 5.96 Ratio (12.00-20.00); Blood Urea Nitrogen 4.4 mg/dL (9.0-27.0); Calcium 8.5 mg/dL (8.7-10.3); Carbon Dioxide 28.9 mmol/L (20.0-27.5); Globulin 3.3 g/dL (1.6-3.3); Non-African American GFR(CKD) 105.9 (60.0-200.0); Total Bilirubin 0.3 mg/dL (0.30-1.20); Total Protein 5.9 g/dL (6.2-8.2)
[2023-01-27] MEDS ORDERED: IV FLUID CONTINUATION 1,000 ML IV ONE (12:30)
[2023-01-27] MEDS ORDERED: ONDANSETRON 4 MG/2 ML VIAL IVP ONE (13:04)
[2023-01-27] MEDS ORDERED: LIDOCAINE 2% INJ 20 MG/ML (2 ML VIAL) ONE (13:24)
[2023-01-27] MEDS ORDERED: SUCCINYLCHOLINE CHLORIDE 200 MG/10 ML VIAL IV ONE (13:24)
[2023-01-27] MEDS ORDERED: fentaNYL (PF) 50 MCG/ML 2 ML AMP ONE (13:24)
[2023-01-27] MEDS ORDERED: MIDAZOLAM 2 MG/2 ML VIAL ONE (13:24)
[2023-01-27] MEDS ORDERED: HYDROmorphone (PF) 1 MG/ML ONE (13:24)
[2023-01-27] MEDS ORDERED: KETOROLAC 15 MG/ML 1 ML VIAL ONE (13:24)
[2023-01-27] MEDS ORDERED: PROPOFOL 10 MG/ML 20 ML VIAL IV ONE (13:24)
--- NOTE | 2023-01-27 14:06 | P.OP ---
Date of Procedure: 01/27/23 Preoperative Diagnosis: Scrotal and perineal abscess Postoperative Diagnosis: Same Procedure(s) Performed: Scrotal exploration, drainage of complex hydrocele left ,drainage of left perineal abscess Anesthesia: FARHAD Surgeon: Tucker Cerda Estimated Blood Loss (ml): 50 Pathology: none sent Condition: stable Disposition: PACU Indications for Procedure: The patient is 52. He is in the hospital last week for a cellulitis of the left proximal extending to the left perineum up into the left groin. On Monday he had exploration and drainage placement without significant drainage by . He got better but as the week went on the swelling started to return and his white count elevated to 17.8.. The exam this morning identified some fluctuance in the anterior scrotum on the left side and now there is some fluctuance on the perineum down towards the buttocks on the left side. He comes for surgical drainage Description of Procedure: Patient brought to the operating suite. Given a general anesthetic. He is given a sterile prep and drape after being placed in a frog position. I extended previous drainage site on the anterior left scrotum medially. I explored the scrotum digitally and do not see any abscess. There is some fluctuance fluids I opened the tunica vaginalis and drain complicated hydrocele. Whether this is infected or not is indeterminate; there was some mucosal debris however. Explored digitally down towards the perineum and up towards the left groin and finding no more abscess. I then make an incision on the inferior perineal towards but ansley area of fluctuance on the left side. Incision is about 3 cm. I cut down deep enough and drain out probably 100 mL of affected fluid. I digitally extend the cavity superiorly and posteriorly to make sure there is no more abscess. A irrigate both cavities. I then packed both cavities with 1 inch iodoform gauze. The patient wound is otherwise dressed the. The patient awake and returned recovery room good condition blood loss is 50 mL Impression successful drainage of complex hydrocele fluid and perineal abscess.
[2023-01-27] MEDS: HYDROmorphone 0.5 MG/0.5 ML SYRINGE IVP ONE ×2 (14:25→14:42)
--- NOTE | 2023-01-27 15:05 | P.PN ---
Subjective Progress Note Date: 01/27/23 Principal diagnosis: Left gluteal abscess and cellulitis Patient is a 52-year-old male presenting to the hospital with left gluteal pain and swelling he did have an attempted drainage in the ER 2 days before this admission unfortunately no cultures was done and the patient did have worsening on oral doxycycline, patient did have a pelvic CT with his extensive cellulitis phlegmon changes and no sherrie abscess. Patient is status post left scrotal abscess drainage by urology on 01/20/2023 On today's evaluation her that is 01/27/2023, the patient continues to be afebr ile, the patient been to the scrotal area has slightly decreased intensity, the patient denies having any chest pain shortness of cough no abdominal pain or diarrhea Objective - Vital Signs Vital signs: Vital Signs Temp 98.1 F 01/27/23 06:58 Pulse 75 01/27/23 06:58 Resp 18 01/27/23 06:58 BP 165/87 01/27/23 06:58 Pulse Ox 95 01/27/23 06:58 FiO2 Intake & Output 01/26/23 01/27/23 01/27/23 18:59 06:59 18:59 Output Total 425 200 Balance -425 -200 Output: Urine 425 200 Other: Voiding Method Urinal Urinal Urinal # Bowel Movements 1 - Exam GENERAL DESCRIPTION: Middle-age male lying in bed in no distress RESPIRATORY SYSTEM: Unlabored breathing , decreased breath sounds at bases HEART: S1 S2 regular rate and rhythm , ABDOMEN: Soft , no tenderness : Left scrotal mostly the left side have some induration and tenderness EXTREMITIES: No edema feet - Labs CBC & Chem 7: 01/27/23 05:56 01/27/23 05:56 Labs: Abnormal Lab Results - Last 24 Hours (Table) 01/26/23 01/26/23 01/26/23 Range/Units 06:54 06:54 10:38 WBC 17.53 H (4.50-10.00) X 10*3/uL RBC 4.23 L (4.40-5.60) X 10*6/uL Hgb 12.6 L (13.0-17.0) g/dL Hct 39.4 L (39.6-50.0) % MCHC (32.0-37.0) g/dL Plt Count 589 H (140-440) X 10*3/uL MPV 8.7 L (9.5-12.2) fL Immature Gran # 0.49 H (0.00-0.04) X 10*3/uL Neutrophils # 12.40 H (1.80-7.70) X 10*3/uL Monocytes # 1.80 H (0.20-1.00) X 10*3/uL Eosinophils # 0.42 H (0.04-0.35) X 10*3/uL Basophils # (0.00-0.10) X 10*3/uL Carbon Dioxide 27.6 H (20.0-27.5) mmol/L BUN 3.9 L (9.0-27.0) mg/dL BUN/Creatinine Ratio 4.88 L (12.00-20.00) Ratio POC Glucose (mg/dL) 115 H (70-110) mg/dL C-Reactive Protein 3.80 H (0.00-0.80) mg/dL 01/26/23 01/26/23 01/27/23 Range/Units 17:02 20:53 05:56 WBC 14.67 H (4.50-10.00) X 10*3/uL RBC 3.74 L (4.40-5.60) X 10*6/uL Hgb 11.2 L (13.0-17.0) g/dL Hct 35.2 L (39.6-50.0) % MCHC 31.8 L (32.0-37.0) g/dL Plt Count 509 H (140-440) X 10*3/uL MPV 9.1 L (9.5-12.2) fL Immature Gran # 0.35 H (0.00-0.04) X 10*3/uL Neutrophils # 10.04 H (1.80-7.70) X 10*3/uL Monocytes # 1.59 H (0.20-1.00) X 10*3/uL Eosinophils # 0.42 H (0.04-0.35) X 10*3/uL Basophils # 0.12 H (0.00-0.10) X 10*3/uL Carbon Dioxide (20.0-27.5) mmol/L BUN (9.0-27.0) mg/dL BUN/Creatinine Ratio (12.00-20.00) Ratio POC Glucose (mg/dL) 163 H 124 H (70-110) mg/dL C-Reactive Protein (0.00-0.80) mg/dL 01/27/23 Range/Units 07:01 WBC (4.50-10.00) X 10*3/uL RBC (4.40-5.60) X 10*6/uL Hgb (13.0-17.0) g/dL Hct (39.6-50.0) % MCHC (32.0-37.0) g/dL Plt Count (140-440) X 10*3/uL MPV (9.5-12.2) fL Immature Gran # (0.00-0.04) X 10*3/uL Neutrophils # (1.80-7.70) X 10*3/uL Monocytes # (0.20-1.00) X 10*3/uL Eosinophils # (0.04-0.35) X 10*3/uL Basophils # (0.00-0.10) X 10*3/uL Carbon Dioxide (20.0-27.5) mmol/L BUN (9.0-27.0) mg/dL BUN/Creatinine Ratio (12.00-20.00) Ratio POC Glucose (mg/dL) 137 H (70-110) mg/dL C-Reactive Protein (0.00-0.80) mg/dL Microbiology - Last 24 Hours (Table) 01/25/23 11:48 Blood Culture - Preliminary Blood Assessment and Plan (1) Phlegmonous cellulitis Current Visit: Yes Status: Acute Code(s): L02.91 - CUTANEOUS ABSCESS, UNSPECIFIED SNOMED Code(s): 901509870 (2) Abscess of buttock, left Current Visit: No Status: Acute Code(s): L02.31 - CUTANEOUS ABSCESS OF BUTTOCK SNOMED Code(s): 31290157 Plan: 1patient present to hospital with sepsis in this patient with fever tachycardia elevated white count source is left gluteal abscess failing outpatient oral doxycycline therapy unfortunately no cultures were done and the patient did have I&D in the ER few days ago 2-patient is status post surgical drainage of the scrotal abscess deep culture which are so for negative 3-patient did have repeat CT of the pelvis with contrast, still have extensive phlegmon changes and possible abscess, discussed with the urologist yesterday and the patient has been scheduled for drainage this afternoon 4-for now we will continue the patient on daptomycin and Zosyn and monitor clinical course closely Time with Patient: Less than 30
[2023-01-27 17:17] LABS: Glucose,Whole Blood 107 mg/dL (70-110)
[2023-01-27] MEDS: HYDROmorphone 1 MG/ML 1 ML SYRINGE IVP PRN ×2 (17:26→21:33)
[2023-01-27 20:28] LABS: Glucose,Whole Blood 162 mg/dL (70-110)
[2023-01-27] MEDS: INSULIN DETEMIR (LEVEMIR) 100 UNIT/ML SYR SQ SCH (20:31)
[2023-01-27] MEDS: ALPRAZolam 0.25 MG TAB PO PRN (20:32)
[2023-01-28] MEDS: HYDROmorphone 1 MG/ML 1 ML SYRINGE IVP PRN ×5 (02:45→21:42)
[2023-01-28] MEDS: HYDROcodone/APAP 5-325MG 1 EACH TAB PO PRN ×3 (04:08→15:49)
--- NOTE | 2023-01-28 05:04 | P.PN ---
Subjective Progress Note Date: 01/27/23 This is a pleasant 52 years old male with multiple medical problems including Diabetes Mellitus, Fibromyalgia, GERD/Reflux, Hyperlipidemia, Hypertension, ,Depression, nicotine dependence Presents because of skin infection in the gluteal folds, the middle with small papule in the larger polyp part. that Is been going on for about a week. The area to person us why he is lying in the right lateral side Patient denies chest pain dyspnea. No headache weakness a or numbness However patient complaining of from difficulty urination and constipation. Last time he P twice to 3:00 clear the morning. He denies dysuria urgency. He smokes about 1.5 pack per day and he was counseled to quit and he agrees and he agrees to the nicotine patch patient is tachycardic around 105 Patient tachycardic around 105 and he is a febrile Labs showed leukocytosis 23.7. BNP and liver enzymes are unremarkable. Glucose is elevated 328 CT of the pelvis with contrast showing extensive cellulitis and areas of phlegmonous changes along the left gluteal region extending anteriorly in the subcutaneous fat of the left perineum spanning up to nearly 20 cm. This inflammatory changes extend anterior to the pubic bone. No sherrie abscess. Small area 1.1 cm in the right kidney could be tiny cyst versus pyelonephritis, gallstone 2.5 mm, prostatomegaly 01/18/2023 Patient looks more comfortable today, he still have pain in the area but 3/10, his pain control with pain pills. His scrotum is swollen and tender today. Yesterday he had found to have urinary retention more than 300 mL and Gutierrez catheter currently in place and draining clear urine. Is still complains from some constipation Urologist consulted who requested repeat Pelvic CT showing 1.persistent marked fluid and fat stranding consistent with soft tissue infection or cellulitis from the left groin and scrotal region anteriorly to the left perirectal/perianal tissue similar in appearance to study one day earlier. No focal abscess.2Increasing perinephric fluid and fat stranding along with a new wall thickening in the urinary bladder. Consider acute cystitis and/or bilateral pyelonephritis as possible etiologies patient also antibiotics were updated into IV vancomycin and Unasyn, infectious disease team on the case with help of antibiotic management Hemoglobin A1c is 11.5. Currently sugar is controlled 01/19/2023 Patient is improving slowly and gradually he has this swelling erythema and tenderness in his perineal area and scrotum area compared to yesterday however he still in some distress due to pain and still concerning and required close monitoring. No evidence of crepitus or air on exam. Gutierrez catheter in place. Patient other than that is awake and alert and he denies any other new symptoms. He is hemodynamically stable. Has low-grade temperature today 99.9. Hemoglobin A1c is 11.5%, renal ultrasound is negative for hydronephrosis or other abnormality. Labs from today are pending. Extremities Unasyn and IV vancomycin. 01/20/2023 Patient still complaining from pain in the scrotal and perineal area, his been having some nausea but no vomiting. Current regimen medications are not effective, added Phenergan. No more fever and still has significant leukocytosis. 22,000 Neurology team are planning for I&D of scrotal fluctuance, possible abscess. Habits and normal saline, IV vancomycin and Unasyn Glucose is controlled today at around 130 01/21/2030 patient remains in [id number] distress due to his infection Is a status post I&D of the scrotal wall with no purulent discharge but only several some bloody fluid drained. Dressing is soaked with serosanguineous discharge However continue to improve while his broad-spectrum antibiotics with IV vancomycin and Unasyn Patient remains on normal saline 75. The per hour. 01/22/2023 Patient is improving Slowly and gradually No evidence of fluctuant area, today significantly secure, is less tender, less red and less swollen creatinine stable He is currently on antibiotic on IV vancomycin and Unasyn and #75 mL/h Patient had bowel movement and he feels satisfied 01/23/2023 Patient is seen and evaluated and follow-up being followed by multiple medical consultations. Patient is maintained on IV antibiotics and being switched to cefepime per infectious disease recommendations. Cultures thus far have been negative. Patient also being followed by general surgery with no plans for intervention. Patient was evaluated by urology with no plans for surgical intervention recommending continued antibiotics and local wound care. We'll follow up on repeat labs as WBC remains elevated although trending down. Encouraged oral intake and increased activity as tolerated. Patient does have indwelling Gutierrez catheter for now and will continue. Patient is afebrile denies chest pain or shortness of breath. No reports of nausea or vomiting noted and patient is tolerating diet. 01/24/2023 Patient is seen and evaluated in follow-up this morning continues to be afebrile with infectious disease along with urology following. General surgery evaluated the patient with no plans for surgical intervention. Repeat labs show a WBC that is trending up and currently 16.98 and hemoglobin is stable at 12.4, BNP within normal limits other than alk phos is 327 and CRP is 4.4. Blood sugars have been well controlled on current regimen and will continue. Hemoglobin A1c was found to be 10.5 and will need to follow-up with primary care provider closely in the outpatient setting and will likely initiate insulin on discharge. Patient continues on IV antibiotics and was continued on cefepime although being transitioned to Zosyn per infectious disease. Repeat CT pelvis is ordered and pending for today. Patient continue with indwelling Gutierrez catheter for now with urology following closely. Patient denies chest pain or shortness of breath although given patient's WBC will obtain chest x-ray is 1 is not been done previously. Recommend continue on gentle hydration and will follow-up on repeat labs. 01/25/2023 Patient is seen and evaluated in follow-up this morning currently feeling nauseated and feels like he has a fever although was just checked and has no fever currently 98.4F. Patient has been afebrile. Patient with lower pulse ox readings in the 90-93% on room air did undergo chest x-ray yesterday which showed a right lower lobe infiltrate to correlate for pneumonia and also atelectasis. Have ordered incentive spirometer and recommend continue using at least 10 times every hour while awake. Patient also with diabetes uncontrolled will continue current regimen and encouraged oral intake. Patient is maintained on IV antibiotics in the form of Zosyn with infectious disease following closely along with urology. There is an order for Gutierrez catheter removal although patient continues with Gutierrez. Patient reports some improvement in swelling although reports not feeling well. White count remains elevated at 16.66, hemoglobin is 11.6, platelets are 475, sodium is 140 with a potassium of 4.1 and current creatinine is 0.8. 01/26/2023 Patient is seen and evaluated in follow-up today reports he is not feeling well with intermittent nausea and generalized weakness. Patient does report some mild improvement in the swelling and did have Gutierrez catheter removed and is voiding with no difficulties. Patient maintained on IV antibiotics with infectious disease following an repeat labs showing a WBC of above 17 with concerns of continued infection. Patient is afebrile denies chest pain or shortness of breath. Patient has not been up and moving much and encouraged to increase activity as tolerated. Urology following as well and discussing possible further exploration of the area to evaluate for any abscess. 01/27/2023 Patient is seen in follow-up this morning currently nothing by mouth and being followed by urology along with infectious disease. Patient is tentatively scheduled for exploratory intervention with possible continued abscess with drainage of the left gluteal/perineal and scrotal area. Patient continues to have elevated white count and he has been maintained on a number of different antibiotics with cultures being negative although continues to have elevated white count and no clinical improvement. Patient did have some improvement in swelling although the swelling is still progressing in the left scrotal/perineal area. Patient is having discomfort and infectious disease discussed with julieta bell about surgical intervention. Will await surgical report. Patient is currently afebrile and reports the nausea has somewhat subsided. Patient did have indwelling Gutierrez catheter which has been removed and patient reports has been voiding with no difficulties. Patient reports has been getting up although mostly just to urinate. Encouraged increased activity as tolerated. Review of systems: Constitutional: No reports of fatigue, no fever, no reports of chills Cardiovascular: No reports of chest pain or palpitations Respiratory: No reports of shortness of breath or cough GI: No reports of intermittent nausea, no vomiting, or diarrhea : No reports of dysuria or retention, patient reports is voiding post Gutierrez catheter removal with no difficulties Neurovascular: reports of generalized weakness , reports of continued scrotal swelling with discomfort in the perineal area All medications have been reviewed Physical exam: GENERAL: The patient is alert and oriented x3. Well developed, well nourished. HEENT: Pupils are round and equally reacting to light. EOMI. No scleral icterus. No conjunctival pallor. Normocephalic, atraumatic. No pharyngeal erythema. No thyromegaly. CARDIOVASCULAR: S1 and S2 muffled PULMONARY: Diminished breath sounds bilaterally with no wheezing or crackles. ABDOMEN: Soft, nontender, nondistended, normoactive bowel sounds. No palpable organomegaly. Patient with tenderness and inflammation in the perineal area, light pink in color involving the gluteal cleft fold area down to the perineum with tenderness and swelling. MUSCULOSKELETAL: No joint swelling or deformity. EXTREMITIES: No cyanosis, clubbing, or pedal edema. NEUROLOGICAL: Gross neurological examination did not reveal any focal deficits. SKIN: No rashes. no petechiae. Assessment: Extensive cellulitis involving the buttock area, gluteal cleft and perineum. Sepsis, present on admission with leukocytosis and tachycardia secondary to above Urinary retention. Status post Gutierrez catheter, removal of Gutierrez on 01/25/2023 and voiding with no difficulties Enlarged prostate Asymptomatic gallstone 2.5 mm Constipation GI prophylaxis DVT prophylaxis Full code Plan: Patient is continued on IV antibiotics with infectious disease following and currently IV Zosyn as well as daptomycin. Patient remains afebrile and WBC remains elevated and trending up with concerns of continued infection and infectious disease discussed further with urology about further exploration of possible abscess and is scheduled for today and patient is currently nothing by mouth and will await surgical report. Encouraged Incentive spirometer use at least 10 times every hour while awake. Encouraged increase activity as tolerated as patient is not getting up much other than to urinate Patient's hemoglobin A1c was found to be above 10 and will need close outpatient follow-up and likely discharge on insulin and will discuss further with case management about discharge planning Recommend to continue with local wound care to the area and offloading as much as possible. Patient's WBC remains elevated although slightly trended down from yesterday and recommend repeat labs in a.m. Awaiting possible incision and drainage with exploration by urology The impression and plan of care has been dictated by Tiffanie Archer, Nurse Practitioner as directed. Dr. Emily MD I have performed a history and examination and MDM of this patient, discussed the same with the dictator, and agree with the dictator's assessment and plan as written ,documented as a scribe. Based on total visit time, I have performed more than 50% of the visit. Objective - Vital Signs Vital signs: Vital Signs Temp 98.1 F 01/27/23 06:58 Pulse 75 01/27/23 06:58 Resp 18 01/27/23 06:58 BP 165/87 01/27/23 06:58 Pulse Ox 95 01/27/23 06:58 FiO2 Intake & Output 01/26/23 01/27/23 01/27/23 18:59 06:59 18:59 Output Total 425 200 Balance -425 -200 Output: Urine 425 200 Other: Voiding Method Urinal Urinal Urinal # Bowel Movements 1 - Labs CBC & Chem 7: 01/27/23 05:56 01/27/23 05:56 Labs: Abnormal Lab Results - Last 24 Hours (Table) 01/26/23 01/26/23 01/26/23 Range/Units 06:54 06:54 10:38 WBC 17.53 H (4.50-10.00) X 10*3/uL RBC 4.23 L (4.40-5.60) X 10*6/uL Hgb 12.6 L (13.0-17.0) g/dL Hct 39.4 L (39.6-50.0) % MCHC (32.0-37.0) g/dL Plt Count 589 H (140-440) X 10*3/uL MPV 8.7 L (9.5-12.2) fL Immature Gran # 0.49 H (0.00-0.04) X 10*3/uL Neutrophils # 12.40 H (1.80-7.70) X 10*3/uL Monocytes # 1.80 H (0.20-1.00) X 10*3/uL Eosinophils # 0.42 H (0.04-0.35) X 10*3/uL Basophils # (0.00-0.10) X 10*3/uL Carbon Dioxide 27.6 H (20.0-27.5) mmol/L BUN 3.9 L (9.0-27.0) mg/dL BUN/Creatinine Ratio 4.88 L (12.00-20.00) Ratio POC Glucose (mg/dL) 115 H (70-110) mg/dL C-Reactive Protein 3.80 H (0.00-0.80) mg/dL 01/26/23 01/26/23 01/27/23 Range/Units 17:02 20:53 05:56 WBC 14.67 H (4.50-10.00) X 10*3/uL RBC 3.74 L (4.40-5.60) X 10*6/uL Hgb 11.2 L (13.0-17.0) g/dL Hct 35.2 L (39.6-50.0) % MCHC 31.8 L (32.0-37.0) g/dL Plt Count 509 H (140-440) X 10*3/uL MPV 9.1 L (9.5-12.2) fL Immature Gran # 0.35 H (0.00-0.04) X 10*3/uL Neutrophils # 10.04 H (1.80-7.70) X 10*3/uL Monocytes # 1.59 H (0.20-1.00) X 10*3/uL Eosinophils # 0.42 H (0.04-0.35) X 10*3/uL Basophils # 0.12 H (0.00-0.10) X 10*3/uL Carbon Dioxide (20.0-27.5) mmol/L BUN (9.0-27.0) mg/dL BUN/Creatinine Ratio (12.00-20.00) Ratio POC Glucose (mg/dL) 163 H 124 H (70-110) mg/dL C-Reactive Protein (0.00-0.80) mg/dL 01/27/23 Range/Units 07:01 WBC (4.50-10.00) X 10*3/uL RBC (4.40-5.60) X 10*6/uL Hgb (13.0-17.0) g/dL Hct (39.6-50.0) % MCHC (32.0-37.0) g/dL Plt Count (140-440) X 10*3/uL MPV (9.5-12.2) fL Immature Gran # (0.00-0.04) X 10*3/uL Neutrophils # (1.80-7.70) X 10*3/uL Monocytes # (0.20-1.00) X 10*3/uL Eosinophils # (0.04-0.35) X 10*3/uL Basophils # (0.00-0.10) X 10*3/uL Carbon Dioxide (20.0-27.5) mmol/L BUN (9.0-27.0) mg/dL BUN/Creatinine Ratio (12.00-20.00) Ratio POC Glucose (mg/dL) 137 H (70-110) mg/dL C-Reactive Protein (0.00-0.80) mg/dL Microbiology - Last 24 Hours (Table) 01/25/23 11:48 Blood Culture - Preliminary Blood
[2023-01-28 07:31] LABS: Glucose,Whole Blood 142 mg/dL (70-110)
[2023-01-28] MEDS: INSULIN ASPART (NovoLOG) 100 UNIT/ML VIAL SQ SCH ×4 (07:58→21:41)
[2023-01-28] MEDS: FAMOTIDINE 20 MG TAB PO SCH ×2 (09:00→21:42)
[2023-01-28] MEDS: PIPERACILLIN-TAZOBACTAM 3.375 GM in SODIUM CHLORIDE 0.9% 100 ML IVPB SCH ×3 (09:00→23:39)
[2023-01-28] MEDS: DOCUSATE 100 MG CAP PO SCH ×2 (09:00→21:42)
[2023-01-28] MEDS: TAMSULOSIN 0.4 MG CAP.ER.24H PO SCH (09:00)
[2023-01-28] MEDS: HEPARIN SODIUM,PORCINE/PF 5,000 UNIT/0.5 ML SYRINGE SQ SCH ×2 (09:01→21:42)
[2023-01-28] MEDS: NICOTINE 21MG/24HR PATCH TRANSDERM SCH (09:01)
[2023-01-28 09:33] LABS: African American GFR (CKD) 126.7 (60.0-200.0); Anion Gap 7.4 mmol/L (10.00-18.00); BUN/Creat Ratio 7.86 Ratio (12.00-20.00); Blood Urea Nitrogen 5.3 mg/dL (9.0-27.0); Calcium 8.2 mg/dL (8.7-10.3); Carbon Dioxide 28.3 mmol/L (20.0-27.5); Non-African American GFR(CKD) 109.3 (60.0-200.0)
[2023-01-28 09:36] LABS: Basophils # (A) 0.09 X 10*3/uL (0.00-0.10); Basophils % (A) 0.5 %; Eosinophils % (A) 2.8 %; HCT 35.6 % (39.6-50.0); Immature Grans, Automated 1.2 %; Lymphocytes % (A) 10.1 %; MCH 29.2 pg (27.0-32.0); MCHC 30.9 g/dL (32.0-37.0); MCV 94.4 fL (80.0-97.0); Mean Platelet Volume 8.8 fL (9.5-12.2); Monocytes # (A) 1.63 X 10*3/uL (0.20-1.00); Monocytes % (A) 9.1 %; NRBC Per 100 WBC 0 /100 WBCS (0.0-0.0); Neutrophils # (A) 13.63 X 10*3/uL (1.80-7.70); Neutrophils % (A) 76.3 %; Platelet Count 506 X 10*3/uL (140-440); RBC 3.77 X 10*6/uL (4.40-5.60); RDW 13.1 % (11.5-14.5); WBC 17.86 X 10*3/uL (4.50-10.00)
[2023-01-28 11:14] LABS: Glucose,Whole Blood 144 mg/dL (70-110)
--- NOTE | 2023-01-28 12:37 | P.PN ---
Subjective Progress Note Date: 01/28/23 Patient is status post incision and drainage of perineal and scrotal abscess for the second time. He is feeling better but obviously uncomfortable. He went in urine retention and a catheter was placed. Objective - Vital Signs Vital signs: Vital Signs Temp 98.5 F 01/28/23 11:08 Pulse 93 01/28/23 11:08 Resp 18 01/28/23 11:08 BP 163/82 01/28/23 11:08 Pulse Ox 92 L 01/28/23 11:08 FiO2 Intake & Output 01/27/23 01/28/23 01/28/23 18:59 06:59 18:59 Intake Total 400 700 Output Total 50 467 Balance 350 700 -467 Intake: IV 400 Intake, IV Titration 700 Amount IV Fluid Continuation 1, 600 000 ml @ 0 mls/hr IV .[facility]K -[facility] Rx#:[id number] Piperacillin-Tazobactam 3 100 .375 gm In Sodium Chloride 0.9% 100 ml @ 25 mls/hr IVPB Q8HR [facility] Rx# :[id number] Output: Post Void Residual 467 Estimated Blood Loss 50 Other: Voiding Method Urinal Urinal Toilet - Genitourinary Genitourinary Comment(s): Indwelling catheter. Edema of the scrotum as expected. Less erythema. Edema of the perineum as expected with less erythema - Labs CBC & Chem 7: 01/28/23 05:14 01/28/23 05:14 Labs: Abnormal Lab Results - Last 24 Hours (Table) 01/27/23 01/28/23 01/28/23 Range/Units 20:23 05:14 05:14 WBC 17.86 H (4.50-10.00) X 10*3/uL RBC 3.77 L (4.40-5.60) X 10*6/uL Hgb 11.0 L (13.0-17.0) g/dL Hct 35.6 L (39.6-50.0) % MCHC 30.9 L (32.0-37.0) g/dL Plt Count 506 H (140-440) X 10*3/uL MPV 8.8 L (9.5-12.2) fL Immature Gran # 0.21 H (0.00-0.04) X 10*3/uL Neutrophils # 13.63 H (1.80-7.70) X 10*3/uL Monocytes # 1.63 H (0.20-1.00) X 10*3/uL Eosinophils # 0.50 H (0.04-0.35) X 10*3/uL Carbon Dioxide 28.3 H (20.0-27.5) mmol/L Anion Gap 7.40 L (10.00-18.00) mmol/L BUN 5.3 L (9.0-27.0) mg/dL BUN/Creatinine Ratio 7.86 L (12.00-20.00) Ratio Glucose 141 H (70-110) mg/dL POC Glucose (mg/dL) 162 H (70-110) mg/dL Calcium 8.2 L (8.7-10.3) mg/dL 01/28/23 01/28/23 Range/Units 07:30 11:12 WBC (4.50-10.00) X 10*3/uL RBC (4.40-5.60) X 10*6/uL Hgb (13.0-17.0) g/dL Hct (39.6-50.0) % MCHC (32.0-37.0) g/dL Plt Count (140-440) X 10*3/uL MPV (9.5-12.2) fL Immature Gran # (0.00-0.04) X 10*3/uL Neutrophils # (1.80-7.70) X 10*3/uL Monocytes # (0.20-1.00) X 10*3/uL Eosinophils # (0.04-0.35) X 10*3/uL Carbon Dioxide (20.0-27.5) mmol/L Anion Gap (10.00-18.00) mmol/L BUN (9.0-27.0) mg/dL BUN/Creatinine Ratio (12.00-20.00) Ratio Glucose (70-110) mg/dL POC Glucose (mg/dL) 142 H 144 H (70-110) mg/dL Calcium (8.7-10.3) mg/dL Microbiology - Last 24 Hours (Table) 01/25/23 11:48 Blood Culture - Preliminary Blood Assessment and Plan Assessment: Impression: Scrotal and perineal abscess drained. Recommendations: I will change the dressings tomorrow and begin saline wet-to-dr y dressing changes.
[2023-01-28] MEDS: KETOROLAC 15 MG/ML 1 ML VIAL IVP PRN (13:01)
[2023-01-28] MEDS ORDERED: LOSARTAN 25 MG TAB PO STA (13:11)
--- NOTE | 2023-01-28 13:17 | P.PN ---
Subjective Progress Note Date: 01/28/23 01/28/2023 Patient is post op day #1 surgical drainage of left hydrocele and drainage of perineal abcess with 100 mL of fluid. Sent for cultures and patient continues on IV zosyn and IV dapotmycin. Infectious disease following closely. Cultures remain negative so far. The wound is packed with gauze and there is significant serosangueinous drainage noted on abd pads. Blood pressure elevated. Patient report significant pain 8/10 to the left groin site and describes as burning sensation. Toradol has been added recommend to avoid narcotics if possible. White count today is 17.86, hgb 11.0. Blood glucose in the 140s. Patient is urinating without difficulty and has been up ambulating to the bathroom. Local wound care per urology. Review of systems: Constitutional: No reports of fatigue, no fever, no reports of chills Cardiovascular: No reports of chest pain or palpitations Respiratory: No reports of shortness of breath or cough GI: No reports of intermittent nausea, no vomiting, or diarrhea : No reports of dysuria or retention, patient reports is voiding post Gutierrez catheter removal with no difficulties. Significant discomfort and drainage of the left groin. Neurovascular: reports of generalized weakness. All medications have been reviewed Physical exam: GENERAL: The patient is alert and oriented x3. Well developed, well nourished. HEENT: Pupils are round and equally reacting to light. EOMI. No scleral icterus. No conjunctival pallor. Normocephalic, atraumatic. No pharyngeal erythema. No thyromegaly. CARDIOVASCULAR: S1 and S2 muffled PULMONARY: Diminished breath sounds bilaterally with no wheezing or crackles. ABDOMEN: Soft, nontender, nondistended, normoactive bowel sounds. No palpable organomegaly. Patient with tenderness and inflammation in the perineal area, light pink in color involving the gluteal cleft fold area down to the perineum with tenderness and swelling. Status post drainage and there is an open wound with packing. MUSCULOSKELETAL: No joint swelling or deformity. EXTREMITIES: No cyanosis, clubbing, or pedal edema. NEUROLOGICAL: Gross neurological examination did not reveal any focal deficits. SKIN: No rashes. no petechiae. Assessment: Extensive cellulitis involving the buttock area, gluteal cleft and perineum.Status post I and D of the abscess and drainage of left hydrocele. Sepsis, present on admission with leukocytosis and tachycardia secondary to above Urinary retention. Status post Gutierrez catheter, removal of Gutierrez on 01/25/2023 and voiding with no difficulties Enlarged prostate Asymptomatic gallstone 2.5 mm Constipation Hypertension Hyperlipidemia Diabetes Mellitus type 2 uncontrolled hemoglobin A1C of 10 Chronic and ongoing nicotine use GI prophylaxis DVT prophylaxis Full code Plan: Continue IV antibiotics per infectious disease pending finalized surgical cultures Local wound care per urology to change dressing Encouraged Incentive spirometer use at least 10 times every hour while awake. Encouraged increase activity as tolerated as patient is not getting up much other than to urinate Patient's hemoglobin A1c was found to be above 10 and will need close outpatient follow-up and likely discharge on insulin and will discuss further with case management about discharge planning Follow up labs in AM The impression and plan of care has been dictated by Juliane Henry, Nurse Practitioner as directed. Dr. Emily MD I have performed a history and physical examination and medical decision making of this patient, discussed the same with the dictator, and agree with the dictators assessment and plan as written, documented as a scribe. Based on total visit time, I have performed more than 50% of this visit. Objective - Vital Signs Vital signs: Vital Signs Temp 98.4 F 01/28/23 07:26 Pulse 90 01/28/23 07:26 Resp 18 01/28/23 07:26 BP 158/85 01/28/23 07:26 Pulse Ox 91 L 01/28/23 07:26 FiO2 Intake & Output 01/27/23 01/28/23 01/28/23 18:59 06:59 18:59 Intake Total 400 700 Output Total 50 Balance 350 700 Intake: IV 400 Intake, IV Titration 700 Amount IV Fluid Continuation 1, 600 000 ml @ 0 mls/hr IV .STK -[facility] Rx#:[id number] Piperacillin-Tazobactam 3 100 .375 gm In Sodium Chloride 0.9% 100 ml @ 25 mls/hr IVPB Q8HR [facility] Rx# :[id number] Output: Estimated Blood Loss 50 Other: Voiding Method Urinal Urinal - Labs CBC & Chem 7: 01/28/23 05:14 01/28/23 05:14 Labs: Abnormal Lab Results - Last 24 Hours (Table) 01/27/23 01/27/23 01/27/23 Range/Units 05:56 05:56 20:23 WBC 14.67 H (4.50-10.00) X 10*3/uL RBC 3.74 L (4.40-5.60) X 10*6/uL Hgb 11.2 L (13.0-17.0) g/dL Hct 35.2 L (39.6-50.0) % MCHC 31.8 L (32.0-37.0) g/dL Plt Count 509 H (140-440) X 10*3/uL MPV 9.1 L (9.5-12.2) fL Immature Gran # 0.35 H (0.00-0.04) X 10*3/uL Neutrophils # 10.04 H (1.80-7.70) X 10*3/uL Monocytes # 1.59 H (0.20-1.00) X 10*3/uL Eosinophils # 0.42 H (0.04-0.35) X 10*3/uL Basophils # 0.12 H (0.00-0.10) X 10*3/uL Carbon Dioxide 28.9 H (20.0-27.5) mmol/L Anion Gap 6.30 L (10.00-18.00) mmol/L BUN 4.4 L (9.0-27.0) mg/dL BUN/Creatinine Ratio 5.96 L (12.00-20.00) Ratio Glucose 184 H (70-110) mg/dL POC Glucose (mg/dL) 162 H (70-110) mg/dL Calcium 8.5 L (8.7-10.3) mg/dL Alkaline Phosphatase 269 H (41-126) U/L Total Protein 5.9 L (6.2-8.2) g/dL Albumin 2.6 L (3.8-4.9) g/dL Albumin/Globulin Ratio 0.80 L (1.60-3.17) g/dL 01/28/23 Range/Units 07:30 WBC (4.50-10.00) X 10*3/uL RBC (4.40-5.60) X 10*6/uL Hgb (13.0-17.0) g/dL Hct (39.6-50.0) % MCHC (32.0-37.0) g/dL Plt Count (140-440) X 10*3/uL MPV (9.5-12.2) fL Immature Gran # (0.00-0.04) X 10*3/uL Neutrophils # (1.80-7.70) X 10*3/uL Monocytes # (0.20-1.00) X 10*3/uL Eosinophils # (0.04-0.35) X 10*3/uL Basophils # (0.00-0.10) X 10*3/uL Carbon Dioxide (20.0-27.5) mmol/L Anion Gap (10.00-18.00) mmol/L BUN (9.0-27.0) mg/dL BUN/Creatinine Ratio (12.00-20.00) Ratio Glucose (70-110) mg/dL POC Glucose (mg/dL) 142 H (70-110) mg/dL Calcium (8.7-10.3) mg/dL Alkaline Phosphatase (41-126) U/L Total Protein (6.2-8.2) g/dL Albumin (3.8-4.9) g/dL Albumin/Globulin Ratio (1.60-3.17) g/dL Microbiology - Last 24 Hours (Table) 01/25/23 11:48 Blood Culture - Preliminary Blood Assessment and Plan Time with Patient: Less than 30
[2023-01-28 17:13] LABS: Glucose,Whole Blood 168 mg/dL (70-110)
[2023-01-28 19:56] LABS: Glucose,Whole Blood 157 mg/dL (70-110)
[2023-01-28] MEDS: INSULIN DETEMIR (LEVEMIR) 100 UNIT/ML SYR SQ SCH (21:41)
[2023-01-28] MEDS: ALPRAZolam 0.25 MG TAB PO PRN (21:51)
[2023-01-29] MEDS: HYDROcodone/APAP 5-325MG 1 EACH TAB PO PRN ×4 (00:02→20:35)
[2023-01-29] MEDS: HYDROmorphone 1 MG/ML 1 ML SYRINGE IVP PRN ×3 (02:08→12:48)
[2023-01-29 07:10] LABS: Glucose,Whole Blood 80 mg/dL (70-110)
[2023-01-29] MEDS: INSULIN ASPART (NovoLOG) 100 UNIT/ML VIAL SQ SCH ×4 (07:55→21:08)
[2023-01-29] MEDS ORDERED: LOSARTAN 25 MG TAB PO SCH (09:00)
[2023-01-29] MEDS: PIPERACILLIN-TAZOBACTAM 3.375 GM in SODIUM CHLORIDE 0.9% 100 ML IVPB SCH ×2 (09:02→18:01)
[2023-01-29] MEDS: FAMOTIDINE 20 MG TAB PO SCH ×2 (09:04→21:08)
[2023-01-29] MEDS: NICOTINE 21MG/24HR PATCH TRANSDERM SCH (09:04)
[2023-01-29] MEDS: TAMSULOSIN 0.4 MG CAP.ER.24H PO SCH (09:04)
[2023-01-29] MEDS: DOCUSATE 100 MG CAP PO SCH ×2 (09:04→21:08)
[2023-01-29] MEDS: HEPARIN SODIUM,PORCINE/PF 5,000 UNIT/0.5 ML SYRINGE SQ SCH ×2 (09:04→21:08)
[2023-01-29 10:38] LABS: African American GFR (CKD) >90 (>60 ml/min/1.73 sqM); Anion Gap 5 mmol/L; Blood Urea Nitrogen 6 mg/dL (9-20); Calcium 8.1 mg/dL (8.4-10.2); Carbon Dioxide 29 mmol/L (22-30); Chloride 103 mmol/L (98-107); Glucose 86 mg/dL (74-99); Non-African American GFR(CKD) >90 (>60 ml/min/1.73 sqM); Potassium 4.3 mmol/L (3.5-5.1); Sodium 137 mmol/L (137-145)
[2023-01-29 10:41] LABS: Basophils % (A) 0 %; Eosinophils # (A) 0.5 k/uL (0-0.7); Eosinophils % (A) 3 %; HCT 36.4 % (39.0-53.0); HGB 11.5 gm/dL (13.0-17.5); Lymphocytes % (A) 12 %; MCH 29.5 pg (25.0-35.0); MCHC 31.6 g/dL (31.0-37.0); MCV 93.3 fL (80.0-100.0); Mean Platelet Volume 7.5; Monocytes % (A) 6 %; Neutrophils # (A) 12.7 k/uL (1.3-7.7); Neutrophils % (A) 77 %; Platelet Count 552 k/uL (150-450); RDW 13.3 % (11.5-15.5); WBC 16.5 k/uL (3.8-10.6)
[2023-01-29 11:40] LABS: Glucose,Whole Blood 126 mg/dL (70-110)
--- NOTE | 2023-01-29 12:45 | P.PN ---
Subjective Progress Note Date: 01/29/23 The patient underwent reexploration for his scroatl and perineal/gluteal abscess on 01/27. He is recouperating Objective - Vital Signs Vital signs: Vital Signs Temp 98.1 F 01/29/23 11:50 Pulse 85 01/29/23 11:50 Resp 18 01/29/23 11:50 BP 153/81 01/29/23 11:50 Pulse Ox 91 L 01/29/23 11:50 FiO2 Intake & Output 01/28/23 01/29/23 01/29/23 18:59 06:59 18:59 Intake Total 1450 Output Total 8413 108 0814 Balance -1067 950 -1750 Intake: Intake, IV Titration 700 Amount IV Fluid Continuation 1, 600 000 ml @ 0 mls/hr IV .STK -[facility] Rx#:[id number] Piperacillin-Tazobactam 3 100 .375 gm In Sodium Chloride 0.9% 100 ml @ 25 mls/hr IVPB Q8HR [facility] Rx# :[id number] Oral 750 Output: Urine 394 365 3161 Post Void Residual 467 Other: Voiding Method Toilet Indwelling Catheter Indwelling Catheter - Genitourinary Genitourinary Comment(s): scrtoal eema and erythema improved. The dressings were changed today - Labs CBC & Chem 7: 01/29/23 05:48 01/29/23 05:48 Labs: Abnormal Lab Results - Last 24 Hours (Table) 01/28/23 01/28/23 01/29/23 Range/Units 17:05 19:53 05:48 WBC 16.5 H (3.8-10.6) k/uL RBC 3.90 L (4.30-5.90) m/uL Hgb 11.5 L (13.0-17.5) gm/dL Hct 36.4 L (39.0-53.0) % Plt Count 552 H (150-450) k/uL Neutrophils # 12.7 H (1.3-7.7) k/uL BUN (9-20) mg/dL Creatinine (0.66-1.25) mg/dL POC Glucose (mg/dL) 168 H 157 H (70-110) mg/dL Calcium (8.4-10.2) mg/dL 01/29/23 01/29/23 Range/Units 05:48 11:39 WBC (3.8-10.6) k/uL RBC (4.30-5.90) m/uL Hgb (13.0-17.5) gm/dL Hct (39.0-53.0) % Plt Count (150-450) k/uL Neutrophils # (1.3-7.7) k/uL BUN 6 L (9-20) mg/dL Creatinine 0.63 L (0.66-1.25) mg/dL POC Glucose (mg/dL) 126 H (70-110) mg/dL Calcium 8.1 L (8.4-10.2) mg/dL Microbiology - Last 24 Hours (Table) 01/25/23 11:48 Blood Culture - Preliminary Blood Assessment and Plan Assessment: Impression Scrotal, perineal/gluteal abscess improving
[2023-01-29 13:08] LABS: Appearance,Urine Clear (Clear); Bilirubin,Urine Negative (Negative); Blood,Urine Negative (Negative); Color,Urine Colorless; Glucose,Urine (UA) Negative (Negative); Ketones,Urine Negative (Negative); Leukocyte Esterase,Urine Negative (Negative); Nitrite,Urine Negative (Negative); PH, Urine 7.5 (5.0-8.0); Protein,Urine Negative (Negative); Specific Gravity,Urine 1.005 (1.001-1.035); Urobilinogen,Urine <2.0 mg/dL (<2.0)
[2023-01-29] MEDS ORDERED: FUROSEMIDE 10 MG/ML 4 ML VIAL IV STA (14:46)
--- NOTE | 2023-01-29 14:49 | P.PN ---
Subjective Progress Note Date: 01/29/23 01/28/2023 Patient is post op day #1 surgical drainage of left hydrocele and drainage of perineal abcess with 100 mL of fluid. Sent for cultures and patient continues on IV zosyn and IV dapotmycin. Infectious disease following closely. Cultures remain negative so far. The wound is packed with gauze and there is significant serosangueinous drainage noted on abd pads. Blood pressure elevated. Patient report significant pain 8/10 to the left groin site and describes as burning sensation. Toradol has been added recommend to avoid narcotics if possible. White count today is 17.86, hgb 11.0. Blood glucose in the 140s. Patient is urinating without difficulty and has been up ambulating to the bathroom. Local wound care per urology. 01/29/2023 Patient is evaluated on the medical floor postoperative day #2 surgical drainage of left hydrocele and perineal abscess. Cultures are retaken today, unsure if surgical cultures were taken. Urology to change dressings today. Patient has significang scrotal swelling and redness to the scrotum. Additionally there is lower extremity edema which is increased from yesterday. Patient had urinary retention and required re-insertion of indwelling catheter yesterday as well. Pain has improved slightly form yesterday with addition of toradol. Patient has limited mobility secondary to pain and discomfort of the scrotum. White count remains elevated at 16.5 today. Urinalysis is unremarkable. Initial blood culture and groin culture negative. Repeat blood culture pending. Remains on IV zosyn. Review of systems: Constitutional: No reports of fatigue, no fever, no reports of chills Cardiovascular: No reports of chest pain or palpitations Respiratory: No reports of shortness of breath or cough GI: No reports of intermittent nausea, no vomiting, or diarrhea : Significant discomfort and drainage of the left groin. Neurovascular: reports of generalized weakness. All medications have been reviewed Physical exam: GENERAL: The patient is alert and oriented x3. Well developed, well nourished. HEENT: Pupils are round and equally reacting to light. EOMI. No scleral icterus. No conjunctival pallor. Normocephalic, atraumatic. No pharyngeal erythema. No thyromegaly. CARDIOVASCULAR: S1 and S2 muffled PULMONARY: Diminished breath sounds bilaterally with no wheezing or crackles. ABDOMEN: Soft, nontender, nondistended, normoactive bowel sounds. No palpable organomegaly. Patient with tenderness and inflammation in the perineal area, light pink in color involving the gluteal cleft fold area down to the perineum with tenderness and swelling. Status post drainage and there is an open wound with packing x 2 to the perineum and left scrotum. MUSCULOSKELETAL: No joint swelling or deformity. EXTREMITIES: No cyanosis, clubbing. +1 lower extremity edema pitting. NEUROLOGICAL: Gross neurological examination did not reveal any focal deficits. SKIN: No rashes. no petechiae. Assessment: Extensive cellulitis involving the buttock area, gluteal cleft and perineum.Status post I and D of the abscess and drainage of left hydrocele. Sepsis, present on admission with leukocytosis and tachycardia secondary to above Urinary retention. Status post Gutierrez catheter, removal of Gutierrez on 01/25/2023. IDC reinserted on 01/28/23 due to urinary retention Enlarged prostate Asymptomatic gallstone 2.5 mm Constipation Hypertension Hyperlipidemia Diabetes Mellitus type 2 uncontrolled hemoglobin A1C of 10 Chronic and ongoing nicotine use GI prophylaxis DVT prophylaxis Full code Plan: Continue IV antibiotics per infectious disease pending finalized surgical cultures, wound cultures are repeated today Local wound care per urology to change dressing Encouraged Incentive spirometer use at least 10 times every hour while awake. Encouraged increase activity as tolerated as patient is not getting up much Patient's hemoglobin A1c was found to be above 10 and will need close outpatient follow-up and likely discharge on insulin and will discuss further with case management about discharge planning Follow up labs in AM Check a BNP and IV lasix x 1 given today for the lower extremity and scrotal edema. The impression and plan of care has been dictated by Juliane Henry, Nurse Practitioner as directed. Dr. Emily MD I have performed a history and physical examination and medical decision making of this patient, discussed the same with the dictator, and agree with the dictators assessment and plan as written, documented as a scribe. Based on total visit time, I have performed more than 50% of this visit. Objective - Vital Signs Vital signs: Vital Signs Temp 98.1 F 01/29/23 11:50 Pulse 85 01/29/23 11:50 Resp 18 01/29/23 11:50 BP 153/81 01/29/23 11:50 Pulse Ox 91 L 01/29/23 11:50 FiO2 Intake & Output 01/28/23 01/29/23 01/29/23 18:59 06:59 18:59 Intake Total 1450 Output Total 1930 498 2230 Balance -1067 950 -1750 Intake: Intake, IV Titration 700 Amount IV Fluid Continuation 1, 600 000 ml @ 0 mls/hr IV .STK -[facility] Rx#:[id number] Piperacillin-Tazobactam 3 100 .375 gm In Sodium Chloride 0.9% 100 ml @ 25 mls/hr IVPB Q8HR [facility] Rx# :[id number] Oral 750 Output: Urine 124 815 4142 Post Void Residual 467 Other: Voiding Method Toilet Indwelling Catheter Indwelling Catheter - Labs CBC & Chem 7: 01/29/23 05:48 01/29/23 05:48 Labs: Abnormal Lab Results - Last 24 Hours (Table) 01/28/23 01/28/23 01/29/23 Range/Units 17:05 19:53 05:48 WBC 16.5 H (3.8-10.6) k/uL RBC 3.90 L (4.30-5.90) m/uL Hgb 11.5 L (13.0-17.5) gm/dL Hct 36.4 L (39.0-53.0) % Plt Count 552 H (150-450) k/uL Neutrophils # 12.7 H (1.3-7.7) k/uL BUN (9-20) mg/dL Creatinine (0.66-1.25) mg/dL POC Glucose (mg/dL) 168 H 157 H (70-110) mg/dL Calcium (8.4-10.2) mg/dL 01/29/23 01/29/23 Range/Units 05:48 11:39 WBC (3.8-10.6) k/uL RBC (4.30-5.90) m/uL Hgb (13.0-17.5) gm/dL Hct (39.0-53.0) % Plt Count (150-450) k/uL Neutrophils # (1.3-7.7) k/uL BUN 6 L (9-20) mg/dL Creatinine 0.63 L (0.66-1.25) mg/dL POC Glucose (mg/dL) 126 H (70-110) mg/dL Calcium 8.1 L (8.4-10.2) mg/dL Microbiology - Last 24 Hours (Table) 01/25/23 11:48 Blood Culture - Preliminary Blood Assessment and Plan Time with Patient: Less than 30
[2023-01-29] MEDS: KETOROLAC 15 MG/ML 1 ML VIAL IVP PRN ×2 (14:52→21:09)
--- NOTE | 2023-01-29 15:48 | P.PN ---
Subjective Progress Note Date: 01/28/23 Principal diagnosis: Left gluteal abscess and cellulitis Patient is a 52-year-old male presenting to the hospital with left gluteal pain and swelling he did have an attempted drainage in the ER 2 days before this admission unfortunately no cultures was done and the patient did have worsening on oral doxycycline, patient did have a pelvic CT with his extensive cellulitis phlegmon changes and no sherrie abscess. Patient is status post left scrotal abscess drainage by urology on 01/20/2023, with repeat drainage on 01/27/2023 On today's evaluation her that is 01/28/2023, the patient remains to be afebrile, the patient pain to the scrotal area has slightly decreased intensity, the patient denies having any chest pain shortness of cough, the patient denies having any nausea no vomiting no abdominal pain or diarrhea Objective - Vital Signs Vital signs: Vital Signs Temp 98.5 F 01/28/23 11:08 Pulse 93 01/28/23 11:08 Resp 18 01/28/23 11:08 BP 163/82 01/28/23 11:08 Pulse Ox 92 L 01/28/23 11:08 FiO2 Intake & Output 01/27/23 01/28/23 01/28/23 18:59 06:59 18:59 Intake Total 400 700 Output Total 50 467 Balance 350 700 -467 Intake: IV 400 Intake, IV Titration 700 Amount IV Fluid Continuation 1, 600 000 ml @ 0 mls/hr IV .STK -[facility] Rx#:[id number] Piperacillin-Tazobactam 3 100 .375 gm In Sodium Chloride 0.9% 100 ml @ 25 mls/hr IVPB Q8HR [facility] Rx# :[id number] Output: Post Void Residual 467 Estimated Blood Loss 50 Other: Voiding Method Urinal Urinal Toilet - Exam GENERAL DESCRIPTION: Middle-age male lying in bed in no distress RESPIRATORY SYSTEM: Unlabored breathing , decreased breath sounds at bases HEART: S1 S2 regular rate and rhythm , ABDOMEN: Soft , no tenderness : Scrotal wound is currently dressed EXTREMITIES: No edema feet - Labs CBC & Chem 7: 01/29/23 05:48 01/29/23 05:48 Labs: Abnormal Lab Results - Last 24 Hours (Table) 01/27/23 01/28/23 01/28/23 Range/Units 20:23 05:14 05:14 WBC 17.86 H (4.50-10.00) X 10*3/uL RBC 3.77 L (4.40-5.60) X 10*6/uL Hgb 11.0 L (13.0-17.0) g/dL Hct 35.6 L (39.6-50.0) % MCHC 30.9 L (32.0-37.0) g/dL Plt Count 506 H (140-440) X 10*3/uL MPV 8.8 L (9.5-12.2) fL Immature Gran # 0.21 H (0.00-0.04) X 10*3/uL Neutrophils # 13.63 H (1.80-7.70) X 10*3/uL Monocytes # 1.63 H (0.20-1.00) X 10*3/uL Eosinophils # 0.50 H (0.04-0.35) X 10*3/uL Carbon Dioxide 28.3 H (20.0-27.5) mmol/L Anion Gap 7.40 L (10.00-18.00) mmol/L BUN 5.3 L (9.0-27.0) mg/dL BUN/Creatinine Ratio 7.86 L (12.00-20.00) Ratio Glucose 141 H (70-110) mg/dL POC Glucose (mg/dL) 162 H (70-110) mg/dL Calcium 8.2 L (8.7-10.3) mg/dL 01/28/23 01/28/23 Range/Units 07:30 11:12 WBC (4.50-10.00) X 10*3/uL RBC (4.40-5.60) X 10*6/uL Hgb (13.0-17.0) g/dL Hct (39.6-50.0) % MCHC (32.0-37.0) g/dL Plt Count (140-440) X 10*3/uL MPV (9.5-12.2) fL Immature Gran # (0.00-0.04) X 10*3/uL Neutrophils # (1.80-7.70) X 10*3/uL Monocytes # (0.20-1.00) X 10*3/uL Eosinophils # (0.04-0.35) X 10*3/uL Carbon Dioxide (20.0-27.5) mmol/L Anion Gap (10.00-18.00) mmol/L BUN (9.0-27.0) mg/dL BUN/Creatinine Ratio (12.00-20.00) Ratio Glucose (70-110) mg/dL POC Glucose (mg/dL) 142 H 144 H (70-110) mg/dL Calcium (8.7-10.3) mg/dL Microbiology - Last 24 Hours (Table) 01/25/23 11:48 Blood Culture - Preliminary Blood Assessment and Plan (1) Phlegmonous cellulitis Current Visit: Yes Status: Acute Code(s): L02.91 - CUTANEOUS ABSCESS, UNSPECIFIED SNOMED Code(s): 176826889 (2) Abscess of buttock, left Current Visit: No Status: Acute Code(s): L02.31 - CUTANEOUS ABSCESS OF BUTTOCK SNOMED Code(s): 23030913 Plan: 1patient present to hospital with sepsis in this patient with fever tachycardia elevated white count source is left gluteal abscess failing outpatient oral doxycycline therapy unfortunately no cultures were done and the patient did have I&D in the ER few days ago 2-patient is status post surgical drainage of the scrotal abscess deep culture which are so for negative 3-patient did have repeat CT of the pelvis with contrast, still have extensive phlegmon changes and possible abscess, patient is status post repeat drainage with drainage of the abscess on 01/27/2023 is done 4-patient to continue the patient on daptomycin and Zosyn and monitor clinical course closely
--- NOTE | 2023-01-29 15:49 | P.PN ---
Subjective Progress Note Date: 01/29/23 Principal diagnosis: Left gluteal abscess and cellulitis Patient is a 52-year-old male presenting to the hospital with left gluteal pain and swelling he did have an attempted drainage in the ER 2 days before this admission unfortunately no cultures was done and the patient did have worsening on oral doxycycline, patient did have a pelvic CT with his extensive cellulitis phlegmon changes and no sherrie abscess. Patient is status post left scrotal abscess drainage by urology on 01/20/2023, with repeat drainage on 01/27/2023 On today's evaluation her that is 01/29/2023, the patient denies any fever or any chills, the patient pain to the scrotal area is controlled with the current medication, the patient denies having any chest pain shortness of cough, the patient denies having any nausea no vomiting no abdominal pain or diarrhea Objective - Vital Signs Vital signs: Vital Signs Temp 98.1 F 01/29/23 11:50 Pulse 85 01/29/23 11:50 Resp 18 01/29/23 11:50 BP 153/81 01/29/23 11:50 Pulse Ox 91 L 01/29/23 11:50 FiO2 Intake & Output 01/28/23 01/29/23 01/29/23 18:59 06:59 18:59 Intake Total 1450 Output Total 2295 497 8456 Balance -1067 950 -1750 Intake: Intake, IV Titration 700 Amount IV Fluid Continuation 1, 600 000 ml @ 0 mls/hr IV .STK -[facility] Rx#:[id number] Piperacillin-Tazobactam 3 100 .375 gm In Sodium Chloride 0.9% 100 ml @ 25 mls/hr IVPB Q8HR [facility] Rx# :[id number] Oral 750 Output: Urine 294 963 9697 Post Void Residual 467 Other: Voiding Method Toilet Indwelling Catheter Indwelling Catheter - Exam GENERAL DESCRIPTION: Middle-age male lying in bed in no distress RESPIRATORY SYSTEM: Unlabored breathing , decreased breath sounds at bases HEART: S1 S2 regular rate and rhythm , ABDOMEN: Soft , no tenderness : Scrotal wound is currently packed still has significant induration surrounding area EXTREMITIES: No edema feet - Labs CBC & Chem 7: 01/29/23 05:48 01/29/23 05:48 Labs: Abnormal Lab Results - Last 24 Hours (Table) 01/28/23 01/28/23 01/29/23 Range/Units 17:05 19:53 05:48 WBC 16.5 H (3.8-10.6) k/uL RBC 3.90 L (4.30-5.90) m/uL Hgb 11.5 L (13.0-17.5) gm/dL Hct 36.4 L (39.0-53.0) % Plt Count 552 H (150-450) k/uL Neutrophils # 12.7 H (1.3-7.7) k/uL BUN (9-20) mg/dL Creatinine (0.66-1.25) mg/dL POC Glucose (mg/dL) 168 H 157 H (70-110) mg/dL Calcium (8.4-10.2) mg/dL 01/29/23 01/29/23 Range/Units 05:48 11:39 WBC (3.8-10.6) k/uL RBC (4.30-5.90) m/uL Hgb (13.0-17.5) gm/dL Hct (39.0-53.0) % Plt Count (150-450) k/uL Neutrophils # (1.3-7.7) k/uL BUN 6 L (9-20) mg/dL Creatinine 0.63 L (0.66-1.25) mg/dL POC Glucose (mg/dL) 126 H (70-110) mg/dL Calcium 8.1 L (8.4-10.2) mg/dL Microbiology - Last 24 Hours (Table) 01/25/23 11:48 Blood Culture - Preliminary Blood Assessment and Plan (1) Phlegmonous cellulitis Current Visit: Yes Status: Acute Code(s): L02.91 - CUTANEOUS ABSCESS, UNSPECIFIED SNOMED Code(s): 057440130 (2) Abscess of buttock, left Current Visit: No Status: Acute Code(s): L02.31 - CUTANEOUS ABSCESS OF BUTTOCK SNOMED Code(s): 33326762 Plan: 1patient present to hospital with sepsis in this patient with fever tachycardia elevated white count source is left gluteal abscess failing outpatient oral doxycycline therapy unfortunately no cultures were done and the patient did have I&D in the ER few days ago 2-patient is status post surgical drainage of the scrotal abscess deep culture which are so for negative 3-patient did have repeat CT of the pelvis with contrast, still have extensive phlegmon changes and possible abscess, patient is status post repeat drainage with drainage of the abscess on 01/27/2023 is done 4-patient did have slow clinical improvement white count is still elevated and still evidence of extensive cellulitis, patient to continue the patient on daptomycin and Zosyn and plan is for IV antibiotic on discharge Time with Patient: Less than 30
[2023-01-29 17:01] LABS: Glucose,Whole Blood 156 mg/dL (70-110)
[2023-01-29] MEDS: HYDROmorphone 0.5 MG/0.5 ML SYRINGE IVP PRN (19:31)
[2023-01-29 21:00] LABS: Glucose,Whole Blood 186 mg/dL (70-110)
[2023-01-29] MEDS: INSULIN DETEMIR (LEVEMIR) 100 UNIT/ML SYR SQ SCH (21:08)
[2023-01-30] MEDS: HYDROmorphone 0.5 MG/0.5 ML SYRINGE IVP PRN ×2 (00:10→06:21)
[2023-01-30] MEDS: PIPERACILLIN-TAZOBACTAM 3.375 GM in SODIUM CHLORIDE 0.9% 100 ML IVPB SCH ×4 (00:10→23:20)
[2023-01-30] MEDS: ALPRAZolam 0.25 MG TAB PO PRN ×2 (02:38→21:27)
[2023-01-30] MEDS: KETOROLAC 15 MG/ML 1 ML VIAL IVP PRN (02:39)
[2023-01-30 07:40] LABS: Glucose,Whole Blood 166 mg/dL (70-110)
[2023-01-30] MEDS: INSULIN ASPART (NovoLOG) 100 UNIT/ML VIAL SQ SCH ×4 (09:02→21:19)
[2023-01-30] MEDS: HEPARIN SODIUM,PORCINE/PF 5,000 UNIT/0.5 ML SYRINGE SQ SCH ×2 (09:02→21:18)
[2023-01-30] MEDS: HYDROcodone/APAP 5-325MG 1 EACH TAB PO PRN ×3 (09:03→21:27)
[2023-01-30] MEDS: LOSARTAN 50 MG TAB PO SCH (09:04)
[2023-01-30] MEDS: TAMSULOSIN 0.4 MG CAP.ER.24H PO SCH (09:04)
[2023-01-30] MEDS: NICOTINE 21MG/24HR PATCH TRANSDERM SCH (09:04)
[2023-01-30] MEDS: DOCUSATE 100 MG CAP PO SCH ×2 (09:04→21:18)
[2023-01-30] MEDS: FAMOTIDINE 20 MG TAB PO SCH ×2 (09:04→21:18)
--- NOTE | 2023-01-30 10:37 | P.PN ---
Subjective Progress Note Date: 01/30/23 The patient is in the hospital scrotal and perineal cellulitis/abscess. He is status post a second incision and drainage. He feels better. Objective - Vital Signs Vital signs: Vital Signs Temp 98.5 F 01/30/23 07:03 Pulse 74 01/30/23 07:03 Resp 18 01/30/23 07:03 BP 161/83 01/30/23 07:03 Pulse Ox 95 01/30/23 07:03 FiO2 Intake & Output 01/29/23 01/30/23 01/30/23 18:59 06:59 18:59 Intake Total 250 100 Output Total 5100 Balance -4850 100 Intake: Intake, IV Titration 250 100 Amount DAPTOmycin 650 mg In 50 Sodium Chloride 0.9% 50 ml @ 100 mls/hr IVPB Q24HR@1600 [facility] Rx#: [id number] Piperacillin-Tazobactam 3 200 100 .375 gm In Sodium Chloride 0.9% 100 ml @ 25 mls/hr IVPB Q8HR [facility] Rx# :[id number] Output: Urine 5100 Other: Voiding Method Indwelling Catheter Indwelling Catheter Indwelling Catheter - Genitourinary Genitourinary Comment(s): Marked improvement of the swelling and erythema of the scrotum. - Labs CBC & Chem 7: 01/29/23 05:48 01/29/23 05:48 Labs: Abnormal Lab Results - Last 24 Hours (Table) 01/29/23 01/29/23 01/29/23 Range/Units 05:48 05:48 11:39 WBC 16.5 H (3.8-10.6) k/uL RBC 3.90 L (4.30-5.90) m/uL Hgb 11.5 L (13.0-17.5) gm/dL Hct 36.4 L (39.0-53.0) % Plt Count 552 H (150-450) k/uL Neutrophils # 12.7 H (1.3-7.7) k/uL BUN 6 L (9-20) mg/dL Creatinine 0.63 L (0.66-1.25) mg/dL POC Glucose (mg/dL) 126 H (70-110) mg/dL Calcium 8.1 L (8.4-10.2) mg/dL 01/29/23 01/29/23 01/30/23 Range/Units 17:00 20:58 07:39 WBC (3.8-10.6) k/uL RBC (4.30-5.90) m/uL Hgb (13.0-17.5) gm/dL Hct (39.0-53.0) % Plt Count (150-450) k/uL Neutrophils # (1.3-7.7) k/uL BUN (9-20) mg/dL Creatinine (0.66-1.25) mg/dL POC Glucose (mg/dL) 156 H 186 H 166 H (70-110) mg/dL Calcium (8.4-10.2) mg/dL Microbiology - Last 24 Hours (Table) 01/29/23 13:30 Gram Stain - Preliminary Incision Wound Culture - Preliminary 01/25/23 11:48 Blood Culture - Preliminary Blood 01/29/23 13:30 Wound Culture - Preliminary Incision 01/29/23 13:30 Anaerobic Culture - Preliminary Scrotum 01/29/23 13:30 Anaerobic Culture - Preliminary Incision Assessment and Plan Assessment: Impression: Status post second incision and drainage of scrotal abscess as well as perineal abscess. The scrotal swelling is markedly less as is the erythema. Plan: Plan: I will start saline wet-to-dry dressing day. We'll remove his catheter in about 24-48 hours.
[2023-01-30 11:04] LABS: African American GFR (CKD) 130.7 (60.0-200.0); Anion Gap 7.4 mmol/L (10.00-18.00); BUN/Creat Ratio 13.16 Ratio (12.00-20.00); Blood Urea Nitrogen 8.3 mg/dL (9.0-27.0); Calcium 8.4 mg/dL (8.7-10.3); Carbon Dioxide 28.4 mmol/L (20.0-27.5); Non-African American GFR(CKD) 112.7 (60.0-200.0); Potassium 4.2 mmol/L (3.5-5.5)
[2023-01-30 11:10] LABS: Basophils # (A) 0.08 X 10*3/uL (0.00-0.10); Basophils % (A) 0.6 %; Eosinophils # (A) 0.48 X 10*3/uL (0.04-0.35); Eosinophils % (A) 3.3 %; HGB 10.7 g/dL (13.0-17.0); Lymphocytes % (A) 15.3 %; MCH 29.3 pg (27.0-32.0); MCHC 30.6 g/dL (32.0-37.0); MCV 95.9 fL (80.0-97.0); Mean Platelet Volume 9.1 fL (9.5-12.2); Monocytes # (A) 1.54 X 10*3/uL (0.20-1.00); Monocytes % (A) 10.7 %; NRBC Per 100 WBC 0 /100 WBCS (0.0-0.0); Neutrophils # (A) 9.95 X 10*3/uL (1.80-7.70); Neutrophils % (A) 69.1 %; Platelet Count 496 X 10*3/uL (140-440); RBC 3.65 X 10*6/uL (4.40-5.60); RDW 13.2 % (11.5-14.5); WBC 14.39 X 10*3/uL (4.50-10.00)
[2023-01-30 11:58] LABS: Glucose,Whole Blood 113 mg/dL (70-110)
--- NOTE | 2023-01-30 14:44 | P.PN ---
Subjective Progress Note Date: 01/30/23 CHIEF COMPLAINT: Cellulitis of the left glute HISTORY OF PRESENT ILLNESS: Patient was scrotal and perineal abscess status post drainage of hydrocele on the left and drainage of left perineal abscess by uro logy. Surgical service following in regards to left gluteal cellulitis. Which continues to improve. No evidence of abscess. Patient still reports scrotal swelling. PHYSICAL EXAM: VITAL SIGNS: Reviewed. GENERAL: Well-developed in no acute distress. ABDOMEN: Soft. Nondistended. Nontender. NEUROLOGIC: Alert and oriented. Cranial nerves II through XII grossly intact. ASSESSMENT: 1. Left buttock cellulitis and phlegmonous changes have shown improvement. 2. Scrotal cellulitis and abscess followed by urology status post I&D PLAN: -No surgical intervention planned from general surgery standpoint -Continue antibiotics per ID -Continue supportive care -Continue urological management Physician Wire [employer] Design Engineer note has been reviewed by physician. Signing provider agrees with the documented findings, assessment, and plan of care. Objective - Vital Signs Vital signs: Vital Signs Temp 98.1 F 01/30/23 07:03 Pulse 75 01/30/23 07:03 Resp 18 01/30/23 07:03 BP 159/81 01/30/23 07:03 Pulse Ox 95 01/30/23 07:03 FiO2 Intake & Output 01/29/23 01/30/23 01/30/23 18:59 06:59 18:59 Intake Total 250 100 Output Total 5100 550 Balance -4850 100 -550 Intake: Intake, IV Titration 250 100 Amount DAPTOmycin 650 mg In 50 Sodium Chloride 0.9% 50 ml @ 100 mls/hr IVPB Q24HR@1600 [facility] Rx#: [id number] Piperacillin-Tazobactam 3 200 100 .375 gm In Sodium Chloride 0.9% 100 ml @ 25 mls/hr IVPB Q8HR [facility] Rx# :[id number] Output: Urine 5100 550 Other: Voiding Method Indwelling Catheter Indwelling Catheter Indwelling Catheter - Labs CBC & Chem 7: 01/30/23 06:10 01/30/23 06:10 Labs: Abnormal Lab Results - Last 24 Hours (Table) 01/29/23 01/29/23 01/30/23 Range/Units 17:00 20:58 06:10 WBC 14.39 H (4.50-10.00) X 10*3/uL RBC 3.65 L (4.40-5.60) X 10*6/uL Hgb 10.7 L (13.0-17.0) g/dL Hct 35.0 L (39.6-50.0) % MCHC 30.6 L (32.0-37.0) g/dL Plt Count 496 H (140-440) X 10*3/uL MPV 9.1 L (9.5-12.2) fL Immature Gran # 0.14 H (0.00-0.04) X 10*3/uL Neutrophils # 9.95 H (1.80-7.70) X 10*3/uL Monocytes # 1.54 H (0.20-1.00) X 10*3/uL Eosinophils # 0.48 H (0.04-0.35) X 10*3/uL Carbon Dioxide (20.0-27.5) mmol/L Anion Gap (10.00-18.00) mmol/L BUN (9.0-27.0) mg/dL Glucose (70-110) mg/dL POC Glucose (mg/dL) 156 H 186 H (70-110) mg/dL Calcium (8.7-10.3) mg/dL 01/30/23 01/30/23 01/30/23 Range/Units 06:10 07:39 11:56 WBC (4.50-10.00) X 10*3/uL RBC (4.40-5.60) X 10*6/uL Hgb (13.0-17.0) g/dL Hct (39.6-50.0) % MCHC (32.0-37.0) g/dL Plt Count (140-440) X 10*3/uL MPV (9.5-12.2) fL Immature Gran # (0.00-0.04) X 10*3/uL Neutrophils # (1.80-7.70) X 10*3/uL Monocytes # (0.20-1.00) X 10*3/uL Eosinophils # (0.04-0.35) X 10*3/uL Carbon Dioxide 28.4 H (20.0-27.5) mmol/L Anion Gap 7.40 L (10.00-18.00) mmol/L BUN 8.3 L (9.0-27.0) mg/dL Glucose 178 H (70-110) mg/dL POC Glucose (mg/dL) 166 H 113 H (70-110) mg/dL Calcium 8.4 L (8.7-10.3) mg/dL Microbiology - Last 24 Hours (Table) 01/29/23 13:30 Gram Stain - Preliminary Incision Wound Culture - Preliminary 01/25/23 11:48 Blood Culture - Preliminary Blood 01/29/23 13:30 Wound Culture - Preliminary Incision 01/29/23 13:30 Anaerobic Culture - Preliminary Scrotum 01/29/23 13:30 Anaerobic Culture - Preliminary Incision
--- NOTE | 2023-01-30 15:19 | P.PN ---
Subjective Progress Note Date: 01/30/23 This is a pleasant 52 years old male with multiple medical problems including Diabetes Mellitus, Fibromyalgia, GERD/Reflux, Hyperlipidemia, Hypertension, ,Depression, nicotine dependence Presents because of skin infection in the gluteal folds, the middle with small papule in the larger polyp part. that Is been going on for about a week. The area to person us why he is lying in the right lateral side Patient denies chest pain dyspnea. No headache weakness a or numbness However patient complaining of from difficulty urination and constipation. Last time he P twice to 3:00 clear the morning. He denies dysuria urgency. He smokes about 1.5 pack per day and he was counseled to quit and he agrees and he agrees to the nicotine patch patient is tachycardic around 105 Patient tachycardic around 105 and he is a febrile Labs showed leukocytosis 23.7. BNP and liver enzymes are unremarkable. Glucose is elevated 328 CT of the pelvis with contrast showing extensive cellulitis and areas of phlegmonous changes along the left gluteal region extending anteriorly in the subcutaneous fat of the left perineum spanning up to nearly 20 cm. This inflammatory changes extend anterior to the pubic bone. No sherrie abscess. Small area 1.1 cm in the right kidney could be tiny cyst versus pyelonephritis, gallstone 2.5 mm, prostatomegaly 01/18/2023 Patient looks more comfortable today, he still have pain in the area but 3/10, his pain control with pain pills. His scrotum is swollen and tender today. Yesterday he had found to have urinary retention more than 300 mL and Gutierrez catheter currently in place and draining clear urine. Is still complains from some constipation Urologist consulted who requested repeat Pelvic CT showing 1.persistent marked fluid and fat stranding consistent with soft tissue infection or cellulitis from the left groin and scrotal region anteriorly to the left perirectal/perianal tissue similar in appearance to study one day earlier. No focal abscess.2Increasing perinephric fluid and fat stranding along with a new wall thickening in the urinary bladder. Consider acute cystitis and/or bilateral pyelonephritis as possible etiologies patient also antibiotics were updated into IV vancomycin and Unasyn, infectious disease team on the case with help of antibiotic management Hemoglobin A1c is 11.5. Currently sugar is controlled 01/19/2023 Patient is improving slowly and gradually he has this swelling erythema and tenderness in his perineal area and scrotum area compared to yesterday however he still in some distress due to pain and still concerning and required close monitoring. No evidence of crepitus or air on exam. Gutierrez catheter in place. Patient other than that is awake and alert and he denies any other new symptoms. He is hemodynamically stable. Has low-grade temperature today 99.9. Hemoglobin A1c is 11.5%, renal ultrasound is negative for hydronephrosis or other abnormality. Labs from today are pending. Extremities Unasyn and IV vancomycin. 01/20/2023 Patient still complaining from pain in the scrotal and perineal area, his been having some nausea but no vomiting. Current regimen medications are not effective, added Phenergan. No more fever and still has significant leukocytosis. 22,000 Neurology team are planning for I&D of scrotal fluctuance, possible abscess. Habits and normal saline, IV vancomycin and Unasyn Glucose is controlled today at around 130 01/21/2030 patient remains in [id number] distress due to his infection Is a status post I&D of the scrotal wall with no purulent discharge but only several some bloody fluid drained. Dressing is soaked with serosanguineous discharge However continue to improve while his broad-spectrum antibiotics with IV vancomycin and Unasyn Patient remains on normal saline 75. The per hour. 01/22/2023 Patient is improving Slowly and gradually No evidence of fluctuant area, today significantly secure, is less tender, less red and less swollen creatinine stable He is currently on antibiotic on IV vancomycin and Unasyn and #75 mL/h Patient had bowel movement and he feels satisfied 01/23/2023 Patient is seen and evaluated and follow-up being followed by multiple medical consultations. Patient is maintained on IV antibiotics and being switched to cefepime per infectious disease recommendations. Cultures thus far have been negative. Patient also being followed by general surgery with no plans for intervention. Patient was evaluated by urology with no plans for surgical intervention recommending continued antibiotics and local wound care. We'll follow up on repeat labs as WBC remains elevated although trending down. Encouraged oral intake and increased activity as tolerated. Patient does have indwelling Gutierrez catheter for now and will continue. Patient is afebrile denies chest pain or shortness of breath. No reports of nausea or vomiting noted and patient is tolerating diet. 01/24/2023 Patient is seen and evaluated in follow-up this morning continues to be afebrile with infectious disease along with urology following. General surgery evaluated the patient with no plans for surgical intervention. Repeat labs show a WBC that is trending up and currently 16.98 and hemoglobin is stable at 12.4, BNP within normal limits other than alk phos is 327 and CRP is 4.4. Blood sugars have been well controlled on current regimen and will continue. Hemoglobin A1c was found to be 10.5 and will need to follow-up with primary care provider closely in the outpatient setting and will likely initiate insulin on discharge. Patient continues on IV antibiotics and was continued on cefepime although being transitioned to Zosyn per infectious disease. Repeat CT pelvis is ordered and pending for today. Patient continue with indwelling Gutierrez catheter for now with urology following closely. Patient denies chest pain or shortness of breath although given patient's WBC will obtain chest x-ray is 1 is not been done previously. Recommend continue on gentle hydration and will follow-up on repeat labs. 01/25/2023 Patient is seen and evaluated in follow-up this morning currently feeling nauseated and feels like he has a fever although was just checked and has no fever currently 98.4F. Patient has been afebrile. Patient with lower pulse ox readings in the 90-93% on room air did undergo chest x-ray yesterday which showed a right lower lobe infiltrate to correlate for pneumonia and also atelectasis. Have ordered incentive spirometer and recommend continue using at least 10 times every hour while awake. Patient also with diabetes uncontrolled will continue current regimen and encouraged oral intake. Patient is maintained on IV antibiotics in the form of Zosyn with infectious disease following closely along with urology. There is an order for Gutierrez catheter removal although patient continues with Gutierrez. Patient reports some improvement in swelling although reports not feeling well. White count remains elevated at 16.66, hemoglobin is 11.6, platelets are 475, sodium is 140 with a potassium of 4.1 and current creatinine is 0.8. 01/26/2023 Patient is seen and evaluated in follow-up today reports he is not feeling well with intermittent nausea and generalized weakness. Patient does report some mild improvement in the swelling and did have Gutierrez catheter removed and is voiding with no difficulties. Patient maintained on IV antibiotics with infectious disease following an repeat labs showing a WBC of above 17 with concerns of continued infection. Patient is afebrile denies chest pain or shortness of breath. Patient has not been up and moving much and encouraged to increase activity as tolerated. Urology following as well and discussing possible further exploration of the area to evaluate for any abscess. 01/27/2023 Patient is seen in follow-up this morning currently nothing by mouth and being followed by urology along with infectious disease. Patient is tentatively scheduled for exploratory intervention with possible continued abscess with drainage of the left gluteal/perineal and scrotal area. Patient continues to have elevated white count and he has been maintained on a number of different antibiotics with cultures being negative although continues to have elevated white count and no clinical improvement. Patient did have some improvement in swelling although the swelling is still progressing in the left scrotal/perineal area. Patient is having discomfort and infectious disease discussed with julieta bell about surgical intervention. Will await surgical report. Patient is currently afebrile and reports the nausea has somewhat subsided. Patient did have indwelling Gutierrez catheter which has been removed and patient reports has been voiding with no difficulties. Patient reports has been getting up although mostly just to urinate. Encouraged increased activity as tolerated. 01/28/2023 Patient is post op day #1 surgical drainage of left hydrocele and drainage of perineal abcess with 100 mL of fluid. Sent for cultures and patient continues on IV zosyn and IV dapotmycin. Infectious disease following closely. Cultures remain negative so far. The wound is packed with gauze and there is significant serosangueinous drainage noted on abd pads. Blood pressure elevated. Patient report significant pain 8/10 to the left groin site and describes as burning sensation. Toradol has been added recommend to avoid narcotics if possible. White count today is 17.86, hgb 11.0. Blood glucose in the 140s. Patient is urinating without difficulty and has been up ambulating to the bathroom. Local wound care per urology. 01/29/2023 Patient is evaluated on the medical floor postoperative day #2 surgical drainage of left hydrocele and perineal abscess. Cultures are retaken today, unsure if surgical cultures were taken. Urology to change dressings today. Patient has significang scrotal swelling and redness to the scrotum. Additionally there is lower extremity edema which is increased from yesterday. Patient had urinary retention and required re-insertion of indwelling catheter yesterday as well. Pain has improved slightly form yesterday with addition of toradol. Patient has limited mobility secondary to pain and discomfort of the scrotum. White count remains elevated at 16.5 today. Urinalysis is unremarkable. Initial blood culture and groin culture negative. Repeat blood culture pending. Remains on IV zosyn. 01/30/2023 Patient is seen in follow-up today did undergo incision and drainage with urology of the perineal abscess along with drainage of left hydrocele and reports continued swelling although some improvement. Patient does continue with indwelling Gutierrez catheter as patient did have retention and will likely plan for removal of Gutierrez tomorrow. Patient also reports he has not had a bowel movement in 3 days although has not been getting up very much and instructed and encouraged the patient along with nursing staff to get the patient up and out of the bed more often. Patient planning for a shower today per nursing staff. Urology following an cultures were obtained with infectious disease following an patient is maintained on IV antibiotics in the form of Zosyn and daptomycin. Discussed further with infectious disease and patient will require IV antibiotics on discharge and will order a PICC line. Patient with weakness and extensive wound care with case management following although patient is adamant he is going home and will arrange for home care. We'll need to verify coverage of antibiotics in the outpatient setting in case management is working on this. Review of systems: Constitutional: No reports of fatigue, no fever, no reports of chills Cardiovascular: No reports of chest pain or palpitations Respiratory: No reports of shortness of breath or cough GI: No reports of intermittent nausea, no vomiting, or diarrhea : No reports of dysuria or retentpatient does continue with indwelling Gutierrez catheter again as he did retain after surgery neurovascular: reports of generalized weakness , reports of continued scrotal swelling with discomfort in the perineal area All medications have been reviewed Physical exam: GENERAL: The patient is alert and oriented x3. Well developed, well nourished. HEENT: Pupils are round and equally reacting to light. EOMI. No scleral icterus. No conjunctival pallor. Normocephalic, atraumatic. No pharyngeal erythema. No thyromegaly. CARDIOVASCULAR: S1 and S2 muffled PULMONARY: Diminished breath sounds bilaterally with no wheezing or crackles. ABDOMEN: Soft, nontender, nondistended, normoactive bowel sounds. No palpable organomegaly. Patient with tenderness and inflammation in the perineal area, surgical dressing currently intact and just changed by urology this morning MUSCULOSKELETAL: No joint swelling or deformity. EXTREMITIES: No cyanosis, clubbing, or pedal edema. NEUROLOGICAL: Gross neurological examination did not reveal any focal deficits. diffusely weak SKIN: No rashes. no petechiae. Assessment: Extensive cellulitis involving the buttock area, gluteal cleft and perineum. Status post I and D of the abscess and drainage of left hydrocele on 01/27/2023 . Sepsis, present on admission with leukocytosis and tachycardia secondary to above, improving Urinary retention. Status post Gutierrez catheter, removal of Gutierrez on 01/25/2023. IDC reinserted on 01/28/23 due to urinary retention Enlarged prostate Asymptomatic gallstone 2.5 mm Constipation Hypertension Hyperlipidemia Diabetes Mellitus type 2 uncontrolled hemoglobin A1C of 10 Chronic and ongoing nicotine use GI prophylaxis DVT prophylaxis Full code Plan: Continue IV antibiotics per infectious disease pending finalized surgical cultures, wound cultures are repeated today although unsure if this will determine appropriate antibiotics as cultures were obtained after patient has been on antibiotics. Discussed with infectious disease and patient will require IV anabiotic therapy on the outpatient setting in a PICC line is ordered. Case management following and will discuss further as patient will require authorization of this antibiotic in the outpatient setting. Arrange for home care with wound care to be planned. Local wound care per urology to change dressing. Encourage the patient get up and increase activity as tolerated. Nursing staff reporting they're working on a shower today. Encouraged Incentive spirometer use at least 10 times every hour while awake. Patient's hemoglobin A1c was found to be above 10 and will need close outpatient follow-up and likely discharge on insulin and will discuss further with case management about discharge planning. Patient is unsure if they want to start insulins on discharge and will need close outpatient follow-up Follow up labs in AM Possible discharge in the next 24-48 hours The impression and plan of care has been dictated by Tiffanie Archer, Nurse Practitioner as directed. Dr. Emily MD I have performed a history and examination and MDM of this patient, discussed the same with the dictator, and agree with the dictator's assessment and plan as written ,documented as a scribe. Based on total visit time, I have performed more than 50% of the visit. Objective - Vital Signs Vital signs: Vital Signs Temp 98.5 F 01/30/23 07:03 Pulse 74 01/30/23 07:03 Resp 18 01/30/23 07:03 BP 161/83 01/30/23 07:03 Pulse Ox 95 01/30/23 07:03 FiO2 Intake & Output 01/29/23 01/30/23 01/30/23 18:59 06:59 18:59 Intake Total 250 100 Output Total 5100 Balance -4850 100 Intake: Intake, IV Titration 250 100 Amount DAPTOmycin 650 mg In 50 Sodium Chloride 0.9% 50 ml @ 100 mls/hr IVPB Q24HR@1600 [facility] Rx#: [id number] Piperacillin-Tazobactam 3 200 100 .375 gm In Sodium Chloride 0.9% 100 ml @ 25 mls/hr IVPB Q8HR [facility] Rx# :[id number] Output: Urine 5100 Other: Voiding Method Indwelling Catheter Indwelling Catheter Indwelling Catheter - Labs CBC & Chem 7: 01/30/23 06:10 01/30/23 06:10 Labs: Abnormal Lab Results - Last 24 Hours (Table) 01/29/23 01/29/23 01/29/23 Range/Units 05:48 05:48 11:39 WBC 16.5 H (3.8-10.6) k/uL RBC 3.90 L (4.30-5.90) m/uL Hgb 11.5 L (13.0-17.5) gm/dL Hct 36.4 L (39.0-53.0) % Plt Count 552 H (150-450) k/uL Neutrophils # 12.7 H (1.3-7.7) k/uL BUN 6 L (9-20) mg/dL Creatinine 0.63 L (0.66-1.25) mg/dL POC Glucose (mg/dL) 126 H (70-110) mg/dL Calcium 8.1 L (8.4-10.2) mg/dL 01/29/23 01/29/23 01/30/23 Range/Units 17:00 20:58 07:39 WBC (3.8-10.6) k/uL RBC (4.30-5.90) m/uL Hgb (13.0-17.5) gm/dL Hct (39.0-53.0) % Plt Count (150-450) k/uL Neutrophils # (1.3-7.7) k/uL BUN (9-20) mg/dL Creatinine (0.66-1.25) mg/dL POC Glucose (mg/dL) 156 H 186 H 166 H (70-110) mg/dL Calcium (8.4-10.2) mg/dL Microbiology - Last 24 Hours (Table) 01/29/23 13:30 Gram Stain - Preliminary Incision Wound Culture - Preliminary 01/25/23 11:48 Blood Culture - Preliminary Blood 01/29/23 13:30 Wound Culture - Preliminary Incision 01/29/23 13:30 Anaerobic Culture - Preliminary Scrotum 01/29/23 13:30 Anaerobic Culture - Preliminary Incision
[2023-01-30] MEDS ORDERED: FUROSEMIDE 10 MG/ML 4 ML VIAL IV STA (16:59)
[2023-01-30 17:07] LABS: Glucose,Whole Blood 159 mg/dL (70-110)
[2023-01-30] MEDS: INSULIN DETEMIR (LEVEMIR) 100 UNIT/ML SYR SQ SCH (21:18)
[2023-01-31] MEDS: KETOROLAC 15 MG/ML 1 ML VIAL IVP PRN ×2 (06:00→18:09)
[2023-01-31 07:04] LABS: Basophils # (A) 0.1 k/uL (0-0.2); Basophils % (A) 1 %; Eosinophils # (A) 0.4 k/uL (0-0.7); Eosinophils % (A) 4 %; HCT 36.7 % (39.0-53.0); HGB 11.6 gm/dL (13.0-17.5); INR 1.2 (<1.2); Lymphocytes # (A) 1.6 k/uL (1.0-4.8); Lymphocytes % (A) 16 %; MCH 30.5 pg (25.0-35.0); MCHC 31.7 g/dL (31.0-37.0); MCV 96.2 fL (80.0-100.0); Monocytes # (A) 0.8 k/uL (0-1.0); Monocytes % (A) 8 %; Neutrophils # (A) 7.3 k/uL (1.3-7.7); Neutrophils % (A) 70 %; Platelet Count 583 k/uL (150-450); RBC 3.82 m/uL (4.30-5.90); RDW 13.1 % (11.5-15.5); WBC 10.3 k/uL (3.8-10.6)
--- NOTE | 2023-01-31 07:26 | P.PN ---
Subjective Progress Note Date: 01/30/23 Principal diagnosis: Left gluteal abscess and cellulitis Patient is a 52-year-old male presenting to the hospital with left gluteal pain and swelling he did have an attempted drainage in the ER 2 days before this admission unfortunately no cultures was done and the patient did have worsening on oral doxycycline, patient did have a pelvic CT with his extensive cellulitis phlegmon changes and no sherrie abscess. Patient is status post left scrotal abscess drainage by urology on 01/20/2023, with repeat drainage on 01/27/2023 On today's evaluation her that is 01/30/2023, the patient remains to be afebrile, the patient pain to the scrotal area has decreased in intensity, the patient denies having any chest pain shortness of cough, the patient denies having any nausea no vomiting no abdominal pain or diarrhea Objective - Vital Signs Vital signs: Vital Signs Temp 98.5 F 01/30/23 07:03 Pulse 74 01/30/23 07:03 Resp 18 01/30/23 07:03 BP 161/83 01/30/23 07:03 Pulse Ox 95 01/30/23 07:03 FiO2 Intake & Output 01/29/23 01/30/23 01/30/23 18:59 06:59 18:59 Intake Total 250 100 Output Total 5100 Balance -4850 100 Intake: Intake, IV Titration 250 100 Amount DAPTOmycin 650 mg In 50 Sodium Chloride 0.9% 50 ml @ 100 mls/hr IVPB Q24HR@1600 [facility] Rx#: [id number] Piperacillin-Tazobactam 3 200 100 .375 gm In Sodium Chloride 0.9% 100 ml @ 25 mls/hr IVPB Q8HR [facility] Rx# :[id number] Output: Urine 5100 Other: Voiding Method Indwelling Catheter Indwelling Catheter Indwelling Catheter - Exam GENERAL DESCRIPTION: Middle-age male lying in bed in no distress RESPIRATORY SYSTEM: Unlabored breathing , decreased breath sounds at bases HEART: S1 S2 regular rate and rhythm , ABDOMEN: Soft , no tenderness : Scrotal wound is currently packed still has significant induration surrounding area EXTREMITIES: No edema feet - Labs CBC & Chem 7: 01/31/23 05:42 01/30/23 06:10 Labs: Abnormal Lab Results - Last 24 Hours (Table) 01/29/23 01/29/23 01/29/23 Range/Units 11:39 17:00 20:58 POC Glucose (mg/dL) 126 H 156 H 186 H (70-110) mg/dL 01/30/23 Range/Units 07:39 POC Glucose (mg/dL) 166 H (70-110) mg/dL Microbiology - Last 24 Hours (Table) 01/29/23 13:30 Gram Stain - Preliminary Incision Wound Culture - Preliminary 01/25/23 11:48 Blood Culture - Preliminary Blood 01/29/23 13:30 Wound Culture - Preliminary Incision 01/29/23 13:30 Anaerobic Culture - Preliminary Scrotum 01/29/23 13:30 Anaerobic Culture - Preliminary Incision Assessment and Plan (1) Phlegmonous cellulitis Current Visit: Yes Status: Acute Code(s): L02.91 - CUTANEOUS ABSCESS, UNSPEC IFIED SNOMED Code(s): 928085660 (2) Abscess of buttock, left Current Visit: No Status: Acute Code(s): L02.31 - CUTANEOUS ABSCESS OF BUTTOCK SNOMED Code(s): 91227076 Plan: 1patient present to hospital with sepsis in this patient with fever tachycardia elevated white count source is left gluteal abscess failing outpatient oral doxycycline therapy unfortunately no cultures were done and the patient did have I&D in the ER few days ago 2-patient is status post surgical drainage of the scrotal abscess deep culture which are so for negative 3-patient did have repeat CT of the pelvis with contrast, still have extensive phlegmon changes and possible abscess, patient is status post repeat drainage with drainage of the abscess on 01/27/2023 is done 4-patient did have slow clinical improvement white count is down to 14,000 today, patient to continue the patient on daptomycin and Zosyn and plan is for IV antibiotic on discharge for which a PICC line will be placed Time with Patient: Less than 30
[2023-01-31 07:43] LABS: Glucose,Whole Blood 109 mg/dL (70-110)
[2023-01-31] MEDS: INSULIN ASPART (NovoLOG) 100 UNIT/ML VIAL SQ SCH ×4 (08:51→22:04)
[2023-01-31] MEDS: PIPERACILLIN-TAZOBACTAM 3.375 GM in SODIUM CHLORIDE 0.9% 100 ML IVPB SCH ×2 (08:51→17:54)
[2023-01-31] MEDS: HYDROcodone/APAP 5-325MG 1 EACH TAB PO PRN ×3 (08:52→22:03)
[2023-01-31] MEDS: HEPARIN SODIUM,PORCINE/PF 5,000 UNIT/0.5 ML SYRINGE SQ SCH ×2 (08:52→22:04)
[2023-01-31] MEDS: DOCUSATE 100 MG CAP PO SCH ×2 (08:53→22:04)
[2023-01-31] MEDS: LOSARTAN 50 MG TAB PO SCH (08:53)
[2023-01-31] MEDS: FAMOTIDINE 20 MG TAB PO SCH ×2 (08:53→22:04)
[2023-01-31] MEDS: NICOTINE 21MG/24HR PATCH TRANSDERM SCH (08:53)
[2023-01-31] MEDS: TAMSULOSIN 0.4 MG CAP.ER.24H PO SCH (08:53)
[2023-01-31] MEDS ORDERED: LIDOCAINE 1% INJ 10MG/ML (5 ML VIAL-PF) SQ ONE (09:34)
--- NOTE | 2023-01-31 10:05 | IR ---
PICC LINE PLACEMENT: HISTORY: Infection requiring long-term antibiotic therapy PROCEDURE: Ultrasound and fluoroscopic guidance of PICC line placement. COMPLICATIONS: None ANESTHESIA: 1. 1% Lidocaine locally. FINDINGS/TECHNIQUE: The procedure was explained to the patient. The risks, complications, benefits and alternatives were discussed and any questions were answered. Informed consent was obtained. The patient was placed supine on the fluoroscopic table and prepped and draped in the usual sterile fash ion. Utilizing a 21 gauge needle and sonographic and fluoroscopic guidance, access in the left basi lic vein was achieved and there is placement of a 0.018 guidewire. The vein is patent. A 4-F sheath was placed over the guidewire. The guidewire and dilator were removed and a 4-F. PICC line was plac ed through the sheath with the tip at the level of the SVC. The sheath was removed, the catheter was flushed and sutured into position. The patient was stable throughout the procedure and remained sta ble upon discharge from the Department of Radiology. The vein puncture was patent under ultrasound. A valdez scale image was obtained to document patency of the vein punctured. All elements of the maximal barrier technique were utilized. FLUOROSCOPY TIME: DAP 0.1Gy cm2 IMPRESSION: Successful PICC line placement under ultrasound and fluoroscopic guidance.
--- NOTE | 2023-01-31 11:04 | P.PN ---
Subjective Progress Note Date: 01/31/23 Principal diagnosis: Left scrotal abscess The patient has undergone incision and drainage of a left scrotal abscess. He is undergoing dressing changes twice daily. He feels that his condition is gradually improving. Objective - Vital Signs Vital signs: Vital Signs Temp 98.3 F 01/31/23 07:38 Pulse 70 01/31/23 07:38 Resp 18 01/31/23 07:38 BP 157/84 01/31/23 07:38 Pulse Ox 96 01/31/23 07:38 FiO2 Intake & Output 01/30/23 01/31/23 01/31/23 18:59 06:59 18:59 Output Total 5400 2625 800 Balance -5400 -2625 -800 Output: Urine 5400 2625 800 Other: Voiding Method Indwelling Catheter Indwelling Catheter Indwelling Catheter - Constitutional General appearance: Present: average body habitus, no acute distress - Genitourinary Genitourinary Comment(s): Normal phallus. Gutierrez catheter is in place, draining clear yellow urine. There is significant scrotal edema. There is no cellulitis. There is no fluctuance. The incisions are packed and cleaned. There is no purulence. - Psychiatric Psychiatric: Present: A&O x's 3, appropriate affect - Labs CBC & Chem 7: 01/31/23 05:42 01/30/23 06:10 Labs: Abnormal Lab Results - Last 24 Hours (Table) 01/30/23 01/30/23 01/30/23 Range/Units 06:10 06:10 11:56 WBC 14.39 H (4.50-10.00) X 10*3/uL RBC 3.65 L (4.40-5.60) X 10*6/uL Hgb 10.7 L (13.0-17.0) g/dL Hct 35.0 L (39.6-50.0) % MCHC 30.6 L (32.0-37.0) g/dL Plt Count 496 H (140-440) X 10*3/uL MPV 9.1 L (9.5-12.2) fL Immature Gran # 0.14 H (0.00-0.04) X 10*3/uL Neutrophils # 9.95 H (1.80-7.70) X 10*3/uL Monocytes # 1.54 H (0.20-1.00) X 10*3/uL Eosinophils # 0.48 H (0.04-0.35) X 10*3/uL INR (<1.2) Carbon Dioxide 28.4 H (20.0-27.5) mmol/L Anion Gap 7.40 L (10.00-18.00) mmol/L BUN 8.3 L (9.0-27.0) mg/dL Glucose 178 H (70-110) mg/dL POC Glucose (mg/dL) 113 H (70-110) mg/dL Calcium 8.4 L (8.7-10.3) mg/dL 01/30/23 01/31/23 01/31/23 Range/Units 17:06 05:42 05:42 WBC (4.50-10.00) X 10*3/uL RBC 3.82 L (4.40-5.60) X 10*6/uL Hgb 11.6 L (13.0-17.0) g/dL Hct 36.7 L (39.6-50.0) % MCHC (32.0-37.0) g/dL Plt Count 583 H (140-440) X 10*3/uL MPV (9.5-12.2) fL Immature Gran # (0.00-0.04) X 10*3/uL Neutrophils # (1.80-7.70) X 10*3/uL Monocytes # (0.20-1.00) X 10*3/uL Eosinophils # (0.04-0.35) X 10*3/uL INR 1.2 H (<1.2) Carbon Dioxide (20.0-27.5) mmol/L Anion Gap (10.00-18.00) mmol/L BUN (9.0-27.0) mg/dL Glucose (70-110) mg/dL POC Glucose (mg/dL) 159 H (70-110) mg/dL Calcium (8.7-10.3) mg/dL Microbiology - Last 24 Hours (Table) 01/29/23 13:30 Gram Stain - Final Incision Wound Culture - Final May albicans 01/25/23 11:48 Blood Culture - Preliminary Blood Assessment and Plan Assessment: The patient's scrotal abscess appears to be improving following incision and drainage. Preliminary cultures of shown May and staph aureus. The patient is currently being treated with Zosyn. (1) Scrotal abscess Current Visit: Yes Status: Acute Code(s): N49.2 - INFLAMMATORY DISORDERS OF SCROTUM SNOMED Code(s): 05760733 Plan: - Continue local wound care - Antibiotics per ID
[2023-01-31 11:13] LABS: Glucose,Whole Blood 132 mg/dL (70-110)
[2023-01-31 12:37] LABS: Glucose,Whole Blood 169 mg/dL (70-110)
[2023-01-31 14:44] LABS: African American GFR (CKD) 124.9 (60.0-200.0); Anion Gap 9.2 mmol/L (10.00-18.00); BUN/Creat Ratio 9.14 Ratio (12.00-20.00); Blood Urea Nitrogen 6.4 mg/dL (9.0-27.0); Calcium 8.8 mg/dL (8.7-10.3); Carbon Dioxide 29.8 mmol/L (20.0-27.5); Magnesium 1.9 mg/dL (1.5-2.4); Non-African American GFR(CKD) 107.7 (60.0-200.0); Potassium 4.7 mmol/L (3.5-5.5)
--- NOTE | 2023-01-31 15:44 | P.PN ---
Subjective Progress Note Date: 01/31/23 CHIEF COMPLAINT: Cellulitis of the left glute HISTORY OF PRESENT ILLNESS: Patient was scrotal and perineal abscess status post drainage of hydrocele on the left and drainage of left perineal abscess by uro logy. Surgical service following in regards to left gluteal cellulitis. The gluteal cellulitis has resolved. No evidence of abscess. Patient received PICC line today. He is afebrile. Wound culture presumptive staph aureus. WBC has normalized at 10.3 PHYSICAL EXAM: VITAL SIGNS: Reviewed. GENERAL: Well-developed in no acute distress. ABDOMEN: Soft. Nondistended. Nontender. NEUROLOGIC: Alert and oriented. Cranial nerves II through XII grossly intact. ASSESSMENT: 1. Left buttock cellulitis and phlegmonous changes have shown improvement. 2. Scrotal cellulitis and abscess followed by urology status post I&D PLAN: -No surgical intervention planned from general surgery standpoint -Continue antibiotics per ID -Continue supportive care -Continue urological management -Surgical service will sign off. Please call with any questions or concerns Physician Orthopaedic General note has been reviewed by physician. Signing provider agrees with the documented findings, assessment, and plan of care. Objective - Vital Signs Vital signs: Vital Signs Temp 98.2 F 01/31/23 11:00 Pulse 71 01/31/23 11:00 Resp 18 01/31/23 11:00 BP 161/84 01/31/23 11:00 Pulse Ox 95 01/31/23 11:00 FiO2 Intake & Output 01/30/23 01/31/23 01/31/23 18:59 06:59 18:59 Output Total 5400 2625 800 Balance -5400 -2625 -800 Output: Urine 5400 2625 800 Other: Voiding Method Indwelling Catheter Indwelling Catheter Indwelling Catheter - Labs CBC & Chem 7: 01/31/23 05:42 01/31/23 05:42 Labs: Abnormal Lab Results - Last 24 Hours (Table) 01/30/23 01/30/23 01/31/23 Range/Units 17:06 20:11 05:42 RBC 3.82 L (4.30-5.90) m/uL Hgb 11.6 L (13.0-17.5) gm/dL Hct 36.7 L (39.0-53.0) % Plt Count 583 H (150-450) k/uL INR (<1.2) Carbon Dioxide (20.0-27.5) mmol/L Anion Gap (10.00-18.00) mmol/L BUN (9.0-27.0) mg/dL BUN/Creatinine Ratio (12.00-20.00) Ratio Glucose (70-110) mg/dL POC Glucose (mg/dL) 159 H 169 H (70-110) mg/dL 01/31/23 01/31/23 01/31/23 Range/Units 05:42 05:42 11:12 RBC (4.30-5.90) m/uL Hgb (13.0-17.5) gm/dL Hct (39.0-53.0) % Plt Count (150-450) k/uL INR 1.2 H (<1.2) Carbon Dioxide 29.8 H (20.0-27.5) mmol/L Anion Gap 9.20 L (10.00-18.00) mmol/L BUN 6.4 L (9.0-27.0) mg/dL BUN/Creatinine Ratio 9.14 L (12.00-20.00) Ratio Glucose 121 H (70-110) mg/dL POC Glucose (mg/dL) 132 H (70-110) mg/dL Microbiology - Last 24 Hours (Table) 01/25/23 11:48 Blood Culture - Final Blood 01/29/23 13:30 Gram Stain - Preliminary Incision Wound Culture - Preliminary Presumptive Staph aureus 01/29/23 13:30 Gram Stain - Final Incision Wound Culture - Final May albicans
[2023-01-31 17:01] LABS: Glucose,Whole Blood 174 mg/dL (70-110)
[2023-01-31 20:27] LABS: Glucose,Whole Blood 152 mg/dL (70-110)
[2023-01-31] MEDS: INSULIN DETEMIR (LEVEMIR) 100 UNIT/ML SYR SQ SCH (22:04)
[2023-01-31] MEDS: ALPRAZolam 0.25 MG TAB PO PRN (22:07)
--- NOTE | 2023-02-01 00:55 | P.PN ---
Subjective Progress Note Date: 01/31/23 This is a pleasant 52 years old male with multiple medical problems including Diabetes Mellitus, Fibromyalgia, GERD/Reflux, Hyperlipidemia, Hypertension, ,Depression, nicotine dependence Presents because of skin infection in the gluteal folds, the middle with small papule in the larger polyp part. that Is been going on for about a week. The area to person us why he is lying in the right lateral side Patient denies chest pain dyspnea. No headache weakness a or numbness However patient complaining of from difficulty urination and constipation. Last time he P twice to 3:00 clear the morning. He denies dysuria urgency. He smokes about 1.5 pack per day and he was counseled to quit and he agrees and he agrees to the nicotine patch patient is tachycardic around 105 Patient tachycardic around 105 and he is a febrile Labs showed leukocytosis 23.7. BNP and liver enzymes are unremarkable. Glucose is elevated 328 CT of the pelvis with contrast showing extensive cellulitis and areas of phlegmonous changes along the left gluteal region extending anteriorly in the subcutaneous fat of the left perineum spanning up to nearly 20 cm. This inflammatory changes extend anterior to the pubic bone. No sherrie abscess. Small area 1.1 cm in the right kidney could be tiny cyst versus pyelonephritis, gallstone 2.5 mm, prostatomegaly 01/18/2023 Patient looks more comfortable today, he still have pain in the area but 3/10, his pain control with pain pills. His scrotum is swollen and tender today. Yesterday he had found to have urinary retention more than 300 mL and Gutierrez catheter currently in place and draining clear urine. Is still complains from some constipation Urologist consulted who requested repeat Pelvic CT showing 1.persistent marked fluid and fat stranding consistent with soft tissue infection or cellulitis from the left groin and scrotal region anteriorly to the left perirectal/perianal tissue similar in appearance to study one day earlier. No focal abscess.2Increasing perinephric fluid and fat stranding along with a new wall thickening in the urinary bladder. Consider acute cystitis and/or bilateral pyelonephritis as possible etiologies patient also antibiotics were updated into IV vancomycin and Unasyn, infectious disease team on the case with help of antibiotic management Hemoglobin A1c is 11.5. Currently sugar is controlled 01/19/2023 Patient is improving slowly and gradually he has this swelling erythema and tenderness in his perineal area and scrotum area compared to yesterday however he still in some distress due to pain and still concerning and required close monitoring. No evidence of crepitus or air on exam. Gutierrez catheter in place. Patient other than that is awake and alert and he denies any other new symptoms. He is hemodynamically stable. Has low-grade temperature today 99.9. Hemoglobin A1c is 11.5%, renal ultrasound is negative for hydronephrosis or other abnormality. Labs from today are pending. Extremities Unasyn and IV vancomycin. 01/20/2023 Patient still complaining from pain in the scrotal and perineal area, his been having some nausea but no vomiting. Current regimen medications are not effective, added Phenergan. No more fever and still has significant leukocytosis. 22,000 Neurology team are planning for I&D of scrotal fluctuance, possible abscess. Habits and normal saline, IV vancomycin and Unasyn Glucose is controlled today at around 130 01/21/2030 patient remains in [id number] distress due to his infection Is a status post I&D of the scrotal wall with no purulent discharge but only several some bloody fluid drained. Dressing is soaked with serosanguineous discharge However continue to improve while his broad-spectrum antibiotics with IV vancomycin and Unasyn Patient remains on normal saline 75. The per hour. 01/22/2023 Patient is improving Slowly and gradually No evidence of fluctuant area, today significantly secure, is less tender, less red and less swollen creatinine stable He is currently on antibiotic on IV vancomycin and Unasyn and #75 mL/h Patient had bowel movement and he feels satisfied 01/23/2023 Patient is seen and evaluated and follow-up being followed by multiple medical consultations. Patient is maintained on IV antibiotics and being switched to cefepime per infectious disease recommendations. Cultures thus far have been negative. Patient also being followed by general surgery with no plans for intervention. Patient was evaluated by urology with no plans for surgical intervention recommending continued antibiotics and local wound care. We'll follow up on repeat labs as WBC remains elevated although trending down. Encouraged oral intake and increased activity as tolerated. Patient does have indwelling Gutierrez catheter for now and will continue. Patient is afebrile denies chest pain or shortness of breath. No reports of nausea or vomiting noted and patient is tolerating diet. 01/24/2023 Patient is seen and evaluated in follow-up this morning continues to be afebrile with infectious disease along with urology following. General surgery evaluated the patient with no plans for surgical intervention. Repeat labs show a WBC that is trending up and currently 16.98 and hemoglobin is stable at 12.4, BNP within normal limits other than alk phos is 327 and CRP is 4.4. Blood sugars have been well controlled on current regimen and will continue. Hemoglobin A1c was found to be 10.5 and will need to follow-up with primary care provider closely in the outpatient setting and will likely initiate insulin on discharge. Patient continues on IV antibiotics and was continued on cefepime although being transitioned to Zosyn per infectious disease. Repeat CT pelvis is ordered and pending for today. Patient continue with indwelling Gutierrez catheter for now with urology following closely. Patient denies chest pain or shortness of breath although given patient's WBC will obtain chest x-ray is 1 is not been done previously. Recommend continue on gentle hydration and will follow-up on repeat labs. 01/25/2023 Patient is seen and evaluated in follow-up this morning currently feeling nauseated and feels like he has a fever although was just checked and has no fever currently 98.4F. Patient has been afebrile. Patient with lower pulse ox readings in the 90-93% on room air did undergo chest x-ray yesterday which showed a right lower lobe infiltrate to correlate for pneumonia and also atelectasis. Have ordered incentive spirometer and recommend continue using at least 10 times every hour while awake. Patient also with diabetes uncontrolled will continue current regimen and encouraged oral intake. Patient is maintained on IV antibiotics in the form of Zosyn with infectious disease following closely along with urology. There is an order for Gutierrez catheter removal although patient continues with Gutierrez. Patient reports some improvement in swelling although reports not feeling well. White count remains elevated at 16.66, hemoglobin is 11.6, platelets are 475, sodium is 140 with a potassium of 4.1 and current creatinine is 0.8. 01/26/2023 Patient is seen and evaluated in follow-up today reports he is not feeling well with intermittent nausea and generalized weakness. Patient does report some mild improvement in the swelling and did have Gutierrez catheter removed and is voiding with no difficulties. Patient maintained on IV antibiotics with infectious disease following an repeat labs showing a WBC of above 17 with concerns of continued infection. Patient is afebrile denies chest pain or shortness of breath. Patient has not been up and moving much and encouraged to increase activity as tolerated. Urology following as well and discussing possible further exploration of the area to evaluate for any abscess. 01/27/2023 Patient is seen in follow-up this morning currently nothing by mouth and being followed by urology along with infectious disease. Patient is tentatively scheduled for exploratory intervention with possible continued abscess with drainage of the left gluteal/perineal and scrotal area. Patient continues to have elevated white count and he has been maintained on a number of different antibiotics with cultures being negative although continues to have elevated white count and no clinical improvement. Patient did have some improvement in swelling although the swelling is still progressing in the left scrotal/perineal area. Patient is having discomfort and infectious disease discussed with julieta bell about surgical intervention. Will await surgical report. Patient is currently afebrile and reports the nausea has somewhat subsided. Patient did have indwelling Gutierrez catheter which has been removed and patient reports has been voiding with no difficulties. Patient reports has been getting up although mostly just to urinate. Encouraged increased activity as tolerated. 01/28/2023 Patient is post op day #1 surgical drainage of left hydrocele and drainage of perineal abcess with 100 mL of fluid. Sent for cultures and patient continues on IV zosyn and IV dapotmycin. Infectious disease following closely. Cultures remain negative so far. The wound is packed with gauze and there is significant serosangueinous drainage noted on abd pads. Blood pressure elevated. Patient report significant pain 8/10 to the left groin site and describes as burning sensation. Toradol has been added recommend to avoid narcotics if possible. White count today is 17.86, hgb 11.0. Blood glucose in the 140s. Patient is urinating without difficulty and has been up ambulating to the bathroom. Local wound care per urology. 01/29/2023 Patient is evaluated on the medical floor postoperative day #2 surgical drainage of left hydrocele and perineal abscess. Cultures are retaken today, unsure if surgical cultures were taken. Urology to change dressings today. Patient has significang scrotal swelling and redness to the scrotum. Additionally there is lower extremity edema which is increased from yesterday. Patient had urinary retention and required re-insertion of indwelling catheter yesterday as well. Pain has improved slightly form yesterday with addition of toradol. Patient has limited mobility secondary to pain and discomfort of the scrotum. White count remains elevated at 16.5 today. Urinalysis is unremarkable. Initial blood culture and groin culture negative. Repeat blood culture pending. Remains on IV zosyn. 01/30/2023 Patient is seen in follow-up today did undergo incision and drainage with urology of the perineal abscess along with drainage of left hydrocele and reports continued swelling although some improvement. Patient does continue with indwelling Gutierrez catheter as patient did have retention and will likely plan for removal of Gutierrez tomorrow. Patient also reports he has not had a bowel movement in 3 days although has not been getting up very much and instructed and encouraged the patient along with nursing staff to get the patient up and out of the bed more often. Patient planning for a shower today per nursing staff. Urology following an cultures were obtained with infectious disease following an patient is maintained on IV antibiotics in the form of Zosyn and daptomycin. Discussed further with infectious disease and patient will require IV antibiotics on discharge and will order a PICC line. Patient with weakness and extensive wound care with case management following although patient is adamant he is going home and will arrange for home care. We'll need to verify coverage of antibiotics in the outpatient setting in case management is working on this. 01/31/2023 Patient seen today continued on IV antibiotics with infectious disease followi ng. Preliminary cultures status post repeat incision and drainage preliminary growing presumptive staph and discussed further with infectious disease and recommending awaiting culture finalization to determine discharge antibiotics. Patient has received a PICC line in case management is following working on discharge planning. Patient will also require insulin on discharge and close outpatient follow-up. Plan is for patient to return home with home care and will also require authorization for IV antibiotics in the outpatient setting. Patient is currently afebrile and WBC is trending down and currently 10. Dressing changes per urology and infectious disease recommendations. Patient to have indwelling Gutierrez catheter removed and monitor for any retention. Encouraged patient to increase activity as tolerated. Review of systems: Constitutional: No reports of fatigue, no fever, no reports of chills Cardiovascular: No reports of chest pain or palpitations Respiratory: No reports of shortness of breath or cough GI: No reports of intermittent nausea, no vomiting, or diarrhea : No reports of dysuria or retention, patient does continue with indwelling Gutierrez catheter again neurovascular: reports of generalized weakness , reports of continued scrotal swelling with discomfort in the perineal area although is less intense and feels is improving All medications have been reviewed Physical exam: GENERAL: The patient is alert and oriented x3. Well developed, well nourished. HEENT: Pupils are round and equally reacting to light. EOMI. No scleral icterus. No conjunctival pallor. Normocephalic, atraumatic. No pharyngeal erythema. No thyromegaly. CARDIOVASCULAR: S1 and S2 muffled PULMONARY: Diminished breath sounds bilaterally with no wheezing or crackles. ABDOMEN: Soft, nontender, nondistended, normoactive bowel sounds. No palpable organomegaly. Patient with surgical dressing currently intact and being changed again this morning MUSCULOSKELETAL: No joint swelling or deformity. EXTREMITIES: No cyanosis, clubbing, or pedal edema. NEUROLOGICAL: Gross neurological examination did not reveal any focal deficits. diffusely weak SKIN: No rashes. no petechiae. Assessment: Extensive cellulitis involving the buttock area, gluteal cleft and perineum. Status post I and D of the abscess and drainage of left hydrocele on 01/27/2023 . Sepsis, present on admission with leukocytosis and tachycardia secondary to above, improving Urinary retention. Status post Gutierrez catheter, removal of Gutierrez on 01/25/2023. IDC reinserted on 01/28/23 due to urinary retention Concerns for possible right lower lobe infiltrate, pneumonia ruled out, most likely atelectasis Enlarged prostate Asymptomatic gallstone 2.5 mm Constipation Hypertension Hyperlipidemia Diabetes Mellitus type 2 uncontrolled hemoglobin A1C of 10 Chronic and ongoing nicotine use GI prophylaxis DVT prophylaxis Full code Plan: Continue IV antibiotics per infectious disease pending finalized surgical cultures, wound cultures are repeated and currently growing presumptive staph an d have discussed with infectious disease recommending awaiting culture finalization to determine discharge antibiotics. Patient has received a PICC line in case management is following awaiting on antibiotic recommendations to obtain insurance authorization and arrange for discharge planning for home care along with IV antibiotic therapy. Patient's white count is trending down and patient remains afebrile. To continue with local care and dressing changes per urology Encouraged Incentive spirometer use at least 10 times every hour while awake. Most recent chest x-ray with concerns for right lower lobe infiltrate and atelectasis and suspicion for pneumonia is low most likely is atelectasis as patient has not been getting up and moving around this admission. Pneumonia has been ruled out. Patient's hemoglobin A1c was found to be above 10 and will need close outpatient follow-up and will discharge on insulin and will discuss further with case management about discharge planning. Follow up labs in AM Possible discharge in the next 24-48 hours and awaiting for culture finalization to determine discharge antibiotics The impression and plan of care has been dictated by Tiffanie Archer, Nurse Practitioner as directed. Dr. Emily MD I have performed a history and examination and MDM of this patient, discussed the same with the dictator, and agree with the dictator's assessment and plan as written ,documented as a scribe. Based on total visit time, I have performed more than 50% of the visit. Objective - Vital Signs Vital signs: Vital Signs Temp 98.3 F 01/31/23 07:38 Pulse 70 01/31/23 07:38 Resp 18 01/31/23 07:38 BP 157/84 01/31/23 07:38 Pulse Ox 96 01/31/23 07:38 FiO2 Intake & Output 01/30/23 01/31/23 01/31/23 18:59 06:59 18:59 Output Total 5400 2625 800 Balance -5400 -2625 -800 Output: Urine 5400 2625 800 Other: Voiding Method Indwelling Catheter Indwelling Catheter Indwelling Catheter - Labs CBC & Chem 7: 01/31/23 05:42 01/31/23 05:42 Labs: Abnormal Lab Results - Last 24 Hours (Table) 01/30/23 01/30/23 01/30/23 Range/Units 06:10 06:10 11:56 WBC 14.39 H (4.50-10.00) X 10*3/uL RBC 3.65 L (4.40-5.60) X 10*6/uL Hgb 10.7 L (13.0-17.0) g/dL Hct 35.0 L (39.6-50.0) % MCHC 30.6 L (32.0-37.0) g/dL Plt Count 496 H (140-440) X 10*3/uL MPV 9.1 L (9.5-12.2) fL Immature Gran # 0.14 H (0.00-0.04) X 10*3/uL Neutrophils # 9.95 H (1.80-7.70) X 10*3/uL Monocytes # 1.54 H (0.20-1.00) X 10*3/uL Eosinophils # 0.48 H (0.04-0.35) X 10*3/uL INR (<1.2) Carbon Dioxide 28.4 H (20.0-27.5) mmol/L Anion Gap 7.40 L (10.00-18.00) mmol/L BUN 8.3 L (9.0-27.0) mg/dL Glucose 178 H (70-110) mg/dL POC Glucose (mg/dL) 113 H (70-110) mg/dL Calcium 8.4 L (8.7-10.3) mg/dL 01/30/23 01/31/23 01/31/23 Range/Units 17:06 05:42 05:42 WBC (4.50-10.00) X 10*3/uL RBC 3.82 L (4.40-5.60) X 10*6/uL Hgb 11.6 L (13.0-17.0) g/dL Hct 36.7 L (39.6-50.0) % MCHC (32.0-37.0) g/dL Plt Count 583 H (140-440) X 10*3/uL MPV (9.5-12.2) fL Immature Gran # (0.00-0.04) X 10*3/uL Neutrophils # (1.80-7.70) X 10*3/uL Monocytes # (0.20-1.00) X 10*3/uL Eosinophils # (0.04-0.35) X 10*3/uL INR 1.2 H (<1.2) Carbon Dioxide (20.0-27.5) mmol/L Anion Gap (10.00-18.00) mmol/L BUN (9.0-27.0) mg/dL Glucose (70-110) mg/dL POC Glucose (mg/dL) 159 H (70-110) mg/dL Calcium (8.7-10.3) mg/dL Microbiology - Last 24 Hours (Table) 01/29/23 13:30 Gram Stain - Final Incision Wound Culture - Final May albicans 01/25/23 11:48 Blood Culture - Preliminary Blood
[2023-02-01] MEDS ORDERED: HYDROmorphone 0.5 MG/0.5 ML SYRINGE IVP PRN (00:57)
[2023-02-01] MEDS: PIPERACILLIN-TAZOBACTAM 3.375 GM in SODIUM CHLORIDE 0.9% 100 ML IVPB SCH ×2 (01:52→09:16)
[2023-02-01 07:22] LABS: Glucose,Whole Blood 107 mg/dL (70-110)
[2023-02-01] MEDS: INSULIN ASPART (NovoLOG) 100 UNIT/ML VIAL SQ SCH ×2 (07:49→12:26)
[2023-02-01] MEDS: HEPARIN SODIUM,PORCINE/PF 5,000 UNIT/0.5 ML SYRINGE SQ SCH (09:15)
[2023-02-01] MEDS: LOSARTAN 50 MG TAB PO SCH (09:16)
[2023-02-01] MEDS: NICOTINE 21MG/24HR PATCH TRANSDERM SCH (09:16)
[2023-02-01] MEDS: DOCUSATE 100 MG CAP PO SCH (09:16)
[2023-02-01] MEDS: TAMSULOSIN 0.4 MG CAP.ER.24H PO SCH (09:16)
[2023-02-01] MEDS: FAMOTIDINE 20 MG TAB PO SCH (09:16)
[2023-02-01 10:59] LABS: Basophils # (A) 0.06 X 10*3/uL (0.00-0.10); Basophils % (A) 0.5 %; Eosinophils # (A) 0.56 X 10*3/uL (0.04-0.35); Eosinophils % (A) 4.8 %; HCT 37.4 % (39.6-50.0); HGB 11.3 g/dL (13.0-17.0); Immature Grans, Automated 0.6 %; Lymphocytes # (A) 2.04 X 10*3/uL (0.90-5.00); Lymphocytes % (A) 17.3 %; MCH 28.5 pg (27.0-32.0); MCHC 30.2 g/dL (32.0-37.0); MCV 94.4 fL (80.0-97.0); Mean Platelet Volume 8.8 fL (9.5-12.2); Monocytes # (A) 1.23 X 10*3/uL (0.20-1.00); Monocytes % (A) 10.5 %; NRBC Per 100 WBC 0 /100 WBCS (0.0-0.0); Neutrophils % (A) 66.3 %; Platelet Count 513 X 10*3/uL (140-440); RBC 3.96 X 10*6/uL (4.40-5.60); RDW 13.2 % (11.5-14.5); WBC 11.76 X 10*3/uL (4.50-10.00)
[2023-02-01 11:05] LABS: Glucose,Whole Blood 126 mg/dL (70-110)
[2023-02-01 11:35] LABS: African American GFR (CKD) 118.2 (60.0-200.0); Anion Gap 7.9 mmol/L (10.00-18.00); BUN/Creat Ratio 10.13 Ratio (12.00-20.00); Blood Urea Nitrogen 8.1 mg/dL (9.0-27.0); Calcium 9.2 mg/dL (8.7-10.3); Carbon Dioxide 28.1 mmol/L (20.0-27.5); Potassium 4.6 mmol/L (3.5-5.5)
--- NOTE | 2023-02-01 12:25 | P.PN ---
Subjective Progress Note Date: 02/01/23 Principal diagnosis: Left scrotal abscess The patient has undergone incision and drainage of a left scrotal abscess. He is undergoing dressing changes twice daily. He continues to feel that his condition is gradually improving. Objective - Vital Signs Vital signs: Vital Signs Temp 98.4 F 02/01/23 01:13 Pulse 76 02/01/23 01:13 Resp 16 02/01/23 01:13 BP 150/78 02/01/23 01:13 Pulse Ox 93 L 02/01/23 01:13 FiO2 Intake & Output 01/31/23 01/31/23 02/01/23 06:59 18:59 06:59 Intake Total 200 Output Total 2625 1600 1000 Balance -2625 -1600 -800 Intake: Oral 200 Output: Urine 2625 1600 1000 Other: Voiding Method Indwelling Catheter Indwelling Catheter Indwelling Catheter # Bowel Movements 1 - Constitutional General appearance: Present: average body habitus, no acute distress - Gastrointestinal Gastrointestinal Comment(s): Normal phallus, normal urethral meatus. Considerable scrotal edema is noted. The anterior scrotal incision is clean, without drainage. The smaller scrotal incision is also clean without drainage. Mild purulent drainage is noted from the left perineal incision. Some perineal induration is noted posterior to that incision on the left side, but there is no cellulitis or fluctuance. - Labs CBC & Chem 7: 02/01/23 06:35 02/01/23 06:35 Labs: Abnormal Lab Results - Last 24 Hours (Table) 01/30/23 01/31/23 01/31/23 Range/Units 20:11 05:42 05:42 RBC 3.82 L (4.30-5.90) m/uL Hgb 11.6 L (13.0-17.5) gm/dL Hct 36.7 L (39.0-53.0) % Plt Count 583 H (150-450) k/uL INR 1.2 H (<1.2) Carbon Dioxide (20.0-27.5) mmol/L Anion Gap (10.00-18.00) mmol/L BUN (9.0-27.0) mg/dL BUN/Creatinine Ratio (12.00-20.00) Ratio Glucose (70-110) mg/dL POC Glucose (mg/dL) 169 H (70-110) mg/dL 01/31/23 01/31/23 01/31/23 Range/Units 05:42 11:12 16:59 RBC (4.30-5.90) m/uL Hgb (13.0-17.5) gm/dL Hct (39.0-53.0) % Plt Count (150-450) k/uL INR (<1.2) Carbon Dioxide 29.8 H (20.0-27.5) mmol/L Anion Gap 9.20 L (10.00-18.00) mmol/L BUN 6.4 L (9.0-27.0) mg/dL BUN/Creatinine Ratio 9.14 L (12.00-20.00) Ratio Glucose 121 H (70-110) mg/dL POC Glucose (mg/dL) 132 H 174 H (70-110) mg/dL 01/31/23 Range/Units 20:25 RBC (4.30-5.90) m/uL Hgb (13.0-17.5) gm/dL Hct (39.0-53.0) % Plt Count (150-450) k/uL INR (<1.2) Carbon Dioxide (20.0-27.5) mmol/L Anion Gap (10.00-18.00) mmol/L BUN (9.0-27.0) mg/dL BUN/Creatinine Ratio (12.00-20.00) Ratio Glucose (70-110) mg/dL POC Glucose (mg/dL) 152 H (70-110) mg/dL Microbiology - Last 24 Hours (Table) 01/25/23 11:48 Blood Culture - Final Blood 01/29/23 13:30 Gram Stain - Preliminary Incision Wound Culture - Preliminary Presumptive Staph aureus 01/29/23 13:30 Gram Stain - Final Incision Wound Culture - Final May albicans Assessment and Plan Assessment: The patient's scrotal abscess appears to be improving following incision and drainage. Preliminary cultures of shown May and staph aureus. The staph aureus is pansensitive, and he is currently receiving Cefazolin. (1) Scrotal abscess Current Visit: Yes Status: Acute Code(s): N49.2 - INFLAMMATORY DISORDERS OF SCROTUM SNOMED Code(s): 25247713 Plan: - Continue local wound care - Antibiotics per ID - D/C Matt
[2023-02-01 13:26] VITALS: BP 159/81; PULSE 74; RESP 18; TEMP 98
[2023-02-01] MEDS: HYDROcodone/APAP 5-325MG 1 EACH TAB PO PRN (14:08)
[2023-02-01] MEDS: ALPRAZolam 0.25 MG TAB PO PRN (14:08)
--- NOTE | 2023-02-02 06:44 | P.DS ---
Providers Date of admission: 01/17/23 12:40 Expected date of discharge: 02/01/23 Attending physician: Jaret Bray MD Consults: 01/17/23 12:26 Consult Physician Urgent Consulting Provider: Jaison Almeida Consult Reason/Comments: Cellulitis, phlegmon failure of outpatient treatment Do you want consulting provider notified?: Yes 01/18/23 09:26 Consult Physician Urgent Consulting Provider: Tucker Cerda Consult Reason/Comments: scrotal swelling and tenderness, large prostate, urinray retention Do you want consulting provider notified?: Yes Primary care physician: [facility] Course: Final diagnosis Extensive cellulitis involving the buttock area, gluteal cleft and perineum. Status post I and D of the abscess and drainage of left hydrocele on 01/27/2023 . Sepsis, present on admission with leukocytosis and tachycardia secondary to above, improved Urinary retention. Status post Gutierrez catheter, removal of Gutierrez on 01/25/2023. IDC reinserted on 01/28/23 due to urinary retention, resolved Concerns for possible right lower lobe infiltrate, pneumonia ruled out, most likely atelectasis Enlarged prostate Asymptomatic gallstone 2.5 mm Constipation Hypertension Hyperlipidemia Diabetes Mellitus type 2 uncontrolled hemoglobin A1C of 10 Chronic and ongoing nicotine use GI prophylaxis DVT prophylaxis Full code Discharge disposition Patient is being discharged in a stable condition with guarded prognosis to home with home care. Patient will follow-up with Dr. Chang in the outpatient setting upon discharge. Patient is to continue with IV cefazolin every 8 hours for the next 10 days and close outpatient follow-up with infectious disease along with urology and primary care provider as scheduled. Total time taken is greater than 35 minutes. Hospital course This is a 52-year-old male who was recently admitted with left gluteal and perineal abscess initially underwent incision and drainage with not much removed although continue to have elevated white count with some fevers and urology reevaluated and underwent I&D with abscess drainage again on 512 with cultures growing staph aureus with sensitivities. Patient had been maintained on a number of IV antibiotics with ID following closely and cultures finalized and infectious disease recommending IV cefazolin for the next 10 days. Patient did receive a PICC line and will be going home with home care as patient needs continued packing of this area. Recommend follow-up with infectious disease and urology outpatient. Blood sugars have been elevated and hemoglobin A1c above 10 will be restarted on long-acting insulin and discussed with patient to monitor Accu-Cheks before meals and at bedtime and keep a diary of all readings follow- up with primary care provider this week. Patient has been cleared by consultations for discharge. Please refer to consultation notes for further HPI. Currently no reports of chest pain, shortness of breath, or palpitations. Patient is afebrile. No reports of nausea or vomiting and patient is tolerating diet. Patient will be discharged home today. Physical exam: Gen: This is a 52-year-old male who is awake, alert and oriented 3, well- developed, well-nourished HEENT: Head is atraumatic, normocephalic. Pupils equal, round. Sclerae is anicteric. NECK: Supple. No JVD. No lymphadenopathy. No thyromegaly. LUNGS: Clear to auscultation. No wheezes or rhonchi. No intercostal retractions. HEART: Regular rate and rhythm. No murmur. ABDOMEN: Soft. Bowel sounds are present. No masses. No tenderness. EXTREMITIES: No pedal edema. No calf tenderness. NEUROLOGICAL: Patient is awake, alert and oriented x3. Cranial nerves 2 through 12 are grossly intact. Please refer to medication reconciliation sheet for a list of medications. The impression and plan of care has been dictated by Tiffanie Archer, Nurse Practitioner as directed. Dr. Emily MD I have performed a history and examination and MDM of this patient, discussed the same with the dictator, and agree with the dictator's assessment and plan as written ,documented as a scribe. Based on total visit time, I have performed more than 50% of the visit. Patient Condition at Discharge: Stable Plan - Discharge Summary Discharge Rx Participant: Yes New Discharge Prescriptions: New Docusate [Colace] 100 mg PO BID #60 cap ceFAZolin [Kefzol] 2 gm IVP Q8HR 10 Days #30 each HYDROcodone/APAP 5-325MG [[place] 5-325] 1 each PO Q6HR PRN #12 tab PRN Reason: Moderate Pain (Scale 4 To 6) Acetaminophen Tab [Tylenol] 650 mg PO Q6HR PRN tab PRN Reason: Fever And/ Or Pain Losartan [Cozaar] 50 mg PO DAILY #30 tab Tamsulosin [Flomax] 0.4 mg PO PC-BRKFST #30 cap Nicotine 21Mg/24Hr Patch [Habitrol] 1 patch TRANSDERM DAILY #30 patch Insulin Detemir (Levemir) [Levemir] 15 unit SQ HS #5 each Famotidine [Pepcid] 20 mg PO BID #60 tab Discontinued Doxycycline [Vibramycin] 100 mg PO BID 10 Days #20 capsule Discharge Medication List Acetaminophen Tab [Tylenol] 650 mg PO Q6HR PRN tab 02/01/23 [Rx] Docusate [Colace] 100 mg PO BID #60 cap 02/01/23 [Rx] Famotidine [Pepcid] 20 mg PO BID #60 tab 02/01/23 [Rx] HYDROcodone/APAP 5-325MG [[place] 5-325] 1 each PO Q6HR PRN #12 tab 02/01/23 [Rx] Insulin Detemir (Levemir) [Levemir] 15 unit SQ HS #5 each 02/01/23 [Rx] Losartan [Cozaar] 50 mg PO DAILY #30 tab 02/01/23 [Rx] Nicotine 21Mg/24Hr Patch [Habitrol] 1 patch TRANSDERM DAILY #30 patch 02/01/23 [Rx] Tamsulosin [Flomax] 0.4 mg PO PC-BRKFST #30 cap 02/01/23 [Rx] ceFAZolin [Kefzol] 2 gm IVP Q8HR 10 Days #30 each 02/01/23 [Rx] Follow up Appointment(s)/Referral(s): Lyubov Chang MD [Primary Care Provider] - 02/06/23 9:30 am [facility] [NON-STAFF] - 1 Week [facility] [NON-STAFF] - 1 Week [facility], [REFERRING] - 1 Week Jaison Almeida MD [STAFF PHYSICIAN] - 02/21/23 2:00 pm Activity/Diet/Wound Care/Special Instructions: pt has a glucometer and supplies in [facility]. nurse, family, or pt to tile picker at time of d/c. [facility] will deliver your supplies between 8-9pm Follow-up with urology outpatient Follow-up infectious disease outpatient Follow-up primary care provider Continue taking medications as prescribed Continue to monitor your blood sugars and keep a diary of all readings Hold insulin if blood sugar is 100 or less Continue diabetic diet Discharge Disposition: HOME WITH HOME HEALTH SERVICES
== END 2023-02-01 16:47 | disposition home health service (06) | DRG 854 ==
LOC: EC 09:20 → 5NMEDONC 12:40
PROVIDERS: ADMIT Internal Medicine; ATTEND Internal Medicine
PROC: 0V9500Z Drainage of Scrotum with Drainage Device, Open Approach (ICD-10-PCS; 2023-01-20)
PROC: 0V973ZZ Drainage of Left Tunica Vaginalis, Percutaneous Approach (ICD-10-PCS; principal; 2023-01-27 14:15)
PROC: 0H99XZZ Drainage of Perineum Skin, External Approach (ICD-10-PCS; principal; 2023-01-27 14:15)
PROC: 0VJ80ZZ Inspection of Scrotum and Tunica Vaginalis, Open Approach (ICD-10-PCS; principal; 2023-01-27 14:15)
PROC: 02HV33Z Insertion of Infusion Device into Superior Vena Cava, Percutaneous Approach (ICD-10-PCS; 2023-01-31)
DX: A41.9 Sepsis, unspecified organism (principal); J98.11 Atelectasis; L02.215 Cutaneous abscess of perineum; L02.31 Cutaneous abscess of buttock; L03.116 Cellulitis of left lower limb; L03.315 Cellulitis of perineum; L03.317 Cellulitis of buttock; E11.65 Type 2 diabetes mellitus with hyperglycemia; E78.5 Hyperlipidemia, unspecified; F17.210 Nicotine dependence, cigarettes, uncomplicated; Z71.6 Tobacco abuse counseling; F32.A Depression, unspecified; I10 Essential (primary) hypertension; K21.9 Gastro-esophageal reflux disease without esophagitis; K59.00 Constipation, unspecified; M79.7 Fibromyalgia; N40.1 Benign prostatic hyperplasia with lower urinary tract symptoms; N43.3 Hydrocele, unspecified; N49.2 Inflammatory disorders of scrotum; R33.8 Other retention of urine; Z79.2 Long term (current) use of antibiotics; Z79.4 Long term (current) use of insulin; Z82.49 Family history of ischemic heart disease and other diseases of the circulatory system
CPT/HCPCS: 36415; 36573; 71045; 72193; 76770; 80048; 80053; 80202; 81001; 81003; 82009; 82565; 83036; 83605; 83735; 83880; 85025; 85610; 85730; 86140; 87070; 87075; 87077; 87102; 87186; 87205

== ENCOUNTER 2023-02-06 03:52 | Observation (INO) | payer BC ==
[2023-02-06 04:58] LABS: Basophils % (A) 0 %; Eosinophils # (A) 0.4 k/uL (0-0.7); Eosinophils % (A) 3 %; HCT 41.1 % (39.0-53.0); HGB 13.5 gm/dL (13.0-17.5); Lymphocytes # (A) 1.4 k/uL (1.0-4.8); Lymphocytes % (A) 10 %; MCHC 32.8 g/dL (31.0-37.0); MCV 91.4 fL (80.0-100.0); Mean Platelet Volume 6.5; Monocytes % (A) 8 %; Neutrophils # (A) 10.7 k/uL (1.3-7.7); Neutrophils % (A) 78 %; Platelet Count 413 k/uL (150-450); RBC 4.49 m/uL (4.30-5.90); RDW 13.1 % (11.5-15.5); WBC 13.7 k/uL (3.8-10.6)
[2023-02-06] MEDS ORDERED: MORPHINE SULFATE 4 MG/ML SYRINGE IVP STA (05:06)
[2023-02-06 05:18] LABS: ALT 26 U/L (4-49); AST 22 U/L (17-59); African American GFR (CKD) >90 (>60 ml/min/1.73 sqM); Albumin 4.3 g/dL (3.5-5.0); Alkaline Phosphatase 254 U/L (38-126); Anion Gap 9 mmol/L; Blood Urea Nitrogen 10 mg/dL (9-20); Calcium 9.6 mg/dL (8.4-10.2); Carbon Dioxide 33 mmol/L (22-30); Chloride 99 mmol/L (98-107); Glucose 206 mg/dL (74-99); Non-African American GFR(CKD) >90 (>60 ml/min/1.73 sqM); Potassium 4.2 mmol/L (3.5-5.1); Sodium 141 mmol/L (137-145); Total Bilirubin 0.7 mg/dL (0.2-1.3); Total Protein 8.8 g/dL (6.3-8.2)
[2023-02-06] MEDS ORDERED: ONDANSETRON 4 MG/2 ML VIAL IVP STA (05:35)
--- NOTE | 2023-02-06 06:09 | ED ---
Male Urogenital HPI - General Chief complaint: Urogenital Stated complaint: Post-Op complications Source: patient Mode of arrival: ambulatory Limitations: no limitations - History of Present Illness Initial comments: 52-year-old male with past history of diabetes who presents emergency department reporting increasing testicular pain, swelling and an open area on his scrotum. Patient was recently hospitalized and had 2 surgical procedures by urology. He had incision and drainage 2 for a scrotal abscess. Reports that he had 2 incisions near his peritoneum which have been healing appropriately. He has had no drainage. He is on IV Ancef 3 times daily and has a midline in his left arm. He has been infusing his antibiotics as directed. This evening he noted that he had a new open area to his left scrotum. Denies any trauma or heavy lifting. He has been getting drainage from the site. Admits to some fevers. No other alleviating, precipitating or modifying factors - Related Data Home Medications Medication Instructions Recorded Confirmed HYDROcodone/APAP 5-325MG [[place] 1 tab PO Q6HR PRN 02/06/23 02/06/23 5-325] ceFAZolin [Kefzol] 2 gm IV Q8HR 02/06/23 02/06/23 Previous Rx's Medication Instructions Recorded Acetaminophen Tab [Tylenol] 650 mg PO Q6HR PRN tab 02/01/23 Docusate [Colace] 100 mg PO BID #60 cap 02/01/23 Famotidine [Pepcid] 20 mg PO BID #60 tab 02/01/23 Insulin Detemir (Levemir) [Levemir] 15 unit SQ HS #5 each 02/01/23 Losartan [Cozaar] 50 mg PO DAILY #30 tab 02/01/23 Nicotine 21Mg/24Hr Patch [Habitrol] 1 patch TRANSDERM DAILY #30 patch 02/01/23 Tamsulosin [Flomax] 0.4 mg PO PC-BRKFST #30 cap 02/01/23 Allergies Allergy/AdvReac Type Severity Reaction Status Date / Time tomato Allergy Swelling Verified 02/06/23 09:21 venom-honey bee Allergy Anaphylaxis Verified 02/06/23 09:21 [bee venom (honey bee)] Review of Systems ROS Statement: Those systems with pertinent positive or pertinent negative responses have been documented in the HPI. ROS Other: All systems not noted in ROS Statement are negative. Past Medical History Past Medical History: Diabetes Mellitus, Fibromyalgia, GERD/Reflux, Hype rlipidemia, Hypertension, Skin Disorder Additional Past Medical History / Comment(s): Hx of Traumatic Amp of RT Distal 4TH Finger, at AGE 11, w/ log splitter. PSORIASIS. UMB HERNIA -HAD SX History of Any Multi-Drug Resistant Organisms: None Reported Past Surgical History: Orthopedic Surgery Additional Past Surgical History / Comment(s): RT Ring Finger Tip Amp. 2 COLONOSCOPIES. I&D ABSCESS LT GROIN 04/2014. Past Anesthesia/Blood Transfusion Reactions: Postoperative Nausea & Vomiting (PONV) Additional Past Anesthesia/Blood Transfusion Reaction / Comment(s): PONV CHILD. Past Psychological History: Depression Smoking Status: Current every day smoker, Heavy tobacco smoker Past Alcohol Use History: Occasional Past Drug Use History: None Reported - Past Family History Father Family Medical History: Coronary Artery Disease (CAD) Additional Family Medical History / Comment(s): from "hardening of the arteries" Mother Family Medical History: No Reported History Additional Family Medical History / Comment(s): "healthy" General Exam Limitations: no limitations Course Vital Signs 02/06/23 02/06/23 02/06/23 03:57 04:40 04:50 Temperature 98.3 F Pulse Rate 95 70 71 Respiratory 16 16 16 Rate Blood Pressure 178/93 157/82 152/77 O2 Sat by Pulse 98 96 97 Oximetry 02/06/23 02/06/23 02/06/23 05:20 06:00 07:00 Temperature Pulse Rate 75 78 85 Respiratory 16 16 16 Rate Blood Pressure 159/89 149/81 168/90 O2 Sat by Pulse 94 L 93 L 94 L Oximetry 02/06/23 02/06/23 02/06/23 07:30 08:00 08:30 Temperature Pulse Rate 80 83 82 Respiratory 16 18 18 Rate Blood Pressure 147/83 O2 Sat by Pulse 93 L 93 L 93 L Oximetry 02/06/23 09:00 Temperature Pulse Rate 84 Respiratory 16 Rate Blood Pressure 167/96 O2 Sat by Pulse 96 Oximetry - Reevaluation(s) Reevaluation #1: Spoke with Dr. Chacon. Will evaluate patient in the a.m. 02/06/23 05:30 Medical Decision Making - Medical Decision Making Was pt. sent in by a medical professional or institution (Dr., PA, BEAUTY CULTURIST APPRENTICE, urgent care, hospital, or alf...) When possible be specific @ -[No] Did you speak to anyone other than the patient for history (EMS, parent, family, police, friend...)? What history was obtained from this source @ -[No] Did you review nursing and triage notes (agree or disagree)? Why? @ -[I reviewed and agree with nursing and triage notes] Were old charts reviewed (outside hosp., previous admission, EMS record, old EKG, old radiological studies, urgent care reports/EKG's, alf records)? Report findings @ -[No old charts were reviewed] Differential Diagnosis (chest pain, altered mental status, abdominal pain women, abdominal pain men, vaginal bleeding, weakness, fever, dyspnea, syncope, headache, dizziness, GI bleed, back pain, seizure, CVA, palpatations, mental health, musculoskeletal)? @ -[not applicable] EKG interpreted by me (3pts min.). @ -[As above] X-rays interpreted by me (1pt min.). @ -[None done] CT interpreted by me (1pt min.). @ -[None done] U/S interpreted by me (1pt. min.). @ -[None done] What testing was considered but not performed or refused? (CT, X-rays, U/S, labs)? Why? @ -[None] What meds were considered but not given or refused? Why? @ -[None] Did you discuss the management of the patient with other professionals (professionals i.e. HALIMA Ding, BEAUTY CULTURIST APPRENTICE, lab, RT, psych nurse, social economist, senior information security architect, teacher, department of natural resources officer, casey saw operator)? Give summary @ -[No] Was smoking cessation discussed for >3mins.? @ -[No] Was critical care preformed (if so, how long)? @ -[No] Were there social determinants of health that impacted care today? How? (Homelessness, low income, unemployed, alcoholism, drug addiction, transportation, low edu. Level, literacy, decrease access to med. care, senior care, rehab)? @ -[No] Was there de-escalation of care discussed even if they declined (Discuss DNR or withdrawal of care, Hospice)? DNR status @ -[No] What co-morbidities impacted this encounter? (DM, HTN, Smoking, COPD, CAD, Cancer, CVA, ARF, Chemo, Hep., AIDS, mental health diagnosis, sleep apnea, m orbid obesity)? @ -[None] Was patient admitted / discharged? Hospital course, mention meds given and route, prescriptions, significant lab abnormalities, going to OR and other pertinent info. @ -Upon arrival patient was placed into room 8. Thorough history and physical exam is performed. Patient does have new scrotal dehiscence. IV is established and laboratory studies were conducted. White blood cell count is 13.7 which is slightly increased from discharge. I did order the patient's Ancef and pain medication. Called and spoke with Dr. Hughes to ask if he would like any imaging studies performed. Dr. Hughes states that he will evaluate the patient in the AM. Patient will be admitted to medicine. Spoke with Polly from [facility] ho agreed to admit the patient Undiagnosed new problem with uncertain prognosis? @ -[No] Drug Therapy requiring intensive monitoring for toxicity (Heparin, Nitro, Insulin, Cardizem)? @ -[No] Were any procedures done? @ -[No] Diagnosis/symptom? @ -[default] Acute, or Chronic, or Acute on Chronic? @ -[default] Uncomplicated (without systemic symptoms) or Complicated (systemic symptoms)? @ -[default] Side effects of treatment? @ -[No] Exacerbation, Progression, or Severe Exacerbation? @ -[No] Poses a threat to life or bodily function? How? (Chest pain, [place], [place], pneumonia, PE, COPD, DKA, ARF, appy, cholecystitis, CVA, Diverticulitis, Homicidal, Suicidal, threat to staff... and all critical care pts) @ -[No] - Lab Data Result diagrams: 02/06/23 04:30 02/06/23 04:30 Lab Results 02/06/23 02/06/23 02/06/23 Range/Units 04:30 04:30 04:30 WBC 13.7 H (3.8-10.6) k/uL RBC 4.49 (4.30-5.90) m/uL Hgb 13.5 (13.0-17.5) gm/dL Hct 41.1 (39.0-53.0) % MCV 91.4 (80.0-100.0) fL MCH 30.0 (25.0-35.0) pg MCHC 32.8 (31.0-37.0) g/dL RDW 13.1 (11.5-15.5) % Plt Count 413 (150-450) k/uL MPV 6.5 Neutrophils % 78 % Lymphocytes % 10 % Monocytes % 8 % Eosinophils % 3 % Basophils % 0 % Neutrophils # 10.7 H (1.3-7.7) k/uL Lymphocytes # 1.4 (1.0-4.8) k/uL Monocytes # 1.0 (0-1.0) k/uL Eosinophils # 0.4 (0-0.7) k/uL Basophils # 0.0 (0-0.2) k/uL Sodium 141 (137-145) mmol/L Potassium 4.2 (3.5-5.1) mmol/L Chloride 99 (98-107) mmol/L Carbon Dioxide 33 H (22-30) mmol/L Anion Gap 9 mmol/L BUN 10 (9-20) mg/dL Creatinine 0.56 L (0.66-1.25) mg/dL Est GFR (CKD-EPI)AfAm >90 (>60 ml/min/1.73 sqM) Est GFR (CKD-EPI)NonAf >90 (>60 ml/min/1.73 sqM) Glucose 206 H (74-99) mg/dL Plasma Lactic Acid Travis 1.6 (0.7-2.0) mmol/L Calcium 9.6 (8.4-10.2) mg/dL Total Bilirubin 0.7 (0.2-1.3) mg/dL AST 22 (17-59) U/L ALT 26 (4-49) U/L Alkaline Phosphatase 254 H (38-126) U/L Total Protein 8.8 H (6.3-8.2) g/dL Albumin 4.3 (3.5-5.0) g/dL Disposition Clinical Impression: Scrotal abscess, Status post incision and drainage Disposition: ADMITTED IP TO THIS [facility] Condition: Stable Is patient prescribed a controlled substance at d/c from ED?: No Time of Disposition: 06:09 Decision to Admit Reason: Admit from EC Decision Date: 02/06/23 Decision Time: 06:09
[2023-02-06] MEDS ORDERED: NALOXONE 0.4 MG/ML 1 ML VIAL IV PRN (06:11)
[2023-02-06] MEDS: MORPHINE SULFATE 4 MG/ML SYRINGE IV PRN ×4 (09:10→23:33)
[2023-02-06] MEDS ORDERED: DEXTROSE 50% SYRINGE 50 ML IVP PRN ×2 (10:28)
[2023-02-06 12:27] LABS: Glucose,Whole Blood 173 mg/dL (70-110)
[2023-02-06] MEDS: INSULIN ASPART (NovoLOG) 100 UNIT/ML VIAL SQ SCH ×3 (12:58→21:00)
[2023-02-06] MEDS ORDERED: DOCUSATE 100 MG CAP PO PRN (14:45)
--- NOTE | 2023-02-06 14:47 | P.HPIM ---
History of Present Illness H&P Date: 02/06/23 History of present illness; patient is a 52-year-old gentleman with past medical history significant for insulin-dependent diabetes mellitus, hypertension, scrotal abscess who presented to the ER because of worsening scrotal pain. Patient was recently hospitalized and had 2 I&D's for scrotal abscesses performed by urology. Patient was on IV cefazolin. Patient had 2 incisions near his peritoneum which were healing. Patient noticed new wound on his scrotal area and was draining. It was associated with worsening scrotal pain. Patient denied any fever or chills. There was no complain of lethargy or weakness. Patient had a bit of chest pain or shortness of breath. Because his worsening scrotal pain patient came to the ER Initial lab work done in the ER showed white count 13.7, hemoglobin 13.5, platelet count 4.3, sodium 141, potassium 4.2, BUN 10, creatinine 0.56, Patient was admitted for further evaluation and treatment REVIEW OF SYSTEMS: CONSTITUTIONAL: No fever, no malaise, no fatigue. HEENT: No recent visual problems or hearing problems. Denied any sore throat. CARDIOVASCULAR: No chest pain, orthopnea, PND, no palpitations, no syncope. PULMONARY: No shortness of breath, no cough, no hemoptysis. GASTROINTESTINAL: No diarrhea, no nausea, no vomiting, no abdominal pain. NEUROLOGICAL: No headaches, no weakness, no numbness. HEMATOLOGICAL: Denies any bleeding or petechiae. GENITOURINARY: Denies any burning micturition, frequency, or urgency. MUSCULOSKELETAL/RHEUMATOLOGICAL: Denies any joint pain, swelling, or any muscle pain. ENDOCRINE: Denies any polyuria or polydipsia. The rest of the 14-point review of systems is negative. PHYSICAL EXAMINATION: GENERAL: The patient is alert and oriented x3, not in any acute distress. Well developed, well nourished. HEENT: Pupils are round and equally reacting to light. EOMI. No scleral icterus. No conjunctival pallor. Normocephalic, atraumatic. No pharyngeal erythema. No thyromegaly. CARDIOVASCULAR: S1 and S2 present. No murmurs, rubs, or gallops. PULMONARY: Chest is clear to auscultation, no wheezing or crackles. ABDOMEN: Soft, nontender, nondistended, normoactive bowel sounds. No palpable organomegaly. MUSCULOSKELETAL: No joint swelling or deformity. EXTREMITIES: No cyanosis, clubbing, or pedal edema. NEUROLOGICAL: Gross neurological examination did not reveal any focal deficits. SKIN: Scrotal wound seen, no erythema Assessment and plan Scrotal pain Scrotal wound History of Scrotal abscess Hypertension Diabetes mellitus Plan Monitor vital signs Monitor CBC Monitor CMP Continue wound care Continue IV cefazolin Consult urology Consult ID Resume home meds DVT prophylaxis: Past Medical History Past Medical History: Diabetes Mellitus, Fibromyalgia, GERD/Reflux, Hyperlipidemia, Hypertension, Skin Disorder Additional Past Medical History / Comment(s): Hx of Traumatic Amp of RT Distal 4TH Finger, at AGE 11, w/ log splitter. PSORIASIS. UMB HERNIA -HAD SX History of Any Multi-Drug Resistant Organisms: None Reported Past Surgical History: Orthopedic Surgery Additional Past Surgical History / Comment(s): RT Ring Finger Tip Amp. 2 COLONOSCOPIES. I&D ABSCESS LT GROIN 04/2014. Past Anesthesia/Blood Transfusion Reactions: Postoperative Nausea & Vomiting (PONV) Additional Past Anesthesia/Blood Transfusion Reaction / Comment(s): PONV CHILD. Past Psychological History: Depression Smoking Status: Current every day smoker, Heavy tobacco smoker Past Alcohol Use History: Occasional Past Drug Use History: None Reported - Past Family History Father Family Medical History: Coronary Artery Disease (CAD) Additional Family Medical History / Comment(s): from "hardening of the art eries" Mother Family Medical History: No Reported History Additional Family Medical History / Comment(s): "healthy" Medications and Allergies Home Medications Medication Instructions Recorded Confirmed Type Acetaminophen Tab [Tylenol] 650 mg PO Q6HR PRN tab 02/01/23 02/06/23 Rx Docusate [Colace] 100 mg PO BID #60 cap 02/01/23 02/06/23 Rx Famotidine [Pepcid] 20 mg PO BID #60 tab 02/01/23 02/06/23 Rx Insulin Detemir (Levemir) [Levemir] 15 unit SQ HS #5 each 02/01/23 02/06/23 Rx Losartan [Cozaar] 50 mg PO DAILY #30 tab 02/01/23 02/06/23 Rx Nicotine 21Mg/24Hr Patch [Habitrol] 1 patch TRANSDERM DAILY #30 patch 02/01/23 02/06/23 Rx Tamsulosin [Flomax] 0.4 mg PO PC-BRKFST #30 cap 02/01/23 02/06/23 Rx HYDROcodone/APAP 5-325MG [Export 1 tab PO Q6HR PRN 02/06/23 02/06/23 History 5-325] ceFAZolin [Kefzol] 2 gm IV Q8HR 02/06/23 02/06/23 History Allergies Allergy/AdvReac Type Severity Reaction Status Date / Time tomato Allergy Swelling Verified 02/06/23 09:21 venom-honey bee Allergy Anaphylaxis Verified 02/06/23 09:21 [bee venom (honey bee)] Physical Exam Vitals: Vital Signs Temp Pulse Resp BP Pulse Ox 02/06/23 09:00 84 16 167/96 96 02/06/23 08:30 82 18 93 L 02/06/23 08:00 83 18 147/83 93 L 02/06/23 07:30 80 16 93 L 02/06/23 07:00 85 16 168/90 94 L 02/06/23 06:00 78 16 149/81 93 L 02/06/23 05:20 75 16 159/89 94 L 02/06/23 04:50 71 16 152/77 97 02/06/23 04:40 70 16 157/82 96 02/06/23 03:57 98.3 F 95 16 178/93 98 Intake and Output 02/05/23 02/06/23 02/06/23 22:59 06:59 14:59 Other: Weight 111.13 kg Results CBC & Chem 7: 02/06/23 04:30 02/06/23 04:30 Labs: Abnormal Lab Results - Last 24 Hours (Table) 02/06/23 02/06/23 Range/Units 04:30 04:30 WBC 13.7 H (3.8-10.6) k/uL Neutrophils # 10.7 H (1.3-7.7) k/uL Carbon Dioxide 33 H (22-30) mmol/L Creatinine 0.56 L (0.66-1.25) mg/dL Glucose 206 H (74-99) mg/dL Alkaline Phosphatase 254 H (38-126) U/L Total Protein 8.8 H (6.3-8.2) g/dL
[2023-02-06 17:41] LABS: Glucose,Whole Blood 152 mg/dL (70-110)
[2023-02-06 20:25] LABS: Glucose,Whole Blood 159 mg/dL (70-110)
[2023-02-06] MEDS: FAMOTIDINE 20 MG TAB PO SCH (21:00)
[2023-02-06] MEDS: INSULIN DETEMIR (LEVEMIR) 100 UNIT/ML SYR SQ SCH (21:00)
--- NOTE | 2023-02-06 21:38 | P.GSCN ---
History of Present Illness Consult date: 02/06/23 Reason for Consult: Left scrotal cellulitis History of present illness: This is 52 yo male with hx of left scortal cellulitis/complex left hydrocele. He underwent I&D on 01/20 and 01/27. he was slow to progress, he was in the hospital from 01/17-02/01. He indicated last night he noticed separation of the incision along the left hemiscrotum and was concerned that the testicle was protruding through. Denies any fever/chills. indicates that the swelling and induration along the hemiscrotum has been improving. denies noticing any draining following the skin separation Review of Systems - Constitutional Reports as per HPI - EENT Ears, nose, mouth and throat: Denies dysphagia - Cardiovascular Denies chest pain, Denies shortness of breath - Respiratory Denies cough, Denies 7 - Gastrointestinal Reports as per HPI - Integumentary Denies rash, Denies unusual bruising - Neurological Denies headaches, Denies syncope Past Medical History Past Medical History: Diabetes Mellitus, Fibromyalgia, GERD/Reflux, Hyperlipidemia, Hypertension, Skin Disorder Additional Past Medical History / Comment(s): Hx of Traumatic Amp of RT Distal 4TH Finger, at AGE 11, w/ log splitter. PSORIASIS. UMB HERNIA -HAD SX History of Any Multi-Drug Resistant Organisms: None Reported Past Surgical History: Orthopedic Surgery Additional Past Surgical History / Comment(s): RT Ring Finger Tip Amp. 2 COLONOSCOPIES. I&D ABSCESS LT GROIN 04/2014. Past Anesthesia/Blood Transfusion Reactions: Postoperative Nausea & Vomiting (PONV) Additional Past Anesthesia/Blood Transfusion Reaction / Comm: PONV CHILD. Past Psychological History: Depression Smoking Status: Current every day smoker, Heavy tobacco smoker Past Alcohol Use History: Occasional Past Drug Use History: None Reported - Past Family History Father Family Medical History: Coronary Artery Disease (CAD) Additional Family Medical History / Comment(s): from "hardening of the arteries" Mother Family Medical History: No Reported History Additional Family Medical History / Comment(s): "healthy" Medications and Allergies Home Medications Medication Instructions Recorded Confirmed Type Acetaminophen Tab [Tylenol] 650 mg PO Q6HR PRN tab 02/01/23 02/06/23 Rx Docusate [Colace] 100 mg PO BID #60 cap 02/01/23 02/06/23 Rx Famotidine [Pepcid] 20 mg PO BID #60 tab 02/01/23 02/06/23 Rx Insulin Detemir (Levemir) [Levemir] 15 unit SQ HS #5 each 02/01/23 02/06/23 Rx Losartan [Cozaar] 50 mg PO DAILY #30 tab 02/01/23 02/06/23 Rx Nicotine 21Mg/24Hr Patch [Habitrol] 1 patch TRANSDERM DAILY #30 patch 02/01/23 02/06/23 Rx Tamsulosin [Flomax] 0.4 mg PO PC-BRKFST #30 cap 02/01/23 02/06/23 Rx HYDROcodone/APAP 5-325MG [[place] 1 tab PO Q6HR PRN 02/06/23 02/06/23 History 5-325] ceFAZolin [Kefzol] 2 gm IV Q8HR 02/06/23 02/06/23 History Allergies Allergy/AdvReac Type Severity Reaction Status Date / Time tomato Allergy Swelling Verified 02/06/23 09:21 venom-honey bee Allergy Anaphylaxis Verified 02/06/23 09:21 [bee venom (honey bee)] Surgical - Exam Vital Signs Temp Pulse Resp BP Pulse Ox 98.3 F 95 16 178/93 98 02/06/23 03:57 02/06/23 03:57 02/06/23 03:57 02/06/23 03:57 02/06/23 03:57 - General no distress, no pain - Eyes normal ocular movement, no pale - ENT normal nares, normal mucosa - Respiratory normal expansion, normal respiratory effort - Abdomen Abdomen: soft, non tender, no distended - Genitourinary left hemiscrotum skin separation, surrounding cellulitis no fluctance or induration appreciated. The dartos fascia is intact Results - Labs 02/06/23 04:30 02/06/23 04:30 Abnormal Lab Results - Last 24 Hours (Table) 02/06/23 02/06/23 02/06/23 Range/Units 04:30 04:30 12:25 WBC 13.7 H (3.8-10.6) k/uL Neutrophils # 10.7 H (1.3-7.7) k/uL Carbon Dioxide 33 H (22-30) mmol/L Creatinine 0.56 L (0.66-1.25) mg/dL Glucose 206 H (74-99) mg/dL POC Glucose (mg/dL) 173 H (70-110) mg/dL Alkaline Phosphatase 254 H (38-126) U/L Total Protein 8.8 H (6.3-8.2) g/dL Diabetes panel 02/06/23 Range/Units 04:30 Sodium 141 (137-145) mmol/L Potassium 4.2 (3.5-5.1) mmol/L Chloride 99 (98-107) mmol/L Carbon Dioxide 33 H (22-30) mmol/L BUN 10 (9-20) mg/dL Creatinine 0.56 L (0.66-1.25) mg/dL Glucose 206 H (74-99) mg/dL Calcium 9.6 (8.4-10.2) mg/dL AST 22 (17-59) U/L ALT 26 (4-49) U/L Alkaline Phosphatase 254 H (38-126) U/L Total Protein 8.8 H (6.3-8.2) g/dL Albumin 4.3 (3.5-5.0) g/dL Calcium panel 02/06/23 Range/Units 04:30 Calcium 9.6 (8.4-10.2) mg/dL Albumin 4.3 (3.5-5.0) g/dL Pituitary panel 02/06/23 Range/Units 04:30 Sodium 141 (137-145) mmol/L Potassium 4.2 (3.5-5.1) mmol/L Chloride 99 (98-107) mmol/L Carbon Dioxide 33 H (22-30) mmol/L BUN 10 (9-20) mg/dL Creatinine 0.56 L (0.66-1.25) mg/dL Glucose 206 H (74-99) mg/dL Calcium 9.6 (8.4-10.2) mg/dL Adrenal panel 02/06/23 Range/Units 04:30 Sodium 141 (137-145) mmol/L Potassium 4.2 (3.5-5.1) mmol/L Chloride 99 (98-107) mmol/L Carbon Dioxide 33 H (22-30) mmol/L BUN 10 (9-20) mg/dL Creatinine 0.56 L (0.66-1.25) mg/dL Glucose 206 H (74-99) mg/dL Calcium 9.6 (8.4-10.2) mg/dL Total Bilirubin 0.7 (0.2-1.3) mg/dL AST 22 (17-59) U/L ALT 26 (4-49) U/L Alkaline Phosphatase 254 H (38-126) U/L Total Protein 8.8 H (6.3-8.2) g/dL Albumin 4.3 (3.5-5.0) g/dL Assessment and Plan Assessment: 52 yo male with hx of left scortal cellulitis/abscess underwent I&D on 01/20 and 01/27 presents to the hospital with scrotal skin dehiscence along the left anterior scrotum. The dartos is intact, testicle still within the scrotal cavity. no evidence of drainable abscess on exam -Continue local wound care -Continue IV abx -will reassess tomorrow
--- NOTE | 2023-02-06 22:36 | P.CONS ---
History of Present Illness - Reason for Consult Consult date: 02/06/23 Scrotal abscess Requesting physician: Braden Ocampo - Chief Complaint Left scrotal wound opened and more drainage x 1 day - History of Present Illness Patient is a 52-year-old male with a past medical his significant for diabetes mellitus with recent admission to the hospital with a left scrotal abscess in this patient who is status post surgical drainage x2 on the second time culture did grew MSSA patient was subsequently discharged home on IV cefazolin 2 g every 8 hours the patient is currently receiving at home, patient now presenting to the hospital concerning for slight enlargement of the wound and concern for possible testicle protruding fluid that concern him and the patient present to the hospital patient denies having any fever or any chills has been complaining of pain to the scrotal area to be more of a dull aching to sharp 5-6 out of 10 no radiation denies any worsening drainage or presentation to the hospital the patient was afebrile patient did have a white count of 13.7 with a left shift kidney function has been normal liver enzymes are normal patient received a dose of cefazolin in the ER infectious was consulted for further management of antibiotic therapy Review of Systems Positive point and negatives has been mentioned in the HPI, complete review of systems was performed and all other systems are negative Past Medical History Past Medical History: Diabetes Mellitus, Fibromyalgia, GERD/Reflux, Hyperlipidemia, Hypertension, Skin Disorder Additional Past Medical History / Comment(s): Hx of Traumatic Amp of RT Distal 4TH Finger, at AGE 11, w/ log splitter. PSORIASIS. UMB HERNIA -HAD SX History of Any Multi-Drug Resistant Organisms: None Reported Past Surgical History: Orthopedic Surgery Additional Past Surgical History / Comment(s): RT Ring Finger Tip Amp. 2 COLONOSCOPIES. I&D ABSCESS LT GROIN 04/2014. Past Anesthesia/Blood Transfusion Reactions: Postoperative Nausea & Vomiting (PONV) Additional Past Anesthesia/Blood Transfusion Reaction / Comm: PONV CHILD. Past Psychological History: Depression Smoking Status: Current every day smoker, Heavy tobacco smoker Past Alcohol Use History: Occasional Past Drug Use History: None Reported - Past Family History Father Family Medical History: Coronary Artery Disease (CAD) Additional Family Medical History / Comment(s): from "hardening of the arteries" Mother Family Medical History: No Reported History Additional Family Medical History / Comment(s): "healthy" Medications and Allergies Home Medications Medication Instructions Recorded Confirmed Type Acetaminophen Tab [Tylenol] 650 mg PO Q6HR PRN tab 02/01/23 02/06/23 Rx Docusate [Colace] 100 mg PO BID #60 cap 02/01/23 02/06/23 Rx Famotidine [Pepcid] 20 mg PO BID #60 tab 02/01/23 02/06/23 Rx Insulin Detemir (Levemir) [Levemir] 15 unit SQ HS #5 each 02/01/23 02/06/23 Rx Losartan [Cozaar] 50 mg PO DAILY #30 tab 02/01/23 02/06/23 Rx Nicotine 21Mg/24Hr Patch [Habitrol] 1 patch TRANSDERM DAILY #30 patch 02/01/23 02/06/23 Rx Tamsulosin [Flomax] 0.4 mg PO PC-BRKFST #30 cap 02/01/23 02/06/23 Rx HYDROcodone/APAP 5-325MG [[place] 1 tab PO Q6HR PRN 02/06/23 02/06/23 History 5-325] ceFAZolin [Kefzol] 2 gm IV Q8HR 02/06/23 02/06/23 History Allergies Allergy/AdvReac Type Severity Reaction Status Date / Time tomato Allergy Swelling Verified 02/06/23 09:21 venom-honey bee Allergy Anaphylaxis Verified 02/06/23 09:21 [bee venom (honey bee)] Physical Exam Vitals: Vital Signs Temp Pulse Resp BP Pulse Ox 02/06/23 09:00 84 16 167/96 96 02/06/23 08:30 82 18 93 L 02/06/23 08:00 83 18 147/83 93 L 02/06/23 07:30 80 16 93 L 02/06/23 07:00 85 16 168/90 94 L 02/06/23 06:00 78 16 149/81 93 L 02/06/23 05:20 75 16 159/89 94 L 02/06/23 04:50 71 16 152/77 97 02/06/23 04:40 70 16 157/82 96 02/06/23 03:57 98.3 F 95 16 178/93 98 Intake and Output 02/05/23 02/06/23 02/06/23 22:59 06:59 14:59 Other: Weight 111.13 kg GENERAL DESCRIPTION: Middle-aged male lying in bed, no distress. No tachypnea or accessory muscle of respiration use. HEENT: Shows Pallor , no scleral icterus. Oral mucous membrane is dry. NECK: Trachea central, no thyromegaly. LUNGS: Unlabored breathing. Clear to auscultation anteriorly. No wheeze or crackle. HEART: S1, S2, regular rate and rhythm. ABDOMEN: Soft, no tenderness EXTREMITIES: No edema of feet. : Left scrotal did have an open wound with minimal slough use some surrounding swelling redness no foul-smelling drainage SKIN: No rash, no masses palpable. NEUROLOGICAL: The patient is awake, alert, oriented x3, mood and affect normal. Results CBC & Chem 7: 02/07/23 05:35 02/07/23 05:35 Labs: Abnormal Lab Results - Last 24 Hours (Table) 02/06/23 02/06/23 Range/Units 04:30 04:30 WBC 13.7 H (3.8-10.6) k/uL Neutrophils # 10.7 H (1.3-7.7) k/uL Carbon Dioxide 33 H (22-30) mmol/L Creatinine 0.56 L (0.66-1.25) mg/dL Glucose 206 H (74-99) mg/dL Alkaline Phosphatase 254 H (38-126) U/L Total Protein 8.8 H (6.3-8.2) g/dL Assessment and Plan (1) Cellulitis of scrotum Status: Acute Code(s): N49.2 - INFLAMMATORY DISORDERS OF SCROTUM SNOMED Code(s): 13988842 Plan: 1patient with a recent admission to the hospital with left scrotal abscess in this patient status post surgical drainage x2 culture positive for MSSA anaerobe culture were negative patient was advised IV cefazolin with the patient was receiving at home now presenting to the hospital with wound splitting open maris ent on presentation to the hospital was afebrile did have elevated white count noticed to have some erythema however the patient has been electing for palpation of his scrotum limiting the examination await urology evaluation, clinically not behaving as a residual abscess 2-we will continue patient on cefazolin 2 g every 8 hours 3-continue local wound care as ordered We will follow on clinical condition and cultures to further adjust medication if needed Thank you for this consultation we will follow the patient along with you Time with Patient: Greater than 30
[2023-02-07] MEDS: MORPHINE SULFATE 4 MG/ML SYRINGE IV PRN ×4 (03:13→20:50)
[2023-02-07] MEDS: HYDROcodone/APAP 5-325MG 1 EACH TAB PO PRN ×2 (06:03→18:46)
[2023-02-07 07:08] LABS: Glucose,Whole Blood 137 mg/dL (70-110)
[2023-02-07] MEDS: INSULIN ASPART (NovoLOG) 100 UNIT/ML VIAL SQ SCH ×4 (07:27→20:50)
[2023-02-07] MEDS: FAMOTIDINE 20 MG TAB PO SCH ×2 (08:09→20:50)
[2023-02-07] MEDS: LOSARTAN 50 MG TAB PO SCH (08:09)
[2023-02-07] MEDS: NICOTINE 21MG/24HR PATCH TRANSDERM SCH (08:09)
[2023-02-07] MEDS: TAMSULOSIN 0.4 MG CAP.ER.24H PO SCH (08:09)
[2023-02-07 08:46] LABS: Basophils # (A) 0.05 X 10*3/uL (0.00-0.10); Basophils % (A) 0.5 %; Eosinophils # (A) 0.56 X 10*3/uL (0.04-0.35); Eosinophils % (A) 5.4 %; HCT 42.8 % (39.6-50.0); HGB 13.5 g/dL (13.0-17.0); Immature Grans, Automated 0.8 %; Lymphocytes # (A) 1.47 X 10*3/uL (0.90-5.00); Lymphocytes % (A) 14.1 %; MCH 29.3 pg (27.0-32.0); MCHC 31.5 g/dL (32.0-37.0); MCV 92.8 fL (80.0-97.0); Mean Platelet Volume 9.1 fL (9.5-12.2); Monocytes % (A) 10.5 %; NRBC Per 100 WBC 0 /100 WBCS (0.0-0.0); Neutrophils # (A) 7.19 X 10*3/uL (1.80-7.70); Neutrophils % (A) 68.7 %; Platelet Count 390 X 10*3/uL (140-440); RBC 4.61 X 10*6/uL (4.40-5.60); WBC 10.45 X 10*3/uL (4.50-10.00)
[2023-02-07 08:51] LABS: African American GFR (CKD) 124.9 (60.0-200.0); Anion Gap 11.9 mmol/L (10.00-18.00); BUN/Creat Ratio 11.14 Ratio (12.00-20.00); Blood Urea Nitrogen 7.8 mg/dL (9.0-27.0); Calcium 9.5 mg/dL (8.7-10.3); Carbon Dioxide 26.1 mmol/L (20.0-27.5); Non-African American GFR(CKD) 107.7 (60.0-200.0); Potassium 4.9 mmol/L (3.5-5.5)
[2023-02-07] MEDS ORDERED: polyethylene glycoL 3350 17 GM POWD.PACK PO SCH (09:00)
--- NOTE | 2023-02-07 10:15 | P.PN ---
Subjective Progress Note Date: 02/07/23 No acute overnight events, erythema improved this morning. WBC is trending down to 10.45 Objective - Vital Signs Vital signs: Vital Signs Temp 97.9 F 02/07/23 08:02 Pulse 105 H 02/07/23 08:02 Resp 16 02/07/23 08:02 BP 160/94 02/07/23 08:02 Pulse Ox 94 L 02/07/23 08:02 FiO2 Intake & Output 02/06/23 02/07/23 02/07/23 18:59 06:59 18:59 Intake Total 236 180 Balance 236 180 Weight 111.13 kg Intake: Oral 236 180 Other: Voiding Method Toilet Toilet # Voids 1 2 # Bowel Movements 1 - Constitutional General appearance: Present: no acute distress - Gastrointestinal General gastrointestinal: Present: soft. Absent: distended, tenderness - Genitourinary Genitourinary Comment(s): Erythema along the left anterior scrotal wound, improved compared to yesterday. dartos intact - Psychiatric Psychiatric: Present: A&O x's 3 - Labs CBC & Chem 7: 02/07/23 05:35 02/07/23 05:35 Labs: Abnormal Lab Results - Last 24 Hours (Table) 02/06/23 02/06/23 02/06/23 Range/Units 12:25 17:40 20:24 WBC (4.50-10.00) X 10*3/uL MCHC (32.0-37.0) g/dL MPV (9.5-12.2) fL Immature Gran # (0.00-0.04) X 10*3/uL Monocytes # (0.20-1.00) X 10*3/uL Eosinophils # (0.04-0.35) X 10*3/uL BUN (9.0-27.0) mg/dL BUN/Creatinine Ratio (12.00-20.00) Ratio Glucose (70-110) mg/dL POC Glucose (mg/dL) 173 H 152 H 159 H (70-110) mg/dL 02/07/23 02/07/23 02/07/23 Range/Units 05:35 05:35 07:07 WBC 10.45 H (4.50-10.00) X 10*3/uL MCHC 31.5 L (32.0-37.0) g/dL MPV 9.1 L (9.5-12.2) fL Immature Gran # 0.08 H (0.00-0.04) X 10*3/uL Monocytes # 1.10 H (0.20-1.00) X 10*3/uL Eosinophils # 0.56 H (0.04-0.35) X 10*3/uL BUN 7.8 L (9.0-27.0) mg/dL BUN/Creatinine Ratio 11.14 L (12.00-20.00) Ratio Glucose 129 H (70-110) mg/dL POC Glucose (mg/dL) 137 H (70-110) mg/dL Assessment and Plan Assessment: 52 yo male with hx of left scortal cellulitis/abscess underwent I&D on 01/20 and presents to the hospital with scrotal skin dehiscence along the left anterior scrotum. The dartos is intact, testicle still within the scrotal cavity. no evidence of drainable abscess on exam, examined. Today, white count is trending down -Continue local wound care -He is okay for discharge from urology standpoint, can follow-up as an outpatient in 1-2 weeks
--- NOTE | 2023-02-07 12:13 | P.PN ---
Subjective Progress Note Date: 02/07/23 Principal diagnosis: Left scrotal abscess and cellulitis Patient is a 52-year-old male with a past medical his significant for diabetes mellitus with recent admission to the hospital with a left scrotal abscess in this patient who is status post surgical drainage x2 on the second time culture did grew MSSA patient patient presented to the hospital concerning for spreading opening of his left lateral scrotal wound, also complaining of increasing erythema and swelling. Patient evaluated by urology recommending no surgical intervention On today's evaluation that is 02/05/2020, the patient denies having any fever or any chills, the patient is breathing comfortably on room air patient denies having any chest pain shortness of breath or cough left scrotal swelling and pain has decreased no nausea no vomiting and no diarrhea Objective - Vital Signs Vital signs: Vital Signs Temp 97.9 F 02/07/23 08:02 Pulse 105 H 02/07/23 08:02 Resp 16 02/07/23 08:02 BP 160/94 02/07/23 08:02 Pulse Ox 94 L 02/07/23 08:02 FiO2 Intake & Output 02/06/23 02/07/23 02/07/23 18:59 06:59 18:59 Intake Total 236 180 Balance 236 180 Weight 111.13 kg Intake: Oral 236 180 Other: Voiding Method Toilet Toilet # Voids 1 2 # Bowel Movements 1 - Exam GENERAL DESCRIPTION: Middle-age male lying in bed in no distress RESPIRATORY SYSTEM: Unlabored breathing , decreased breath sounds at bases HEART: S1 S2 regular rate and rhythm , ABDOMEN: Soft , no tenderness : Left scrotal swelling and redness has slightly decreased drainage EXTREMITIES: No edema feet - Labs CBC & Chem 7: 02/07/23 05:35 02/07/23 05:35 Labs: Abnormal Lab Results - Last 24 Hours (Table) 02/06/23 02/06/23 02/06/23 Range/Units 12:25 17:40 20:24 WBC (4.50-10.00) X 10*3/uL MCHC (32.0-37.0) g/dL MPV (9.5-12.2) fL Immature Gran # (0.00-0.04) X 10*3/uL Monocytes # (0.20-1.00) X 10*3/uL Eosinophils # (0.04-0.35) X 10*3/uL BUN (9.0-27.0) mg/dL BUN/Creatinine Ratio (12.00-20.00) Ratio Glucose (70-110) mg/dL POC Glucose (mg/dL) 173 H 152 H 159 H (70-110) mg/dL 02/07/23 02/07/23 02/07/23 Range/Units 05:35 05:35 07:07 WBC 10.45 H (4.50-10.00) X 10*3/uL MCHC 31.5 L (32.0-37.0) g/dL MPV 9.1 L (9.5-12.2) fL Immature Gran # 0.08 H (0.00-0.04) X 10*3/uL Monocytes # 1.10 H (0.20-1.00) X 10*3/uL Eosinophils # 0.56 H (0.04-0.35) X 10*3/uL BUN 7.8 L (9.0-27.0) mg/dL BUN/Creatinine Ratio 11.14 L (12.00-20.00) Ratio Glucose 129 H (70-110) mg/dL POC Glucose (mg/dL) 137 H (70-110) mg/dL Assessment and Plan (1) Open wound of scrotum Current Visit: Yes Status: Acute Code(s): S31.30XA - UNSPECIFIED OPEN WOUND OF SCROTUM AND TESTES, INIT ENCNTR SNOMED Code(s): 144311435 (2) Scrotal abscess Current Visit: Yes Status: Acute Code(s): N49.2 - INFLAMMATORY DISORDERS OF SCROTUM SNOMED Code(s): 21006886 Plan: 1patient with a recent admission to the hospital with left scrotal abscess in this patient status post surgical drainage x2 culture positive for MSSA anaerobe culture were negative patient was advised IV cefazolin with the patient was receiving at home now presenting to the hospital with wound splitting open patient on presentation to the hospital was afebrile did have elevated white count noticed to have some erythema , patient has been evaluated by urology recommending no surgical drainage 2-we will continue patient on cefazolin 2 g every 8 hours 3We will switch local wound care to dry Aquacel silver dressing and the patient continued to improve hopefully discharge home in the morning as per discussion with the admitting physician Time with Patient: Less than 30
[2023-02-07 12:47] LABS: Glucose,Whole Blood 154 mg/dL (70-110)
--- NOTE | 2023-02-07 14:24 | P.PN ---
Subjective Progress Note Date: 02/07/23 patient is a 52-year-old gentleman with past medical history significant for insulin-dependent diabetes mellitus, hypertension, scrotal abscess who presented to the ER because of worsening scrotal pain. Patient was recently hospitalized and had 2 I&D's for scrotal abscesses performed by urology. Patient was on IV cefazolin. Patient had 2 incisions near his peritoneum which were healing. Patient noticed new wound on his scrotal area and was draining. It was associated with worsening scrotal pain. Patient denied any fever or chills. There was no complain of lethargy or weakness. Patient had a bit of chest pain or shortness of breath. Because his worsening scrotal pain patient came to the ER Initial lab work done in the ER showed white count 13.7, hemoglobin 13.5, platelet count 4.3, sodium 141, potassium 4.2, BUN 10, creatinine 0.56, Patient was admitted for further evaluation and treatment 02/07. Patient seen and examined. Complaining of diarrhea this morning. Patient was stool softeners, will DC them. REVIEW OF SYSTEMS: CONSTITUTIONAL: No fever, no malaise,. CARDIOVASCULAR: No chest pain, no palpitations, no syncope. PULMONARY: No shortness of breath, no cough, GASTROINTESTINAL: no nausea, no vomiting, no abdominal pain. NEUROLOGICAL: No headaches, no weakness, PHYSICAL EXAMINATION: GENERAL: The patient is alert and oriented x3, not in any acute distress. Well developed, well nourished. HEENT: Pupils are round and equally reacting to light. EOMI. No scleral icterus. No conjunctival pallor. Normocephalic, atraumatic. No pharyngeal erythema. No thyromegaly. CARDIOVASCULAR: S1 and S2 present. No murmurs, rubs, or gallops. PULMONARY: Chest is clear to auscultation, no wheezing or crackles. ABDOMEN: Soft, nontender, nondistended, normoactive bowel sounds. No palpable organomegaly. MUSCULOSKELETAL: No joint swelling or deformity. EXTREMITIES: No cyanosis, clubbing, or pedal edema. NEUROLOGICAL: Gross neurological examination did not reveal any focal deficits. SKIN: Scrotal wound seen, no erythema Assessment and plan Scrotal pain Scrotal wound History of Scrotal abscess Hypertension Diabetes mellitus Monitor vital signs Monitor CBC Monitor CMP DC stool softeners Continue IV cefazolin Continue wound care Follow-up in [facility] Follow-up on urology checks Objective - Vital Signs Vital signs: Vital Signs Temp 98.2 F 02/07/23 14:06 Pulse 107 H 02/07/23 14:06 Resp 14 02/07/23 14:06 BP 145/86 02/07/23 14:06 Pulse Ox 97 02/07/23 14:06 FiO2 Intake & Output 02/06/23 02/07/23 02/07/23 18:59 06:59 18:59 Intake Total 236 180 Balance 236 180 Weight 111.13 kg Intake: Oral 236 180 Other: Voiding Method Toilet Toilet Toilet # Voids 1 2 1 # Bowel Movements 1 - Labs CBC & Chem 7: 02/07/23 05:35 02/07/23 05:35 Labs: Abnormal Lab Results - Last 24 Hours (Table) 02/06/23 02/06/23 02/07/23 Range/Units 17:40 20:24 05:35 WBC 10.45 H (4.50-10.00) X 10*3/uL MCHC 31.5 L (32.0-37.0) g/dL MPV 9.1 L (9.5-12.2) fL Immature Gran # 0.08 H (0.00-0.04) X 10*3/uL Monocytes # 1.10 H (0.20-1.00) X 10*3/uL Eosinophils # 0.56 H (0.04-0.35) X 10*3/uL BUN (9.0-27.0) mg/dL BUN/Creatinine Ratio (12.00-20.00) Ratio Glucose (70-110) mg/dL POC Glucose (mg/dL) 152 H 159 H (70-110) mg/dL 02/07/23 02/07/23 02/07/23 Range/Units 05:35 07:07 12:46 WBC (4.50-10.00) X 10*3/uL MCHC (32.0-37.0) g/dL MPV (9.5-12.2) fL Immature Gran # (0.00-0.04) X 10*3/uL Monocytes # (0.20-1.00) X 10*3/uL Eosinophils # (0.04-0.35) X 10*3/uL BUN 7.8 L (9.0-27.0) mg/dL BUN/Creatinine Ratio 11.14 L (12.00-20.00) Ratio Glucose 129 H (70-110) mg/dL POC Glucose (mg/dL) 137 H 154 H (70-110) mg/dL
[2023-02-07 17:41] LABS: Glucose,Whole Blood 178 mg/dL (70-110)
[2023-02-07 20:21] LABS: Glucose,Whole Blood 180 mg/dL (70-110)
[2023-02-07] MEDS: INSULIN DETEMIR (LEVEMIR) 100 UNIT/ML SYR SQ SCH (20:50)
[2023-02-08] MEDS: MORPHINE SULFATE 4 MG/ML SYRINGE IV PRN ×2 (00:48→05:42)
[2023-02-08] MEDS: INSULIN ASPART (NovoLOG) 100 UNIT/ML VIAL SQ SCH (05:45)
[2023-02-08 05:46] LABS: Glucose,Whole Blood 137 mg/dL (70-110)
[2023-02-08] MEDS: LOSARTAN 50 MG TAB PO SCH (07:56)
[2023-02-08] MEDS: FAMOTIDINE 20 MG TAB PO SCH (07:56)
[2023-02-08] MEDS: TAMSULOSIN 0.4 MG CAP.ER.24H PO SCH (07:56)
[2023-02-08] MEDS: NICOTINE 21MG/24HR PATCH TRANSDERM SCH (07:56)
[2023-02-08] MEDS: HYDROcodone/APAP 5-325MG 1 EACH TAB PO PRN (08:06)
[2023-02-08 12:19] VITALS: BMI 29.8
[2023-02-08 14:06] VITALS: BP 142/74; PULSE 93; RESP 16; TEMP 98.1
--- NOTE | 2023-02-08 15:17 | P.PN ---
Subjective Progress Note Date: 02/08/23 Principal diagnosis: Left scrotal abscess and cellulitis Patient is a 52-year-old male with a past medical his significant for diabetes mellitus with recent admission to the hospital with a left scrotal abscess in this patient who is status post surgical drainage x2 on the second time culture did grew MSSA patient patient presented to the hospital concerning for spreading opening of his left lateral scrotal wound, also complaining of increasing erythema and swelling. Patient evaluated by urology recommending no surgical intervention On today's evaluation that is 02/08/2023, the patient remains to be afebrile, the patient is breathing comfortably on room air patient denies having any chest pain shortness of breath or cough, the patient left scrotal swelling and pain has decreased no nausea no vomiting and no diarrhea Objective - Vital Signs Vital signs: Vital Signs Temp 98.4 F 02/08/23 07:05 Pulse 80 02/08/23 07:05 Resp 18 02/08/23 07:41 BP 161/88 02/08/23 07:05 Pulse Ox 95 02/08/23 07:05 FiO2 Intake & Output 02/07/23 02/08/23 02/08/23 18:59 06:59 18:59 Intake Total 360 240 Balance 360 240 Weight 111.13 kg Intake: Oral 360 240 Other: Voiding Method Toilet Toilet Toilet # Voids 1 1 - Exam GENERAL DESCRIPTION: Middle-age male lying in bed in no distress RESPIRATORY SYSTEM: Unlabored breathing , decreased breath sounds at bases HEART: S1 S2 regular rate and rhythm , ABDOMEN: Soft , no tenderness : Left scrotal swelling and redness has decreased in intensity no drainage EXTREMITIES: No edema feet - Labs CBC & Chem 7: 02/07/23 05:35 02/07/23 05:35 Labs: Abnormal Lab Results - Last 24 Hours (Table) 02/07/23 02/07/23 02/07/23 Range/Units 05:35 17:40 20:19 POC Glucose (mg/dL) 178 H 180 H (70-110) mg/dL Hemoglobin A1c 9.5 H (0.0-6.0) % 02/08/23 Range/Units 05:45 POC Glucose (mg/dL) 137 H (70-110) mg/dL Hemoglobin A1c (0.0-6.0) % Microbiology - Last 24 Hours (Table) 02/06/23 04:45 Blood Culture - Preliminary Blood 02/06/23 04:30 Blood Culture - Preliminary Blood Assessment and Plan (1) Open wound of scrotum Status: Acute Code(s): S31.30XA - UNSPECIFIED OPEN WOUND OF SCROTUM AND TESTES, INIT ENCNTR SNOMED Code(s): 180482287 (2) Scrotal abscess Status: Acute Code(s): N49.2 - INFLAMMATORY DISORDERS OF SCROTUM SNOMED Code(s): 82335858 Plan: 1patient with a recent admission to the hospital with left scrotal abscess in this patient status post surgical drainage x2 culture positive for MSSA anaerobe culture were negative patient was advised IV cefazolin with the patient was receiving at home now presenting to the hospital with wound splitting open patient on presentation to the hospital was afebrile did have elevated white count noticed to have some erythema , patient has been evaluated by urology recommending no surgical drainage 2-We will continue local wound care to dry Aquacel silver dressing 3patient will continue patient on cefazolin 2 g every 8 hours 10 days on discharge and close outpatient follow-up Time with Patient: Less than 30
--- NOTE | 2023-02-08 21:01 | P.PN ---
Subjective Progress Note Date: 02/08/23 No acute overnight events, erythema improved this morning. Objective - Vital Signs Vital signs: Vital Signs Temp 98.1 F 02/08/23 14:06 Pulse 93 02/08/23 14:06 Resp 16 02/08/23 14:06 BP 142/74 02/08/23 14:06 Pulse Ox 96 02/08/23 14:06 FiO2 Intake & Output 02/08/23 02/08/23 02/09/23 06:59 18:59 06:59 Intake Total 358 Balance 358 Weight 111.13 kg Intake: Oral 358 Other: Voiding Method Toilet Toilet # Voids 1 2 - Constitutional General appearance: Present: no acute distress - Genitourinary Genitourinary Comment(s): open left scrotal wound, no purulent drainage or fluctance appreciated - Labs CBC & Chem 7: 02/07/23 05:35 02/07/23 05:35 Labs: Abnormal Lab Results - Last 24 Hours (Table) 02/08/23 Range/Units 05:45 POC Glucose (mg/dL) 137 H (70-110) mg/dL Microbiology - Last 24 Hours (Table) 02/06/23 04:45 Blood Culture - Preliminary Blood 02/06/23 04:30 Blood Culture - Preliminary Blood Assessment and Plan Assessment: 52 yo male with hx of left scortal cellulitis/abscess underwent I&D on 01/20 and 01/27 presents to the hospital with scrotal skin dehiscence along the left anterior scrotum. The dartos is intact, testicle still within the scrotal cavity. no evidence of drainable abscess on exam, examined. Today, white count is trending down -Continue local wound care -He is okay for discharge from urology standpoint, can follow-up as an outpatient in 1-2 weeks
== END 2023-02-08 14:53 | disposition home health service (06) ==
LOC: EC 03:52 → 6NMEDSUR 06:11
PROVIDERS: ADMIT Hospitalist; ATTEND Hospitalist
DX: T81.31XA Disruption of external operation (surgical) wound, not elsewhere classified, initial encounter (principal); N49.2 Inflammatory disorders of scrotum; N43.3 Hydrocele, unspecified; R19.7 Diarrhea, unspecified; I10 Essential (primary) hypertension; E11.9 Type 2 diabetes mellitus without complications; E78.5 Hyperlipidemia, unspecified; M79.7 Fibromyalgia; R07.89 Other chest pain; R06.02 Shortness of breath; L40.9 Psoriasis, unspecified; F32.A Depression, unspecified; F17.200 Nicotine dependence, unspecified, uncomplicated; Z79.4 Long term (current) use of insulin; Z79.899 Other long term (current) drug therapy; Z91.030 Bee allergy status; Z86.19 Personal history of other infectious and parasitic diseases; Z91.018 Allergy to other foods; Z89.021 Acquired absence of right finger(s); Z98.890 Other specified postprocedural states; Z82.49 Family history of ischemic heart disease and other diseases of the circulatory system
CPT/HCPCS: 96376 ×4; 96366 ×3; 96365; 96375; 99284; 36415; 80053; 80048; 83605; 85025 ×2; 87040; 83036; G0378 ×3; S4990 ×2; J2270 ×3; J0690 ×3; J2405

== ENCOUNTER 2023-09-26 12:51 | Emergency (ER) | payer BC ==
[2023-09-26 13:28] VITALS: BP 120/78; PULSE 95; RESP 20; TEMP 99.1
[2023-09-26] MEDS ORDERED: LIDOCAINE 2%-EPI 1:100,000 20 ML VIAL SQ STA (13:30)
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
[2023-09-26] MEDS ORDERED: ACET/COD 300 MG/30 MG STARTER PACK 6 TAB BTL PO STA (14:25)
== END 2023-09-26 14:30 | disposition home or self-care (01) ==
LOC: EC 12:51
DX: L02.31 Cutaneous abscess of buttock (principal); E11.9 Type 2 diabetes mellitus without complications; I10 Essential (primary) hypertension; F17.200 Nicotine dependence, unspecified, uncomplicated; Z91.030 Bee allergy status; Z91.018 Allergy to other foods
CPT/HCPCS: 10060; 99283

== ENCOUNTER 2024-04-29 21:30 | Emergency (ER) | payer BC ==
[~2024-04-29 21:30] MED LIST: LIDOCAINE 1%/EPI 1:200,000 MPF 10 ML VIAL ONE
== END 2024-04-30 00:35 | disposition home or self-care (01) ==
LOC: EC 21:30
DX: L02.31 Cutaneous abscess of buttock (principal)
CPT/HCPCS: 10060; 99282

== ENCOUNTER 2024-05-04 13:56 | Emergency (ER) | payer BC ==
[2024-05-04] MEDS ORDERED: HYDROmorphone 0.5 MG/0.5 ML SYRINGE ONE (14:55)
[2024-05-04] MEDS ORDERED: ONDANSETRON 4 MG/2 ML VIAL ONE (14:55)
[2024-05-04] MEDS ORDERED: SODIUM CHLORIDE 0.9% 1,000 ML BAG ONE (15:00)
[2024-05-04] MEDS ORDERED: MORPHINE SULFATE 4 MG/ML SYRINGE ONE (18:24)
--- NOTE | 2024-05-27 17:14 | CT ---
Patient Alhaji Ricardo ID [id number] Order # EXAMINATION TYPE: CT abdomen pelvis w con DATE OF EXAM: 05/04/2024 COMPARISON: No comparison available on downtime PACS. INDICATION: Abdominal pain x1 month DLP: 994.9 mGycm, Automated exposure control for dose reduction was used. CONTRAST: 100 mL of Isovue 300. Study performed without Oral Contrast TECHNIQUE: Axial images were obtained from above the diaphragm to the pubic rami in the axial plane a t 5 mm thick sections. Reconstructed images are reviewed on the computer in the coronal plane. FINDINGS: Limited CT sections are obtained the lung bases. The lung bases are clear. CT ABDOMEN: Liver: There are multiple scattered hypodensities with ill-defined margins throughout the left and ri ght lobes liver. The largest in lateral right lobe liver measures 6.0 x 6.7 cm. Findings are suspicio us for multiple metastatic lesions. Spleen: Normal Pancreas: May be a subtle 2.3 cm mass within the body of the pancreas. There is dilated pancreatic du ct in the distal body and tail of the pancreas Adrenal glands: The adrenal glands are normal. Gallbladder: Gallstone is present. Kidneys: No masses are evident. No hydronephrosis is present. There is a 2.1 cm cyst superior anter ior right kidney Delayed images were obtained through the kidneys. Aorta: Vascular calcification is within the aorta. Inferior vena cava: Normal. CT PELVIS: Loops of bowel within the abdomen and pelvis are normal. This study is lateral contrast limiting bowel evaluation. Appendix: Normal as visualized. Urinary bladder: Distended Genitourinary structures: Prostate is very large. Osseous structures: No suspicious lytic or sclerotic lesions. Couple of small bone islands may be wit hin the femoral heads. There are additional punctate densities within the right and left iliac wings. There is a punctate hyperdensity within the right superior L3 vertebral body. Small metastatic lesio ns are not entirely excluded. IMPRESSION: 1. Suspected hypodense mass within the posterior body of the pancreas causing distal pancreatic duct dilatation. 2. Multiple hypodense masses within the liver suspicious for metastatic disease. 3. Not appear to be small hyperdense bone islands within the pelvis discussed above. Differential cou ld include early sclerotic metastasis. 4. Enlarged prostate.
== END 2024-05-04 18:35 ==
LOC: EC 13:56
CPT/HCPCS: 74177; 96361; 96374; 96375; 99284; 99285